=== PATIENT | female | born 1985 | race African-American/Black ===

== ENCOUNTER 2017-08-19 22:00 | Inpatient (IN) | payer OTHER ==
--- OUTSIDE RECORDS SUMMARY | 2017-08-19 22:03 | XMS | Clinical Summary ---
:1985 Author Organization [facility] Address [address] [place] [address] Phone Care Team Providers Name Role Phone Bran Mcginnis Primary Care Provider tel Allergies No Known Allergies Current Medications Prescription Sig. Disp. Refills Start Date End Date Status carvedilol (COREG) 25 Take 12.5 mg by mouth Active MG tablet 2 (two) times a day with meals. hydrALAZINE Take 100 mg by mouth Active (APRESOLINE) 100 MG 3 (three) times a tablet day. NIFEdipine CC (ADALAT Take 90 mg by mouth Active CC) 60 MG 24 hr tablet daily. lisinopril Take 20 mg by mouth 2 Active (PRINIVIL,ZESTRIL) 10 (two) times a day. mg tablet sevelamer (RENVELA) 800 Take 1,600 mg by Active mg tablet mouth 2 (two) times a day before meals. insulin GLARGINE Inject 12 Units under Active (LANTUS) 100 unit/mL the skin 2 (two) injection (vial) times a day. insulin lispro Inject under the skin Active (HumaLOG) 100 unit/mL 3 (three) times a day injection before meals. Per sliding scale. atropine 1 % ophthalmic Administer 1 drop to Active solution the right eye 2 (two) times a day. brimonidine-timolol Administer 1 drop to Active (COMBIGAN) 0.2-0.5 % both eyes every 12 ophthalmic solution (twelve) hours. prednisoLONE acetate Administer 1 drop to Active (PRED FORTE) 1 % the right eye 2 (two) ophthalmic suspension times a day. dorzolamide (TRUSOPT) 2 Administer 1 drop to Active % ophthalmic solution the right eye 2 (two) times a day. Active Problems Problem Noted Date ESRD (end stage renal disease) on dialysis 07/05/2017 Hypertension 07/05/2017 Overview: age 22 Type 1 diabetes mellitus 05/22/2017 Encounters Date Type Specialty Care Team Description 08/17/2017 Documentation Transplant SEBASTIAN Caba RN 08/14/2017 Hospital Encounter Procedural Omari Wills, Abnormal stress test Cardiology 08/14/2017 Procedure Pass Procedural Cardiology 08/14/2017 Surgery Procedural AttOmari wynn, Cv left heart cath w Cardiology MD lv gram cors [25054 (CPT)] 08/07/2017 Lab Lab Jesus Griffin MD End stage renal disease (Primary Dx);Preop examination 08/01/2017 Documentation Transplant Barb Hernandez LCSW 07/19/2017 Hospital Encounter Radiology Jovan Alarcon End stage renal MD Patel disease;Type 1 diabetes mellitus with complication 07/19/2017 Hospital Encounter Procedural Jovan Alarcon stage renal Cardiology MD Patel disease;Type 1 diabetes mellitus with complication 07/19/2017 Hospital Encounter Radiology Jovan Alarcon stage renal MD Patel disease;Type 1 diabetes mellitus with complication 07/19/2017 Hospital Encounter Transplant Jovan Alarcon End stage renal MD Patel disease;Type 1 diabetes mellitus with complication 07/19/2017 Telephone Transplant Krupa Farrar MA Appointment Inquiry 07/19/2017 Telephone Transplant Dustin, Speak to Charge RASHI Ying Nurse 07/06/2017 Documentation Transplant George, Consent Forms [place] (Scanned Consent For Kidney/Pancreas Transplant Evaluation, Pre Txp Education & LYNN forms in Media. 07-05-2017 ) 07/05/2017 Hospital Encounter Transplant Jovan Alarcon Type 1 steven Sweeney MD mellitus with chronic kidney disease on chronic dialysis (Primary Dx);Essential hypertension;ESRD (end stage renal disease) on dialysis 07/05/2017 Hospital Encounter Transplant Jovan Alarcon MD 07/05/2017 Hospital Encounter Transplant Jovan Alarcon MD Guerrero, Alex 07/05/2017 Hospital Encounter Transplant Jovan Alarcon MD 07/05/2017 Hospital Encounter Transplant Jovan Alarcon MD 07/05/2017 Hospital Encounter Transplant Jovan Alarcon 1 steven Sweeney MD mellitus with complication;End stage renal disease 07/05/2017 Orders Only Transplant Gertrudis End stage renal UVALDO Day disease (Primary Dx);Type 1 diabetes mellitus with complication 06/26/2017 Orders Only Transplant Gertrudis, End stage renal UVALDO Day disease (Primary Dx);Type 1 diabetes mellitus with complication 2017 Hospital Encounter Transplant Jovan Alarcon Canceled (Patient) MD Cale Sweeney Alex 2017 Hospital Encounter Transplant Jovan Alarcon Canceled (Patient) MD Patel 2017 Hospital Encounter Transplant Jovan Alarcon Canceled (Patient) MD Patel 2017 Hospital Encounter Transplant Jovan Alarcon Canceled (Patient) MD Patel 2017 Hospital Encounter Transplant Jovan Alarcon Canceled (Patient) MD Patel 06/13/2017 Telephone Transplant Dustin R/S Appt RASHI Ying 06/11/2017 Documentation Transplant CaleHuey TXP - [facility] COMM - RENAL/PANCREAS EVAL APPRVL 05/22/2017 Telephone Transplant Faith Desai Order Dilip Meredith MA 05/22/2017 Orders Only Transplant Gertrudis, End stage renal UVALDO Day disease (Primary Dx);Type 1 diabetes mellitus with complication 05/22/2017 Telephone Transplant Vandana Collazo MA Referral - Kidney/Pancreas Txp from Last 3 Months Family History Medical History Relation Name Comments Diabetes Maternal Grandfather Diabetes Maternal Grandmother Relation Name Status Comments Maternal Grandfather Maternal Grandmother Social History Tobacco Use Types Packs/Day Years Used Date Never Smoker Smokeless Tobacco: Never Used Alcohol Use Drinks/Week oz/Week Comments No Sex Assigned at Date Recorded Not on file Last Filed Vital Signs Vital Sign Reading Time Taken Blood Pressure 154/94 08/14/2017 11:30 PM CDT Pulse 73 08/14/2017 11:30 PM CDT Temperature 36.2 C (97.2 F) 08/14/2017 7:38 PM CDT Respiratory Rate 19 08/14/2017 11:30 PM CDT Oxygen Saturation 100% 08/14/2017 11:30 PM CDT Inhaled Oxygen Concentration - - Weight 61.2 kg (135 lb) 08/14/2017 3:29 PM CDT Height 162.6 cm (5' 4") 08/14/2017 3:29 PM CDT Body Mass Index 23.17 08/14/2017 3:29 PM CDT Plan of Treatment Health Maintenance Due Date Last Done Comments FOOT EXAM 1994 OPHTHALMOLOGY EXAM 1994 URINE MICROALBUMIN 1994 INFLUENZA VACCINE 05/22/2017 PAP SMEAR 07/19/2020 07/19/2017 Procedures Procedure Name Priority Date/Time Associated Comments Diagnosis CV LEFT HEART CATH Routine 08/14/2017 7:23 PM Abnormal stress Results for this LV GRAM WITH CORS CDT test procedure are in theresults section. from Last 3 Months Results Potassium level (08/14/2017 7:50 PM) Component Value Ref Range Potassium 5.2(H) 3.5 - 5.0 mEq/L Specimen Performing Laboratory Plasma specimen [facility] DEPARTMENT OF PATHOLOGY AND GENOMIC MEDICINE [address] [place] [phone] POC glucose (08/14/2017 7:49 PM)Only the most recent of2 resultswithin the time period is included. Component Value Ref Range POC glucose 154(H) 65 - 99 mg/dL Comment: Meter ID: [id number] Tool Design Drafter: Rikki Jenkins Specimen Performing Laboratory [facility] DEPARTMENT OF PATHOLOGY AND GENOMIC MEDICINE [address] [place] [phone] Cv wheelabrator operator procedure (08/14/2017 7:23 PM) Component Value Ref Range Cath EF Estimated 53 % Specimen Performing Laboratory [address] [address] Narrative Selective coronary arteriography left ventriculography via right groin without complications. Coronary arteries were normal. There is no gradient across the aortic valve and no mitral valve insufficiency. Left ventricular end-diastolic pressure was 14 mmHg. Partial thromboplastin time, activated (08/14/2017 4:30 PM)Only the most recent of2 resultswithin the time period is included. Component Value Ref Range PTT 32.2 23.0 - 36.0 sec Comment: PTT therapeutic range for unfractionated heparin is 61.0-112.0 seconds which corresponds to Anti-Xa 0.3-0.7 U/ml. Specimen Performing Laboratory Blood [facility] DEPARTMENT OF PATHOLOGY AND GENOMIC MEDICINE [address] [place] [phone] Prothrombin time with INR (08/14/2017 4:30 PM)Only the most recent of2 resultswithin the time period is included. Component Value Ref Range Prothrombin time 13.9 12.0 - 15.0 sec INR 1.1 Comment: The International Normalized Ratio (INR) is a therapeutic monitoring tool for patients who are stable on oral anticoagulant therapy. An INR of 2.0-3.0 is suggested for deep vein thrombosis/pulmonary embolism. Specimen Performing Laboratory Blood [facility] DEPARTMENT OF PATHOLOGY [facility] [address] [place] [id number] CBC with platelet and differential (08/14/2017 4:30 PM)Only the most recent of2 resultswithin the time period is included. Component Value Ref Range WBC 4.57 4.50 - 11.00 k/uL RBC 3.45(L) 4.20 - 5.50 m/uL HGB 11.2(L) 12.0 - 16.0 g/dL HCT 34.2(L) 37.0 - 47.0 % MCV 99.1 82.0 - 100.0 fL MCH 32.5 27.0 - 34.0 pg MCHC 32.7 31.0 - 37.0 g/dL RDW - SD 48.9 37.0 - 55.0 fL MPV 9.9 8.8 - 13.2 fL Platelet count 221 150 - 400 k/uL Nucleated RBC 0.00 /100 WBC Neutrophils 54.1 39.0 - 69.0 % Lymphocytes 30.6 25.0 - 45.0 % Monocytes 8.8 0.0 - 10.0 % Eosinophils 5.9(H) 0.0 - 5.0 % Basophils 0.4 0.0 - 1.0 % Immature granulocytes 0.2Comment:"Immature granulocytes" 0.0 - 1.0 % (promyelocytes, myelocytes, metamyelocytes) Specimen Performing Laboratory Blood [facility] DEPARTMENT OF PATHOLOGY AND [facility] [address] [place] [address] Estimated GFR (08/14/2017 3:19 PM)Only the most recent of3 resultswithin the time period is included. Component Value Ref Range GFR Non Af Amer 7(A) mL/min/1.73 m2 GFR Af Amer 8(A) mL/min/1.73 m2 Comment: Chronic kidney disease: <60 mL/min/1.73m2 Kidney failure: <15 mL/min/1.73m2 The estimated GFR is calculated from the IDMS-traceable Modification of Diet in Renal Disease Equation. The accuracy of the calculation is poor when the creatinine is normal. Calculated values >90 mL/min/1.73m2 are not reported. This equation has not been validated in children (<18 years), women, the elderly (>70 years), or ethnic groups other than Caucasians and Americans. Specimen Performing Laboratory Plasma specimen [facility] DEPARTMENT OF PATHOLOGY AND GENOMIC MEDICINE [address] [place] [phone] Basic metabolic panel (08/14/2017 3:19 PM) Component Value Ref Range Sodium 137 135 - 148 mEq/L Potassium 5.7(H) 3.5 - 5.0 mEq/L Chloride 91(L) 98 - 112 mEq/L CO2 26 24 - 31 mEq/L Anion gap 20(H) 7 - 15 mEq/L Comment: Starting from January , anion gap calculation no longer incorporates potassium. Please note the change. BUN 45(H) 6 - 20 mg/dL Creatinine 7.2(H) 0.5 - 0.9 mg/dL Glucose 328(H) 65 - 99 mg/dL Calcium 8.9 8.3 - 10.2 mg/dL Specimen Performing Laboratory Plasma specimen [facility] DEPARTMENT OF PATHOLOGY [facility] [address] [place] [address] Urinalysis, automated with microscopy (08/07/2017 4:42 PM) Component Value Ref Range Color, UA Straw Appearance, UA Clear Specific gravity, UA 1.009 1.001 - 1.035 pH, UA 9.0 5.0 - 8.5 Protein, UA 3+(A) Negative Glucose, UA 3+(A) Negative Ketones, UA Negative Negative Bilirubin, UA Negative Negative Blood, UA Negative Negative Nitrite, UA Negative Negative Urobilinogen, UA <2.0 <2.0 Leukocyte esterase, UA Negative Negative Epithelial cells, UA 4 /HPF WBC, UA 3 0 - 4 /HPF RBC, UA 1 0 - 2 /HPF Bacteria, UA Few None seen Hyaline casts, UA 1 /LPF Yeast, UA None seen Yeast with pseudohyphae, UA None seen Specimen Performing Laboratory Urine [facility] DEPARTMENT OF [facility]OLOGY [facility] [address] [place] [address] PV carotid duplex - Bilateral (07/19/2017 9:21 AM) Specimen Performing Laboratory [facility] [address] [place] [address] Narrative Vascular Ultrasound Laboratory Carotid Artery Duplex Report [address] [place] [address] [address] For quality systems engineer purposes, the categorization of the degree of the stenosis of this exam is based on criteria described in the IAC carotid stenosis grading white paper( www.intersocietal.org/Vascular) and Debra Caruso., Js Vargas., et al. Carotid artery stenosis: armas-scale and Doppler US diagnosis--Society of Radiologists in Ultrasound Consensus Conference. Radiology. 2003 Nov; 229(2):340-6. Pat.Name:JOSEPH CORDERO Pat.ID:[id number] .Date: 07/19/2017 Refer.MD:JOVAN ALARCON MD Exam Time: 8:58:00 AMStudy Type:Carotid DOBAge:1985,32Y Sex: FEMALE Sonogrphr: Rolo Callahan. Stat.:Outpatient TapeVol: [place], CPT - 4: 76672 Echo Event ID:[id number] Order ID:[id number] Reason for Study:Pre-operative cardiovascular exam for kidney pancreas transplant evaluation. History of ESRD status post AV fistula creation, hypertension and diabetes. Race:B SUMMARY: PHYSICAL ASSESSMENT BloodPulsesCarotid Pressure Carotid TemporalBruit Right 196/118 ++0 Left AV fistula ++0 CAROTID ARTERY SCAN RIGHT:There is smooth intimal lining in the common carotid ,bulb, internal and external carotid artery. Colorflow is normal. The mid to distal internal carotid artery is not visualized due to high carotid bifurcation. LEFT: There is smooth intimal lining in the common carotid ,bulb, internal and external carotid artery. Colorflow is normal. The distal internal carotid artery is tortuous. PRELIMINARY FINDINGS 1. Normal carotid duplex exam. 2. The right mid to distal internal carotid artery is not visualized due to high carotid bifurcation. 3. The left distal internal carotid artery is tortuous. PHYSICIAN INTERPRETATION 1.Bilateral carotid artery examination demonstrates no evidence of plaque or occlusive disease. Carotid Findings:RightLeft Verteb.Flw AntegradeAntegrade Subclavian TriphasicDisturbed MEASUREMENTS: DOPPLER Left CCA Dist CCA Dist PSV73.5 cm/sCCA Dist EDV18.1 cm/s Left CCA Mid CCA Mid PSV 92.7 cm/sCCA Mid EDV 20.4 cm/s Left CCA Prox CCA Prox PSV 129 cm/sCCA Prox EDV16.7 cm/s Left ICA Dist ICA Dist PSV 112 cm/Annie Dist EDV37.5 cm/s Left ICA Mid ICA Mid PSV 97.4 cm/Annie Mid EDV 43.2 cm/s Left ICA Prox ICA Prox PSV82.2 cm/Annie Prox EDV39.3 cm/s Left ECA Prox ECA Prox PSV59 cm/sECA Prox EDV9.52 cm/ s Left Vertebral Vertebral DAG070 cm/sVertebral EDV 28.5 cm/s Right CCA Dist CCA Dist PSV68.7 cm/sCCA Dist EDV15.2 cm/s Right CCA Mid CCA Mid PSV 83.8 cm/sCCA Mid EDV 15.8 cm/s Right CCA Prox CCA Prox PSV 100 cm/sCCA Prox EDV14.8 cm/s Right ECA Prox ECA Prox PSV54.6 cm/sECA Prox EDV10.3 cm/s Right ICA Prox ICA Prox PSV67.5 cm/Annie Prox EDV27.6 cm/s Right Vertebral Vertebral PSV 76.8 cm/sVertebral EDV 24 cm/s Right ICA/CCA Ratio ICA/CCA PSV0.805 Left ICA/CCA Ratio ICA/CCA PSV0.887 Signed 07/19/2017 01:24 PM Jacob Vazquez MD Procedure Note Interface, Radiology Results In - 07/19/2017 1:25 PM CDT Vascular Ultrasound Laboratory Carotid Artery Duplex Report [address] [place] [address] For quality systems engineer purposes, the categorization of the degree of thestenosis of this exam is based on criteria described in the IAC carotidstenosis grading white paper( www.intersocietal.org/Vascular) and Debra Caruso., Js Vargas., et al. Carotid artery stenosis: armas-scale and Doppler US diagnosis--Society ofRadiologists in Ultrasound Consensus Conference. Radiology. 2003 Aug;229(2):340-6. Pat.Name: JOSEPH CORDERO.ID: [id number] .Date: 07/19/2017 Refer.MD: JOVAN ALARCON MD Exam Time: 8:58:00 AM Study Type:Carotid Age: 7 1985,32Y Sex: FEMALE Sonogrphr: Mera Cantrell RVT Pat. Stat.:Outpatient Tape Vol: [place], CPT - 4: 05002 Echo Event ID:[id number] Order ID: [id number] Reason for Study:Pre-operative cardiovascular exam for kidney pancreas transplant evaluation. History of ESRD status post AV fistula creation, hypertension and diabetes. Race: B SUMMARY: PHYSICAL ASSESSMENT Blood Pulses Carotid Pressure Carotid Temporal Bruit Right 196/118 + + 0 Left AV fistula + + 0 CAROTID ARTERY SCAN RIGHT: There is smooth intimal lining in the common carotid ,bulb, internal and external carotid artery. Colorflow is normal. The mid to distal internal carotid artery is not visualized due to high carotid bifurcation. LEFT: There is smooth intimal lining in the common carotid ,bulb, internal and external carotid artery. Colorflow is normal. The distal internal carotid artery is tortuous. PRELIMINARY FINDINGS 1. Normal carotid duplex exam. 2. The right mid to distal internal carotid artery is not visualized due to high carotid bifurcation. 3. The left distal internal carotid artery is tortuous. PHYSICIAN INTERPRETATION 1. Bilateral carotid artery examination demonstrates no evidence of plaque or occlusive disease. Carotid Findings: Right Left Verteb.Flw Antegrade Antegrade Subclavian Triphasic Disturbed MEASUREMENTS: DOPPLER Left CCA Dist CCA Dist PSV 73.5 cm/s CCA Dist EDV 18.1 cm/s Left CCA Mid CCA Mid PSV 92.7 cm/s CCA Mid EDV 20.4 cm/s Left CCA Prox CCA Prox PSV 129 cm/s CCA Prox EDV 16.7 cm/s Left ICA Dist ICA Dist PSV 112 cm/s ICA Dist EDV 37.5 cm/s Left ICA Mid ICA Mid PSV 97.4 cm/s ICA Mid EDV 43.2 cm/s Left ICA Prox ICA Prox PSV 82.2 cm/s ICA Prox EDV 39.3 cm/s Left ECA Prox ECA Prox PSV 59 cm/s ECA Prox EDV 9.52 cm/s Left Vertebral Vertebral PSV 104 cm/s Vertebral EDV 28.5 cm/s Right CCA Dist CCA Dist PSV 68.7 cm/s CCA Dist EDV 15.2 cm/s Right CCA Mid CCA Mid PSV 83.8 cm/s CCA Mid EDV 15.8 cm/s Right CCA Prox CCA Prox PSV 100 cm/s CCA Prox EDV 14.8 cm/s Right ECA Prox ECA Prox PSV 54.6 cm/s ECA Prox EDV 10.3 cm/s Right ICA Prox ICA Prox PSV 67.5 cm/s ICA Prox EDV 27.6 cm/s Right Vertebral Vertebral PSV 76.8 cm/s Vertebral EDV 24 cm/s Right ICA/CCA Ratio ICA/CCA PSV 0.805 Left ICA/CCA Ratio ICA/CCA PSV 0.887 Signed 07/19/2017 01:24 PM Jacob Vazquez MD CTA Abdomen Pelvis W And Or Wo Contrast (07/19/2017 8:50 AM) Specimen Performing Laboratory [facility] [address] [place] [address] Narrative Examination:CT ANGIOGRAM ABDOMEN PELVIS W AND OR WO CONTRAST Clinical history:"N18.6 End stage renal disease, E10.8 Type 1 diabetes mellitus with unspecified complications, pre kidney pancreas transplantATTN to illiac vessels" Comparison:There are no prior studies for comparison. Technique:Multiple CT angiographic images of the abdomen and pelvis were obtained during intravenous administration of iodinated contrast.Multiple computerized, reformatted images and 3-D volume rendered images were obtained and archived. CT scans are performed using radiation dose reduction techniques.Technical factors are evaluated and adjusted to ensure appropriate moderation of exposure.Automated dose management technologyis applied to adjust radiation exposure while achieving a diagnostic quality image. IMPRESSION: Vasculature:The bilateral iliac arterial anatomy is unremarkable.Specifically, the bilateral common, external, and internal iliac arteries are relatively free of significant atherosclerosis and are widely patent.The right and left common iliac arteries measure 10 and 10 mm in luminal diameter, respectively.The right and left external iliac arteries, proximally, measuring 7 and 8 mm in luminal diameter, respectively.More distally, krys level just above the origin of the bilateral inferior epigastric arteries, the right and left external iliac arteries again measures 7 and 8 mm in luminal diameter, respectively.The abdominal aorta and its major branches are relatively free of significant atherosclerosis and are widely patent. There is no evidence of abdominal aortic aneurysm or dissection.The superior and inferior mesenteric arteries opacify unremarkably.Imaged portions of the bilateral femoral arteries are unremarkably patent. Abdomen:The timing of the intravenous contrast bolus limits visceral evaluation. There is no retroperitoneal or mesenteric lymphadenopathy. A small, fat-containing periumbilical hernia is noted. The liver, gallbladder, right adrenal gland, spleen, and pancreas are without evidence of focal anomalies.Both kidneys are mildly atrophic but without evidence of focal abnormalities.Borderline thickening of the left adrenal gland is noted. There are no apparent bowel masses or bowel dilatation. Pelvis: There are no apparent pelvic masses or pelvic lymphadenopathy.The uterus is mildly enlarged, the shape of which suggests leiomyomata for which clinical correlation is recommended.Thereis mild and uniform thickening of the urinary bladder wall. Other:Within the imaged portions of both lung bases, streaky atelectasis is noted without evidence of pulmonary nodules or discrete infiltrates.Within the imaged bones, there are no acute abnormalities identified. [facility]-[id number] Procedure Note Hm Interface, Radiology Results Incoming - 07/19/2017 9:52 AM CDT Examination: CT ANGIOGRAM ABDOMEN PELVIS W AND OR WO CONTRAST Clinical history: "N18.6 End stage renal disease, E10.8 Type 1 diabetesmellitus with unspecified complications, pre kidney pancreas transplantATTN to illiac vessels" Comparison: There are no prior studies for comparison. Technique: Multiple CT angiographic images of the abdomen and pelvis wereobtained during intravenous administration of iodinated contrast.Multiple computerized, reformatted images and 3-D volume rendered imageswere obtained and archived. CT scans are performed using radiation dose reduction techniques.Technical factors are evaluated and adjusted to ensure appropriatemoderation of exposure. Automated dose management technology is appliedto adjust radiation exposure while achieving a diagnostic quality image. IMPRESSION: Vasculature: The bilateral iliac arterial anatomy is unremarkable.Specifically , the bilateral common, external, and internal iliac arteriesare relatively free of significant atherosclerosis and are widely patent.The right and left common iliac arteries measure 10 and 10 mm in luminal diameter, respectively. Theright and left external iliac arteries, proximally, measuring 7 and 8 mmin luminal diameter, respectively. More distally, at a level just abovethe origin of the bilateral inferior epigastric arteries, the right and left external iliac arteries againmeasures 7 and 8 mm in luminal diameter, respectively. The abdominalaorta and its major branches are relatively free of significantatherosclerosis and are widely patent. There is no evidence of abdominal aortic aneurysm or dissection. The superior andinferior mesenteric arteries opacify unremarkably. Imaged portions of thebilateral femoral arteries are unremarkably patent. Abdomen: The timing of the intravenous contrast bolus limits visceralevaluation. There is no retroperitoneal or mesenteric lymphadenopathy. A small, fat-containing periumbilical hernia is noted. The liver, gallbladder, right adrenal gland, spleen, and pancreas arewithout evidence of focal anomalies. Both kidneys are mildly atrophic butwithout evidence of focal abnormalities. Borderline thickening of theleft adrenal gland is noted. There are no apparent bowel masses or bowel dilatation. Pelvis: There are no apparent pelvic masses or pelvic lymphadenopathy.The uterus is mildly enlarged, the shape of which suggests leiomyomata forwhich clinical correlation is recommended. There is mild and uniformthickening of the urinary bladder wall. Other: Within the imaged portions of both lung bases, streaky atelectasisis noted without evidence of pulmonary nodules or discrete infiltrates.Within the imaged bones, there are no acute abnormalities identified. [id number] XR Chest 2 Vw (07/19/2017 8:47 AM) Specimen Performing Laboratory [address] [address] Narrative EXAMINATION:XR CHEST 2 VW CLINICAL HISTORY:32 years Female N18.6 End stage renal disease, E10.8 Type 1 diabetes mellitus with unspecified complications, pre kidney transplant OPC COMPARISON:None IMPRESSION: 1.Heart size is mildly prominent. Central vasculature is normal. 2.The lungs are clear. 3.Osseous structures are intact. [id number] Procedure Note Interface, Radiology Results Incoming - 07/19/2017 8:53 AM CDT EXAMINATION: XR CHEST 2 VW CLINICAL HISTORY:32 years Female N18.6 End stage renal disease, E10.8Type 1 diabetes mellitus with unspecified complications, pre kidneytransplant OPC COMPARISON: None IMPRESSION: 1. Heart size is mildly prominent. Central vasculature is normal. 2. The lungs are clear. 3. Osseous structures are intact. [id number] Low resolution full typing by SSO (07/19/2017 7:15 AM) Component Value Ref Range Low resolution full typing by SSO See link below for PDF Lab Report Specimen Performing Laboratory [facility] DEPARTMENT OF PATHOLOGY AND GENOMIC MEDICINE [address] [place] [address] C1Q class 1& 2 antibody (07/19/2017 7:15 AM) Component Value Ref Range C1Q class 1 & 2 antibody See link below for PDF Lab Report Specimen Performing Laboratory [facility] DEPARTMENT OF PATHOLOGY AND GENOMIC MEDICINE [address] [place] [address] HSV 1& 2 glycoprotein G Ab, IgG (07/19/2017 7:15 AM) Component Value Ref Range HSV 1 glycoprotein G Ab, IgG NegativeComment:Negative: No IgG antibodies to Negative HSV1 detected. HSV 2 glycoprotein G Ab, IgG Positive(A) Negative Comment: Positive results may indicate current or past HSV infection. For acute illness, viral PCR and IgM testing are recommended. Individuals infected with HSV may not exhibit detectable antibodies in cases of early infection. Specimen Performing Laboratory Serum [facility] DEPARTMENT OF PATHOLOGY AND GENOMIC MEDICINE [address] [place] [address] Evans-Nieves virus antibody test (07/19/2017 7:15 AM) Component Value Ref Range EBV Ab to viral capsid Ag, IgG POSITIVE(A) Negative EBV Ab to viral capsid Ag, IgM POSITIVE(A) Negative EBV Ab to nuclear Ag, IgG POSITIVE(A) Negative EBV Ab to early (D) Ag, IgG Negative Negative Comment: Interpretive Information: Infection StatusVCA_IgG No Previous_ Acute + Recent + Past + Reactivation+ Infection StatusVCA_IgM No Previous_ Acute + Recent +/- Past - Reactivation+/- Infection Status EA No Previous_ Acute +/- Recent +/- Past - Reactivation+ Infection Status EBNA No Previous_ Acute - Recent +/- Past + Reactivation+ Specimen Performing Laboratory Serum [facility] DEPARTMENT OF PATHOLOGY AND GENOMIC MEDICINE [address] [place] [address] TB T-SPOT (07/19/2017 7:15 AM) Component Value Ref Range TB T-SPOT SEE NOTE Comment: T-SPOT TUBERCULOSIS Nil Control: 0 Panel A: 4 Panel B: 0 Positive Control: TMTC Result:NEGATIVE NOTE: TMTC INDICATES TOO MANY SPOTS TO COUNT SAT INDICATES THE WELL WAS SATURATED RESULTS INTERPRETATION: RESULTS ARE NEGATIVE WHEN (PANEL A-NIL) OR (PANEL B-NIL) <=4 SPOTS, INCLUDING VALUES LESS THAN ZERO. RESULTS ARE POSITIVE WHEN (PANEL A-NIL) OR (PANEL B-NIL) >=8 SPOTS RESULTS ARE BORDERELINE WHEN EITHER (PANEL A-NIL) OR (PANEL B-NIL)=5,6,0R 7. THE TEST IS INVALID WHEN EITHER OF THE FOLLOWING CONDITIONS IS MET: 1.) THE NIL CONTROL HAS >10 SPOTS 2.) THE MITOGEN (POSITIVE CONTROL) HAS <20 SPOTS AND BOTH (PANEL A-NIL) AND (PANEL B-NIL) <=4 SPOTS. M. TUBERCULOSIS INFECTION UNLIKELY, BUT CANNOT BE EXCLUDED ESPECIALLY WHEN: 1. ANY ILLNESS IS CONSISTENT WITH TB DISEASE. 2. LIKELIHOOD OF PROGRESSION TO DISEASE (e.g. DUE TO IMMUNOSUPPRESSION) IS INCREASED. LIMITATIONS: DIAGNOSING OR EXCLUDING TUBERCULOSIS DISEASE, AND ASSESSING THE PROBABILITY OF LTBI, REQUIRES A COMBINATION OF EPIDEMIOLOGICAL, HISTORICAL, MEDICAL, AND DIAGNOSTIC FINDINGS THAT SHOULD BE TAKEN INTO ACCOUNT WHEN INTERPRETING T-SPOT.TB REFER TO THE MOST RECENT CDC GUIDANCE (HTTP: //WWW.CDC.GOV/NCHSTP/TB) FOR DETAILED RECOMMENDATIONS ABOUT DIAGNOSING TB INFECTION (INCLUDING DISEASE) AND SELECTING PERSONS FOR TESTING. 1.) A FALSE NEGATIVE RESULT CAN BE CAUSED BY INCORRECT BLOOD SAMPLE COLLECTION OR IMPROPER HANDLING OF THE SPECIMEN, AFFECTING LYMPHOCYTE FUNCTION 2.) THE PERFORMANCE OF T-SPOT.TB HAS NOT BEEN ADEQUATELY EVALUATED WITH SPECIMENS FROM INDIVIDUALS YOUNGER THANAGE 17 YEARS, IN WOMEN, AND IN PATIENTS WITH HEMOPHILIA. 3-) A FALSE POSITIVE RESULT WAS OBTAINED FOR T-SPOT.TB WHEN TESTED IN SUBJECTS WITH M. XENOPI, M. KANSASII, AND M. GORDONAE.WHILE ESAT-6 AND CFP-10 ANTIGENS ARE ABSENT FROM BCG STRAINS OF M. BOVIS AND FROM MOST ENVIRONMENTAL MYCOBACTERIA, IT IS POSSIBLE THAT A POSITIVE T-SPOT.TB RESULT MAY BE DUE TO INFECTION WITH M. KANSASII, M. SZULGAI, M. GORDONAE, OR M. MARINUM. ALTERNATIVE TESTS WOULD BE REQUIRED IF THESE INFECTIONS ARE SUSPECTED. 4.) A NEGATIVE TEST RESULT DOES NOT EXCLUDE THE POSSIBILITY OF EXPOSURE TO, OR INFECTION WITH, M. TUBERCULOSIS. PATIENTS WITH RECENT EXPOSURE TO TB INFECTED INDIVIDUALS EXHIBITING A NEGATIVE T-SPOT.TB RESULT SHOULD BE CONSIDERED FOR RETESTING WITHIN 6 WEEKS OR IF OTHER RELEVANT CLINICAL SYMPTOMS INDICATE POSSIBLE INFECTION. 5.) A POSITIVE TEST RESULT DOES NOT RULE IN ACTIVE TB DISEASE; OTHER TESTS SHOULD BE PERFORMED TO CONFIRM THE DIAGNOSIS OF ACTIVE TB DISEASE SUCH SPUTUM SMEAR AND CULTURE, PCR AND CHEST RADIOGRAPHY. 6.) T-SPOT.TB TEST HAS NOT BEEN EVALUATED IN SUBJECTS WHO HAVE RECEIVED >1 MONTH OF ANTI-TB THERAPY. 7. ) REFRIGERATED AND FROZEN SAMPLES ARE NOT RECOMMENDED FOR USE WITH T=SPOT.TB TEST. Performed by: [facility] Molecular Tuberculosis Laboratory [facility] ([id number]) [place], [place] [address] Specimen Performing Laboratory Blood [facility] [address] [place] [address] Single antigen beads (07/19/2017 7:15 AM) Component Value Ref Range Single antigen beads See link below for PDF Lab Report Specimen Performing Laboratory [facility] DEPARTMENT OF PATHOLOGY AND GENOMIC MEDICINE [address] [place] [address] HSV type 1/2 combined Ab, IgM (07/19/2017 7:15 AM) Component Value Ref Range HSV 1/2 combined Ab, IgM 0.57 <=0.89 IV Comment: INTERPRETIVE INFORMATION: Herpes Simplex Virus Type 1 and/or 2 Antibodies, IgM by GURWINDER 0.89 IV or Less .......... Not Detected 0.90 - 1.09 IV ........... Indeterminate- Repeat testing in 10-14 days may be helpful. 1.10 IV or Greater ....... Detected-IgM antibody to HSV detected, which may indicate a current or recent infection. However, low levels of IgM antibodies may occasionally persist for more than 12 months post- infection. Performed by [facility], [address] [place] [address] www.[employer], Sukumar Henning MD - Lab. Director Specimen Performing Laboratory Serum [facility] [address] [place] [address] Homocystine, plasma (07/19/2017 7:15 AM) Component Value Ref Range Homocysteine 26.4(H) 0.0 - 15.0 umol/L Comment: The risk for coronary vascular disease increases progressively with homocysteine concentration.A 3.4 times greater risk is associated with a homocysteine concentration of greater than 15.8 umol/L as compared to a concentration below 14.1 umol/L. Specimen Performing Laboratory Plasma specimen [facility] DEPARTMENT OF PATHOLOGY AND GENOMIC MEDICINE [address] [place] [address] HLA autologous crossmatch, AHG (07/19/2017 7:15 AM) Component Value Ref Range HLA autologous crossmatch See link below for PDF Lab Report Specimen Performing Laboratory [facility] DEPARTMENT OF PATHOLOGY AND GENOMIC MEDICINE [address] [place] [address] Cytomegalovirus Ab, IgM (07/19/2017 7:15 AM) Component Value Ref Range Cytomegalovirus Ab, IgM NegativeComment:Negative: CMV IgM antibodies were Negative not detected. Specimen Performing Laboratory Serum [facility] DEPARTMENT OF PATHOLOGY AND GENOMIC MEDICINE [address] [place] [address] Prothrombin mutation, factor II, by PCR (07/19/2017 7:15 AM) Component Value Ref Range Prothrombin gene mutation Normal Normal Prothrombin gene mutation See link below for PDF Lab ReportComment: Specimen Performing Laboratory Blood [facility] DEPARTMENT OF PATHOLOGY AND GENOMIC MEDICINE [address] [place] [address] ABORh - transplant (07/19/2017 7:15 AM) Component Value Ref Range ABO grouping O Rh type POS Specimen Performing Laboratory Blood [facility] DEPARTMENT OF PATHOLOGY AND GENOMIC MEDICINE [address] [place], [place] [address] [address] Functional protein S (07/19/2017 7:15 AM) Component Value Ref Range Functional protein S 84 58 - 160 % Comment: Functional Protein S performed.If result is decreased Total and Free Protein S Antigen will be performed. Specimen Performing Laboratory Blood [facility] DEPARTMENT OF PATHOLOGY AND [address] [address] Functional protein C (07/19/2017 7:15 AM) Component Value Ref Range Functional protein C 106 70 - 165 % Specimen Performing Laboratory Blood [facility] DEPARTMENT OF PATHOLOGY AND [address] [address] Lupus anticoagulant panel (07/19/2017 7:15 AM) Component Value Ref Range Prothrombin time 12.7 12.0 - 15.0 sec INR 0.9 Comment: The International Normalized Ratio (INR) is a therapeutic monitoring tool for patients who are stable on oral anticoagulant therapy. An INR of 2.0-3.0 is suggested for deep vein thrombosis/pulmonary embolism. PTT 26.5 23.0 - 36.0 sec Comment: PTT therapeutic range for unfractionated heparin is 61.0-112.0 seconds which corresponds to Anti-Xa 0.3-0.7 U/ml. PTT lupus anticoagulant 27.5 27.0 - 38.0 sec Comment: Lupus anticoagulant (LA) panel consists of PT, PTT, PTT-LA, and DRVVT. If the PTT-LA is above the normal range, the hexagonal phospholipid will be performed. If the DRVVT is above the normal range, the DRVVC confirmatory test will be performed. A normal result for both the DRVVT and the PTT-LA means the patient is negative for lupus anticoagulant. The patient is considered positive for lupus anticoagulant if either the Ratio SCR/CONF or the hexagonal phospholipid is high (positive) on two occassions at least six weeks apart. Clinical confirmation is also required for diagnosis. DRVVT 34.9 29.0 - 46.0 sec Specimen Performing Laboratory Blood [facility] DEPARTMENT OF PATHOLOGY AND [address] [address] Cytomegalovirus Ab, IgG (07/19/2017 7:15 AM) Component Value Ref Range Cytomegalovirus Ab, IgG Positive(A) Negative Comment: Positive; IgG antibody to CMV detected which may indicate exposure to CMV infection. Specimen Performing Laboratory Serum [facility] DEPARTMENT OF PATHOLOGY AND [facility] MED[facility]INE [address] [place] [address] Cardiolipin antibodies (07/19/2017 7:15 AM) Component Value Ref Range Cardiolipin IgG 3 0 - 14 GPL Comment: Negative=<15 GPL Indeterminate=15-20 GPL Positive=>20 GPL Cardiolipin IgM 9 0 - 12 MPL Comment: Negative=<13 MPL Indeterminate=13-20 MPL Positive=>20 MPL Specimen Performing Laboratory Blood [facility] DEPARTMENT OF PATHOLOGY [address] [address] Factor V leiden by PCR (07/19/2017 7:15 AM) Component Value Ref Range Factor V Leiden Normal Factor V Leiden See link below for PDF Lab ReportComment: Specimen Performing Laboratory Blood [facility] OF PATHOLOGY [address] [address] Fibrinogen (07/19/2017 7:15 AM) Component Value Ref Range Fibrinogen 371 200 - 450 mg/dL Specimen Performing Laboratory Blood [facility] DEPARTMENT OF PATHOLOGY [address] [address] Antithrombin III level (07/19/2017 7:15 AM) Component Value Ref Range Antithrombin III 109 80 - 130 % Specimen Performing Laboratory Blood [facility] DEPARTMENT OF PATHOLOGY [address] [address] Triglycerides (07/19/2017 7:15 AM) Component Value Ref Range Triglycerides 104 <150 mg/dL Specimen Performing Laboratory Plasma specimen [facility] DEPARTMENT OF PATHOLOGY [address] [address] Phosphorus level (07/19/2017 7:15 AM) Component Value Ref Range Phosphorus 5.1(H) 2.4 - 4.5 mg/dL Specimen Performing Laboratory Plasma specimen [facility] DEPARTMENT OF PATHOLOGY AND [facility] [address] [place] [address] Parathyroid hormone (07/19/2017 7:15 AM) Component Value Ref Range PTH 521(H) 15 - 65 pg/mL Specimen Performing Laboratory Blood [facility] DEPARTMENT OF PATHOLOGY [facility] [address] [place] [address] LDH (07/19/2017 7:15 AM) Component Value Ref Range LDH 225 87 - 225 U/L Specimen Performing Laboratory Plasma specimen [facility] DEPARTMENT OF PATHOLOGY AND [facility] [address] [place] [address] Glucose level (07/19/2017 7:15 AM) Component Value Ref Range Glucose 105(H) 65 - 99 mg/dL Specimen Performing Laboratory Plasma specimen [facility] DEPARTMENT OF PATHOLOGY AND [facility] [address] [place] [address] Creatinine level (07/19/2017 7:15 AM) Component Value Ref Range Creatinine 5.9(H) 0.5 - 0.9 mg/dL Specimen Performing Laboratory Plasma specimen [facility] OF PATHOLOGY [address] [address] Cholesterol (07/19/2017 7:15 AM) Component Value Ref Range Cholesterol 201(H) <200 mg/dL Specimen Performing Laboratory Plasma specimen [facility] OF PATHOLOGY [address] [address] Amylase level (07/19/2017 7:15 AM) Component Value Ref Range Amylase 27 13 - 53 U/L Specimen Performing Laboratory Plasma specimen [facility] DEPARTMENT OF PATHOLOGY [address] [address] Syphilis treponemal IgG (07/05/2017 7:42 AM) Component Value Ref Range Syphilis treponemal IgG Non-reactiveComment:Non-reactive: No serological Non- reactive evidence of Syphilis infection Specimen Performing Laboratory Serum [facility] DEPARTMENT OF PATHOLOGY [address] [address] Nicotine and metabolites, serum (07/05/2017 7:42 AM) Component Value Ref Range Nicotine <2.0 0.0 - 2.0 ng/mL Cotinine <2.0 0.0 - 2.0 ng/mL 6-KS-sdnemouw <5.0 0.0 - 5.0 ng/mL Comment: This test was developed and its performance characteristics determined by the Department of Pathology and Genomic Medicine, [facility]. Serum nicotine and its metabolites cotinine and 3-YQ-tcbizwaf are tested by HPLC tandem mass spectrometry. It has not been cleared or approved by FDA. The laboratory is regulated under CLIA as qualified to perform high-complexity testing. This test is used for clinical purposes. It should not be regarded as investigational or for research. Specimen Performing Laboratory Blood [facility] OF PATHOLOGY AND [facility] [address] [place] [address] IA-2 antibody (07/05/2017 7:42 AM) Component Value Ref Range IA-2 antibody 1.1(H) 0.0 - 0.8 U/mL Comment: INTERPRETIVE INFORMATION: IA-2 Antibody A value greater than 0.8 Kronus Units/mL is considered positive for IA-2 Antibodies. Kronus Units are arbitrary. Kronus Units=U/mL Performed by [facility] [address] www.[employer], Sukumar Henning MD - Lab. Director Specimen Performing Laboratory Serum [address] [address] Hepatitis B surface Ab, quantitative (07/05/2017 7:42 AM) Component Value Ref Range Hepatitis B surface Ab 75.71 IU/L Comment: The anti-HBs is greater than or equal to 10 IU/L. This patient has either had an antibody response to HBV vaccination, received a transfusion, or has recovered from HBV infection. This patient should be considered immune to hepatitis B. An anti-HBs result greater than or equal to 10 IU/L implies immunity. For post-vaccination antibody testing guidelines for the general public refer to MMWR October 13, 2005/Vol. 54(No. 16);-23, and for healthcare workers refer to MMWR October 10, 2013/Vol. 62(No. 10);-19. Reference Interval: anti-HBs 9.99 IU/L or less ....... Negative 10.00 IU/L or greater .... Positive Results greater than 1,000.00 IU/L are reported as greater than 1,000.00 IU/L. This assay should not be used for blood donor screening, associated re-entry protocols, or for screening Human Cell, Tissues and Cellular and Tissue-Based Products (HCT/P). Performed by [facility] [address] www.[employer], Sukumar Henning MD - Lab. Director Specimen Performing Laboratory Serum [address] [address] Hepatitis C antibody (07/05/2017 7:42 AM) Component Value Ref Range Hepatitis C Ab Non-reactive Non-reactive Specimen Performing Laboratory Blood [facility] DEPARTMENT OF PATHOLOGY AND GENOMIC MEDICINE [address] [place] [address] Hepatitis A antibody total (07/05/2017 7:42 AM) Component Value Ref Range Hepatitis A total Ab Non-reactive Non-reactive Specimen Performing Laboratory Blood [facility] DEPARTMENT OF PATHOLOGY AND GENOMIC MEDICINE [address] [place] [address] Drug prater 9, ser/agnieszka, scrn w/rflx to conf (07/05/2017 7:42 AM) Component Value Ref Range Amphetamines, s/p, screen Negative Cutoff 30 ng/mL Methamphetamine, s/p, screen Negative Cutoff 30 ng/mL Barbiturates, s/p, screen Negative Cutoff 75 ng/mL Benzodiazepines, s/p, screen Negative Cutoff 75 ng/mL Cocaine, s/p, screen Negative Cutoff 30 ng/mL Methadone, s/p, screen Negative Cutoff 40 ng/mL Opiates, s/p, screen Negative Cutoff 30 ng/mL Oxycodone, s/p, screen Negative Cutoff 30 ng/mL Phencyclidine, s/p, screen Negative Cutoff 15 ng/mL Cannabinoids, s/p, screen Negative Cutoff 30 ng/mL Drug screen comments, serum See Note Comment: INTERPRETIVE INFORMATION: Drug Screen 9 Panel, Serum or Plasma - Immunoassay Screen with Reflex to Mass Spectrometry Confirmation/ Quantitation 1. Methodology: Qualitative Immunoassay Screen 2. Drugs/Drug classes reported as "Positive" are automatically reflexed to mass spectrometry confirmation/quantitation testing. An immunoassay unconfirmed positive screen result may be useful for medical purposes but does not meet forensic standards. 3. The absence of expected drug(s) and/or drug metabolite(s) may indicate non-compliance, inappropriate timing of specimen collection relative to drug administration, poor drug absorption, or limitations of testing. The concentration at which the screening test can detect a drug or metabolite varies within a drug class. Specimens for which drugs or drug classes are detected by the screen are automatically reflexed to a second, more specific technology (mass spectrometry). The concentration value must be greater than or equal to the cutoff to be reported as positive. Interpretive questions should be directed to the laboratory. 4. For medical purposes only; not valid for forensic use. Test developed and characteristics determined by [facility]. See Compliance Statement B: [employer] Performed by [facility], [address] [place] [address] www.[employer], Sukumar Henning MD - Lab. Director Specimen Performing Laboratory Serum [employer] [address] [address] Glutamic acid decarboxylase Ab (07/05/2017 7:42 AM) Component Value Ref Range Glutamic acid decarb Ab 9.8(H) 0.0 - 5.0 IU/mL Comment: INTERPRETIVE INFORMATION:Glutamic Acid Decarboxylase Antibody A value greater than 5.0 IU/mL is considered positive for Glutamic Acid Decarboxylase Antibody. Performed by [facility] [address] www.[employer], Sukumar Henning MD - Lab. Director Specimen Performing Laboratory Serum [facility] [address] [place] [address] Hepatitis B core antibody total (07/05/2017 7:42 AM) Component Value Ref Range Hepatitis B core total Ab Non-reactive Non-reactive Specimen Performing Laboratory Blood [facility] DEPARTMENT OF PATHOLOGY AND [address] [address] Zinc transporter 8 antibody (07/05/2017 7:42 AM) Component Value Ref Range Zinc transporter 8 antibody <10.0 0.0 - 15.0 U/mL Comment: INTERPRETIVE INFORMATION: Zinc Transporter 8 Antibody A value greater than 15.0 Kronus Units/mL is considered positive for ZnT8 antibody. Kronus Units are arbitrary. Kronus Units=U/mL Performed by [facility] [address] www.[employer], Sukumar Henning MD - Lab. Director Specimen Performing Laboratory Serum [facility] [address] [place] [address] ABO and Rh (07/05/2017 7:42 AM) Component Value Ref Range ABO grouping O Rh type POS Specimen Performing Laboratory Blood [facility] DEPARTMENT OF PATHOLOGY AND [address] [address] C-peptide (07/05/2017 7:42 AM) Component Value Ref Range C-peptide <0.1(L) 1.1 - 4.4 ng/mL Specimen Performing Laboratory Plasma specimen [facility] DEPARTMENT OF PATHOLOGY AND [address] [address] Islet cell Ab, IgG (07/05/2017 7:42 AM) Component Value Ref Range Islet cell Ab <1:4 <1:4 Comment: INTERPRETIVE INFORMATION: Islet Cell Ab, IgG Islet cell antibodies (ICAs) are associated with type 1 diabetes (TID), an autoimmune endocrine disorder. ICAs may be present years before the onset of clinical symptoms. To calculate Juvenile Diabetes Foundation (JDF) units: multiply the titer x 5 (1:88 x 5=40 JDF Units). Test developed and characteristics determined by [facility]. See Compliance Statement A: [employer] Performed by [facility], [address] [place] [address] www.[employer], Sukumar Henning MD - Lab. Director Specimen Performing Laboratory Serum [facility] [address] [place] [address] HIV 1, 2 antibody (07/05/2017 7:42 AM) Component Value Ref Range HIV 1, 2 antibody Non-reactive Non-reactive Comment: Starting from January 18 2016, 4th generation HIV screening and confirmation assays are in use at [facility], consistent with the CDC-recommended algorithm. The screening test detects antibodies to HIV-1, HIV-2 and the p24 antigen. Positive screening results will be automatically reflexed to a HIV-1/HIV-2 differentiation assay. Indeterminant HIV-1 results will be further automatically reflexed to a nucleic acid test for detection of acute infection. Western blot will no longer be performed as a confirmation test. For a quick reference guide on the testing algorithm, please refer to: http://stacks.cdc.gov/view/cdc/62032. Specimen Performing Laboratory Blood [facility] DEPARTMENT OF PATHOLOGY AND GENOMIC MEDICINE [address] [place] [address] Hepatitis B surface antigen (07/05/2017 7:42 AM) Component Value Ref Range Hepatitis B surface Ag Non-reactive Non-reactive Specimen Performing Laboratory Blood [facility] DEPARTMENT OF PATHOLOGY AND GENOMIC MEDICINE [address] [place] [address] Hemoglobin A1c (07/05/2017 7:42 AM) Component Value Ref Range Hemoglobin A1C 7.9(H) 4.0 - 5.6 % Comment: HbA1c cutoffs for diagnosing diabetes: 4.0% - 5.6%=normal 5.7% - 6.4%=increased risk for diabetes (prediabetes) >=6.5%=diabetes Goals for glycemic control (ADA 2016) < 7.0%Target for non adults with diabetes. More or less stringent targets may be appropriate for individual patients. <7.5% Target for Children and adolescents with type 1 diabetes. Specimen Performing Laboratory Blood [facility] DEPARTMENT OF PATHOLOGY AND GENOMIC MEDICINE [address] [place] [address] Comprehensive metabolic panel (07/05/2017 7:42 AM) Component Value Ref Range Sodium 139 135 - 148 mEq/L Potassium 4.5 3.5 - 5.0 mEq/L Chloride 94(L) 98 - 112 mEq/L CO2 29 24 - 31 mEq/L Anion gap 16(H) 7 - 15 mEq/L Comment: Starting from January , anion gap calculation no longer incorporates potassium. Please note the change. BUN 29(H) 6 - 20 mg/dL Creatinine 4.6(H) 0.5 - 0.9 mg/dL Glucose 89 65 - 99 mg/dL Calcium 9.6 8.3 - 10.2 mg/dL Protein 8.2 6.3 - 8.3 g/dL Comment: 4.6-7.0 g/dL 1 week 4.4-7.6 g/dL 7 months-1year5.1-7.3 g/dL 1-2 years5.6-7.5 g/dL >3 years6.0-8.0 g/dL 18-150 6.3-8.3 g/dL Albumin 3.7 3.5 - 5.0 g/dL A/G ratio 0.8 0.7 - 3.8 Alkaline phosphatase 98 35 - 104 U/L AST 20 10 - 35 U/L ALT 39 5 - 50 U/L Total bilirubin 0.3 0.0 - 1.2 mg/dL Specimen Performing Laboratory Plasma specimen [facility] DEPARTMENT OF PATHOLOGY AND GENOMIC MEDICINE [address] [place] [id number] from Last 3 Months Insurance Payer Benefit Plan / Group Subscriber ID Type Phone Address [employer] AETNA HMO POS TRANSPLANT [id number] Transplant A[employer] AETNA PPO OPEN CHOICE [id number] PPO [place] [employer] [place] [id number] O Home: [address] [phone] [place], [place] [phone] [facility] Self 1985 Home: [address] [phone] [place] [id number]
[2017-08-19] MEDS ORDERED: Ondansetron ODT 8 MG TAB ONE (22:41)
[2017-08-19] MEDS ORDERED: Metoclopramide HCl 10 MG/2 ML VIAL ONE (23:13)
[2017-08-20 00:02] LABS: #Lymphocytes 1.1 thou/uL (1.20-3.40); #Monocytes 0.1 thou/uL (0.11-0.59); #Neutrophils 7.3 thou/uL (1.40-6.50); %Basophils 0.2 % (0.0-1.0); %Eosinophils 0.4 % (0.0-10.0); %Lymphocytes 12.8 % (21.0-51.0); %Monocytes 1.3 % (0.0-10.0); Hematocrit 39.1 % (36.0-47.0); Mean Platelet Volume 7.8 fL (7.4-10.4); Red Blood Cell (RBC) Count 3.83 mill/uL (4.20-5.40); White Blood Cell (WBC) Count 8.6 thou/uL (4.8-10.8)
[2017-08-20 00:16] LABS: Lactic Acid - Sepsis 1.8 mmol/L (0.5-2.2)
[2017-08-20 00:26] LABS: ALT (SGPT) 10 U/L (8-55); AST (SGOT) 21 U/L (5-34); Alkaline Phosphatase 87 U/L (40-150); Anion Gap 35 mmol/L (10-20); BUN (Urea Nitrogen) 64 mg/dL (7.0-18.7); Bilirubin, Total 0.5 mg/dL (0.2-1.2); Calc. Creatinine Clearance 0 mL/min (70-130); Calcium 10.1 mg/dL (7.8-10.44); Carbon Dioxide 17 mmol/L (22-29); Chloride 90 mmol/L (98-107); Estimated GFR-MDRD 5; Globulin 4.8 g/dL (2.4-3.5); Lipase 21 U/L (8-78); Magnesium 3.3 mg/dL (1.6-2.6); Protein, Total 9.8 g/dL (6.0-8.3)
[2017-08-20] MEDS ORDERED: Ondansetron HCl/PF 4 MG/2 ML Vial ONE (01:16)
[2017-08-20] MEDS ORDERED: Loratadine 10 MG TAB PO PRN (01:19)
[2017-08-20] MEDS ORDERED: Nitroglycerin 0.4 MG TAB (25 Tab Bottle) SL PRN (01:19)
[2017-08-20] MEDS ORDERED: Dextrose 5 %-0.45 % NaCl 1,000 ML IV PRN (01:19)
[2017-08-20] MEDS ORDERED: HYDROcodone/Acetaminophen 5/325 mg Tablet PO PRN (01:19)
[2017-08-20] MEDS ORDERED: CCU Electrolyte Replacement 1 EACH IVPB ONE (01:19)
[2017-08-20] MEDS ORDERED: hydrALAZINE 20 MG/ML VIAL SLOW IVP PRN (01:19)
[2017-08-20] MEDS ORDERED: Benzonatate 100 MG CAP PO PRN (01:19)
[2017-08-20] MEDS ORDERED: traMADol HCl 50 MG TAB PO PRN (01:19)
[2017-08-20] MEDS ORDERED: Senokot 8.6 MG TAB PO PRN (01:19)
[2017-08-20] MEDS ORDERED: Acetaminophen 325 MG TAB PO PRN (01:19)
[2017-08-20] MEDS ORDERED: NS 0.9% w/ 20 MEQ KCL 1,000 ML IV PRN ×2 (01:19)
[2017-08-20] MEDS ORDERED: Bisacodyl 5 MG TAB PO PRN (01:19)
[2017-08-20] MEDS ORDERED: Diabetic Tussin 200 MG/10 ML UDCUP PO PRN (01:19)
[2017-08-20] MEDS ORDERED: Sodium Chloride 0.9% 1,000 ML IV PRN ×3 (01:19)
[2017-08-20] MEDS ORDERED: Insulin Regular 100 UNITS in Sodium Chloride 0.9% 100 ML IVPB SCH (01:30)
[2017-08-20] MEDS ORDERED: Potassium Chloride 40 MEQ in Premix Bag 1 BAG IVPB PRN (01:52)
[2017-08-20] MEDS ORDERED: Potassium Chloride 40 MEQ in Sodium Chloride 0.9% 250 ML 250 ML IVPB PRN (01:52)
[2017-08-20] MEDS ORDERED: Potassium Phosphate 15 MMOL in Sodium Chloride 0.9% 250 ML 250 ML IV PRN (01:52)
[2017-08-20] MEDS ORDERED: Potassium Phosphate 9 MMOL in Sodium Chloride 0.9% 100 ML IVPB PRN (01:52)
[2017-08-20] MEDS ORDERED: Magnesium 2 GM/NS 0.9% 100 ML 2 GM in Premix Bag 1 BAG IVPB PRN (01:52)
[2017-08-20] MEDS ORDERED: Potassium Phosphate 12 MMOL in Sodium Chloride 0.9% 250 ML 250 ML IV PRN (01:52)
[2017-08-20] MEDS ORDERED: Magnesium Oxide 400 MG TAB PO PRN ×2 (01:52)
[2017-08-20] MEDS ORDERED: Potassium Chloride 20 MEQ TAB PO PRN (01:52)
[2017-08-20] MEDS ORDERED: CCU ELECTROLYTE REPLACEMENT PROTOCOL FS PRN (01:52)
[2017-08-20 02:05] LABS: Anion Gap 32 mmol/L (10-20); BUN (Urea Nitrogen) 65 mg/dL (7.0-18.7); Calc. Creatinine Clearance 0 mL/min (70-130); Calcium 9.2 mg/dL (7.8-10.44); Carbon Dioxide 16 mmol/L (22-29); Chloride 93 mmol/L (98-107); Estimated GFR-MDRD 5; Magnesium 2.9 mg/dL (1.6-2.6)
[2017-08-20 02:06] LABS: Anion Gap 12 mmol/L (-14-95); T. Carbon Dioxide 19.1 mmol/L (1.0-85.0); pH (Venous) 7.417 (7.35-7.45); vO2 Saturation-calc 99.6 % (0.0-100.0)
[2017-08-20] MEDS ORDERED: Metoclopramide HCl 10 MG/2 ML VIAL IVP PRN (03:15)
[2017-08-20] MEDS ORDERED: Promethazine HCl 25 MG/ML VIAL IM/IV PRN (03:15)
[2017-08-20] MEDS ORDERED: Ondansetron HCl/PF 4 MG/2 ML Vial IVP PRN (03:16)
[2017-08-20] MEDS: Sodium Chloride 0.9% 1,000 ML IV PRN ×2 (03:52→05:59)
[2017-08-20] MEDS: cloNIDine 0.1 MG TAB PO PRN (04:08)
--- NOTE | 2017-08-20 04:16 | HP ---
PRIMARY CARE PHYSICIAN: Dr. Bran Batres at [facility]. CHIEF COMPLAINT: Persistent nausea for the last 2 days without vomiting and diarrhea. HISTORY OF PRESENT ILLNESS: Ms. Chavis is a 32-year-old female with history of diabetes, diabetic ga stroparesis as well as end-stage renal disease on hemodialysis who presented to the emergency room w ith above-mentioned complaint. History is mainly obtained by the patient herself and supplemented b y her mother present in the room. Electronic medical records have been reviewed. The patient was l ast admitted to our facility last month at which time she was treated for symptomatic anemia. Today, the patient returned to the emergency room complaining of persistent nausea of more than 24 h ours. She is having a hard time eating or drinking and continues to have severe dry heaves. She al so describes subjective fever and chills. She denies any abdominal pain, diarrhea or vomiting. She denies any hematochezia or melena. Denies any chest pain, shortness of breath. Upon presentation to the emergency room, her blood pressure was 161/88 with a pulse of 106, oxygen s aturation 91% on room air. Further evaluation showed elevated anion gap metabolic acidosis with a h igh beta hydroxybutyrate and a VBG showing pH of 7.4. Her findings were consistent with diabetic ke toacidosis and she is now being admitted to [facility] with DKA for further evaluation and treatment. She is currently hemodynamically stable. PAST MEDICAL HISTORY: 1. Diabetes mellitus type 2. 2. History of diabetic gastroparesis. 3. History of diabetic ketoacidosis. 4. Anemia of chronic kidney disease. 5. End-stage renal disease on hemodialysis Sunday, Sunday, Sunday. 6. Hypertension. 7. Glaucoma of the right eye. PAST SURGICAL HISTORY: AV fistula placement in the left upper extremity. SOCIAL HISTORY: She lives with family. No history of drug, tobacco or alcohol abuse. FAMILY HISTORY: Diabetes and hypertension. ALLERGIES: No known medication allergies. CURRENT HOME MEDICATIONS: As per the most recent discharge summary dated 07/01/2017 she was dischar ge on the following: Hydralazine 100 mg 3 times a day, Coreg 25 mg b.i.d., Levemir 10 units b.i.d. , lisinopril 20 mg b.i.d., nifedipine 60 mg daily, and Renvela 800 mg 3 times a day. These home med ications further need to be clarified. REVIEW OF SYSTEMS: The following complete review of systems was negative, unless otherwise mentioned in the HPI or below: Constitutional: Weight loss or gain, ability to conduct usual activities. Skin: Rash, itching. Eyes: Double vision, pain. ENT/Mouth: Nose bleeding, neck stiffness, pain, tenderness. Cardiovascular: Palpitations, dyspnea on exertion, orthopnea. Respiratory: Shortness of breath, wheezing, cough, hemoptysis, fever or night sweats. Gastrointestinal: Poor appetite, abdominal pain, heartburn, nausea, vomiting, constipation, or diarrhea. Genitourinary: Urgency, frequency, dysuria, nocturia. Musculoskeletal: Pain, swelling. Neurologic/Psychiatric: Anxiety, depression. Allergy/Immunologic: Skin rash, bleeding tendency. LABORATORY DATA: CBC: WBC 8.6, hemoglobin 13, platelet count of 267, 85% neutrophils. Serum chemi stries showed sodium 136, potassium 5.6, chloride 90, bicarbonate 17, anion gap 35, BUN 64, creatini ne 11.37, blood sugar of 369. Magnesium 3.3, phosphorus 7.7, lactic acid 1.8, calcium 10.1, lipase 21. Beta hydroxybutyrate 5.67. PHYSICAL EXAMINATION: VITAL SIGNS: Most recent vital signs include blood pressure 172/98, pulse of 109, respirations 24, temperature 98.7, saturating 97% on room air. GENERAL: She appears very uncomfortable sitting upright in bed and rocking back and forth with a ba rf bag and dry heaving. She is awake, alert, and oriented x3. HEENT: Mucous membranes moist and pink. No oropharyngeal exudate or erythema. Head is normocephal ic, atraumatic. Pupils are equal, reactive to light and accommodation. Extraocular movements intac t. NECK: Supple without any lymphadenopathy, JVD or bruit. CHEST: Clear to auscultation without any wheezing, rales or rhonchi. She is tachycardic with regul ar rhythm and no murmurs. ABDOMEN: Soft, nontender, nondistended. Positive bowel sounds. EXTREMITIES: Free of any cyanosis, clubbing, or edema. NEUROLOGIC: Nonfocal. SKIN: Free of any rashes or bruises, feels warm and dry to touch. PSYCHIATRIC: Flat affect. IMPRESSION AND PLAN: 1. Diabetic ketoacidosis. The patient will be admitted to [facility] on diabetic ketoacidosis protocol. We will check BMP q.4 hours. She will be on IV fluids as per the diabetic ketoacidosis protocol. Continue insulin drip and with q.1 hour check of blood sugar. Repeat beta hydroxybutyrate levels in a few hours. 2. Persistent nausea likely from diabetic gastroparesis. We will add p.r.n. Phenergan as standing as possible add p.r.n. Zofran along with IV Reglan as needed. 3. End-stage renal disease on hemodialysis. Her portable pinch riveter has been notified and she will contin ue to get maintenance dialysis while in the hospital. 4. Anemia of chronic kidney disease with recent heart transfusion last month. Her hemoglobin is ad equate at this time and will be monitored. 5. History of hypertension. She has currently uncontrolled hypertension because of her symptoms. We will restart her medications that she takes at home and monitor closely. 6. Diabetes mellitus type 2. She is on insulin drip for now. 7. Deep venous thrombosis and gastrointestinal prophylaxis. 8. Code status: Full code. DISPOSITION: The patient is currently being admitted to [facility] for DKA. Estimated length of stay at this time is at least 2-3 midnight. Further management will depend upon her clinical course.
[2017-08-20 06:01] LABS: Anion Gap 24 mmol/L (10-20); BUN (Urea Nitrogen) 65 mg/dL (7.0-18.7); Calc. Creatinine Clearance 8 mL/min (70-130); Calcium 8.6 mg/dL (7.8-10.44); Carbon Dioxide 20 mmol/L (22-29); Chloride 102 mmol/L (98-107); Estimated GFR-MDRD 5
[2017-08-20] MEDS: D5 1/2 NS w/20 mEq KCL 1,000 ML IV PRN ×2 (06:15→10:25)
[2017-08-20 07:49] VITALS: BMI 25.2
[2017-08-20] MEDS: Famotidine/PF 20 mg/2ml Vial SLOW IVP SCH (08:17)
[2017-08-20] MEDS ORDERED: FLU VACC QS2017-18 36 mo. & older 0.5 ML SYRINGE IM ONE (09:00)
[2017-08-20 11:08] LABS: Anion Gap 21 mmol/L (10-20); BUN (Urea Nitrogen) 68 mg/dL (7.0-18.7); Calc. Creatinine Clearance 7 mL/min (70-130); Calcium 8.4 mg/dL (7.8-10.44); Carbon Dioxide 21 mmol/L (22-29); Chloride 103 mmol/L (98-107); Estimated GFR-MDRD 5
[2017-08-20] MEDS: hydrALAZINE 25 MG TAB PO SCH ×2 (16:49→22:09)
[2017-08-20] MEDS: Sevelamer Carbonate 800 MG TAB PO SCH (16:49)
[2017-08-20 17:26] LABS: Anion Gap 15 mmol/L (10-20); BUN (Urea Nitrogen) 15 mg/dL (7.0-18.7); Calc. Creatinine Clearance 23 mL/min (70-130); Calcium 9.7 mg/dL (7.8-10.44); Carbon Dioxide 28 mmol/L (22-29); Chloride 98 mmol/L (98-107); Estimated GFR-MDRD 17
[2017-08-20] MEDS ORDERED: Non-Formulary Item 1 EACH (Ferrous Sulfate [Ferrous Sulfate] 325 MG) PO SCH (21:00)
[2017-08-20] MEDS ORDERED: Carvedilol 25 MG TAB PO SCH (21:00)
[2017-08-20] MEDS: Ferrous Sulfate 325 MG TAB PO SCH (22:10)
[2017-08-20] MEDS: Carvedilol 6.25 MG TAB PO SCH (22:14)
[2017-08-20] MEDS: Timolol 0.5% Ophth Soln 5 ml Bottle R EYE SCH (22:15)
[2017-08-20] MEDS: Brimonidine Tartrate 0.2% Ophth Soln 5 ml Bottle R EYE SCH (22:15)
[2017-08-20] MEDS: Atropine Sulfate 1% Ophth Soln 5 ml Bottle R EYE SCH (22:16)
[2017-08-20] MEDS: Dorzolamide HCl 2% Ophth Soln 10 ml Bottle R EYE SCH (22:16)
[2017-08-20] MEDS: Insulin Detemir 100 UNITS/ML 10 UNITS in Pre-Filled Syringe 1 EACH SC SCH (22:17)
--- NOTE | 2017-08-21 01:21 | CON ---
NEPHROLOGY CONSULTATION NOTE DATE OF CONSULTATION: 08/20/2017 CONSULTING PHYSICIAN: Dr. Garcia. REASON FOR CONSULTATION: End-stage renal disease evaluation. REASON FOR ADMISSION: Nausea and vomiting. HISTORY OF PRESENT ILLNESS: This is a 32-year-old female with history of type 2 diabetes, gastropar esis, DKA and end-stage renal disease who came to the hospital with the above complaints. Nephrolog y was consulted for maintenance hemodialysis. The patient gets dialysis on Sunday, Sunday and . No shortness of breath, no chest pain or palpitation. Mom was at the bedside. No fever or c hills reported. PAST MEDICAL HISTORY: Positive for type 2 diabetes, gastroparesis, chronic kidney disease, end-stag e renal disease, hypertension and glaucoma. PAST SURGICAL HISTORY: AV fistula placement. HOME MEDICATIONS: Hydralazine, Coreg, Levemir, lisinopril, nifedipine and Renvela. ALLERGIES: No known drug allergies. SOCIAL HISTORY: No smoking, alcohol or illicit drug abuse. FAMILY HISTORY: No history of any kidney disease, but positive for diabetes and hypertension. REVIEW OF SYSTEMS: The following complete review of systems was negative, unless otherwise mentione d in the HPI or below: Constitutional: Weight loss or gain, ability to conduct usual activities. Skin: Rash, itching. Eyes: Double vision, pain. ENT/Mouth: Nose bleeding, neck stiffness, pain, tenderness. Cardiovascular: Palpitations, dyspnea on exertion, orthopnea. Respiratory: Shortness of breath, wheezing, cough, hemoptysis, fever or night sweats. Gastrointestinal: Poor appetite, abdominal pain, heartburn, nausea, vomiting, constipation, or diar charla. Genitourinary: Urgency, frequency, dysuria, nocturia. Musculoskeletal: Pain, swelling. Neurologic/Psychiatric: Anxiety, depression. Allergy/Immunologic: Skin rash, bleeding tendency. PHYSICAL EXAMINATION: GENERAL: This is a well-built female in no apparent distress. VITAL SIGNS: Temperature 98.7, pulse 74, respirations 12, and blood pressure 140/90. HEENT: Atraumatic and normocephalic. Oral mucosa is moist. NECK: Supple. CARDIOVASCULAR SYSTEM: S1 and S2 heard. Rate and rhythm regular. RESPIRATORY: Clear. GASTROINTESTINAL: Abdomen is soft. MUSCULOSKELETAL: No tenderness noted. DERMATOLOGIC: No skin rash. NEUROLOGIC: Alert and awake. PSYCHIATRIC: Mood and affect normal. LABORATORY DATA: Potassium is 3.1, BUN is 15 and creatinine is 3.6. ASSESSMENT AND PLAN: 1. End-stage renal disease. We will plan for dialysis on Sunday, Sunday and Sunday. Dialysis n la[facility] notified; will have dialysis today. 2. Type 2 diabetes. 3. Hypertension, stable. 4. Edema. 5. Anemia. Hemoglobin is stable. 6. Acidosis. We will have dialysis. Plan is to have dialysis as tolerated. We will follow.
[2017-08-21 05:36] LABS: Anion Gap 15 mmol/L (10-20); BUN (Urea Nitrogen) 24 mg/dL (7.0-18.7); Calc. Creatinine Clearance 13 mL/min (70-130); Calcium 9.3 mg/dL (7.8-10.44); Carbon Dioxide 27 mmol/L (22-29); Chloride 99 mmol/L (98-107); Estimated GFR-MDRD 9
[2017-08-21] MEDS: Sevelamer Carbonate 800 MG TAB PO SCH ×3 (08:35→17:27)
[2017-08-21] MEDS: NIFEdipine XL 60 MG TAB PO SCH (08:35)
[2017-08-21] MEDS: Ferrous Sulfate 325 MG TAB PO SCH ×2 (08:36→23:43)
[2017-08-21] MEDS: hydrALAZINE 25 MG TAB PO SCH ×3 (08:36→23:43)
[2017-08-21] MEDS: Atropine Sulfate 1% Ophth Soln 5 ml Bottle R EYE SCH ×2 (08:37→21:45)
[2017-08-21] MEDS: Carvedilol 6.25 MG TAB PO SCH ×2 (08:37→23:42)
[2017-08-21] MEDS: Famotidine/PF 20 mg/2ml Vial SLOW IVP SCH (08:37)
[2017-08-21] MEDS: Timolol 0.5% Ophth Soln 5 ml Bottle R EYE SCH ×2 (08:38→23:44)
[2017-08-21] MEDS: Dorzolamide HCl 2% Ophth Soln 10 ml Bottle R EYE SCH ×2 (08:38→21:45)
[2017-08-21] MEDS: Brimonidine Tartrate 0.2% Ophth Soln 5 ml Bottle R EYE SCH ×2 (08:38→21:45)
[2017-08-21] MEDS: Insulin Detemir 100 UNITS/ML 10 UNITS in Pre-Filled Syringe 1 EACH SC SCH ×2 (08:39→23:43)
--- NOTE | 2017-08-21 09:22 | PRG ---
DATE OF SERVICE: 08/21/2017 SUBJECTIVE: Patient was seen and examined at bedside and overnight events noted. Patient denies an y shortness of breath or chest pain or palpitation. No history of nausea or vomiting or diarrhea or fever or chills or cramps. OBJECTIVE: GENERAL: This is a well-built female in no apparent distress. VITAL SIGNS: Temperature 97.6, pulse 82, respiratory rate 21, blood pressure 213/120. HEENT: Atraumatic, normocephalic. Oral mucosa is moist. NECK: Supple. CARDIOVASCULAR: S1 and S2 heard, rate and rhythm regular. RESPIRATORY: Clear to auscultation. GASTROINTESTINAL: Abdomen is soft. MUSCULOSKELETAL: No tenderness, no edema. DERMATOLOGIC: No skin rash. NEUROLOGIC: Alert and awake. PSYCHIATRIC: Mood and affect normal. LABORATORY DATA: Sodium is 137, potassium 4.1, BUN 24, creatinine 6.6. ASSESSMENT AND PLAN: 1. End-stage renal disease, continue on hemodialysis Sunday, Sunday, Sunday. 2. Type 2 diabetes with gastroparesis. 3. Hypertension. 4. Edema. 5. Anemia. 6. Acidosis. Continue home medications and titrate medication. We will have dialysis with ultrafi ltration as tolerated. We will follow.
[2017-08-21] MEDS: cloNIDine 0.1 MG TAB PO PRN (12:55)
--- NOTE | 2017-08-21 14:16 | PDOC.PN ---
- Subjective Encounter Start Date: 08/21/17 Encounter Start Time: 07:20 Pt seen for followup re; diabetes mellitus. Denies chest pain, shortness of breath, fevers or chills. Feels better. - Objective MAR Reviewed: Yes Vital Signs & Weight: Vital Signs (12 hours) Temp Pulse Resp BP BP BP Pulse Ox 08/21/17 12:57 97.9 F 91 20 97 08/21/17 12:55 91 211/135 H 08/21/17 12:48 97.9 F 91 18 211/135 H 97 08/21/17 11:14 98.5 F 85 12 190/119 H 99 08/21/17 08:38 82 08/21/17 08:37 213/134 H 08/21/17 08:36 82 08/21/17 08:35 82 08/21/17 08:00 97.6 F 82 14 100 08/21/17 07:08 97.6 F 82 14 163/105 H 100 08/21/17 03:17 97.8 F 78 14 126/83 94 L Weight Admit Weight 147 lb 14.4 oz Weight 145 lb 6.4 oz I&O: 08/20/17 08/21/17 08/22/17 06:59 06:59 06:59 Intake Total 3260 Output Total 4100 Balance -840 Result Diagrams: 08/22/17 08:46 08/22/17 08:46 Additional Labs: Accuchecks 08/21/17 08/21/17 08/21/17 10:53 06:53 05:54 POC Glucose 136 H 119 H 106 08/21/17 08/21/17 08/21/17 04:52 03:54 02:55 POC Glucose 127 H 129 H 152 H 08/21/17 08/21/17 08/20/17 01:53 00:49 23:52 POC Glucose 209 H 239 H 247 H 08/20/17 08/20/17 08/20/17 22:58 22:06 21:01 POC Glucose 242 H 191 H 169 H 08/20/17 08/20/17 08/20/17 20:01 19:05 18:03 POC Glucose 137 H 129 H 78 08/20/17 08/20/17 08/20/17 16:44 15:58 14:53 POC Glucose 81 75 92 EKG Reviewed by me: Yes (Tele: NSR) Phys Exam - Physical Examination Constitutional: NAD HEENT: moist MMs, sclera anicteric, oral pharynx no lesions right eye blindness Neck: no nodes, no JVD, supple, full ROM Respiratory: no wheezing, no rales, no rhonchi, clear to auscultation bilateral Cardiovascular: RRR, no rub Gastrointestinal: soft, non-tender, no distention, positive bowel sounds Musculoskeletal: no edema, pulses present Neurological: moves all 4 limbs Lymphatic: no nodes Psychiatric: normal affect, A&O x 3 Skin: no rash, normal turgor, cap refill <2 seconds Dx/Plan (1) DM type 1 (diabetes mellitus, type 1) Status: Chronic Comment: With Nephropathy (2) ESRD (end stage renal disease) on dialysis Code(s): N18.6 - END STAGE RENAL DISEASE; Z99.2 - DEPENDENCE ON RENAL DIALYSIS Status: Chronic Comment: HD per renal service, last HD scheduled for but missed (3) GERD (gastroesophageal reflux disease) Code(s): K21.9 - GASTRO-ESOPHAGEAL REFLUX DISEASE WITHOUT ESOPHAGITIS Status: Chronic (4) Hypertension Code(s): I10 - ESSENTIAL (PRIMARY) HYPERTENSION Status: Chronic Qualifiers: Hypertension type: essential hypertension Qualified Code(s): I10 - Essential (primary) hypertension (5) DKA (diabetic ketoacidosis) Code(s): E13.10 - OTH DIABETES MELLITUS WITH KETOACIDOSIS WITHOUT COMA Status : Resolved - Plan * . DKA resolved. Resume levemir. Start diabetic diet, contuinue accuchecks, insulin sliding scale. Monitor vital signs and titrate antihypertensives as needed. Transfer to medical floor. Review of Systems - Review of Systems Constitutional: negative: Fever, Chills, Sweats, Weakness, Malaise Respiratory: negative: Cough, Dry, Shortness of Breath, Hemoptysis, SOB with Excertion, Pleuritic Pain, Sputum, Wheezing Cardiovascular: negative: Chest Pain, Palpitations, Orthopnea, Paroxysmal Noc. Dyspnea, Edema, Light Headedness Gastrointestinal: negative: Nausea, Vomiting, Abdominal Pain, Diarrhea, Constipation, Melena, Hematochezia Genitourinary: negative: Dysuria, Frequency, Incontinence, Hematuria, Retention - Medications/Allergies Allergies/Adverse Reactions: Allergies Allergy/AdvReac Type Severity Reaction Status Date / Time No Known Allergies Allergy Verified 06/17/17 04:37 Medications: Current Medications Acetaminophen (Tylenol) 650 mg PO Q4H PRN PRN Reason: Headache/Fever or Mild Pain Hydrocodone Bitart/Acetaminophen ([place] 5/325) 1 tab PO Q4H PRN PRN Reason: Moderate Pain (4-6) Atropine Sulfate (Atropine 1% Ophth Soln) 1 drop R EYE BID [facility] Last Admin: 08/21/17 08:37 Dose: 1 drop Benzonatate (Tessalon) 100 mg PO Q4H PRN PRN Reason: Cough Bisacodyl (Dulcolax) 10 mg PO DAILYPRN PRN PRN Reason: Constipation Brimonidine Tartrate (Alphagan 0.2% Ophth Soln) 1 drop R EYE BID [facility] Last Admin: 08/21/17 08:38 Dose: 1 drop Carvedilol (Coreg) 12.5 mg PO BID [facility] Last Admin: 08/21/17 08:37 Dose: 12.5 mg Clonidine (Catapres) 0.1 mg PO Q4H PRN PRN Reason: Systolic BP > 160 Last Admin: 08/21/17 12:55 Dose: 0.1 mg Dorzolamide HCl (Trusopt 2% Ophth Soln) 1 drop R EYE BID [facility] Last Admin: 08/21/17 08:38 Dose: 1 drop Famotidine (Pepcid) 20 mg SLOW IVP DAILY [facility] Last Admin: 08/21/17 08:37 Dose: 20 mg Ferrous Sulfate (Feosol) 325 mg PO BID [facility] Last Admin: 08/21/17 08:36 Dose: 325 mg Guaifenesin (Robitussin Sf) 200 mg PO Q4H PRN PRN Reason: Cough Hydralazine HCl (Apresoline) 10 mg SLOW IVP Q4H PRN PRN Reason: Systolic BP > 170 Hydralazine HCl (Apresoline) 100 mg PO TID [facility] Last Admin: 08/21/17 12:55 Dose: 100 mg Insulin Human Regular 100 (units/ Sodium Chloride) 101 mls @ 6.06 mls/hr IVPB INF [facility] PRN Reason: 6 UNITS/HR Last Admin: 08/20/17 03:46 Dose: 101 mls Dextrose/Sodium Chloride (D5 1/2 Ns) 1,000 mls @ 250 mls/hr IV .Q4H PRN; Protocol PRN Reason: Step 4 of DKA Protocol Potassium Chloride/Dextrose/Sod Cl (D5 1/2 Ns W/20 Meq Kcl) 1,000 mls @ 250 mls /hr IV .Q4H PRN; Protocol PRN Reason: Step 4 of DKA Protocol Last Admin: 08/20/17 10:25 Dose: 1,000 mls Insulin Human Regular 100 (units/ Sodium Chloride) 101 mls @ 0 mls/hr IVPB INF IESHA; Titrate PRN Reason: Protocol Sodium Chloride (Normal Saline 0.9%) 1,000 mls @ 500 mls/hr IV .Q2H PRN; Protocol PRN Reason: Step 1 of DKA Protocol Last Admin: 08/20/17 05:59 Dose: 1,000 mls Sodium Chloride (Normal Saline 0.9%) 1,000 mls @ 1,000 mls/hr IV .Q1H PRN; Protocol PRN Reason: Step 1 of DKA Protocol Sodium Chloride (Normal Saline 0.9%) 1,000 mls @ 250 mls/hr IV .Q4H PRN; Protocol PRN Reason: SEE STEP 3 OF DKA PROTOCOL Sodium Chloride (Normal Saline 0.9%) 1,000 mls @ 500 mls/hr IV .Q2H PRN; Protocol PRN Reason: Step 2 of DKA Protocol Potassium Chloride/Sodium Chloride (Ns 0.9% W/ 20 Meq Kcl) 1,000 mls @ 500 mls/ hr IV .Q2H PRN; Protocol PRN Reason: Step 2 of DKA Protocol Potassium Chloride/Sodium Chloride (Ns 0.9% W/ 20 Meq Kcl) 1,000 mls @ 250 mls/ hr IV .Q4H PRN; Protocol PRN Reason: SEE STEP 3 OF DKA PROTOCOL Potassium Chloride 40 meq/ (Sodium Chloride) 270 mls @ 135 mls/hr IVPB ASDIR PRN PRN Reason: FOR SERUM K+ 2.5 - 3.5 Potassium Chloride 40 meq/ (Device) 100 mls @ 50 mls/hr IVPB ASDIR PRN PRN Reason: FOR SERUM K+ 2.5 - 3.5 Magnesium Sulfate 1 gm/ Sodium (Chloride) 102 mls @ 102 mls/hr IV PRN PRN PRN Reason: MAG LEVEL 1.4 - 2.0 Magnesium Sulfate 2 gm/ Device 100 mls @ 100 mls/hr IVPB ASDIR PRN PRN Reason: MAGNESIUM < 1.4 Potassium Phosphate 9 mmol/ (Sodium Chloride) 103 mls @ 25.75 mls/hr IVPB ASDIR PRN PRN Reason: Phosphate 1.0-1.8 Potassium Phosphate 12 mmol/ (Sodium Chloride) 254 mls @ 63.5 mls/hr IV ASDIR PRN PRN Reason: Serum phosphate 0.5-0.9 Potassium Phosphate 15 mmol/ (Sodium Chloride) 255 mls @ 63.75 mls/hr IV ASDIR PRN PRN Reason: Serum Phos < 0.5 Insulin Detemir 10 units/ (Miscellaneous Medication) 0.1 mls @ 0 mls/hr SC BID [facility] Last Admin: 08/21/17 08:39 Dose: 0.1 mls Loratadine (Claritin) 10 mg PO DAILYPRN PRN PRN Reason: Sinus Symptoms Magnesium Oxide (Magnesium Oxide) 400 mg PO BIDPRN PRN PRN Reason: FOR SERUM MAG 1.4 - 2.0 Magnesium Oxide (Magnesium Oxide) 800 mg PO PRN PRN PRN Reason: FOR SERUM MAG < 1.4 Metoclopramide HCl (Reglan) 10 mg IVP Q6H PRN PRN Reason: Nausea/Vomiting Miscellaneous Medication (Phos-Nak) 1 pkt PO TIDPRN PRN PRN Reason: FOR PHOS LEVEL 1.0 - 1.8 Miscellaneous Medication (Phos-Nak) 2 pkt PO TIDPRN PRN PRN Reason: FOR PHOS LEVEL 0.5 - 1.0 Nifedipine (Procardia Xl) 60 mg PO [facility] Last Admin: 08/21/17 08:35 Dose: 60 mg Nitroglycerin (Nitrostat) 0.4 mg SL Q5MIN PRN PRN Reason: Chest Pain Ccu Electrolyte (Replacement Protocol) 0 each FS PRN PRN PRN Reason: FOR ELECTROLYTE REPLACEMENT Ondansetron HCl (Zofran) 4 mg IVP Q4H PRN PRN Reason: Nausea/Vomiting Last Admin: 08/20/17 16:49 Dose: 4 mg Potassium Chloride (K-Dur) 40 meq PO ASDIR PRN PRN Reason: FOR SERUM K+ 2.5 - 3.5 Potassium Chloride (Klor-Con) 40 meq PER TUBE ASDIR PRN PRN Reason: FOR SERUM K+ 2.5-3.5 Promethazine HCl (Phenergan) 12.5 mg IM/IV Q6H PRN PRN Reason: Nausea/Vomiting Last Admin: 08/20/17 03:43 Dose: 12.5 mg Senna (Senokot) 2 tab PO HSPRN PRN PRN Reason: Constipation Sevelamer Carbonate (Renvela) 800 mg PO TID-WM [facility] Last Admin: 08/21/17 12:27 Dose: 800 mg Sodium Chloride (Flush - Normal Saline) 10 ml IVF Q12HR [facility] Last Admin: 08/21/17 08:43 Dose: 10 ml Sodium Chloride (Flush - Normal Saline) 10 ml IVF PRN PRN PRN Reason: Saline Flush Timolol Maleate (Timoptic 0.5% [facility]) 1 drop R EYE BID [facility] Last Admin: 08/21/17 08:38 Dose: 1 drop Tramadol HCl (Ultram) 50 mg PO Q4H PRN PRN Reason: Moderate Pain (4-6)
[2017-08-21] MEDS ORDERED: Insulin Regular 300 UNITS/3 ML VIAL ONE (17:15)
[2017-08-21 19:46] VITALS: TEMP 97.9
[2017-08-22 08:51] LABS: #Basophils 0.1 thou/uL (0.0-0.2); #Eosinphils 0.2 thou/uL (0.0-0.7); #Lymphocytes 1.4 thou/uL (1.20-3.40); #Monocytes 0.3 thou/uL (0.11-0.59); #Neutrophils 2.8 thou/uL (1.40-6.50); %Basophils 1.4 % (0.0-1.0); %Eosinophils 3.4 % (0.0-10.0); %Lymphocytes 30.3 % (21.0-51.0); %Monocytes 5.4 % (0.0-10.0); Mean Platelet Volume 6.7 fL (7.4-10.4); Red Blood Cell (RBC) Count 3.83 mill/uL (4.20-5.40); White Blood Cell (WBC) Count 4.6 thou/uL (4.8-10.8)
[2017-08-22 09:12] LABS: Anion Gap 13 mmol/L (10-20); BUN (Urea Nitrogen) 20 mg/dL (7.0-18.7); Calc. Creatinine Clearance 18 mL/min (70-130); Carbon Dioxide 30 mmol/L (22-29); Chloride 97 mmol/L (98-107); Estimated GFR-MDRD 13
--- NOTE | 2017-08-22 11:31 | DIS ---
DATE OF ADMISSION: 08/20/2017 DATE OF DISCHARGE: 08/22/2017 PRIMARY CARE PHYSICIAN: Dr. Bran Mcginnis. DISCHARGE DIAGNOSES. 1. Diabetic ketoacidosis. 2. End-stage renal disease on hemodialysis, received maintenance hemodialysis during this admission . 3. Nausea and vomiting, resolved. CONDITION OF PATIENT AT THE TIME OF DISCHARGE: Stable. I assess Ms. Chavis on the day of discharge. She denies any chest pain or shortness of breath. PHYSICAL EXAMINAITON: VITAL SIGNS: Stable. HEART: S1 and S2 are heard, regular. LUNGS: Clear to auscultation bilaterally. DISCHARGE CONDITION: Same as preadmission home medications as dictated on history and physical note from 08/20/2017. HOSPITAL COURSE: Ms. Chavis is a pleasant 32-year-old lady who was admitted to [facility] on 08/20/2017 for diabetic ketoacidosis in the context of nausea and vomiting. She was admitted to the [facility] [place]. She received intravenous fluids and insulin per DKA protocol. Her anion gap normalized, and a bicarbonate level normalized. She was transferred out of [facility] to medical floor o n 08/21/2017. She continued to improve and is being discharged home on 08/22/2017. She was seen by Nephrology Service. She received maintenance hemodialysis on 08/20/2017 and . On the day of discharge, she has a white count of 4600, hemoglobin 12.3, platelet count 193. Sodium 137, potassium 3.4, creatinine 4.68 and blood urea nitrogen 20. Many thanks for allowing me to participate in your patient's care. Please feel free to contact me w ith any questions or concerns. DISCHARGE DESTINATION: Home. TOTAL AMOUNT OF TIME SPENT COORDINATING THIS DISCHARGE: 33 minutes.
[2017-08-22 12:09] VITALS: BP 131/88
[2017-08-22] MEDS: Carvedilol 6.25 MG TAB PO SCH (12:36)
[2017-08-22] MEDS: hydrALAZINE 25 MG TAB PO SCH (12:37)
[2017-08-22] MEDS: Famotidine/PF 20 mg/2ml Vial SLOW IVP SCH (12:38)
[2017-08-22] MEDS: Brimonidine Tartrate 0.2% Ophth Soln 5 ml Bottle R EYE SCH (12:39)
[2017-08-22] MEDS: Timolol 0.5% Ophth Soln 5 ml Bottle R EYE SCH (12:39)
[2017-08-22] MEDS: Atropine Sulfate 1% Ophth Soln 5 ml Bottle R EYE SCH (12:40)
[2017-08-22] MEDS: Ferrous Sulfate 325 MG TAB PO SCH (12:40)
[2017-08-22] MEDS: Dorzolamide HCl 2% Ophth Soln 10 ml Bottle R EYE SCH (12:40)
[2017-08-22] MEDS: Sevelamer Carbonate 800 MG TAB PO SCH ×2 (12:41→12:53)
[2017-08-22] MEDS: NIFEdipine XL 60 MG TAB PO SCH (12:41)
[2017-08-22] MEDS: Insulin Detemir 100 UNITS/ML 10 UNITS in Pre-Filled Syringe 1 EACH SC SCH (12:50)
--- NOTE | 2017-08-22 16:18 | PRG ---
DATE OF SERVICE: 08/22/2017 NEPHROLOGY PROGRESS NOTE SUBJECTIVE: Patient was seen and examined at bedside and overnight events noted. Patient denies an y shortness of breath or chest pain or palpitation. No history of nausea or vomiting or diarrhea or fever or chills or cramps. OBJECTIVE: GENERAL: This is a well-built female in no apparent distress. VITAL SIGNS: Temperature 97.9, pulse 97, respiratory rate 18, blood pressure 131/88. HEENT: Atraumatic, normocephalic. Oral mucosa is moist. NECK: Supple. CARDIOVASCULAR: S1 and S2 heard, rate and rhythm regular. RESPIRATORY: Clear to auscultation. GASTROINTESTINAL: Abdomen is soft. MUSCULOSKELETAL: No tenderness, no edema. DERMATOLOGIC: No skin rash. NEUROLOGIC: Alert and awake and oriented X3. No focal neurologic deficits. Moving all the extremi ties. PSYCHIATRIC: Mood and affect normal. LABORATORY DATA: Potassium is 3.4, BUN is 20, creatinine is 4.2. ASSESSMENT AND PLAN: 1. End-stage renal disease. Continue on hemodialysis on Sunday, Sunday, and Sunday. 2. Diabetes mellitus. 3. Hypertension. 4. Edema. 5. Acidosis. Plan is to continue on dialysis as tolerated. The patient is tolerating well.
== END 2017-08-22 13:35 | disposition home or self-care (01) | DRG 637 ==
LOC: ERS 22:00 → IMCU/EMU 08-20 02:11 → T4-A 08-21 12:33
PROVIDERS: ADMIT Internal Medicine; ATTEND Internal Medicine
PROC: 5A1D70Z Performance of Urinary Filtration, Intermittent, Less than 6 Hours Per Day (ICD-10-PCS; principal; 2017-08-20)
DX: E11.10 Type 2 diabetes mellitus with ketoacidosis without coma (principal); N18.6 End stage renal disease; I12.0 Hypertensive chronic kidney disease with stage 5 chronic kidney disease or end stage renal disease; Z79.4 Long term (current) use of insulin; E11.22 Type 2 diabetes mellitus with diabetic chronic kidney disease; Z99.2 Dependence on renal dialysis; E11.43 Type 2 diabetes mellitus with diabetic autonomic (poly)neuropathy; K31.84 Gastroparesis; D63.1 Anemia in chronic kidney disease; H40.9 Unspecified glaucoma; K21.9 Gastro-esophageal reflux disease without esophagitis; E87.5 Hyperkalemia
CPT/HCPCS: 36415; 36416; 80048; 80053; 82010; 82330; 82803; 83605; 83690; 83735; 84100; 85014; 85025; 87340; 90935; 96361; 96365; 96367; 96375; A4216; G0257; J1815; J2405; J2765; J7050; S0028

== ENCOUNTER 2017-08-24 13:36 | Emergency (ER) | payer OTHER ==
[2017-08-24 16:07] LABS: Hematocrit 40.9 % (36.0-47.0); Mean Platelet Volume 7.5 fL (7.4-10.4); Red Blood Cell (RBC) Count 4.08 mill/uL (4.20-5.40); White Blood Cell (WBC) Count 4.9 thou/uL (4.8-10.8)
[2017-08-24 16:21] LABS: ALT (SGPT) Less than 7 U/L (8-55); AST (SGOT) 11 U/L (5-34); Alkaline Phosphatase 71 U/L (40-150); Anion Gap 19 mmol/L (10-20); BUN (Urea Nitrogen) 14 mg/dL (7.0-18.7); Bilirubin, Total 0.4 mg/dL (0.2-1.2); Calc. Creatinine Clearance 0 mL/min (70-130); Calcium 9.3 mg/dL (7.8-10.44); Carbon Dioxide 28 mmol/L (22-29); Chloride 94 mmol/L (98-107); Estimated GFR-MDRD 11; Globulin 4.1 g/dL (2.4-3.5); Protein, Total 8.5 g/dL (6.0-8.3)
[2017-08-24 16:23] LABS: Macrocytosis SLIGHT = 6-15 cells (100X) (0-5/hpf); Neutrophil 52 % (42-75); Reactive Lymphocytes 2 % (0-10)
[2017-08-24] MEDS ORDERED: Ondansetron ODT 4 MG TAB ONE (16:41)
[2017-08-24] MEDS ORDERED: Promethazine HCl 25 MG SUPP ONE (16:57)
== END 2017-08-24 17:35 | disposition home or self-care (01) ==
LOC: ERS 13:36
DX: R11.0 Nausea (principal); I11.0 Hypertensive heart disease with heart failure; N18.6 End stage renal disease; K21.9 Gastro-esophageal reflux disease without esophagitis; E11.43 Type 2 diabetes mellitus with diabetic autonomic (poly)neuropathy; K31.84 Gastroparesis
CPT/HCPCS: 36415; 36416; 80053; 85025; 99283; Q0162

== ENCOUNTER 2017-09-17 16:42 | Inpatient (IN) | payer OTHER ==
[2017-09-17 17:32] LABS: #Eosinphils 0.1 thou/uL (0.0-0.7); #Lymphocytes 0.8 thou/uL (1.20-3.40); #Monocytes 0.2 thou/uL (0.11-0.59); #Neutrophils 4.5 thou/uL (1.40-6.50); %Basophils 0.5 % (0.0-1.0); %Lymphocytes 13.8 % (21.0-51.0); %Monocytes 3.5 % (0.0-10.0); Hematocrit 31.8 % (36.0-47.0); Red Blood Cell (RBC) Count 3.14 mill/uL (4.20-5.40); White Blood Cell (WBC) Count 5.6 thou/uL (4.8-10.8)
[2017-09-17 17:45] LABS: ALT (SGPT) 37 U/L (8-55); AST (SGOT) 24 U/L (5-34); Alkaline Phosphatase 107 U/L (40-150); Anion Gap 20 mmol/L (10-20); BUN (Urea Nitrogen) 18 mg/dL (7.0-18.7); Bilirubin, Total 0.6 mg/dL (0.2-1.2); Calc. Creatinine Clearance 0 mL/min (70-130); Calcium 9.6 mg/dL (7.8-10.44); Carbon Dioxide 26 mmol/L (22-29); Chloride 97 mmol/L (98-107); Estimated GFR-MDRD 15; Globulin 4.1 g/dL (2.4-3.5); Protein, Total 8.7 g/dL (6.0-8.3)
[2017-09-17] MEDS ORDERED: Lisinopril 20 MG TAB PO SCH (18:00)
[2017-09-17] MEDS ORDERED: Acetaminophen 325 MG TAB ONE (18:00)
[2017-09-17] MEDS ORDERED: Carvedilol 6.25 MG TAB PO SCH (18:00)
[2017-09-17] MEDS ORDERED: hydrALAZINE 25 MG TAB PO SCH (18:00)
[2017-09-17 18:43] LABS: Lactic Acid - Sepsis 1.1 mmol/L (0.5-2.2)
--- NOTE | 2017-09-17 18:48 | RAD ---
CHEST 2 VIEWS: Date: 09/17/17 HISTORY: Sepsis. COMPARISON: Chest 1 view dated 08/27/17. FINDINGS: There is a faint right lower lobe air space opacity. No pneumothorax. IMPRESSION: Faint right lower lobe air space opacity concerning for infection. POS: [facility]
[2017-09-17] MEDS ORDERED: Piperacillin/Tazobactam 4.5 GM in Sodium Chloride 0.9% 100 ML IVPB SCH (20:00)
--- NOTE | 2017-09-17 20:54 | PDOC.EVN ---
Event Note - Event Note Event Note: [id number] h&p dictated 1. Pneumonia 2. HTN 3. ESRD 4. DM type 2 PLAN: SEE ORDERS
[2017-09-17] MEDS ORDERED: Vancomycin HCl 1 GM in Premix Bag 1 BAG IVPB SCH (21:00)
[2017-09-17] MEDS ORDERED: Acetaminophen 325 MG TAB PO PRN (21:20)
[2017-09-17] MEDS ORDERED: HumaLOG 300 UNITS/3 ML VIAL SC PRN ×2 (21:25)
[2017-09-17] MEDS ORDERED: Dextrose 50% Abboject 50 ML SYRINGE SLOW IVP PRN (21:25)
[2017-09-17] MEDS ORDERED: Dextrose 5% in Water 1,000 ML IV PRN (21:25)
[2017-09-17] MEDS: Piperacillin/Tazobactam 4.5 GM in Sodium Chloride 0.9% 100 ML IVPB SCH (22:05)
[2017-09-17] MEDS: Lorazepam 0.5 MG TAB PO PRN (22:46)
[2017-09-17 23:04] VITALS: BMI 23.1
[2017-09-18 05:38] LABS: #Eosinphils 0.1 thou/uL (0.0-0.7); #Lymphocytes 0.8 thou/uL (1.20-3.40); #Monocytes 0.4 thou/uL (0.11-0.59); #Neutrophils 2.5 thou/uL (1.40-6.50); %Basophils 0.7 % (0.0-1.0); %Lymphocytes 20.5 % (21.0-51.0); %Monocytes 10.4 % (0.0-10.0); Hematocrit 27.2 % (36.0-47.0); Mean Platelet Volume 6.9 fL (7.4-10.4); Red Blood Cell (RBC) Count 2.65 mill/uL (4.20-5.40); White Blood Cell (WBC) Count 3.8 thou/uL (4.8-10.8)
--- NOTE | 2017-09-18 05:49 | HP ---
DATE OF ADMISSION: 09/17/2017 CHIEF COMPLAINT: Cough, chest congestion. HISTORY OF PRESENT ILLNESS: The patient is 32 years old female with past medical history of end-stag e renal disease, hypertension, hyperlipidemia, glaucoma, came to the ER complaining of cough, cough w ith sputum production, sputum white in color, cough is present for the past few days. The patient wa s started having nausea, denies any chest tightness. Denies any chest pain. Complains of some dyspn ea with the cough, complaints of some chills. Denies any fever. The patient's mother is also have s imilar symptoms. The patient would go for dialysis today. Denies any dizziness, denies any lighthea dedness, denies diarrhea. PAST MEDICAL HISTORY: As per HPI. PAST SURGICAL HISTORY: AV fistula. SOCIAL HISTORY: Denies smoking, denies alcohol, and denies any drugs. FAMILY HISTORY: Denies any heart problems. MEDICATIONS: Reviewed. ALLERGIES: No known drug allergies. REVIEW OF SYSTEMS: Constitutional: Positive for fever. Positive for chills. Eyes: Positive for c hronic decreased vision of right eye. Neck: Denies any neck pain. Cardiovascular system: Denies a ny chest pain. Respiratory system: Positive for dyspnea, cough, and sputum production. Gastrointes tinal: Positive for nausea. Denies any vomiting. Genitourinary: Positive for hemodialysis. Integ umentary: Denies any rash. Cranial nerve system: Denies syncope, denies lightheadedness. All othe r review of systems are reviewed and are negative. PHYSICAL EXAMINATION: CONSTITUTIONAL/VITAL SIGNS: At the time of H and P performed, blood pressure is 174/98, pulse ox 94% , heart rate 103, respiratory rate 18. GENERAL: The patient appears comfortable. HEENT: Pupils equal, round, and reactive to light. Anterior nares patent. Nose normal. Ears marvin l. Teeth intact. Tongue is moist. NECK: Supple. No JVD. CARDIOVASCULAR SYSTEM: S1, S2 present. Regular rate and rhythm. No murmurs, no rubs, no gallops. RESPIRATORY SYSTEM: No wheezing, no rhonchi. Breath sounds bilaterally. GASTROINTESTINAL: Abdomen is soft, nontender, no guarding, no organomegaly, no masses felt. MUSCULOSKELETAL: No edema. INTEGUMENTARY: No rashes seen. PSYCHIATRIC: Mood is appropriate at this time. CRANIAL NERVE SYSTEM: Awake, follows commands. Speech clear. Right eye decreased vision. LABORATORY DATA: At the time of H and P performed, white count 5.6, hemoglobin 10, platelet count is 205. Renal panel, BMP showed sodium 113, potassium 4.2, chloride 97, CO2 is 26, BUN of 18, creatini ne of 4.23, mag 2.4, calcium 9.6, alkaline phosphatase 107, beta hydroxybutyrate 3.92. Chest x-ray, right lower lobe infiltrate seen. ASSESSMENT AND PLAN: The patient is 32 years old female. 1. Pneumonia. Plan to start patient on broad spectrum antibiotics. Plan to consult. Plan to monit or respiratory status closely. Plan to continue breathing treatments. 2. End-stage renal disease. Plan to consult Nephrology to evaluate the patient. Continue hemodialy sis per Nephrology. 3. History of hypertension. Monitor blood pressure. Continue home blood pressure medications. 4. History of diabetes type 2. Monitor blood sugars. We will do insulin sliding scale. 5. Cough and chest congestion. P.r.n. broncholytics. P.r.n. mucolytics. Case was discussed in detail with the patient and the patient's mother also. The patient is FULL COD E.
[2017-09-18 06:03] LABS: ALT (SGPT) 28 U/L (8-55); AST (SGOT) 20 U/L (5-34); Alkaline Phosphatase 73 U/L (40-150); Anion Gap 19 mmol/L (10-20); BUN (Urea Nitrogen) 24 mg/dL (7.0-18.7); Bilirubin, Total 0.5 mg/dL (0.2-1.2); Calc. Creatinine Clearance 13 mL/min (70-130); Calcium 8.5 mg/dL (7.8-10.44); Carbon Dioxide 25 mmol/L (22-29); Chloride 98 mmol/L (98-107); Estimated GFR-MDRD 10; Globulin 3.3 g/dL (2.4-3.5)
[2017-09-18] MEDS: hydrALAZINE 25 MG TAB PO SCH ×3 (08:43→20:21)
[2017-09-18] MEDS: Carvedilol 25 MG TAB PO SCH ×2 (08:44→20:22)
[2017-09-18] MEDS: Sevelamer Carbonate 800 MG TAB PO SCH ×3 (08:44→16:50)
[2017-09-18] MEDS: Folic Acid/Vit B Comp W-C PO SCH (08:44)
[2017-09-18] MEDS: Famotidine 20 MG TAB PO SCH (08:44)
[2017-09-18] MEDS: Heparin 5,000 UNITS/ML VIAL SC SCH ×2 (08:45→20:24)
[2017-09-18] MEDS ORDERED: Heparin 5,000 UNITS/ML VIAL SC SCH (09:00)
[2017-09-18] MEDS ORDERED: HOLD VANCOMYCIN FOR LEVEL >20 FS SCH (09:30)
[2017-09-18] MEDS ORDERED: Vancomycin HCl 1 GM in Premix Bag 1 BAG IVPB SCH (09:30)
[2017-09-18] MEDS ORDERED: Vancomycin HCl 750 MG in Sodium Chloride 0.9% 250 ML 250 ML IVPB SCH (09:30)
[2017-09-18] MEDS ORDERED: Vancomycin HCl 500 MG in Sodium Chloride 0.9% 100 ML IVPB SCH (09:30)
[2017-09-18] MEDS ORDERED: Vancomycin HCl 1.25 GM in Sodium Chloride 0.9% 250 ML 250 ML IVPB SCH (09:30)
[2017-09-18] MEDS: NIFEdipine XL 90 MG TAB PO SCH (10:15)
[2017-09-18] MEDS: Timolol 0.5% Ophth Soln 5 ml Bottle R EYE SCH ×2 (10:16→20:23)
[2017-09-18] MEDS: Dorzolamide HCl 2% Ophth Soln 10 ml Bottle R EYE SCH ×2 (10:16→20:24)
[2017-09-18] MEDS: Brimonidine Tartrate 0.2% Ophth Soln 5 ml Bottle R EYE SCH ×2 (10:16→20:24)
[2017-09-18] MEDS: Piperacillin/Tazobactam 4.5 GM in Sodium Chloride 0.9% 100 ML IVPB SCH ×3 (10:17→23:09)
[2017-09-18] MEDS: Atropine Sulfate 1% Ophth Soln 5 ml Bottle R EYE SCH ×2 (10:40→20:18)
--- NOTE | 2017-09-18 11:18 | PDOC.PN ---
- Subjective Encounter Start Date: 09/18/17 Encounter Start Time: 10:00 -: old records requested/rev pt has diffuse body pain, no fever, has runny nose and cough - Objective Resuscitation Status: Resuscitation Status FULL:Full Resuscitation MAR Reviewed: Yes Vital Signs & Weight: Vital Signs (12 hours) Temp Pulse Resp BP Pulse Ox 09/18/17 10:16 93 09/18/17 10:15 93 09/18/17 08:43 93 09/18/17 08:00 98.7 F 93 18 174/99 H 95 09/18/17 04:36 99.0 F 94 20 153/84 H 92 L 09/18/17 00:59 99.3 F 94 20 136/78 92 L Weight Weight 135 lb Result Diagrams: 09/18/17 04:40 09/18/17 04:40 Additional Labs: Accuchecks 09/18/17 09/17/17 04:39 23:47 POC Glucose 188 H 60 L Radiology Reviewed by me: Yes Phys Exam - Physical Examination Constitutional: NAD HEENT: PERRLA, moist MMs, sclera anicteric Neck: no JVD, supple Respiratory: no rales, wheezing present Cardiovascular: RRR, no significant murmur, no rub Gastrointestinal: soft, non-tender, no distention, positive bowel sounds Musculoskeletal: no edema, pulses present Neurological: non-focal, normal sensation Lymphatic: no nodes Psychiatric: normal affect, A&O x 3 Skin: no rash, normal turgor Dx/Plan (1) Community acquired bacterial pneumonia Code(s): J15.9 - UNSPECIFIED BACTERIAL PNEUMONIA Status: Acute (2) Diabetes mellitus, labile Code(s): E10.9 - TYPE 1 DIABETES MELLITUS WITHOUT COMPLICATIONS Status: Chronic (3) Diabetic nephropathy Status: Chronic (4) ESRD (end stage renal disease) on dialysis Code(s): N18.6 - END STAGE RENAL DISEASE; Z99.2 - DEPENDENCE ON RENAL DIALYSIS Status: Chronic Comment: HD per renal service, last HD scheduled for but missed (5) GERD (gastroesophageal reflux disease) Code(s): K21.9 - GASTRO-ESOPHAGEAL REFLUX DISEASE WITHOUT ESOPHAGITIS Status: Chronic (6) Gastroparesis due to DM Code(s): E11.43 - TYPE 2 DIABETES W DIABETIC AUTONOMIC (POLY)NEUROPATHY; K31.84 - GASTROPARESIS Status: Chronic Comment: (7) Glaucoma Code(s): H40.9 - UNSPECIFIED GLAUCOMA Status: Chronic (8) Hypertensive heart disease Code(s): I11.9 - HYPERTENSIVE HEART DISEASE WITHOUT HEART FAILURE Status: Chronic (9) Labile hypertension Code(s): I10 - ESSENTIAL (PRIMARY) HYPERTENSION Status: Chronic (10) Macrocytic anemia Code(s): D53.9 - NUTRITIONAL ANEMIA, UNSPECIFIED Status: Chronic (11) Noncompliance with medication regimen Code(s): Z91.14 - PATIENT'S OTHER NONCOMPLIANCE WITH MEDICATION REGIMEN Status : Chronic (12) Tricuspid regurgitation Code(s): I07.1 - RHEUMATIC TRICUSPID INSUFFICIENCY Status: Chronic - Plan cont current plan of care, plan discussed w/ family, continue antibiotics * continue selected home meds * medication reviewed as below * symptomatic treatment * pt has insulin pump * continue iv antibiotic as ordered * HD as per nephrology * influenza negative * follow culture. Review of Systems - Review of Systems Constitutional: Weakness. negative: Fever, Chills, Sweats, Malaise, Other ENT: Nose Discharge. negative: Ear Pain, Ear Discharge, Nose Pain, Nose Congestion, Mouth Pain, Mouth Swelling, Throat Pain, Throat Swelling, Other Respiratory: Cough Cardiovascular: negative: Chest Pain, Palpitations, Orthopnea, Paroxysmal Noc. Dyspnea, Edema, Light Headedness, Other Gastrointestinal: negative: Nausea, Vomiting, Abdominal Pain, Diarrhea, Constipation, Melena, Hematochezia, Other Genitourinary: negative: Dysuria, Frequency, Incontinence, Hematuria, Retention , Other Musculoskeletal: negative: Neck Pain, Shoulder Pain, Arm Pain, Back Pain, Hand Pain, Leg Pain, Foot Pain, Other - Medications/Allergies Allergies/Adverse Reactions: Allergies Allergy/AdvReac Type Severity Reaction Status Date / Time No Known Allergies Allergy Verified 09/17/17 21:23 Medications: Current Medications Acetaminophen (Tylenol) 650 mg PO Q4H PRN PRN Reason: Headache/Fever or Pain Hydrocodone Bitart/Acetaminophen ([place] 5/325) 1 tab PO Q4H PRN PRN Reason: Moderate Pain (4-6) Atropine Sulfate (Atropine 1% Ophth Soln) 1 drop R EYE BID [facility] Last Admin: 09/18/17 10:40 Dose: Not Given Brimonidine Tartrate (Alphagan 0.2% Ophth Soln) 1 drop R EYE BID [facility] Last Admin: 09/18/17 10:16 Dose: 1 drop Carvedilol (Coreg) 12.5 mg PO BID [facility] Last Admin: 09/18/17 08:44 Dose: 12.5 mg Dextrose/Water (Dextrose 50%) 25 gm SLOW IVP PRN PRN PRN Reason: Hypoglycemia Dorzolamide HCl (Trusopt 2% Ophth Soln) 1 drop R EYE BID [facility] Last Admin: 09/18/17 10:16 Dose: 1 drop Famotidine (Pepcid) 20 mg PO DAILY [facility] Last Admin: 09/18/17 08:44 Dose: 20 mg Glucagon (Glucagon) 1 mg IM PRN PRN PRN Reason: Hypoglycemia Heparin Sodium (Porcine) (Heparin) 5,000 units SC BID [facility] Last Admin: 09/18/17 08:45 Dose: Not Given Hydralazine HCl (Apresoline) 100 mg PO TID [facility] Last Admin: 09/18/17 08:43 Dose: 100 mg Dextrose/Water (D5w) 1,000 mls @ 0 mls/hr IV .Q0M PRN; As Directed PRN Reason: Hypoglycemia Levofloxacin 750 mg/ Device 150 mls @ 100 mls/hr IVPB Q48H [facility] Last Admin: 09/17/17 23:49 Dose: 150 mls Piperacillin Sod/Tazobactam (Sod 4.5 gm/ Sodium Chloride) 100 mls @ 200 mls/hr IVPB 1100,2300 [facility] Last Admin: 09/18/17 10:22 Dose: 100 mls Vancomycin HCl 1.25 gm/ Sodium (Chloride) 250 mls @ 166.667 mls/hr IVPB WILLCALL [facility] Vancomycin HCl 1 gm/ Device 200 mls @ 200 mls/hr IVPB WILLCALL [facility] Vancomycin HCl 750 mg/ Sodium (Chloride) 250 mls @ 250 mls/hr IVPB WILLCALL [facility] Vancomycin HCl 500 mg/ Sodium (Chloride) 100 mls @ 100 mls/hr IVPB WILLCALL [facility] Insulin Human Lispro (Humalog) 0 units SC .MODERATE SLIDING SC PRN PRN Reason: Moderate Correctional Scale Insulin Human Lispro (Humalog) 0 units SC .BEDTIME SLIDING SC PRN PRN Reason: Bedtime Correctional Scale Lorazepam (Ativan) 0.5 mg PO Q12H PRN PRN Reason: Anxiety Last Admin: 09/17/17 22:46 Dose: 0.5 mg Miscellaneous Medication (Pharmacy To Dose) 1 each IVPB ONE PRN PRN Reason: Pharmacy to dose Stop: 09/27/17 21:48 Nifedipine (Procardia Xl) 90 mg PO QAM [facility] Last Admin: 09/18/17 10:15 Dose: 90 mg Hold Vancomycin For (Level >20) 0 each FS .AT DIALYSIS [facility] Ondansetron HCl (Zofran) 4 mg IVP Q6H PRN PRN Reason: Nausea/Vomiting Sevelamer Carbonate (Renvela) 800 mg PO TID-WM [facility] Last Admin: 09/18/17 11:17 Dose: 800 mg Timolol Maleate (Timoptic 0.5% [facility]) 1 drop R EYE BID [facility] Last Admin: 09/18/17 10:16 Dose: 1 drop Vitamin B Complex/Vit C/Folic Acid (Nephro-Wilfredo Tablet) 1 tab PO DAILY [facility] Last Admin: 09/18/17 08:44 Dose: 1 tab
[2017-09-18] MEDS: HYDROcodone/Acetaminophen 5/325 mg Tablet PO PRN (16:53)
[2017-09-18] MEDS ORDERED: Benzonatate 100 MG CAP PO PRN (22:27)
[2017-09-19 04:31] LABS: #Eosinphils 0.2 thou/uL (0.0-0.7); #Lymphocytes 1.6 thou/uL (1.20-3.40); #Monocytes 0.4 thou/uL (0.11-0.59); #Neutrophils 1.2 thou/uL (1.40-6.50); %Basophils 1.1 % (0.0-1.0); %Eosinophils 6.1 % (0.0-10.0); %Lymphocytes 45.9 % (21.0-51.0); %Monocytes 11.3 % (0.0-10.0); Mean Platelet Volume 7.2 fL (7.4-10.4); Red Blood Cell (RBC) Count 2.67 mill/uL (4.20-5.40); White Blood Cell (WBC) Count 3.4 thou/uL (4.8-10.8)
[2017-09-19 04:48] LABS: Anion Gap 18 mmol/L (10-20); BUN (Urea Nitrogen) 39 mg/dL (7.0-18.7); BUN/Creatinine Ratio 4.68; Calc. Creatinine Clearance 9 mL/min (70-130); Calcium 8.5 mg/dL (7.8-10.44); Carbon Dioxide 26 mmol/L (22-29); Chloride 96 mmol/L (98-107); Estimated GFR-MDRD 7; Phosphorus 4.4 mg/dL (2.3-4.7)
--- NOTE | 2017-09-19 06:06 | CON ---
DATE OF CONSULTATION: 09/18/2017 CONSULTING PHYSICIAN: Dr. Phan REASON FOR CONSULTATION: End-stage renal disease evaluation and care. REASON FOR ADMISSION: Cough and nasal congestion. HISTORY OF PRESENT ILLNESS: A 32-year-old female with history of end-stage renal disease, hypertensi on, hyperlipidemia who came to the hospital with above complaints. Nephrology was consulted for main tenance hemodialysis. The patient gets dialysis on Sunday, Sunday, and Sunday. Last dialysis was on Sunday. She denies any shortness of breath. No fever or chills. No nausea or vomiting reported . PAST MEDICAL HISTORY: Positive for end-stage renal disease, hypertension, hyperlipidemia, glaucoma. PAST SURGICAL HISTORY: AV fistula placement. HOME MEDICATIONS: Include Combigan, Procardia, lisinopril, Coreg, hydralazine, Renvela. ALLERGIES: No known drug allergies. SOCIAL HISTORY: No smoking, alcohol or illicit drug abuse. FAMILY HISTORY: No history of any kidney disease. REVIEW OF SYSTEMS: The following complete review of systems was negative, unless otherwise mentioned in the HPI or below: CONSTITUTIONAL: Weight loss or gain, ability to conduct usual activities. SKIN: Rash, itching. EYES: Double vision, pain. ENT/MOUTH: Nose bleeding, neck stiffness, pain, tenderness. CARDIOVASCULAR: Palpitations, dyspnea on exertion, orthopnea. RESPIRATORY: Shortness of breath, wheezing, cough, hemoptysis, fever or night sweats. GASTROINTESTINAL: Poor appetite, abdominal pain, heartburn, nausea, vomiting, constipation, or diarr hea. GENITOURINARY: Urgency, frequency, dysuria, nocturia. MUSCULOSKELETAL: Pain, swelling. NEUROLOGIC/PSYCHIATRIC: Anxiety, depression. ALLERGY/IMMUNOLOGIC: Skin rash, bleeding tendency. PHYSICAL EXAMINATION: GENERAL: This is a well-built female in no apparent distress. VITAL SIGNS: Temperature 98.5, pulse 85, respiratory 16, blood pressure 120/73. LABORATORY DATA: Potassium is 4.6, BUN 24, creatinine is 5.9. ASSESSMENT AND PLAN: 1. End-stage renal disease on hemodialysis. We will continue on dialysis Sunday, Sunday, and Sun day. 2. Hypertension, stable. 3. Edema, controlled. 4. Anemia. We will continue Epogen with dialysis. Plan is to continue on dialysis as tolerated.
[2017-09-19 10:17] LABS: Vancomycin, Trough 14.4 ug/mL
--- NOTE | 2017-09-19 13:03 | PDOC.PN ---
- Subjective Encounter Start Date: 09/19/17 Encounter Start Time: 10:00 Subjective: is getting HD, no sob - Objective Resuscitation Status: Resuscitation Status FULL:Full Resuscitation MAR Reviewed: Yes Vital Signs & Weight: Vital Signs (12 hours) Temp Pulse Resp BP Pulse Ox 09/19/17 07:05 98.5 F 85 18 94 L 09/19/17 06:00 98.5 F 85 18 167/85 H 94 L Weight Weight 135 lb I&O: 09/18/17 09/19/17 09/20/17 06:59 06:59 06:59 Intake Total 1250 Output Total 0 Balance 1250 Result Diagrams: 09/19/17 03:20 09/19/17 03:20 Additional Labs: Accuchecks 09/19/17 09/18/17 09/18/17 06:11 19:34 16:49 POC Glucose 274 H 260 H 378 H Phys Exam - Physical Examination HEENT: PERRLA, moist MMs Neck: no JVD, supple Respiratory: no wheezing, no rales Cardiovascular: RRR, no significant murmur Gastrointestinal: soft, non-tender, positive bowel sounds Musculoskeletal: no edema, pulses present Neurological: non-focal, moves all 4 limbs Psychiatric: A&O x 3 Dx/Plan (1) Community acquired bacterial pneumonia Code(s): J15.9 - UNSPECIFIED BACTERIAL PNEUMONIA Status: Acute (2) Diabetes mellitus, labile Code(s): E10.9 - TYPE 1 DIABETES MELLITUS WITHOUT COMPLICATIONS Status: Chronic (3) ESRD (end stage renal disease) on dialysis Code(s): N18.6 - END STAGE RENAL DISEASE; Z99.2 - DEPENDENCE ON RENAL DIALYSIS Status: Chronic (4) GERD (gastroesophageal reflux disease) Code(s): K21.9 - GASTRO-ESOPHAGEAL REFLUX DISEASE WITHOUT ESOPHAGITIS Status: Chronic Qualifiers: Esophagitis presence: esophagitis presence not specified Qualified Code(s) : K21.9 - Gastro-esophageal reflux disease without esophagitis (5) Gastroparesis due to DM Code(s): E11.43 - TYPE 2 DIABETES W DIABETIC AUTONOMIC (POLY)NEUROPATHY; K31.84 - GASTROPARESIS Status: Chronic Comment: (6) Labile hypertension Code(s): I10 - ESSENTIAL (PRIMARY) HYPERTENSION Status: Chronic (7) Macrocytic anemia Code(s): D53.9 - NUTRITIONAL ANEMIA, UNSPECIFIED Status: Chronic (8) Noncompliance with medication regimen Code(s): Z91.14 - PATIENT'S OTHER NONCOMPLIANCE WITH MEDICATION REGIMEN Status : Chronic - Plan is on vanc with HD and levaquin -: dc zosyn, blood cs are -ve so far, no fever last 24hrs -: on coreg, procardia xl and hydralazine -: will add small dose of levemir with fingerstick going upto 200's -: mobilize as tolerated * . Review of Systems - Medications/Allergies Allergies/Adverse Reactions: Allergies Allergy/AdvReac Type Severity Reaction Status Date / Time No Known Allergies Allergy Verified 09/17/17 21:23 Medications: Current Medications Acetaminophen (Tylenol) 650 mg PO Q4H PRN PRN Reason: Headache/Fever or Pain Hydrocodone Bitart/Acetaminophen ([place] 5/325) 1 tab PO Q4H PRN PRN Reason: Moderate Pain (4-6) Last Admin: 09/18/17 16:53 Dose: 1 tab Atropine Sulfate (Atropine 1% Ophth Soln) 1 drop R EYE BID [facility] Last Admin: 09/18/17 20:18 Dose: Not Given Benzonatate (Tessalon) 100 mg PO Q8H PRN PRN Reason: Cough Last Admin: 09/18/17 23:09 Dose: 100 mg Brimonidine Tartrate (Alphagan 0.2% Ophth Soln) 1 drop R EYE BID [facility] Last Admin: 09/18/17 20:24 Dose: 1 drop Carvedilol (Coreg) 12.5 mg PO BID [facility] Last Admin: 09/18/17 20:22 Dose: 12.5 mg Dextrose/Water (Dextrose 50%) 25 gm SLOW IVP PRN PRN PRN Reason: Hypoglycemia Dorzolamide HCl (Trusopt 2% Ophth Soln) 1 drop R EYE BID [facility] Last Admin: 09/18/17 20:24 Dose: 1 drop Epoetin Jossue (Procrit) 10,000 units IVP MoWeFr [facility] Famotidine (Pepcid) 20 mg PO DAILY [facility] Last Admin: 09/18/17 08:44 Dose: 20 mg Glucagon (Glucagon) 1 mg IM PRN PRN PRN Reason: Hypoglycemia Heparin Sodium (Porcine) (Heparin) 5,000 units SC BID [facility] Last Admin: 09/18/17 20:24 Dose: Not Given Hydralazine HCl (Apresoline) 100 mg PO TID [facility] Last Admin: 09/18/17 20:21 Dose: 100 mg Dextrose/Water (D5w) 1,000 mls @ 0 mls/hr IV .Q0M PRN; As Directed PRN Reason: Hypoglycemia Levofloxacin 750 mg/ Device 150 mls @ 100 mls/hr IVPB Q48H [facility] Last Admin: 09/17/17 23:49 Dose: 150 mls Vancomycin HCl 1.25 gm/ Sodium (Chloride) 250 mls @ 166.667 mls/hr IVPB WILLCALL [facility] Vancomycin HCl 1 gm/ Device 200 mls @ 200 mls/hr IVPB WILLCALL [facility] Vancomycin HCl 750 mg/ Sodium (Chloride) 250 mls @ 250 mls/hr IVPB WILLCALL [facility] Vancomycin HCl 500 mg/ Sodium (Chloride) 100 mls @ 100 mls/hr IVPB WILLCALL [facility] Insulin Human Lispro (Humalog) 0 units SC .MODERATE SLIDING SC PRN PRN Reason: Moderate Correctional Scale Insulin Human Lispro (Humalog) 0 units SC .BEDTIME SLIDING SC PRN PRN Reason: Bedtime Correctional Scale Lorazepam (Ativan) 0.5 mg PO Q12H PRN PRN Reason: Anxiety Last Admin: 09/17/17 22:46 Dose: 0.5 mg Miscellaneous Medication (Pharmacy To Dose) 1 each IVPB ONE PRN PRN Reason: Pharmacy to dose Stop: 09/27/17 21:48 Nifedipine (Procardia Xl) 90 mg PO QAM [facility] Last Admin: 09/18/17 10:15 Dose: 90 mg Hold Vancomycin For (Level >20) 0 each FS .AT DIALYSIS [facility] Ondansetron HCl (Zofran) 4 mg IVP Q6H PRN PRN Reason: Nausea/Vomiting Sevelamer Carbonate (Renvela) 800 mg PO TID-[facility] Last Admin: 09/18/17 16:50 Dose: 800 mg Timolol Maleate (Timoptic 0.5% Oph Soln) 1 drop R EYE BID [facility] Last Admin: 09/18/17 20:23 Dose: 1 drop Vitamin B Complex/Vit C/Folic Acid (Nephro-Wilfredo Tablet) 1 tab PO DAILY [facility] Last Admin: 09/18/17 08:44 Dose: 1 tab
[2017-09-19] MEDS: Sevelamer Carbonate 800 MG TAB PO SCH ×2 (14:04→18:09)
[2017-09-19] MEDS: Heparin 5,000 UNITS/ML VIAL SC SCH ×2 (14:05→20:23)
[2017-09-19] MEDS: HYDROcodone/Acetaminophen 5/325 mg Tablet PO PRN ×2 (15:03→18:10)
[2017-09-19] MEDS: NIFEdipine XL 90 MG TAB PO SCH (15:04)
[2017-09-19] MEDS: hydrALAZINE 25 MG TAB PO SCH ×3 (15:04→20:23)
[2017-09-19] MEDS: Carvedilol 25 MG TAB PO SCH ×2 (15:04→20:23)
[2017-09-19] MEDS: Famotidine 20 MG TAB PO SCH (15:07)
[2017-09-19] MEDS: Brimonidine Tartrate 0.2% Ophth Soln 5 ml Bottle R EYE SCH ×2 (15:07→20:24)
[2017-09-19] MEDS: Dorzolamide HCl 2% Ophth Soln 10 ml Bottle R EYE SCH ×2 (15:07→20:24)
[2017-09-19] MEDS: Timolol 0.5% Ophth Soln 5 ml Bottle R EYE SCH ×2 (15:07→20:25)
[2017-09-19] MEDS: Folic Acid/Vit B Comp W-C PO SCH (15:07)
[2017-09-19] MEDS: Atropine Sulfate 1% Ophth Soln 5 ml Bottle R EYE SCH ×2 (15:07→20:26)
[2017-09-19] MEDS: Epoetin (NON-ESRD) 10,000 UNITS/ML VIAL IVP SCH (16:01)
[2017-09-19] MEDS: Guaifenesin DM 100-10/5 ML UDCUP PO PRN ×2 (18:08→23:54)
[2017-09-19] MEDS ORDERED: Vancomycin HCl 500 MG in Sodium Chloride 0.9% 100 ML IVPB SCH (20:00)
[2017-09-19] MEDS: Insulin Detemir 100 UNITS/ML 5 UNITS in Pre-Filled Syringe SC SCH (20:25)
--- NOTE | 2017-09-19 23:31 | PRG ---
DATE OF SERVICE: 09/19/2017 SUBJECTIVE: Patient was seen and examined at bedside and overnight events noted. Patient denies any shortness of breath or chest pain or palpitation. No history of nausea or vomiting or diarrhea or f ever or chills or cramps. OBJECTIVE: GENERAL: This is a well-built female in no apparent distress. VITAL SIGNS: Temperature 99.4, pulse 94, respiratory 18, blood pressure 146/92. HEENT: Atraumatic, normocephalic. Oral mucosa is moist. NECK: Supple. CARDIOVASCULAR: S1, S2 heard. Rate and rhythm regular. RESPIRATORY: Clear to auscultation. GASTROINTESTINAL: Abdomen is soft. MUSCULOSKELETAL: No tenderness. No edema. DERMATOLOGIC: No skin rash. NEUROLOGIC: Alert and awake and oriented x3. No focal neurologic deficits. Moving all the extremit ies. PSYCHIATRIC: Mood and affect normal. LABORATORY DATA: Potassium is 4.4, BUN is 39, creatinine is 8.3. ASSESSMENT AND PLAN: 1. End-stage renal disease. Continue on dialysis 2. Hypertension, stable. 3. Edema, controlled. 4. Anemia. Plan is to continue on dialysis Sunday, Sunday, and Sunday as tolerated. The patient was seen dur ing dialysis as tolerating well.
[2017-09-19] MEDS: Lorazepam 0.5 MG TAB PO PRN (23:54)
[2017-09-20] MEDS: Ondansetron HCl/PF 4 MG/2 ML Vial IVP PRN ×2 (02:17→07:26)
[2017-09-20] MEDS: Brimonidine Tartrate 0.2% Ophth Soln 5 ml Bottle R EYE SCH ×2 (07:29→20:27)
[2017-09-20] MEDS: Dorzolamide HCl 2% Ophth Soln 10 ml Bottle R EYE SCH ×2 (07:48→20:27)
[2017-09-20] MEDS: Heparin 5,000 UNITS/ML VIAL SC SCH ×2 (08:19→20:30)
[2017-09-20] MEDS: Timolol 0.5% Ophth Soln 5 ml Bottle R EYE SCH ×2 (08:21→20:26)
[2017-09-20] MEDS: Insulin Detemir 100 UNITS/ML 5 UNITS in Pre-Filled Syringe SC SCH ×2 (08:22→20:00)
[2017-09-20] MEDS ORDERED: Promethazine HCl 25 MG/ML VIAL SLOW IVP SCH (09:30)
[2017-09-20] MEDS: Sevelamer Carbonate 800 MG TAB PO SCH ×3 (09:42→16:35)
[2017-09-20] MEDS: Atropine Sulfate 1% Ophth Soln 5 ml Bottle R EYE SCH ×2 (09:43→20:24)
--- NOTE | 2017-09-20 09:46 | RAD ---
PORTABLE CHEST: HISTORY: Cough and shortness of breath. COMPARISON: 09/17/17. FINDINGS: Lungs appear clear. No evidence of infiltrate. Heart and mediastinum unremarkable. IMPRESSION: Unremarkable 1 view chest. POS: [facility]
[2017-09-20] MEDS: NIFEdipine XL 90 MG TAB PO SCH (11:00)
[2017-09-20] MEDS: Folic Acid/Vit B Comp W-C PO SCH (11:01)
[2017-09-20] MEDS: Famotidine 20 MG TAB PO SCH (11:01)
[2017-09-20] MEDS: hydrALAZINE 25 MG TAB PO SCH ×3 (11:01→20:31)
[2017-09-20] MEDS: Carvedilol 25 MG TAB PO SCH ×2 (11:02→20:29)
--- NOTE | 2017-09-20 13:16 | PDOC.PN ---
- Subjective Encounter Start Date: 09/20/17 Encounter Start Time: 09:30 Subjective: no new complaints -: has no cough or fever now - Objective Resuscitation Status: Resuscitation Status FULL:Full Resuscitation MAR Reviewed: Yes Vital Signs & Weight: Vital Signs (12 hours) Temp Pulse Resp BP BP Pulse Ox 09/20/17 11:01 90 145/94 H 09/20/17 11:00 90 145/94 H 09/20/17 08:21 100 157/103 H 09/20/17 08:00 98.6 F 100 16 09/20/17 07:29 98.6 F 100 18 157/103 H 98 09/20/17 01:20 95 Weight Weight 135 lb I&O: 09/19/17 09/20/17 09/21/17 06:59 06:59 06:59 Intake Total 1250 870 Output Total 0 Balance 1250 870 Result Diagrams: 09/19/17 03:20 09/19/17 03:20 Additional Labs: Accuchecks 09/20/17 09/20/17 09/19/17 11:19 04:12 19:23 POC Glucose 300 H 277 H 246 H 09/19/17 16:25 POC Glucose 262 H Phys Exam - Physical Examination HEENT: moist MMs right eye blindness Neck: no JVD, supple Respiratory: no wheezing, no rales Cardiovascular: RRR, no significant murmur Gastrointestinal: soft, non-tender, positive bowel sounds Musculoskeletal: no edema, pulses present Neurological: non-focal, moves all 4 limbs Psychiatric: A&O x 3 Dx/Plan (1) Diabetes mellitus, labile Code(s): E10.9 - TYPE 1 DIABETES MELLITUS WITHOUT COMPLICATIONS Status: Chronic (2) ESRD (end stage renal disease) on dialysis Code(s): N18.6 - END STAGE RENAL DISEASE; Z99.2 - DEPENDENCE ON RENAL DIALYSIS Status: Chronic (3) GERD (gastroesophageal reflux disease) Code(s): K21.9 - GASTRO-ESOPHAGEAL REFLUX DISEASE WITHOUT ESOPHAGITIS Status: Chronic Qualifiers: Esophagitis presence: esophagitis presence not specified Qualified Code(s) : K21.9 - Gastro-esophageal reflux disease without esophagitis (4) Gastroparesis due to DM Code(s): E11.43 - TYPE 2 DIABETES W DIABETIC AUTONOMIC (POLY)NEUROPATHY; K31.84 - GASTROPARESIS Status: Chronic Comment: (5) Labile hypertension Code(s): I10 - ESSENTIAL (PRIMARY) HYPERTENSION Status: Chronic (6) Macrocytic anemia Code(s): D53.9 - NUTRITIONAL ANEMIA, UNSPECIFIED Status: Chronic (7) Noncompliance with medication regimen Code(s): Z91.14 - PATIENT'S OTHER NONCOMPLIANCE WITH MEDICATION REGIMEN Status : Chronic - Plan repeat cxr done shows no evidence of pna -: dc antibiotics and observe for 24hrs -: will dc pt home in am if no fever/unstable -: blood cs show no growth -: likely was vol overloaded when she arrived with mild fever * . Review of Systems - Medications/Allergies Allergies/Adverse Reactions: Allergies Allergy/AdvReac Type Severity Reaction Status Date / Time No Known Allergies Allergy Verified 09/17/17 21:23 Medications: Current Medications Acetaminophen (Tylenol) 650 mg PO Q4H PRN PRN Reason: Headache/Fever or Pain Hydrocodone Bitart/Acetaminophen ([place] 5/325) 1 tab PO Q4H PRN PRN Reason: Moderate Pain (4-6) Last Admin: 09/19/17 18:10 Dose: 1 tab Atropine Sulfate (Atropine 1% Ophth Soln) 1 drop R EYE BID [facility] Last Admin: 09/20/17 09:43 Dose: Not Given Benzonatate (Tessalon) 100 mg PO Q8H PRN PRN Reason: Cough Last Admin: 09/18/17 23:09 Dose: 100 mg Brimonidine Tartrate (Alphagan 0.2% Ophth Soln) 1 drop R EYE BID [facility] Last Admin: 09/20/17 07:29 Dose: 1 drop Carvedilol (Coreg) 12.5 mg PO BID [facility] Last Admin: 09/20/17 11:02 Dose: 12.5 mg Dextrose/Water (Dextrose 50%) 25 gm SLOW IVP PRN PRN PRN Reason: Hypoglycemia Dorzolamide HCl (Trusopt 2% Ophth Soln) 1 drop R EYE BID [facility] Last Admin: 09/20/17 07:48 Dose: 1 drop Epoetin Jossue (Procrit) 10,000 units IVP MoWeFr [facility] Last Admin: 09/19/17 16:01 Dose: 10,000 units Famotidine (Pepcid) 20 mg PO DAILY [facility] Last Admin: 11/30/17 11:01 Dose: 20 mg Glucagon (Glucagon) 1 mg IM PRN PRN PRN Reason: Hypoglycemia Guaifenesin/Dextromethorphan (Robitussin Dm) 15 ml PO Q4H PRN PRN Reason: Cough Last Admin: 09/19/17 23:54 Dose: 15 ml Heparin Sodium (Porcine) (Heparin) 5,000 units SC BID [facility] Last Admin: 09/20/17 08:19 Dose: 5,000 units Hydralazine HCl (Apresoline) 100 mg PO TID [facility] Last Admin: 09/20/17 11:01 Dose: 100 mg Dextrose/Water (D5w) 1,000 mls @ 0 mls/hr IV .Q0M PRN; As Directed PRN Reason: Hypoglycemia Insulin Detemir 5 units/ (Miscellaneous Medication) 0.05 mls @ 0 mls/hr SC BID [facility] Last Admin: 09/20/17 08:22 Dose: Not Given Insulin Human Lispro (Humalog) 0 units SC .MODERATE SLIDING SC PRN PRN Reason: Moderate Correctional Scale Insulin Human Lispro (Humalog) 0 units SC .BEDTIME SLIDING SC PRN PRN Reason: Bedtime Correctional Scale Lorazepam (Ativan) 0.5 mg PO Q12H PRN PRN Reason: Anxiety Last Admin: 09/19/17 23:54 Dose: 0.5 mg Miscellaneous Medication (Pharmacy To Dose) 1 each IVPB ONE PRN PRN Reason: Pharmacy to dose Stop: 09/27/17 21:48 Nifedipine (Procardia Xl) 90 mg PO QAM [facility] Last Admin: 09/20/17 11:00 Dose: 90 mg Hold Vancomycin For (Level >20) 0 each FS .AT DIALYSIS [facility] Ondansetron HCl (Zofran) 4 mg IVP Q6H PRN PRN Reason: Nausea/Vomiting Last Admin: 09/20/17 07:26 Dose: 4 mg Sevelamer Carbonate (Renvela) 800 mg PO TID-[facility] Last Admin: 09/20/17 11:02 Dose: 800 mg Sodium Chloride (Flush - Normal Saline) 10 ml IVF Q12HR IESHA Sodium Chloride (Flush - Normal Saline) 10 ml IVF PRN PRN PRN Reason: Saline Flush Timolol Maleate (Timoptic 0.5% [facility]) 1 drop R EYE BID [facility] Last Admin: 09/20/17 08:21 Dose: 1 drop Vitamin B Complex/Vit C/Folic Acid (Nephro-Wilfredo Tablet) 1 tab PO DAILY [facility] Last Admin: 09/20/17 11:01 Dose: 1 tab
--- NOTE | 2017-09-20 21:22 | PRG ---
DATE OF SERVICE: 09/20/2017 SUBJECTIVE: The patient was seen and examined at the bedside and overnight events noted. The patie nt denies any shortness of breath or chest pain or palpitation. No history of nausea or vomiting or diarrhea or fever or chills or cramps. OBJECTIVE: GENERAL: This is a well-built female, in no apparent distress. VITAL SIGNS: Temperature 97, pulse 85, respiratory rate 16, blood pressure 95/62. HEENT: Atraumatic, normocephalic. Oral mucosa is moist. NECK: Supple. CARDIOVASCULAR: S1, S2 heard. Rate and rhythm regular. RESPIRATORY: Clear to auscultation. GASTROINTESTINAL: Abdomen is soft. MUSCULOSKELETAL: No tenderness, no edema. DERMATOLOGIC: No skin rash. NEUROLOGIC: Alert and awake and oriented x3. No focal neurologic deficits, moving all the extremiti es. PSYCHIATRIC: Mood and affect normal. LABORATORY DATA: No labs done today. ASSESSMENT AND PLAN: 1. End-stage renal disease. Continue on hemodialysis Sunday, Sunday, and Sunday. 2. Hypertension. 3. Edema. 4. Anemia. 5. We will continue dialysis Sunday, Sunday, and Sunday as tolerated.
[2017-09-21] MEDS: Atropine Sulfate 1% Ophth Soln 5 ml Bottle R EYE SCH (12:39)
[2017-09-21] MEDS: Sevelamer Carbonate 800 MG TAB PO SCH ×2 (12:39→12:41)
[2017-09-21] MEDS: Brimonidine Tartrate 0.2% Ophth Soln 5 ml Bottle R EYE SCH (12:40)
[2017-09-21] MEDS: Dorzolamide HCl 2% Ophth Soln 10 ml Bottle R EYE SCH (12:40)
[2017-09-21] MEDS: Epoetin (NON-ESRD) 10,000 UNITS/ML VIAL IVP SCH (12:40)
[2017-09-21] MEDS: Insulin Detemir 100 UNITS/ML 5 UNITS in Pre-Filled Syringe SC SCH (12:41)
[2017-09-21] MEDS: Heparin 5,000 UNITS/ML VIAL SC SCH (12:42)
[2017-09-21] MEDS: NIFEdipine XL 90 MG TAB PO SCH (12:42)
[2017-09-21] MEDS: Folic Acid/Vit B Comp W-C PO SCH (12:42)
[2017-09-21] MEDS: hydrALAZINE 25 MG TAB PO SCH (12:42)
[2017-09-21] MEDS: Carvedilol 25 MG TAB PO SCH (12:43)
[2017-09-21] MEDS: Famotidine 20 MG TAB PO SCH (12:43)
[2017-09-21 13:06] VITALS: BP 95/67; TEMP 97.9
[2017-09-21] MEDS: Timolol 0.5% Ophth Soln 5 ml Bottle R EYE SCH (13:56)
--- NOTE | 2017-09-21 15:18 | PDOC.PN ---
- Subjective Encounter Start Date: 09/21/17 Encounter Start Time: 07:50 Subjective: getting hemodialysis, no sob - Objective Resuscitation Status: Resuscitation Status FULL:Full Resuscitation MAR Reviewed: Yes Vital Signs & Weight: Vital Signs (12 hours) Temp Pulse Resp BP Pulse Ox 09/21/17 13:56 101 H 09/21/17 13:05 97.9 F 101 H 16 95/67 99 09/21/17 12:42 90 09/21/17 08:00 98.2 F 90 20 96 09/21/17 06:36 98.2 F 90 20 126/81 94 L Weight Weight 135 lb I&O: 09/20/17 09/21/17 09/22/17 06:59 06:59 06:59 Intake Total 870 360 Balance 870 360 Result Diagrams: 09/19/17 03:20 09/19/17 03:20 Additional Labs: Accuchecks 09/21/17 09/21/17 09/20/17 13:01 04:42 19:29 POC Glucose 230 H 296 H 279 H 09/20/17 16:32 POC Glucose 231 H Phys Exam - Physical Examination HEENT: moist MMs right eye blind Neck: no JVD, supple Respiratory: no wheezing, no rales Cardiovascular: RRR, no significant murmur Gastrointestinal: soft, non-tender, positive bowel sounds Musculoskeletal: no edema, pulses present Neurological: non-focal, moves all 4 limbs Psychiatric: A&O x 3 Dx/Plan (1) Diabetes mellitus, labile Code(s): E10.9 - TYPE 1 DIABETES MELLITUS WITHOUT COMPLICATIONS Status: Chronic (2) ESRD (end stage renal disease) on dialysis Code(s): N18.6 - END STAGE RENAL DISEASE; Z99.2 - DEPENDENCE ON RENAL DIALYSIS Status: Chronic (3) GERD (gastroesophageal reflux disease) Code(s): K21.9 - GASTRO-ESOPHAGEAL REFLUX DISEASE WITHOUT ESOPHAGITIS Status: Chronic Qualifiers: Esophagitis presence: esophagitis presence not specified Qualified Code(s) : K21.9 - Gastro-esophageal reflux disease without esophagitis (4) Gastroparesis due to DM Code(s): E11.43 - TYPE 2 DIABETES W DIABETIC AUTONOMIC (POLY)NEUROPATHY; K31.84 - GASTROPARESIS Status: Chronic Comment: (5) Labile hypertension Code(s): I10 - ESSENTIAL (PRIMARY) HYPERTENSION Status: Chronic (6) Macrocytic anemia Code(s): D53.9 - NUTRITIONAL ANEMIA, UNSPECIFIED Status: Chronic (7) Noncompliance with medication regimen Code(s): Z91.14 - PATIENT'S OTHER NONCOMPLIANCE WITH MEDICATION REGIMEN Status : Chronic - Plan hemostable -: cultures are -ve, cxr is clear, is off all antibiotics -: dc pt home * .
--- NOTE | 2017-09-21 22:15 | DIS ---
DATE OF ADMISSION: 09/17/2017 DATE OF DISCHARGE: 09/21/2017 DISCHARGE DISPOSITION: To home. PRIMARY DISCHARGE DIAGNOSES: Volume overload with noncompliance with hemodialysis, hypertension labi le, macrocytic anemia, gastroparesis due to diabetes mellitus, end-stage renal disease on hemodialysi s, diabetes mellitus being labile, gastroesophageal reflux disease. PROCEDURES DONE DURING HOSPITALIZATION: The patient has had a chest x-ray done on the day of admissi on, which showed a right lower lobe opacity concerning for infection. She has had a repeat chest x-r ay done on 09/20/2017, which was unremarkable. Blood cultures x2 no growth. Influenza A and B antig ens were negative. Discharge H&H 9 and 27, platelet count of 181. BUN and creatinine on 09/19/2017 was 39 and 8.3 with serum bicarbonate of 26. DISCHARGE MEDICATIONS: Coreg 12.5 mg p.o. twice daily, dorzolamide, Combigan, and atropine eyedrops as before, hydralazine 100 mg p.o. 3 times daily, Levemir 10 units subcutaneously at bedtime, lisinop ril 20 units subcu twice daily, Procardia-XL 90 mg p.o. daily, sevelamer 800 mg p.o. 3 times daily. ALLERGIES: No known drug allergies. INPATIENT CONSULTS: Dr. Arevalo for Nephrology. BRIEF COURSE DURING HOSPITALIZATION: Patient initially got admitted on the 09/17/2017 with complaint s of chest congestion and cough. Her initial x-ray was suspicious for possible right lung pneumonia. Patient was placed on broad spectrum antibiotics. Blood cultures x2 showed no growth. A repeat est x-ray done showed no acute cardiopulmonary abnormalities. Patient is known to be noncompliant wi medication and dialysis. She has had back to back dialysis done and her volume overload as [facility] ed. She has remained hemodynamically stable and will be shortly discharged home. Please see a face to face documentation on [facility] for the day of discharge.
--- NOTE | 2017-09-21 23:56 | PRG ---
DATE OF SERVICE: 09/21/2017 SUBJECTIVE: Patient was seen and examined at bedside and overnight events noted. Patient denies any shortness of breath or chest pain or palpitation. No history of nausea or vomiting or diarrhea or f ever or chills or cramps. OBJECTIVE: GENERAL: This is a thin built female in no apparent distress. VITAL SIGNS: Temperature 97.9, pulse 101, respiratory rate 16 and blood pressure 95/67. HEENT: Atraumatic and normocephalic. Oral mucosa is moist. NECK: Supple. CARDIOVASCULAR: S1 and S2 heard. Rate and rhythm regular. RESPIRATORY: Clear to auscultation. GASTROINTESTINAL: Abdomen is soft. MUSCULOSKELETAL: No tenderness. No edema. DERMATOLOGIC: No skin rash. NEUROLOGIC: Alert, awake and oriented x3. No focal neurologic deficits. Moving all the extremities . PSYCHIATRIC: Mood and affect normal LABORATORY DATA: Not done today. ASSESSMENT AND PLAN: 1. End-stage renal disease. Continue on hemodialysis Sunday, Sunday and Sunday. 2. Hypertension, stable. 3. Edema, controlled. 4. Anemia, continue . Plan is to continue on dialysis as tolerated. She is tolerating well.
== END 2017-09-21 14:48 | disposition home or self-care (01) | DRG 640 ==
LOC: ERS 16:42 → T4-B 19:21
PROVIDERS: ADMIT Internal Medicine; ATTEND Internal Medicine
PROC: 5A1D70Z Performance of Urinary Filtration, Intermittent, Less than 6 Hours Per Day (ICD-10-PCS; principal; 2017-09-19)
DX: E87.70 Fluid overload, unspecified (principal); N18.6 End stage renal disease; I12.0 Hypertensive chronic kidney disease with stage 5 chronic kidney disease or end stage renal disease; E10.21 Type 1 diabetes mellitus with diabetic nephropathy; I07.1 Rheumatic tricuspid insufficiency; E10.22 Type 1 diabetes mellitus with diabetic chronic kidney disease; Z99.2 Dependence on renal dialysis; E10.43 Type 1 diabetes mellitus with diabetic autonomic (poly)neuropathy; K31.84 Gastroparesis; Z79.4 Long term (current) use of insulin; D53.9 Nutritional anemia, unspecified; K21.9 Gastro-esophageal reflux disease without esophagitis; Z91.15 Patient's noncompliance with renal dialysis; Z91.14 Patient's other noncompliance with medication regimen; E78.5 Hyperlipidemia, unspecified; H40.9 Unspecified glaucoma; R50.9 Fever, unspecified; Z96.41 Presence of insulin pump (external) (internal)
CPT/HCPCS: 36415; 36416; 71010; 71020; 80053; 80069; 80202; 82010; 83605; 83735; 85025; 87040; 87340; 94640; 96365; J0885; J1644; J1815; J1956; J2405; J2543; J2550; J3370; J7050; J7620

== ENCOUNTER 2017-12-05 13:57 | Inpatient (IN) | payer BC, OTHER ==
[2017-12-05] MEDS ORDERED: Ondansetron HCl/PF 4 MG/2 ML Vial ONE ×2 (15:00→16:32)
[2017-12-05 15:09] LABS: #Basophils 0.1 thou/uL (0.0-0.2); #Lymphocytes 0.7 thou/uL (1.20-3.40); #Monocytes 0.1 thou/uL (0.11-0.59); #Neutrophils 7.7 thou/uL (1.40-6.50); %Basophils 1.1 % (0.0-1.0); %Eosinophils 0.1 % (0.0-10.0); %Lymphocytes 8.2 % (21.0-51.0); %Monocytes 0.9 % (0.0-10.0); %Neutrophils 89.8 % (42.0-75.0); Hemoglobin 14.4 g/dL (12.0-16.0); Mean Corpuscular HGB CONC 32.9 g/dL (32.0-36.0); Mean Corpuscular Hemoglobin 32.7 pg (27.0-31.0); Mean Corpuscular Volume 99.4 fl (81.0-99.0); Mean Platelet Volume 8.4 fL (7.4-10.4); Platelet Count 248 thou/uL (130-400); RBC Distribution Width 14.5 % (11.5-14.5); Red Blood Cell (RBC) Count 4.41 mill/uL (4.20-5.40); White Blood Cell (WBC) Count 8.5 thou/uL (4.8-10.8)
[2017-12-05 15:20] LABS: Base Excess-Venous -10.1 mmol/L (-30.0-30.0); CO2 Tension (PvCO2) 31.3 mmHg (41.0-51.0); Calcium, Ionized 0.81 mmol/L (1.12-1.32); Hemoglobin - Calc 18.2 g/dL (12.0-18.0); O2 Tension (PvO2) 43.9 mmHg (35.0-45.0); Potassium 6.5 mmol/L (3.4-4.7); pH (Venous) 7.289 (7.35-7.45); vO2 Saturation-calc 74.9 % (0.0-100.0)
[2017-12-05] MEDS ORDERED: Sodium Bicarbonate 2.5 MEQ/5 ML VIAL ONE (15:22)
[2017-12-05] MEDS ORDERED: Calcium Gluc 4.6 MEQ/10 ML (100 MG/ML) ONE (15:22)
[2017-12-05] MEDS ORDERED: Insulin Regular 300 UNITS/3 ML VIAL ONE (15:22)
[2017-12-05] MEDS ORDERED: Dextrose 50% Abboject 50 ML SYRINGE ONE (15:22)
[2017-12-05] MEDS ORDERED: Sodium Bicarb 50 MEQ/50 ML Abboject 8.4% SYRINGE ONE (15:25)
[2017-12-05] MEDS ORDERED: Insulin Regular 100 units/100 ml in NS IVPB SCH (16:00)
[2017-12-05 16:17] LABS: Albumin 4.2 g/dL (3.5-5.0)
[2017-12-05 16:18] LABS: Chloride 88 mmol/L (98-107); Magnesium 2.9 mg/dL (1.6-2.6); Potassium 5.7 mmol/L (3.5-5.1); Sodium 133 mmol/L (136-145)
[2017-12-05 16:20] LABS: Protein, Total 8.2 g/dL (6.0-8.3)
[2017-12-05 16:21] LABS: Anion Gap 40 mmol/L (10-20); Bilirubin, Total 0.3 mg/dL (0.2-1.2); Carbon Dioxide 11 mmol/L (22-29)
[2017-12-05 16:22] LABS: Alkaline Phosphatase 66 U/L (40-150)
[2017-12-05 16:23] LABS: Calc. Creatinine Clearance 0 mL/min (70-130); Estimated GFR-MDRD 4
[2017-12-05 16:24] LABS: BUN (Urea Nitrogen) 79 mg/dL (7.0-18.7)
[2017-12-05 16:25] LABS: ALT (SGPT) 14 U/L (8-55); AST (SGOT) 23 U/L (5-34)
[2017-12-05 16:26] LABS: Lipase 17 U/L (8-78)
[2017-12-05 16:35] LABS: Glucose 687 mg/dL (70-105); Phosphorus 10.6 mg/dL (2.3-4.7)
[2017-12-05] MEDS ORDERED: Labetalol HCl 100 MG/20 ML VIAL ONE (17:09)
--- NOTE | 2017-12-05 17:28 | HP ---
PRIMARY CARE PHYSICIAN: Dr. Bran Mcginnis. REASON FOR ADMISSION: Intractable nausea, vomiting, hypertensive urgency, hyperkalemia. HISTORY OF PRESENT ILLNESS: A 32-year-old -Filipino female, who has underlying history of mariluz betes type 2 and diabetic gastroparesis as well as end-stage renal disease on hemodialysis on Sunday, Sunday, and Sunday. The patient has periodic admissions for similar problems with nausea, vomiti ng, and diarrhea. Her last admission in our hospital was on 09/17/2017. The patient was doing very well up until Sunday when she started having nausea, vomiting, and diarrhea. She was taking Reglan a t home, so initially symptoms hooked on Sunday. She had several times of diarrhea, liquidy without a ny pus or blood and she had several times vomiting containing food particles and liquids without any blood. Sunday evening, she was feeling a little bit better and that is why she did not go to the [facility] room. She had dialysis done on Sunday. Sunday, again she was having intractable nausea and vomiting and she was not able to keep anything down, even she was not able to keep her medicine. Her blood pressure was going up, she was feeling headache, body ache, as well as she was also having mariluz rrhea. She was feeling more fatigued, tired, and that is why today she did not go for dialysis and s he decided to come to the emergency room for evaluation. She denies any unusual food ingestion. She denies any fever, chills, flu-like illness. She denies any abdominal pain. She denies any focal mo tor weakness. She denies any chest pain, palpitations, or shortness of breath. The patient denies any UTI symptoms. She does take her medications regularly, otherwise. REVIEW OF SYSTEMS: The following complete review of systems was negative, unless otherwise mentioned in the HPI or below: Constitutional: Weight loss or gain, ability to conduct usual activities. Skin: Rash, itching. Eyes: Double vision, pain. ENT/Mouth: Nose bleeding, neck stiffness, pain, tenderness. Cardiovascular: Palpitations, dyspnea on exertion, orthopnea. Respiratory: Shortness of breath, whee zing, cough, hemoptysis, fever or night sweats. Gastrointestinal: Poor appetite, abdominal pain, hea rtburn, nausea, vomiting, constipation, or diarrhea. Genitourinary: Urgency, frequency, dysuria, noc turia. Musculoskeletal: Pain, swelling. Neurologic/Psychiatric: Anxiety, depression. Allergy/Immun ologic: Skin rash, bleeding tendency. Please see my HPI for pertinent positives and negatives. All other review of systems reviewed and ne gative except as mentioned in the HPI. ALLERGIES: No known drug allergy. CURRENT HOME MEDICATIONS: Renvela 800 mg p.o. t.i.d., Procardia XL 90 mg p.o. daily, lisinopril 20 m g p.o. b.i.d., hydralazine 100 mg p.o. t.i.d., Levemir 10 units subcu at bedtime, Coreg 12.5 mg p.o. twice daily, dorzolamide ophthalmic drops right eye b.i.d., Combigan ophthalmic drops right eye b.i.d ., and atropine ophthalmic drops right eye b.i.d. PAST MEDICAL HISTORY: End-stage renal disease, on hemodialysis Sunday; Sunday; Sunday, hypertensi on, anemia of renal disease, diabetes type 1 on insulin, gastroesophageal reflux disease, diabetic ga stroparesis, glaucoma in the right eye, multiple admissions in the past for diabetic ketoacidosis and flare up of diabetes, gastroparesis, secondary hyperparathyroidism of renal origin. PAST SURGICAL HISTORY: AV fistula placement in left upper extremity and right eye surgery. PAST PSYCHIATRIC HISTORY: Reviewed and negative. SOCIAL HISTORY: Patient lives with her mother. No history of tobacco, alcohol, or illicit drug abus e. FAMILY HISTORY: Diabetes, hypertension runs among several family members. EMERGENCY ROOM COURSE: In the emergency room, the patient is given sodium bicarbonate, calcium gluco vini, IV fluid, Zofran, Humulin R 10 unit, and Dextrose 50%. PHYSICAL EXAMINATION: VITAL SIGNS: Currently, blood pressure 194/118, pulse 121, respiratory rate 20, temperature 98.1, sa turation 100% on room air, and weight 65.7 kilograms. GENERAL: Patient is currently uncomfortable from nausea. HEAD: Normocephalic, atraumatic. EYES: Pupils round, reactive to light. Extraocular muscle intact. ENT: Oropharynx within normal limits. Moist mucous membranes. No oral lesions. No pharyngeal eryt jennifer, no exudate. NECK: Supple, no JVD, no thyromegaly, no carotid bruits. LUNGS: Clear to auscultation without any rhonchi or rales. CARDIAC: S1 and S2 regular, tachycardia, no murmur, no gallop, no rub. ABDOMEN: Soft, bowel sounds present. No peritoneal sign, no Yarbrough sign, no suprapubic tenderness. No distention. Bowel sounds present. BACK: Unremarkable, no CVA tenderness. EXTREMITIES: Upper extremity passive movement of all joints are normal. Lower extremities: No benji a. Good peripheral pulsation. SKIN: No skin rash. HEMATOLOGICAL: No lymphadenopathy. PSYCHIATRIC: Normal affect. SIGNIFICANT LABORATORY DATA: EKG showing sinus tachycardia, peak T-wave. CBC: WBC 8.5, hemoglobin 14.4, platelet 248. ABG: pH 7.28, bicarbonate 15.0, CO2 of 31.3, CO2 of 43.9, bicarbonate 15.0. VB G: Venous potassium 6.5, sodium 128, chloride 93, serum ketones 6.90. ASSESSMENT AND PLAN: 1. Intractable nausea and vomiting, likely due to diabetic gastroparesis. The patient will be given Reglan 5 mg IV q.6 hourly scheduled today. Protonix 40 mg IV daily and symptomatic treatment for Zo mele 4 mg IV q.6 hourly p.r.n. 2. Diarrhea. We will rule out infectious etiology, and the patient gives a stool sample, then will rule out infection with C. diff and ova, parasite, Campylobacter antigen. 3. Dehydration. Patient will be given gentle IV fluid. 4. Hyperkalemia due to decreased renal excretion. Patient does have underlying acidosis and that co ntributes to her hyperkalemia. Dr. Puentes will be consulted, so the patient is due for hemodialysis to day, so this patient can get dialysis today and repeat labs tomorrow. 5. End-stage renal disease on hemodialysis. Patient was due for dialysis today and that is why we w ill consult Nephrology for maintenance hemodialysis. 6. Secondary hyperparathyroidism of renal origin. We will continue Renvela 800 mg p.o. t.i.d. 7. Glaucoma, right eye. We will continue atropine sulfate, Combigan, and dorzolamide ophthalmic luis a ps as per home dosage in the right eye. 8. Hypertension. The patient is not able to keep anything down and that is why we tried to use pare nteral blood pressure medication including labetalol and hydralazine. If patient is able to take med ication and we will resume Procardia XL and hydralazine. We will try to discontinue lisinopril becau se of hyperkalemia. We will also continue Coreg 12.5 mg p.o. twice daily. 9. Deep venous thrombosis prophylaxis, heparin 5000 units subcu twice daily. 10. Gastrointestinal prophylaxis, Protonix 40 mg IV daily. 11. Code status: The patient is FULL CODE. Patient's mother is surrogate decision maker. Disposit ion plan based on clinical course. We are expecting patient's stay in hospital more than 2 midnights . Plan of care discussed with the patient and family member at bedside in the emergency room.
[2017-12-05] MEDS ORDERED: Ondansetron HCl/PF 4 MG/2 ML Vial IVP PRN (18:46)
[2017-12-05] MEDS ORDERED: Ondansetron ODT 4 MG TAB SL PRN ×2 (18:46→18:50)
[2017-12-05] MEDS ORDERED: Labetalol HCl 100 MG/20 ML VIAL SLOW IVP PRN (18:50)
[2017-12-05] MEDS ORDERED: Eucerin (Mineral Oil/Petrolatum,White) 30 gm Jar TOP PRN (18:50)
[2017-12-05] MEDS ORDERED: Artificial Tears 18 DROP/0.9 ML EA EYE PRN (18:50)
[2017-12-05] MEDS ORDERED: Dextrose 5 %-0.45 % NaCl 1,000 ML IV SCH (18:50)
[2017-12-05] MEDS ORDERED: Diabetic Tussin 200 MG/10 ML UDCUP PO PRN (18:50)
[2017-12-05] MEDS ORDERED: Mag-Al 1200 mg/1200 mg/30 ML UDCUP PO PRN (18:50)
[2017-12-05] MEDS ORDERED: Sodium Chloride 0.65% Nasal 44 ML BOT EA NARE PRN (18:50)
[2017-12-05] MEDS ORDERED: Chloraseptic Spray 180 ml Bottle PO PRN (18:50)
[2017-12-05] MEDS ORDERED: Acetaminophen 325 MG TAB PO PRN (18:50)
[2017-12-05] MEDS ORDERED: Loperamide HCl 2 MG CAP PO PRN (18:50)
[2017-12-05] MEDS ORDERED: Metoclopramide HCl 10 MG/2 ML VIAL IVP SCH (19:00)
[2017-12-05 19:15] LABS: HBSAg Index 0.15 S/CO (0-0.99); Hep B Surf Ag Non-Reactive S/CO (NonReactive)
[2017-12-05] MEDS: Ondansetron HCl/PF 4 MG/2 ML Vial IVP PRN (20:02)
[2017-12-05] MEDS: Heparin 5,000 UNITS/ML VIAL SC SCH (20:02)
--- NOTE | 2017-12-05 21:34 | CON ---
DATE OF CONSULTATION: 12/05/2017 REASON FOR CONSULTATION: Hyperkalemia. HISTORY OF PRESENT ILLNESS: A 32-year-old female presented with a history of 2-3 days of nausea and vomiting after dialysis. Her potassium was noted to be 6. The patient has also had diarrhea. The p atient has severe diabetic gastroparesis and very poorly controlled diabetes mellitus. The patient d enies any nausea, vomiting, or chest pain. PAST MEDICAL HISTORY: Significant for hypertension, anemia, diabetes mellitus, diabetic gastroparesi s, glaucoma of the right eye, diabetic ketoacidosis, hyperparathyroidism, history of AV fistula, hist ory of tunneled dialysis catheter, right eye surgery. SOCIAL ECONOMIC HISTORY: No alcohol or drug use. FAMILY HISTORY: Negative for ESRD. REVIEW OF SYSTEMS: A 15-point review of systems was performed and negative except positives as noted above. General: Weakness. Head: Headache. Neck: No swelling or lumps. Nose: No epistaxis or discharge. Eyes: No diplopia or pain. Respiratory: Dyspnea. Cardiovascular: Chest pain. Gastro intestinal: Nausea. /PRIVATE EYE: Hematuria. Musculoskeletal: No joint pain. Neuropsychiatic Systems: No suicidal ideation. No ideation. Skin: Denies any rash or ulcer. Constitutional: No fever or chills. PHYSICAL EXAMINATION: GENERAL: Patient is awake, alert. VITAL SIGNS: Afebrile, pulse 120, breathing at 16, blood pressure 170/100. GENERAL APPEARANCE AND MENTAL STATUS: Fair. HEAD/NECK: Normocephalic. Atraumatic. EYES: EOMI. No deformity. EARS: Clear. No ulcers. NOSE: Intact. No lesions. MOUTH: Clear. No discharge. THROAT: Clear. No exudate. LUNGS: Clear. No crackles. CARDIAC: S1, S2. No rub. ABDOMEN: Benign. BS+. GENITALIA/RECTUM: Taylor absent. BACK/EXTREMITIES: Edema 0+, Ulcer. NEUROLOGICAL: Alert and motor intact. SKIN: Rash. Bruise. LYMPHATICS: Edema. Ulcer. LABORATORY DATA: Potassium 5.7, bicarbonate 15. ASSESSMENT AND RECOMMENDATIONS: 1. Stage 6, chronic kidney disease. Plan urgent dialysis. 2. Hyperkalemia, plan dialysis. 3. Metabolic acidosis, multifactorial. We will plan dialysis. 4. Hypertension. Patient will be kept euvolemic.
[2017-12-05] MEDS ORDERED: Promethazine HCl 25 MG/ML VIAL SLOW IVP SCH (22:30)
[2017-12-06 00:17] VITALS: BMI 22.5
[2017-12-06 00:29] LABS: Anion Gap 18 mmol/L (10-20); BUN (Urea Nitrogen) 15 mg/dL (7.0-18.7); Calc. Creatinine Clearance 23 mL/min (70-130); Carbon Dioxide 31 mmol/L (22-29); Chloride 94 mmol/L (98-107); Estimated GFR-MDRD 19; Glucose 131 mg/dL (70-105); Potassium 3.1 mmol/L (3.5-5.1); Sodium 140 mmol/L (136-145)
[2017-12-06] MEDS: Metoclopramide HCl 10 MG/2 ML VIAL IVP SCH ×5 (01:00→23:44)
[2017-12-06] MEDS: Zolpidem Tartrate 5 MG TAB PO PRN ×2 (01:00→20:38)
[2017-12-06] MEDS: Ondansetron HCl/PF 4 MG/2 ML Vial IVP PRN ×2 (05:54→11:53)
[2017-12-06 06:08] LABS: ALT (SGPT) 11 U/L (8-55); AST (SGOT) 12 U/L (5-34); Albumin 3.9 g/dL (3.5-5.0); Alkaline Phosphatase 55 U/L (40-150); Anion Gap 16 mmol/L (10-20); BUN (Urea Nitrogen) 24 mg/dL (7.0-18.7); Bilirubin, Total 0.5 mg/dL (0.2-1.2); Calc. Creatinine Clearance 14 mL/min (70-130); Calcium 9.2 mg/dL (7.8-10.44); Carbon Dioxide 31 mmol/L (22-29); Chloride 96 mmol/L (98-107); Estimated GFR-MDRD 11; Globulin 3.1 g/dL (2.4-3.5); Glucose 152 mg/dL (70-105); Potassium 3.4 mmol/L (3.5-5.1); Sodium 140 mmol/L (136-145)
[2017-12-06 06:14] LABS: #Basophils 0.1 thou/uL (0.0-0.2); #Lymphocytes 2.8 thou/uL (1.20-3.40); #Monocytes 0.8 thou/uL (0.11-0.59); #Neutrophils 8.7 thou/uL (1.40-6.50); %Basophils 0.5 % (0.0-1.0); %Eosinophils 0.2 % (0.0-10.0); %Lymphocytes 22.6 % (21.0-51.0); %Monocytes 6.8 % (0.0-10.0); %Neutrophils 69.9 % (42.0-75.0); Hemoglobin 11.3 g/dL (12.0-16.0); Mean Corpuscular HGB CONC 33.2 g/dL (32.0-36.0); Mean Corpuscular Hemoglobin 32.6 pg (27.0-31.0); Mean Platelet Volume 7.7 fL (7.4-10.4); Platelet Count 207 thou/uL (130-400); RBC Distribution Width 14.7 % (11.5-14.5); Red Blood Cell (RBC) Count 3.46 mill/uL (4.20-5.40); White Blood Cell (WBC) Count 12.4 thou/uL (4.8-10.8)
[2017-12-06] MEDS: Pantoprazole 40 MG VIAL IVP SCH (08:17)
[2017-12-06] MEDS: Heparin 5,000 UNITS/ML VIAL SC SCH ×3 (08:17→20:41)
--- NOTE | 2017-12-06 10:53 | PDOC.PN ---
- Subjective Encounter Start Date: 12/06/17 Encounter Start Time: 09:30 -: old records requested/rev Patient seen and examined. No new complaints. No overnight events had dialysis last night, mild nausea and no vomiting - Objective Resuscitation Status: Resuscitation Status FULL:Full Resuscitation MAR Reviewed: Yes Vital Signs & Weight: Vital Signs (12 hours) Temp Pulse Resp BP Pulse Ox 12/06/17 08:00 98.0 F 97 20 149/89 H 96 12/06/17 04:00 98.9 F 104 H 18 94/57 L 98 12/05/17 23:45 99.6 F 108 H 18 111/57 L 99 Weight Weight 134 lb 1 oz I&O: 12/05/17 12/06/17 12/07/17 06:59 06:59 06:59 Intake Total 760 Balance 760 Result Diagrams: 12/06/17 04:46 12/06/17 04:46 Additional Labs: Accuchecks 12/06/17 12/06/17 12/06/17 09:32 08:15 07:16 POC Glucose 125 H 62 L 72 12/06/17 12/06/17 12/06/17 05:51 04:37 03:10 POC Glucose 105 148 H 213 H 12/06/17 12/06/17 12/05/17 02:04 00:59 23:57 POC Glucose 246 H 245 H 161 H 12/05/17 12/05/17 12/05/17 22:39 21:34 21:04 POC Glucose 100 100 110 12/05/17 12/05/17 12/05/17 20:02 18:53 18:24 POC Glucose 186 H 378 H 391 H 12/05/17 16:34 POC Glucose Greater than 550 H* EKG Reviewed by me: Yes (NSR) Phys Exam - Physical Examination Constitutional: NAD HEENT: PERRLA, moist MMs, sclera anicteric Neck: no JVD, supple Respiratory: no wheezing, no rales, no rhonchi Cardiovascular: RRR, no significant murmur, no rub Gastrointestinal: soft, non-tender, no distention, positive bowel sounds Musculoskeletal: no edema, pulses present Neurological: non-focal, normal sensation Psychiatric: normal affect, A&O x 3 Skin: no rash, normal turgor Dx/Plan (1) Hyperkalemia Code(s): E87.5 - HYPERKALEMIA Status: Resolved (2) Nausea & vomiting Code(s): R11.2 - NAUSEA WITH VOMITING, UNSPECIFIED Status: Acute (3) Acute diarrhea Code(s): R19.7 - DIARRHEA, UNSPECIFIED Status: Resolved (4) ESRD (end stage renal disease) on dialysis Code(s): N18.6 - END STAGE RENAL DISEASE; Z99.2 - DEPENDENCE ON RENAL DIALYSIS Status: Chronic (5) GERD (gastroesophageal reflux disease) Code(s): K21.9 - GASTRO-ESOPHAGEAL REFLUX DISEASE WITHOUT ESOPHAGITIS Status: Chronic Qualifiers: Esophagitis presence: esophagitis presence not specified Qualified Code(s) : K21.9 - Gastro-esophageal reflux disease without esophagitis (6) Gastroparesis due to DM Code(s): E11.43 - TYPE 2 DIABETES W DIABETIC AUTONOMIC (POLY)NEUROPATHY; K31.84 - GASTROPARESIS Status: Chronic Comment: (7) Glaucoma Code(s): H40.9 - UNSPECIFIED GLAUCOMA Status: Chronic (8) Labile hypertension Code(s): I10 - ESSENTIAL (PRIMARY) HYPERTENSION Status: Chronic (9) Macrocytic anemia Code(s): D53.9 - NUTRITIONAL ANEMIA, UNSPECIFIED Status: Chronic (10) Noncompliance with medication regimen Code(s): Z91.14 - PATIENT'S OTHER NONCOMPLIANCE WITH MEDICATION REGIMEN Status : Chronic (11) Tricuspid regurgitation Code(s): I07.1 - RHEUMATIC TRICUSPID INSUFFICIENCY Status: Chronic - Plan cont current plan of care, plan discussed w/ family * once she tolerates her oral intake, then will continue her insulin pump and DC insulin drip * at that time will DC IVF and transfer to medical floor * medication reviewed as below * symptomatic treatment * updated plan to family. Review of Systems - Review of Systems Constitutional: negative: fever, chills, sweats, weakness, malaise, other Eyes: negative: Pain, Vision Change, Conjunctivae Inflammation, Eyelid Inflammation, Redness, Other ENT: negative: Ear Pain, Ear Discharge, Nose Pain, Nose Discharge, Nose Congestion, Mouth Pain, Mouth Swelling, Throat Pain, Throat Swelling, Other Respiratory: negative: Cough, Dry, Shortness of Breath, Hemoptysis, SOB with Excertion, Pleuritic Pain, Sputum, Wheezing Cardiovascular: negative: chest pain, palpitations, orthopnea, paroxysmal nocturnal dyspnea, edema, light headedness, other Gastrointestinal: Nausea. negative: Vomiting, Abdominal Pain, Diarrhea, Constipation, Melena, Hematochezia, Other Genitourinary: negative: Dysuria, Frequency, Incontinence, Hematuria, Retention , Other Musculoskeletal: negative: Neck Pain, Shoulder Pain, Arm Pain, Back Pain, Hand Pain, Leg Pain, Foot Pain, Other Skin: negative: Rash, Lesions, Walker, Bruising, Other - Medications/Allergies Allergies/Adverse Reactions: Allergies Allergy/AdvReac Type Severity Reaction Status Date / Time No Known Allergies Allergy Verified 12/05/17 21:40 Medications: Current Medications Acetaminophen (Tylenol) 650 mg PO Q4H PRN PRN Reason: Headache/Fever or Pain Al Hydroxide/Mg Hydroxide (Maalox) 30 ml PO Q6H PRN PRN Reason: Heartburn or Indigestion Artificial Tears (Tears Naturale) 0 drop EA EYE PRN PRN PRN Reason: Dry Eyes Guaifenesin (Robitussin Sf) 200 mg PO Q4H PRN PRN Reason: Cough Heparin Sodium (Porcine) (Heparin) 5,000 units SC BID [facility] Last Admin: 12/06/17 08:20 Dose: Not Given Hydralazine HCl (Apresoline) 10 mg SLOW IVP Q2H PRN PRN Reason: SBP GREATER THAN 160 Dextrose/Sodium Chloride (D5 1/2 Ns) 1,000 mls @ 50 mls/hr IV .Q20H [facility] Last Admin: 12/06/17 01:00 Dose: 1,000 mls Insulin Human Regular 100 (units/ Sodium Chloride) 101 mls @ 0 mls/hr IVPB INF IES[facility]; Titrate PRN Reason: Protocol Labetalol HCl (Normodyne) 20 mg SLOW IVP Q2H PRN PRN Reason: SBP GREATER THAN 160 Loperamide HCl (Imodium) 2 mg PO PRN PRN PRN Reason: Diarrhea/Loose Stools Metoclopramide HCl (Reglan) 5 mg IVP Q6HR [facility] Last Admin: 12/06/17 05:54 Dose: 5 mg Mineral Oil/White Petrolatum (Eucerin Cream) 0 gm TOP BIDPRN PRN PRN Reason: Dry Skin Ondansetron HCl (Zofran Odt) 4 mg SL Q6H PRN PRN Reason: Nausea/Vomiting Ondansetron HCl (Zofran) 4 mg IVP Q6H PRN PRN Reason: Nausea/Vomiting Last Admin: 12/06/17 05:54 Dose: 4 mg Pantoprazole Sodium (Protonix) 40 mg IVP DAILY [facility] Last Admin: 12/06/17 08:17 Dose: 40 mg Phenol (Chloraseptic [place] 180 Ml Bot) 0 ml PO PRN PRN PRN Reason: Sore Throat Sodium Chloride ([place] Nasal [place] 0.65%) 0 ml EA NARE QIDPRN PRN PRN Reason: Nasal Congestion Zolpidem Tartrate (Ambien) 5 mg PO HSPRN PRN PRN Reason: Insomnia Last Admin: 12/06/17 01:00 Dose: 5 mg
--- NOTE | 2017-12-06 14:56 | CON ---
DATE OF CONSULTATION: 12/06/2017 HISTORY OF PRESENT ILLNESS: A 32-year-old -[place] female who has been several times in the hospital, she now presents with persistent nausea and vomiting. She has gastroparesis from longstand ing diabetes and renal failure. She underwent emergency dialysis. This morning, she is still nauseated. Denies any cough, chest pain, shortness of breath, fever, chil ls, sweats, hemoptysis. PAST MEDICAL HISTORY: Well outlined includes renal failure on dialysis, hypertension, diabetes, ramses roparesis, reflux. PAST SURGICAL HISTORY: Access, left eye surgery. SOCIAL HISTORY: No alcohol. FAMILY HISTORY: Unremarkable, no tobacco abuse. MEDICATIONS: List of medicines from home, hydralazine 10 three times a day, nifedipine XL 90, lisino pril 20, insulin, Coreg 12.5, atropine eyedrops. REVIEW OF SYSTEMS: Ten point negative. PHYSICAL EXAMINATION: GENERAL: Awake, alert, responsive. Denies any pain, difficulty breathing. VITAL SIGNS: Sats on room air 98, pulse 104, temperature 98.9, blood pressure 94/57. CHEST: Decreased breath sounds, no wheezing. CARDIAC: Normal S1, S2. No gallops. ABDOMEN: Soft. LABORATORY DATA: White count 12,000, H&H is 11 and 33, platelet count is 207. Creatinine is 5, BUN 24, glucose 152. IMPRESSION: 1. Persistent nausea and vomiting secondary to gastroparesis. 2. Chronic renal failure. PLAN: Once she is able to swallow, she will be transferred out of the MICU, we will follow while she is in the MICU. Continue Reglan, supportive care. This is a consultation note of 70 minutes in which 50 minutes was directly spent with the patient's c are at the bedside.
--- NOTE | 2017-12-06 17:32 | PRG ---
DATE OF SERVICE: 12/06/2017 SUBJECTIVE: This is a 32-year-old female being seen for end-stage renal disease. The patient denies any nausea, vomiting or chest pain. OBJECTIVE: GENERAL: The patient is awake and alert. VITAL SIGNS: Afebrile, pulse 97, breathing at 16 and blood pressure 159/89. HEAD/NECK: Normocephalic. Atraumatic. EYES: EOMI. No deformity. EARS: Clear. No ulcers. NOSE: Intact. No lesions. MOUTH: Clear. No discharge. THROAT: Clear. No exudate. LUNGS: Clear. No crackles. CARDIAC: S1, S2. No rub. ABDOMEN: Benign. BS+. GENITALIA/RECTUM: Taylor absent. BACK/EXTREMITIES: Edema 0+. Ulcer-. NEUROLOGICAL: Alert and motor intact. SKIN: Rash-. Bruise-. LYMPHATICS: Edema-. Ulcer-. LABORATORY DATA: Showed a hemoglobin of 11.3. Potassium was 3.4. ASSESSMENT AND PLAN: 1. Stage 6 chronic kidney disease, stable. 2. Hypertension, stable. 3. Anemia, stable. 4. Medications based on glomerular filtration rate are appropriate.
[2017-12-07] MEDS: Metoclopramide HCl 10 MG/2 ML VIAL IVP SCH ×3 (06:19→18:05)
--- NOTE | 2017-12-07 09:52 | PRG ---
DATE OF SERVICE: 12/07/2017 SUBJECTIVE: This is a 32-year-old female being seen for end-stage renal disease. The patient denies any nausea, vomiting or chest pain. PHYSICAL EXAMINATION: GENERAL: Patient is awake, alert. VITAL SIGNS: Afebrile, pulse 97, breathing 16, blood pressure 133/85. OBJECTIVE: See above. Awake, alert, in no acute distress. GENERAL APPEARANCE AND MENTAL STATUS: Fair. HEAD/NECK: Normocephalic. Atraumatic. EYES: EOMI. No deformity. EARS: Clear. No ulcers. NOSE: Intact. No lesions. MOUTH: Clear. No discharge. THROAT: Clear. No exudate. LUNGS: Clear. No crackles. CARDIAC: S1, S2. No rub. ABDOMEN: Benign. BS+. GENITALIA/RECTUM: Taylor absent. BACK/EXTREMITIES: Edema 0+ Ulcer- NEUROLOGICAL: Alert and motor intact. SKIN: Rash- Bruise- LYMPHATICS: Edema- Ulcer- LABORATORY: Hemoglobin 11.3. ASSESSMENT AND RECOMMENDATIONS: 1. Stage 6 chronic kidney disease, continue hemodialysis. 2. Hypertension, stable. 3. Anemia, stable. 4. Medications based on glomerular filtration rate are appropriate.
[2017-12-07 10:13] LABS: #Basophils 0.1 thou/uL (0.0-0.2); #Eosinphils 0.1 thou/uL (0.0-0.7); #Lymphocytes 1.8 thou/uL (1.20-3.40); #Monocytes 0.4 thou/uL (0.11-0.59); #Neutrophils 3.8 thou/uL (1.40-6.50); %Basophils 0.8 % (0.0-1.0); %Eosinophils 2.2 % (0.0-10.0); %Lymphocytes 29.3 % (21.0-51.0); %Monocytes 6.6 % (0.0-10.0); %Neutrophils 61.1 % (42.0-75.0); Hemoglobin 10.9 g/dL (12.0-16.0); Mean Corpuscular HGB CONC 33.7 g/dL (32.0-36.0); Mean Corpuscular Hemoglobin 33.4 pg (27.0-31.0); Mean Corpuscular Volume 99.1 fl (81.0-99.0); Mean Platelet Volume 7.6 fL (7.4-10.4); Platelet Count 193 thou/uL (130-400); RBC Distribution Width 14.7 % (11.5-14.5); Red Blood Cell (RBC) Count 3.26 mill/uL (4.20-5.40); White Blood Cell (WBC) Count 6.1 thou/uL (4.8-10.8)
--- NOTE | 2017-12-07 10:17 | PDOC.PN ---
- Subjective Encounter Start Date: 12/07/17 Encounter Start Time: 09:10 Patient seen and examined. No new complaints. No overnight events - Objective Resuscitation Status: Resuscitation Status FULL:Full Resuscitation MAR Reviewed: Yes Vital Signs & Weight: Vital Signs (12 hours) Temp Pulse Resp BP Pulse Ox 12/07/17 08:00 98.6 F 96 19 100 12/07/17 07:25 98.6 F 96 19 160/92 H 97 12/07/17 05:34 98 12/07/17 04:00 99.0 F 18 133/85 97 12/06/17 23:41 98.8 F 110 H 18 119/77 100 Weight Weight 136 lb 6 oz I&O: 12/06/17 12/07/17 12/08/17 06:59 06:59 06:59 Intake Total 760 1640 Output Total 0 Balance 760 1640 Result Diagrams: 12/07/17 09:25 12/06/17 04:46 Additional Labs: Accuchecks 12/07/17 12/06/17 12/06/17 05:45 23:40 20:19 POC Glucose 180 H 337 H 355 H 12/06/17 12/06/17 12/06/17 18:00 16:22 14:18 POC Glucose 247 H 303 H 286 H 12/06/17 12/06/17 12/06/17 12:56 11:48 10:34 POC Glucose 301 H 188 H 156 H EKG Reviewed by me: Yes Phys Exam - Physical Examination Constitutional: NAD HEENT: PERRLA, moist MMs, sclera anicteric Neck: no JVD, supple Respiratory: no wheezing, no rales, no rhonchi Cardiovascular: RRR, no significant murmur, no rub Gastrointestinal: soft, non-tender, no distention, positive bowel sounds Musculoskeletal: no edema, pulses present Neurological: non-focal, normal sensation Psychiatric: normal affect, A&O x 3 Skin: no rash, normal turgor Dx/Plan (1) Hyperkalemia Code(s): E87.5 - HYPERKALEMIA Status: Resolved (2) Nausea & vomiting Code(s): R11.2 - NAUSEA WITH VOMITING, UNSPECIFIED Status: Acute (3) Acute diarrhea Code(s): R19.7 - DIARRHEA, UNSPECIFIED Status: Resolved (4) ESRD (end stage renal disease) on dialysis Code(s): N18.6 - END STAGE RENAL DISEASE; Z99.2 - DEPENDENCE ON RENAL DIALYSIS Status: Chronic (5) GERD (gastroesophageal reflux disease) Code(s): K21.9 - GASTRO-ESOPHAGEAL REFLUX DISEASE WITHOUT ESOPHAGITIS Status: Chronic Qualifiers: Esophagitis presence: esophagitis presence not specified Qualified Code(s) : K21.9 - Gastro-esophageal reflux disease without esophagitis (6) Gastroparesis due to DM Code(s): E11.43 - TYPE 2 DIABETES W DIABETIC AUTONOMIC (POLY)NEUROPATHY; K31.84 - GASTROPARESIS Status: Chronic Comment: (7) Glaucoma Code(s): H40.9 - UNSPECIFIED GLAUCOMA Status: Chronic (8) Labile hypertension Code(s): I10 - ESSENTIAL (PRIMARY) HYPERTENSION Status: Chronic (9) Macrocytic anemia Code(s): D53.9 - NUTRITIONAL ANEMIA, UNSPECIFIED Status: Chronic (10) Noncompliance with medication regimen Code(s): Z91.14 - PATIENT'S OTHER NONCOMPLIANCE WITH MEDICATION REGIMEN Status : Chronic (11) Tricuspid regurgitation Code(s): I07.1 - RHEUMATIC TRICUSPID INSUFFICIENCY Status: Chronic - Plan cont current plan of care * medication reviewed as below * symptomatic treatment * transfer to medical floor * control diabetes today * expecting discharge tomorrow. Review of Systems - Review of Systems Constitutional: negative: fever, chills, sweats, weakness, malaise, other ENT: negative: Ear Pain, Ear Discharge, Nose Pain, Nose Discharge, Nose Congestion, Mouth Pain, Mouth Swelling, Throat Pain, Throat Swelling, Other Respiratory: negative: Cough, Dry, Shortness of Breath, Hemoptysis, SOB with Excertion, Pleuritic Pain, Sputum, Wheezing Cardiovascular: negative: chest pain, palpitations, orthopnea, paroxysmal nocturnal dyspnea, edema, light headedness, other Gastrointestinal: negative: Nausea, Vomiting, Abdominal Pain, Diarrhea, Constipation, Melena, Hematochezia, Other Genitourinary: negative: Dysuria, Frequency, Incontinence, Hematuria, Retention , Other Musculoskeletal: negative: Neck Pain, Shoulder Pain, Arm Pain, Back Pain, Hand Pain, Leg Pain, Foot Pain, Other Skin: negative: Rash, Lesions, Walker, Bruising, Other - Medications/Allergies Allergies/Adverse Reactions: Allergies Allergy/AdvReac Type Severity Reaction Status Date / Time No Known Allergies Allergy Verified 12/05/17 21:40 Medications: Current Medications Acetaminophen (Tylenol) 650 mg PO Q4H PRN PRN Reason: Headache/Fever or Pain Al Hydroxide/Mg Hydroxide (Maalox) 30 ml PO Q6H PRN PRN Reason: Heartburn or Indigestion Artificial Tears (Tears Naturale) 0 drop EA EYE PRN PRN PRN Reason: Dry Eyes Guaifenesin (Robitussin Sf) 200 mg PO Q4H PRN PRN Reason: Cough Heparin Sodium (Porcine) (Heparin) 5,000 units SC BID [facility] Last Admin: 12/06/17 20:41 Dose: Not Given Hydralazine HCl (Apresoline) 10 mg SLOW IVP Q2H PRN PRN Reason: SBP GREATER THAN 160 Labetalol HCl (Normodyne) 20 mg SLOW IVP Q2H PRN PRN Reason: SBP GREATER THAN 160 Loperamide HCl (Imodium) 2 mg PO PRN PRN PRN Reason: Diarrhea/Loose Stools Metoclopramide HCl (Reglan) 5 mg IVP Q6HR [facility] Last Admin: 12/07/17 06:19 Dose: Not Given Mineral Oil/White Petrolatum (Eucerin Cream) 0 gm TOP BIDPRN PRN PRN Reason: Dry Skin Ondansetron HCl (Zofran Odt) 4 mg SL Q6H PRN PRN Reason: Nausea/Vomiting Ondansetron HCl (Zofran) 4 mg IVP Q6H PRN PRN Reason: Nausea/Vomiting Last Admin: 12/06/17 11:53 Dose: 4 mg Pantoprazole Sodium (Protonix) 40 mg IVP DAILY [facility] Last Admin: 12/06/17 08:17 Dose: 40 mg Phenol (Chloraseptic [place] 180 Ml Bot) 0 ml PO PRN PRN PRN Reason: Sore Throat Sodium Chloride ([place] Nasal [place] 0.65%) 0 ml EA NARE QIDPRN PRN PRN Reason: Nasal Congestion Zolpidem Tartrate (Ambien) 5 mg PO HSPRN PRN PRN Reason: Insomnia Last Admin: 12/06/17 20:38 Dose: 5 mg
[2017-12-07 10:44] LABS: Albumin 3.9 g/dL (3.5-5.0); Anion Gap 16 mmol/L (10-20); BUN (Urea Nitrogen) 17 mg/dL (7.0-18.7); BUN/Creatinine Ratio 3.98; Calc. Creatinine Clearance 18 mL/min (70-130); Calcium 8.8 mg/dL (7.8-10.44); Carbon Dioxide 28 mmol/L (22-29); Chloride 96 mmol/L (98-107); Estimated GFR-MDRD 14; Glucose 192 mg/dL (70-105); Phosphorus 2.9 mg/dL (2.3-4.7); Potassium 3.4 mmol/L (3.5-5.1); Sodium 137 mmol/L (136-145)
[2017-12-07] MEDS: Heparin 5,000 UNITS/ML VIAL SC SCH ×2 (13:03→20:58)
[2017-12-07] MEDS: hydrALAZINE 20 MG/ML VIAL SLOW IVP PRN (13:07)
[2017-12-07] MEDS: Pantoprazole 40 MG VIAL IVP SCH (13:07)
--- NOTE | 2017-12-07 20:49 | PRG ---
DATE OF SERVICE: 12/07/2017 SERVICE: Pulmonary Medicine. INTERVAL HISTORY: The patient is doing fine from a cardiovascular and respiratory standpoint. She d enies any shortness of breath. She is on room air. She was moved out of the [facility] today and has no r espiratory issues. Her nausea and vomiting has resolved. Otherwise, there has been no interval doyle ge to her condition. PHYSICAL EXAMINATION: VITAL SIGNS: Afebrile, pulse 96, blood pressure 160/92, respirations 16, saturation 98% on room air. GENERAL: Patient is awake, alert, in no apparent distress. LUNGS: Decent air entry. No prolonged expiratory phase, wheezing, rhonchi or crackles. HEART: Normal rate, regular. ABDOMEN: Soft, nontender, nondistended. Bowel sounds are positive. MUSCULOSKELETAL: No cyanosis or clubbing. No pitting in the bilateral lower extremities. NEUROLOGIC: Grossly nonfocal. LABORATORY DATA: WBC 6.1, hemoglobin 10.9, platelets 193,000. Creatinine 4.27. Basic metabolic pro file is essentially otherwise unremarkable. ASSESSMENT: 1. Gastroparesis with nausea and vomiting. 2. Diabetes mellitus. 3. Starvation ketosis. 4. End-stage renal disease. PLAN: The patient is currently stable from a respiratory perspective and has no further requirement for Pulmonary or Critical Care opinion. As such, I will sign off. Please call with additional quest ions or concerns moving forward.
[2017-12-07] MEDS: Zolpidem Tartrate 5 MG TAB PO PRN (21:31)
[2017-12-07] MEDS: Ondansetron HCl/PF 4 MG/2 ML Vial IVP PRN (21:31)
[2017-12-08] MEDS: Metoclopramide HCl 10 MG/2 ML VIAL IVP SCH ×4 (01:34→17:45)
[2017-12-08] MEDS ORDERED: Dextrose 5% in Water 1,000 ML IV PRN (07:40)
[2017-12-08] MEDS ORDERED: Dextrose 50% Abboject 50 ML SYRINGE SLOW IVP PRN (07:40)
[2017-12-08] MEDS: Timolol 0.5% Ophth Soln 5 ml Bottle R EYE SCH ×2 (09:30→20:01)
[2017-12-08] MEDS: Heparin 5,000 UNITS/ML VIAL SC SCH ×2 (09:30→20:02)
[2017-12-08] MEDS: Dorzolamide HCl 2% Ophth Soln 10 ml Bottle R EYE SCH ×2 (09:30→20:02)
[2017-12-08] MEDS: Atropine Sulfate 1% Ophth Soln 5 ml Bottle R EYE SCH ×2 (09:30→20:02)
[2017-12-08] MEDS: Brimonidine Tartrate 0.2% Ophth Soln 5 ml Bottle R EYE SCH ×2 (09:30→20:02)
[2017-12-08] MEDS: Pantoprazole 40 MG VIAL IVP SCH (09:30)
[2017-12-08] MEDS: Carvedilol 6.25 MG TAB PO SCH ×2 (10:00→20:00)
--- NOTE | 2017-12-08 10:14 | PDOC.PN ---
- Subjective Encounter Start Date: 12/08/17 Encounter Start Time: 07:50 Patient seen and examined. No new complaints. No overnight events today her blood sugar high, she is not able manage her blood sugar via insulin pump she has nausea today BP is high - Objective Resuscitation Status: Resuscitation Status FULL:Full Resuscitation MAR Reviewed: Yes Vital Signs & Weight: Vital Signs (12 hours) Temp Pulse Resp BP Pulse Ox 12/08/17 08:00 98.4 F 108 H 16 165/104 H 98 Weight Weight 136 lb 6 oz I&O: 12/07/17 12/08/17 12/09/17 06:59 06:59 06:59 Intake Total 1640 600 Output Total 0 Balance 1640 600 Result Diagrams: 12/07/17 09:25 12/07/17 09:25 Additional Labs: Accuchecks 12/07/17 21:32 POC Glucose 453 H Phys Exam - Physical Examination Constitutional: NAD HEENT: PERRLA, moist MMs, sclera anicteric Neck: no JVD, supple Respiratory: no wheezing, no rales, no rhonchi Cardiovascular: RRR, no significant murmur, no rub Gastrointestinal: soft, non-tender, no distention, positive bowel sounds Musculoskeletal: no edema, pulses present Neurological: non-focal, normal sensation Psychiatric: normal affect, A&O x 3 Skin: no rash, normal turgor Dx/Plan (1) Nausea & vomiting Code(s): R11.2 - NAUSEA WITH VOMITING, UNSPECIFIED Status: Acute Comment: due to 2 (2) Gastroparesis due to DM Code(s): E11.43 - TYPE 2 DIABETES W DIABETIC AUTONOMIC (POLY)NEUROPATHY; K31.84 - GASTROPARESIS Status: Chronic Comment: (3) Hyperkalemia Code(s): E87.5 - HYPERKALEMIA Status: Resolved (4) Acute diarrhea Code(s): R19.7 - DIARRHEA, UNSPECIFIED Status: Resolved (5) ESRD (end stage renal disease) on dialysis Code(s): N18.6 - END STAGE RENAL DISEASE; Z99.2 - DEPENDENCE ON RENAL DIALYSIS Status: Chronic (6) GERD (gastroesophageal reflux disease) Code(s): K21.9 - GASTRO-ESOPHAGEAL REFLUX DISEASE WITHOUT ESOPHAGITIS Status: Chronic Qualifiers: Esophagitis presence: esophagitis presence not specified Qualified Code(s) : K21.9 - Gastro-esophageal reflux disease without esophagitis (7) Glaucoma Code(s): H40.9 - UNSPECIFIED GLAUCOMA Status: Chronic (8) Labile hypertension Code(s): I10 - ESSENTIAL (PRIMARY) HYPERTENSION Status: Chronic (9) Macrocytic anemia Code(s): D53.9 - NUTRITIONAL ANEMIA, UNSPECIFIED Status: Chronic (10) Noncompliance with medication regimen Code(s): Z91.14 - PATIENT'S OTHER NONCOMPLIANCE WITH MEDICATION REGIMEN Status : Chronic (11) Tricuspid regurgitation Code(s): I07.1 - RHEUMATIC TRICUSPID INSUFFICIENCY Status: Chronic - Plan cont current plan of care * still pt is not tolerating diet and has nausea and vomiting, will need to continue symptomatic treatment * will start doing aggressive scale insulin to control blood sugar * will start with coreg and then will add BP meds as needed * medication reviewed as below * symptomatic treatment. Review of Systems - Review of Systems Constitutional: negative: fever, chills, sweats, weakness, malaise, other Eyes: negative: Pain, Vision Change, Conjunctivae Inflammation, Eyelid Inflammation, Redness, Other ENT: negative: Ear Pain, Ear Discharge, Nose Pain, Nose Discharge, Nose Congestion, Mouth Pain, Mouth Swelling, Throat Pain, Throat Swelling, Other Respiratory: negative: Cough, Dry, Shortness of Breath, Hemoptysis, SOB with Excertion, Pleuritic Pain, Sputum, Wheezing Cardiovascular: negative: chest pain, palpitations, orthopnea, paroxysmal nocturnal dyspnea, edema, light headedness, other Gastrointestinal: Nausea. negative: Vomiting, Abdominal Pain, Diarrhea, Constipation, Melena, Hematochezia, Other Genitourinary: negative: Dysuria, Frequency, Incontinence, Hematuria, Retention , Other Musculoskeletal: negative: Neck Pain, Shoulder Pain, Arm Pain, Back Pain, Hand Pain, Leg Pain, Foot Pain, Other Skin: negative: Rash, Lesions, Walker, Bruising, Other - Medications/Allergies Allergies/Adverse Reactions: Allergies Allergy/AdvReac Type Severity Reaction Status Date / Time No Known Allergies Allergy Verified 12/05/17 21:40 Medications: Current Medications Acetaminophen (Tylenol) 650 mg PO Q4H PRN PRN Reason: Headache/Fever or Pain Al Hydroxide/Mg Hydroxide (Maalox) 30 ml PO Q6H PRN PRN Reason: Heartburn or Indigestion Artificial Tears (Tears Naturale) 0 drop EA EYE PRN PRN PRN Reason: Dry Eyes Atropine Sulfate (Atropine 1% Ophth Soln) 1 drop R EYE BID [facility] Brimonidine Tartrate ([place]phagan 0.2% Ophth Soln) 1 drop R EYE BID [facility] Carvedilol (Coreg) 12.5 mg PO BID [facility] Dextrose/Water (Dextrose 50%) 25 gm SLOW IVP PRN PRN PRN Reason: Hypoglycemia Dorzolamide HCl (Trusopt 2% Ophth Soln) 1 drop R EYE BID [facility] Glucagon (Glucagon) 1 mg IM PRN PRN PRN Reason: Hypoglycemia Guaifenesin (Robitussin Sf) 200 mg PO Q4H PRN PRN Reason: Cough Heparin Sodium (Porcine) (Heparin) 5,000 units SC BID [facility] Last Admin: 12/07/17 20:58 Dose: Not Given Hydralazine HCl (Apresoline) 10 mg SLOW IVP Q2H PRN PRN Reason: SBP GREATER THAN 160 Last Admin: 12/07/17 13:07 Dose: 10 mg Dextrose/Water (D5w) 1,000 mls @ 0 mls/hr IV .Q0M PRN; As Directed PRN Reason: Hypoglycemia Insulin Human Lispro (Humalog) 0 units SC .AGGRESSIVE SLIDING PRN PRN Reason: Aggressive Correctional Scale Insulin Human Lispro (Humalog) 0 units SC .BEDTIME SLIDING SC PRN PRN Reason: Bedtime Correctional Scale Labetalol HCl (Normodyne) 20 mg SLOW IVP Q2H PRN PRN Reason: SBP GREATER THAN 160 Loperamide HCl (Imodium) 2 mg PO PRN PRN PRN Reason: Diarrhea/Loose Stools Metoclopramide HCl (Reglan) 5 mg IVP Q6HR [facility] Last Admin: 12/08/17 05:38 Dose: Not Given Mineral Oil/White Petrolatum (Eucerin Cream) 0 gm TOP BIDPRN PRN PRN Reason: Dry Skin Ondansetron HCl (Zofran Odt) 4 mg SL Q6H PRN PRN Reason: Nausea/Vomiting Ondansetron HCl (Zofran) 4 mg IVP Q6H PRN PRN Reason: Nausea/Vomiting Last Admin: 12/07/17 21:31 Dose: 4 mg Pantoprazole Sodium (Protonix) 40 mg IVP DAILY [facility] Last Admin: 12/07/17 13:07 Dose: 40 mg Phenol (Chloraseptic [place] 180 Ml Bot) 0 ml PO PRN PRN PRN Reason: Sore Throat Sevelamer Carbonate (Renvela) 800 mg PO TID-WM [facility] Sodium Chloride ([place] Nasal [place] 0.65%) 0 ml EA NARE QIDPRN PRN PRN Reason: Nasal Congestion Timolol Maleate (Timoptic 0.5% [facility]) 1 drop R EYE BID [facility] Zolpidem Tartrate (Ambien) 5 mg PO HSPRN PRN PRN Reason: Insomnia Last Admin: 12/07/17 21:31 Dose: 5 mg
[2017-12-08] MEDS: Ondansetron HCl/PF 4 MG/2 ML Vial IVP PRN ×2 (11:01→15:45)
[2017-12-08] MEDS: hydrALAZINE 20 MG/ML VIAL SLOW IVP PRN (11:04)
[2017-12-08] MEDS: Sevelamer Carbonate 800 MG TAB PO SCH ×3 (11:09→17:45)
--- NOTE | 2017-12-08 12:11 | PRG ---
DATE OF SERVICE: 12/08/2017 SUBJECTIVE: A 32-year-old female being seen for end-stage renal disease. The patient denies any sandip sea, vomiting or chest pain. PHYSICAL EXAMINATION: GENERAL: Patient is awake, alert. VITAL SIGNS: Afebrile, pulse 108, breathing at 16, blood pressure 152/103. HEAD/NECK: Normocephalic. Atraumatic. EYES: EOMI. No deformity. EARS: Clear. No ulcers. NOSE: Intact. No lesions. MOUTH: Clear. No discharge. THROAT: Clear. No exudate. LUNGS: Clear. No crackles. CARDIAC: S1, S2. No rub. ABDOMEN: Benign. BS+. GENITALIA/RECTUM: Taylor absent. BACK/EXTREMITIES: Edema 0+ Ulcer- NEUROLOGICAL: Alert and motor intact. SKIN: Rash- Bruise- LYMPHATICS: Edema- Ulcer- LABORATORY DATA: Show hemoglobin 10.9. ASSESSMENT AND RECOMMENDATIONS: 1. Stage 6 chronic kidney disease, continue hemodialysis. 2. Hypertension, stable, not taking medicines. 3. Anemia, stable. 4. Medications based on glomerular filtration rate are appropriate. We will plan dialysis Sunday.
[2017-12-08] MEDS: Morphine 5 MG/ML SYRINGE SLOW IVP PRN ×2 (12:25→15:45)
[2017-12-08] MEDS ORDERED: HumaLOG 300 UNITS/3 ML VIAL SC SCH (12:30)
[2017-12-08] MEDS: HumaLOG 300 UNITS/3 ML VIAL SC PRN ×2 (17:24→21:19)
[2017-12-08] MEDS: Promethazine HCl 25 MG/ML VIAL IM/IV PRN (21:15)
[2017-12-09] MEDS: Metoclopramide HCl 10 MG/2 ML VIAL IVP SCH ×5 (00:45→23:43)
[2017-12-09] MEDS: Morphine 5 MG/ML SYRINGE SLOW IVP PRN (01:11)
[2017-12-09] MEDS: Ondansetron HCl/PF 4 MG/2 ML Vial IVP PRN ×3 (01:11→20:16)
[2017-12-09] MEDS: HumaLOG 300 UNITS/3 ML VIAL SC PRN ×4 (05:59→20:17)
[2017-12-09] MEDS: Pantoprazole 40 MG VIAL IVP SCH (08:27)
[2017-12-09] MEDS: Dorzolamide HCl 2% Ophth Soln 10 ml Bottle R EYE SCH ×2 (08:41→20:22)
[2017-12-09] MEDS: Brimonidine Tartrate 0.2% Ophth Soln 5 ml Bottle R EYE SCH ×2 (08:41→20:23)
[2017-12-09] MEDS: Atropine Sulfate 1% Ophth Soln 5 ml Bottle R EYE SCH ×2 (08:41→20:23)
[2017-12-09] MEDS: Heparin 5,000 UNITS/ML VIAL SC SCH ×2 (08:41→20:22)
[2017-12-09] MEDS: Sevelamer Carbonate 800 MG TAB PO SCH ×3 (08:41→19:48)
[2017-12-09] MEDS: Timolol 0.5% Ophth Soln 5 ml Bottle R EYE SCH ×2 (08:41→20:22)
[2017-12-09] MEDS: Dextrose 5 %-0.45 % NaCl 1,000 ML IV SCH (08:59)
--- NOTE | 2017-12-09 09:45 | PDOC.PN ---
- Subjective Encounter Start Date: 12/09/17 Encounter Start Time: 08:40 she still has nausea, does not feel good enough to go home, not eating much, no abdominal pain - Objective Resuscitation Status: Resuscitation Status FULL:Full Resuscitation MAR Reviewed: Yes Vital Signs & Weight: Vital Signs (12 hours) Temp Pulse Resp BP Pulse Ox 12/09/17 07:55 98.7 F 106 H 16 109/70 95 12/09/17 04:00 98.1 F 92 16 137/81 99 12/09/17 00:00 98.2 F 97 16 141/87 H 98 Weight Weight 136 lb 6 oz I&O: 12/08/17 12/09/17 12/10/17 06:59 06:59 06:59 Intake Total 600 250 Balance 600 250 Result Diagrams: 12/07/17 09:25 12/07/17 09:25 Additional Labs: Accuchecks 12/09/17 12/09/17 12/09/17 08:39 04:56 00:50 POC Glucose 215 H 247 H 109 12/08/17 12/08/17 12/08/17 20:03 16:46 14:22 POC Glucose 239 H 327 H 510 H 12/08/17 11:40 POC Glucose Greater than 550 H* Phys Exam - Physical Examination Constitutional: NAD HEENT: moist MMs, sclera anicteric Neck: no JVD, supple Respiratory: no wheezing, no rales, no rhonchi Cardiovascular: RRR, no significant murmur, no rub Gastrointestinal: soft, non-tender, no distention, positive bowel sounds Musculoskeletal: no edema, pulses present Neurological: non-focal, normal sensation, moves all 4 limbs Psychiatric: normal affect, A&O x 3 Skin: no rash, normal turgor Dx/Plan (1) Nausea & vomiting Code(s): R11.2 - NAUSEA WITH VOMITING, UNSPECIFIED Status: Acute Comment: due to 2 (2) Gastroparesis due to DM Code(s): E11.43 - TYPE 2 DIABETES W DIABETIC AUTONOMIC (POLY)NEUROPATHY; K31.84 - GASTROPARESIS Status: Chronic Comment: (3) Hyperkalemia Code(s): E87.5 - HYPERKALEMIA Status: Resolved (4) Acute diarrhea Code(s): R19.7 - DIARRHEA, UNSPECIFIED Status: Resolved (5) ESRD (end stage renal disease) on dialysis Code(s): N18.6 - END STAGE RENAL DISEASE; Z99.2 - DEPENDENCE ON RENAL DIALYSIS Status: Chronic (6) GERD (gastroesophageal reflux disease) Code(s): K21.9 - GASTRO-ESOPHAGEAL REFLUX DISEASE WITHOUT ESOPHAGITIS Status: Chronic Qualifiers: Esophagitis presence: esophagitis presence not specified Qualified Code(s) : K21.9 - Gastro-esophageal reflux disease without esophagitis (7) Glaucoma Code(s): H40.9 - UNSPECIFIED GLAUCOMA Status: Chronic Qualifiers: Laterality: right (8) Labile hypertension Code(s): I10 - ESSENTIAL (PRIMARY) HYPERTENSION Status: Chronic (9) Macrocytic anemia Code(s): D53.9 - NUTRITIONAL ANEMIA, UNSPECIFIED Status: Chronic (10) Noncompliance with medication regimen Code(s): Z91.14 - PATIENT'S OTHER NONCOMPLIANCE WITH MEDICATION REGIMEN Status : Chronic (11) Tricuspid regurgitation Code(s): I07.1 - RHEUMATIC TRICUSPID INSUFFICIENCY Status: Chronic - Plan cont current plan of care * as she is not eating well, will start gentle IVF with dex 1/2 NS at 50 ml per hour * continue accucheck q 4 hourly and give SSI * medication reviewed as below * symptomatic treatment * not ready for discharge yet. Review of Systems - Review of Systems ENT: negative: Ear Pain, Ear Discharge, Nose Pain, Nose Discharge, Nose Congestion, Mouth Pain, Mouth Swelling, Throat Pain, Throat Swelling, Other Respiratory: negative: Cough, Dry, Shortness of Breath, Hemoptysis, SOB with Excertion, Pleuritic Pain, Sputum, Wheezing Cardiovascular: negative: chest pain, palpitations, orthopnea, paroxysmal nocturnal dyspnea, edema, light headedness, other Gastrointestinal: Nausea. negative: Vomiting, Abdominal Pain, Diarrhea, Constipation, Melena, Hematochezia, Other Genitourinary: negative: Dysuria, Frequency, Incontinence, Hematuria, Retention , Other Musculoskeletal: negative: Neck Pain, Shoulder Pain, Arm Pain, Back Pain, Hand Pain, Leg Pain, Foot Pain, Other Skin: negative: Rash, Lesions, Walker, Bruising, Other - Medications/Allergies Allergies/Adverse Reactions: Allergies Allergy/AdvReac Type Severity Reaction Status Date / Time No Known Allergies Allergy Verified 12/05/17 21:40 Medications: Current Medications Acetaminophen (Tylenol) 650 mg PO Q4H PRN PRN Reason: Headache/Fever or Pain Al Hydroxide/Mg Hydroxide (Maalox) 30 ml PO Q6H PRN PRN Reason: Heartburn or Indigestion Last Admin: 12/08/17 19:49 Dose: 30 ml Artificial Tears (Tears Naturale) 0 drop EA EYE PRN PRN PRN Reason: Dry Eyes Atropine Sulfate (Atropine 1% Ophth Soln) 1 drop R EYE BID [facility] Last Admin: 12/09/17 08:41 Dose: Not Given Brimonidine Tartrate (Alphagan 0.2% Ophth Soln) 1 drop R EYE BID [facility] Last Admin: 12/09/17 08:41 Dose: Not Given Carvedilol (Coreg) 12.5 mg PO BID [facility] Last Admin: 12/08/17 20:00 Dose: 12.5 mg Dextrose/Water (Dextrose 50%) 25 gm SLOW IVP PRN PRN PRN Reason: Hypoglycemia Dorzolamide HCl (Trusopt 2% Ophth Soln) 1 drop R EYE BID [facility] Last Admin: 12/09/17 08:41 Dose: Not Given Glucagon (Glucagon) 1 mg IM PRN PRN PRN Reason: Hypoglycemia Guaifenesin (Robitussin Sf) 200 mg PO Q4H PRN PRN Reason: Cough Heparin Sodium (Porcine) (Heparin) 5,000 units SC BID [facility] Last Admin: 12/09/17 08:41 Dose: Not Given Hydralazine HCl (Apresoline) 10 mg SLOW IVP Q2H PRN PRN Reason: SBP GREATER THAN 160 Last Admin: 12/08/17 11:04 Dose: 10 mg Dextrose/Water (D5w) 1,000 mls @ 0 mls/hr IV .Q0M PRN; As Directed PRN Reason: Hypoglycemia Dextrose/Sodium Chloride (D5 1/2 Ns) 1,000 mls @ 50 mls/hr IV .Q20H [facility] Last Admin: 12/09/17 08:59 Dose: 1,000 mls Insulin Human Lispro (Humalog) 0 units SC .AGGRESSIVE SLIDING PRN PRN Reason: Aggressive Correctional Scale Last Admin: 12/09/17 08:38 Dose: 6 unit Insulin Human Lispro (Humalog) 0 units SC .BEDTIME SLIDING SC PRN PRN Reason: Bedtime Correctional Scale Last Admin: 12/08/17 21:19 Dose: 2 unit Labetalol HCl (Normodyne) 20 mg SLOW IVP Q2H PRN PRN Reason: SBP GREATER THAN 160 Loperamide HCl (Imodium) 2 mg PO PRN PRN PRN Reason: Diarrhea/Loose Stools Metoclopramide HCl (Reglan) 5 mg IVP Q6HR [facility] Last Admin: 12/09/17 07:25 Dose: Not Given Mineral Oil/White Petrolatum (Eucerin Cream) 0 gm TOP BIDPRN PRN PRN Reason: Dry Skin Morphine Sulfate (Morphine) 2 mg SLOW IVP Q4H PRN PRN Reason: Pain Last Admin: 12/09/17 01:11 Dose: 2 mg Ondansetron HCl (Zofran Odt) 4 mg SL Q6H PRN PRN Reason: Nausea/Vomiting Last Admin: 12/09/17 08:31 Dose: 4 mg Ondansetron HCl (Zofran) 4 mg IVP Q6H PRN PRN Reason: Nausea/Vomiting Last Admin: 12/09/17 01:11 Dose: 4 mg Pantoprazole Sodium (Protonix) 40 mg IVP DAILY [facility] Last Admin: 12/09/17 08:27 Dose: 40 mg Phenol (Chloraseptic [place] 180 Ml Bot) 0 ml PO PRN PRN PRN Reason: Sore Throat Promethazine HCl (Phenergan) 25 mg IM/IV Q6H PRN PRN Reason: Nausea/Vomiting Last Admin: 12/08/17 21:15 Dose: 25 mg Sevelamer Carbonate (Renvela) 800 mg PO TID-[facility] Last Admin: 12/09/17 08:41 Dose: Not Given Sodium Chloride ([place] Nasal [place] 0.65%) 0 ml EA NARE QIDPRN PRN PRN Reason: Nasal Congestion Timolol Maleate (Timoptic 0.5% Ophth Soln) 1 drop R EYE BID [facility] Last Admin: 12/09/17 08:41 Dose: Not Given Zolpidem Tartrate (Ambien) 5 mg PO HSPRN PRN PRN Reason: Insomnia Last Admin: 12/07/17 21:31 Dose: 5 mg
[2017-12-09] MEDS: Carvedilol 6.25 MG TAB PO SCH ×2 (12:59→20:13)
[2017-12-09] MEDS: Promethazine HCl 25 MG/ML VIAL IM/IV PRN (13:07)
--- NOTE | 2017-12-09 15:02 | PRG ---
DATE OF SERVICE: 12/06/2017 SUBJECTIVE: A 32-year-old female being seen for end-stage renal disease. The patient denies any chest pain or dyspnea. OBJECTIVE: GENERAL: The patient is resting. VITAL SIGNS: Afebrile, pulse 92, breathing at 16, blood pressure 137/81. GENERAL APPEARANCE AND MENTAL STATUS: Fair. HEAD/NECK: Normocephalic. Atraumatic. EYES: EOMI. No deformity. EARS: Clear. No ulcers. NOSE: Intact. No lesions. MOUTH: Clear. No discharge. THROAT: Clear. No exudate. LUNGS: Clear. No crackles. CARDIAC: S1, S2. No rub. ABDOMEN: Benign. BS+. GENITALIA/RECTUM: Taylor absent. BACK/EXTREMITIES: Edema 0+ Ulcer- NEUROLOGICAL: Alert and motor intact. SKIN: Rash- Bruise- LYMPHATICS: Edema- Ulcer- LABORATORY: show hemoglobin 10.7. ASSESSMENT AND RECOMMENDATIONS: 1. Stage 6 chronic kidney disease, on hemodialysis Sunday, Sunday, Sunday 2. Hypertension, stable. 3. Anemia, stable. 4. Medications based on GFR are appropriate. MTDD
[2017-12-10] MEDS: Morphine 5 MG/ML SYRINGE SLOW IVP PRN ×2 (00:36→16:42)
[2017-12-10] MEDS: HumaLOG 300 UNITS/3 ML VIAL SC PRN ×3 (00:39→16:49)
[2017-12-10] MEDS: Dextrose 5 %-0.45 % NaCl 1,000 ML IV SCH (04:40)
[2017-12-10] MEDS: Metoclopramide HCl 10 MG/2 ML VIAL IVP SCH ×2 (05:48→12:40)
[2017-12-10] MEDS ORDERED: Fleet Enema 133 ML BOT PR PRN (06:44)
[2017-12-10] MEDS ORDERED: Polyethylene Glycol 3350 17 GM Packet PO SCH (09:00)
[2017-12-10] MEDS: Ondansetron HCl/PF 4 MG/2 ML Vial IVP PRN ×2 (09:11→14:57)
--- NOTE | 2017-12-10 10:45 | PDOC.PN ---
- Subjective Encounter Start Date: 12/10/17 Encounter Start Time: 08:20 -: old records requested/rev Patient seen and examined. No new complaints. No overnight events - Objective Resuscitation Status: Resuscitation Status FULL:Full Resuscitation MAR Reviewed: Yes Vital Signs & Weight: Vital Signs (12 hours) Temp Pulse Resp BP Pulse Ox 12/10/17 08:00 98.4 F 97 16 126/74 96 12/10/17 03:39 97.4 F L 88 20 132/80 98 Weight Weight 136 lb 6 oz I&O: 12/09/17 12/10/17 12/11/17 06:59 06:59 06:59 Intake Total 250 1060 Balance 250 1060 Result Diagrams: 12/07/17 09:25 12/07/17 09:25 Additional Labs: Accuchecks 12/10/17 12/10/17 12/09/17 05:04 00:29 19:42 POC Glucose 266 H 305 H 361 H 12/09/17 12/09/17 16:18 12:11 POC Glucose 190 H 204 H Phys Exam - Physical Examination Constitutional: NAD HEENT: PERRLA, moist MMs, sclera anicteric Neck: no JVD, supple Respiratory: no wheezing, no rales, no rhonchi Cardiovascular: RRR, no significant murmur, no rub Gastrointestinal: soft, non-tender, no distention, positive bowel sounds Musculoskeletal: no edema, pulses present Neurological: non-focal, normal sensation Lymphatic: no nodes Psychiatric: normal affect, A&O x 3 Skin: no rash, normal turgor Dx/Plan (1) Nausea & vomiting Code(s): R11.2 - NAUSEA WITH VOMITING, UNSPECIFIED Status: Acute Comment: due to 2 (2) Gastroparesis due to DM Code(s): E11.43 - TYPE 2 DIABETES W DIABETIC AUTONOMIC (POLY)NEUROPATHY; K31.84 - GASTROPARESIS Status: Chronic Comment: (3) Hyperkalemia Code(s): E87.5 - HYPERKALEMIA Status: Resolved (4) Acute diarrhea Code(s): R19.7 - DIARRHEA, UNSPECIFIED Status: Resolved (5) ESRD (end stage renal disease) on dialysis Code(s): N18.6 - END STAGE RENAL DISEASE; Z99.2 - DEPENDENCE ON RENAL DIALYSIS Status: Chronic (6) GERD (gastroesophageal reflux disease) Code(s): K21.9 - GASTRO-ESOPHAGEAL REFLUX DISEASE WITHOUT ESOPHAGITIS Status: Chronic Qualifiers: Esophagitis presence: esophagitis presence not specified Qualified Code(s) : K21.9 - Gastro-esophageal reflux disease without esophagitis (7) Glaucoma Code(s): H40.9 - UNSPECIFIED GLAUCOMA Status: Chronic Qualifiers: Laterality: right (8) Labile hypertension Code(s): I10 - ESSENTIAL (PRIMARY) HYPERTENSION Status: Chronic (9) Macrocytic anemia Code(s): D53.9 - NUTRITIONAL ANEMIA, UNSPECIFIED Status: Chronic (10) Noncompliance with medication regimen Code(s): Z91.14 - PATIENT'S OTHER NONCOMPLIANCE WITH MEDICATION REGIMEN Status : Chronic (11) Tricuspid regurgitation Code(s): I07.1 - RHEUMATIC TRICUSPID INSUFFICIENCY Status: Chronic - Plan cont current plan of care, plan discussed w/ family * today plan for HD * medication reviewed as below * symptomatic treatment * if continue to tolerate diet, will consider discharge. Review of Systems - Review of Systems ENT: negative: Ear Pain, Ear Discharge, Nose Pain, Nose Discharge, Nose Congestion, Mouth Pain, Mouth Swelling, Throat Pain, Throat Swelling, Other Respiratory: negative: Cough, Dry, Shortness of Breath, Hemoptysis, SOB with Excertion, Pleuritic Pain, Sputum, Wheezing Cardiovascular: negative: chest pain, palpitations, orthopnea, paroxysmal nocturnal dyspnea, edema, light headedness, other Gastrointestinal: negative: Nausea, Vomiting, Abdominal Pain, Diarrhea, Constipation, Melena, Hematochezia, Other Genitourinary: negative: Dysuria, Frequency, Incontinence, Hematuria, Retention , Other Musculoskeletal: negative: Neck Pain, Shoulder Pain, Arm Pain, Back Pain, Hand Pain, Leg Pain, Foot Pain, Other - Medications/Allergies Allergies/Adverse Reactions: Allergies Allergy/AdvReac Type Severity Reaction Status Date / Time No Known Allergies Allergy Verified 12/05/17 21:40 Medications: Current Medications Acetaminophen (Tylenol) 650 mg PO Q4H PRN PRN Reason: Headache/Fever or Pain Al Hydroxide/Mg Hydroxide (Maalox) 30 ml PO Q6H PRN PRN Reason: Heartburn or Indigestion Last Admin: 12/08/17 19:49 Dose: 30 ml Artificial Tears (Tears Naturale) 0 drop EA EYE PRN PRN PRN Reason: Dry Eyes Atropine Sulfate (Atropine 1% Ophth Soln) 1 drop R EYE BID [facility] Last Admin: 12/09/17 20:23 Dose: Not Given Brimonidine Tartrate (Alphagan 0.2% Ophth Soln) 1 drop R EYE BID [facility] Last Admin: 12/09/17 20:23 Dose: Not Given Carvedilol (Coreg) 12.5 mg PO BID [facility] Last Admin: 12/09/17 20:13 Dose: 12.5 mg Dextrose/Water (Dextrose 50%) 25 gm SLOW IVP PRN PRN PRN Reason: Hypoglycemia Dorzolamide HCl (Trusopt 2% Ophth Soln) 1 drop R EYE BID [facility] Last Admin: 12/09/17 20:22 Dose: Not Given Glucagon (Glucagon) 1 mg IM PRN PRN PRN Reason: Hypoglycemia Guaifenesin (Robitussin Sf) 200 mg PO Q4H PRN PRN Reason: Cough Heparin Sodium (Porcine) (Heparin) 5,000 units SC BID [facility] Last Admin: 12/09/17 20:22 Dose: Not Given Hydralazine HCl (Apresoline) 10 mg SLOW IVP Q2H PRN PRN Reason: SBP GREATER THAN 160 Last Admin: 12/08/17 11:04 Dose: 10 mg Dextrose/Water (D5w) 1,000 mls @ 0 mls/hr IV .Q0M PRN; As Directed PRN Reason: Hypoglycemia Dextrose/Sodium Chloride (D5 1/2 Ns) 1,000 mls @ 50 mls/hr IV .Q20H [facility] Last Admin: 12/10/17 04:40 Dose: Not Given Insulin Human Lispro (Humalog) 0 units SC .AGGRESSIVE SLIDING PRN PRN Reason: Aggressive Correctional Scale Last Admin: 12/10/17 06:19 Dose: 9 unit Insulin Human Lispro (Humalog) 0 units SC .BEDTIME SLIDING SC PRN PRN Reason: Bedtime Correctional Scale Last Admin: 12/10/17 00:39 Dose: 4 unit Labetalol HCl (Normodyne) 20 mg SLOW IVP Q2H PRN PRN Reason: SBP GREATER THAN 160 Loperamide HCl (Imodium) 2 mg PO PRN PRN PRN Reason: Diarrhea/Loose Stools Metoclopramide HCl (Reglan) 5 mg IVP Q6HR [facility] Last Admin: 12/10/17 05:48 Dose: Not Given Mineral Oil/White Petrolatum (Eucerin Cream) 0 gm TOP BIDPRN PRN PRN Reason: Dry Skin Morphine Sulfate (Morphine) 2 mg SLOW IVP Q4H PRN PRN Reason: Pain Last Admin: 12/10/17 00:36 Dose: 2 mg Ondansetron HCl (Zofran Odt) 4 mg SL Q6H PRN PRN Reason: Nausea/Vomiting Ondansetron HCl (Zofran) 4 mg IVP Q6H PRN PRN Reason: Nausea/Vomiting Last Admin: 12/10/17 09:11 Dose: 4 mg Pantoprazole Sodium (Protonix) 40 mg IVP DAILY [facility] Last Admin: 12/09/17 08:27 Dose: 40 mg Phenol (Chloraseptic [place] 180 Ml Bot) 0 ml PO PRN PRN PRN Reason: Sore Throat Polyethylene Glycol (Miralax) 17 gm PO DAILY [facility] Promethazine HCl (Phenergan) 25 mg IM/IV Q6H PRN PRN Reason: Nausea/Vomiting Last Admin: 12/09/17 13:07 Dose: 25 mg Sevelamer Carbonate (Renvela) 800 mg PO TID-[facility] Last Admin: 12/09/17 19:48 Dose: Not Given Sodium Biphosphate/Sodium Phosphate (Fleet Enema) 133 ml RI ONE PRN PRN Reason: Constipation Stop: 12/10/17 23:59 Sodium Chloride ([place] Nasal [place] 0.65%) 0 ml EA NARE QIDPRN PRN PRN Reason: Nasal Congestion Timolol Maleate (Timoptic 0.5% Oph Soln) 1 drop R EYE BID [facility] Last Admin: 12/09/17 20:22 Dose: Not Given Zolpidem Tartrate (Ambien) 5 mg PO HSPRN PRN PRN Reason: Insomnia Last Admin: 12/07/17 21:31 Dose: 5 mg
--- NOTE | 2017-12-10 11:21 | DIS ---
DATE OF ADMISSION: 12/05/2017 DATE OF DISCHARGE: 12/10/2017 PRIMARY CARE PHYSICIAN: Bran Mcginnis M.D. DISCHARGE DISPOSITION: Home. PRIMARY DISCHARGE DIAGNOSES: Intractable nausea and vomiting due to diabetes, gastroparesis improved , acute diarrhea resolved, hyperkalemia corrected. SECONDARY DISCHARGE DIAGNOSES: Tricuspid regurgitation, noncompliance with medication regimen, macro cytic anemia, labile hypertension, hypertensive heart disease, glaucoma, gastroesophageal reflux dise ase, gastroparesis due to diabetes, end stage renal disease on hemodialysis, diabetic nephropathy, la bile diabetes. PRIMARY PROCEDURE/OPERATION: Maintenance hemodialysis. RADIOLOGICAL INVESTIGATION: None. SIGNIFICANT LABORATORY DATA: WBC 6.1, hemoglobin 10.9, platelets 193. Sodium 137, potassium 3.4, BU N 17, creatinine 4.27, phosphorus 2.9, albumin 3.9, ketones 1.50. Hepatitis B surface antigen negati ve. DISCHARGE MEDICATIONS: Atropine 1 drop right eye b.i.d., Combigan one drop right eye b.i.d., Coreg 1 2.5 mg p.o. b.i.d., dorzolamide 1 drop right eye b.i.d., hydralazine 100 mg p.o. t.i.d., Levemir 10 u nits subcu at bedtime, lisinopril 20 mg p.o. b.i.d., Procardia-XL 90 mg p.o. daily, and Renvela 800 m g p.o. t.i.d. CONTRAINDICATIONS: None. CODE STATUS: FULL CODE. INPATIENT CONSULTANTS: Dr. Puentes was following for maintenance hemodialysis. Dr[facility] Mariscal [facility] because [facility] in [facility]. TEST RESULTS PENDING ON DISCHARGE: None. ALLERGIES: No known drug allergy. DISCHARGE PLAN: Post hospital, patient is discharged back to home with follow up with primary care tim gann and she will resume her maintenance hemodialysis. HOSPITAL COURSE: A 32-year-old -[place] female who has multiple medical problems and she is noncompliant with her medication. When she came to hospital, she was having intractable nausea and v omiting and she has underlying diagnosis of diabetes, gastroparesis and that is why we admitted for h ydration, she was having ketosis. She also had high blood sugar and dehydrated. She was admitted in IMCU and that is why waste removalist saw this patient. We treated her symptomatically with nausea and vomiting medication. We also gave her some dextrose and more insulin drip initially and we controll ed her starvation ketosis. The patient was transferred to medical floor. She was getting her maintenance hemodialysis. Now, tray harrell has significant improvement. She is able to tolerate p.o. well. She does not have any nausea, vomiting. She does not have any diarrhea anymore. Her hyperkalemia resolved. The patient is advis ed to continue her blood pressure medication as instructed and diabetes medication as instructed. The patient has insulin pump and patient education given about to control. Blood sugar is reasonably well controlled. Overall, this patient is medically stable for discharge today. Plan of care discussed with the jordi marquez's family member and they also agreed to go home today. The patient is seen and examined at bedside today. Please see my progress note from today for furthe r details.
[2017-12-10] MEDS: Carvedilol 6.25 MG TAB PO SCH (11:27)
[2017-12-10] MEDS: Dorzolamide HCl 2% Ophth Soln 10 ml Bottle R EYE SCH (11:27)
[2017-12-10] MEDS: Atropine Sulfate 1% Ophth Soln 5 ml Bottle R EYE SCH (11:27)
[2017-12-10] MEDS: Sevelamer Carbonate 800 MG TAB PO SCH ×2 (11:27→12:40)
[2017-12-10] MEDS: Heparin 5,000 UNITS/ML VIAL SC SCH (11:27)
[2017-12-10] MEDS: Pantoprazole 40 MG VIAL IVP SCH (11:27)
[2017-12-10] MEDS: Brimonidine Tartrate 0.2% Ophth Soln 5 ml Bottle R EYE SCH (11:27)
[2017-12-10] MEDS: Timolol 0.5% Ophth Soln 5 ml Bottle R EYE SCH (11:28)
[2017-12-10 16:48] VITALS: BP 140/94; TEMP 98.3
--- NOTE | 2017-12-10 17:20 | PRG ---
DATE OF SERVICE: 12/10/2017 SUBJECTIVE: Patient was seen and examined at bedside and overnight events noted. Patient denies any shortness of breath or chest pain or palpitation. No history of nausea or vomiting or diarrhea or f ever or chills or cramps. OBJECTIVE: GENERAL: This is a well-built female in no apparent distress. VITAL SIGNS: Temperature 98.3, pulse 90, respiratory rate 18, blood pressure 140/94. HEENT: Atraumatic, normocephalic. Oral mucosa is moist. NECK: Supple. CARDIOVASCULAR: S1, S2 heard. Rate and rhythm regular. RESPIRATORY: Clear to auscultation. GASTROINTESTINAL: Abdomen is soft. MUSCULOSKELETAL: No tenderness. No edema. DERMATOLOGIC: No skin rash. NEUROLOGIC: Alert and awake and oriented x3. No focal neurologic deficits. Moving all the extremiti es. PSYCHIATRIC: Mood and affect normal. LABORATORY DATA: Not done today. ASSESSMENT AND PLAN: 1. End-stage renal disease, continue on hemodialysis Sunday, Sunday, and Sunday. 2. Hypertension. 3. Anemia. 4. Plan is to continue on dialysis as tolerated.
--- NOTE | 2017-12-29 19:55 | EKG ---
Test Reason : Blood Pressure : / mmHG Vent. Rate : 116 BPM Atrial Rate : 116 BPM P-R Int : 150 ms QRS Dur : 082 ms QT Int : 336 ms P-R-T Axes : 066 028 040 degrees QTc Int : 467 ms Sinus tachycardia Cannot rule out Anterior infarct , age undetermined Abnormal ECG Confirmed by JEAN-CLAUDE ROMERO ([id number]), publications editor GREY VALENTINO ([id number]) on 12/29/2017 7:54:47 PM Referred By: Confirmed By:JEAN-CLAUDE ROMERO
== END 2017-12-10 17:00 | disposition home or self-care (01) | DRG 73 ==
LOC: ERS 13:57 → IMCU/EMU 16:00 → T4-B 12-07 12:51
PROVIDERS: ADMIT Internal Medicine; ATTEND Internal Medicine
PROC: 5A1D70Z Performance of Urinary Filtration, Intermittent, Less than 6 Hours Per Day (ICD-10-PCS; principal; 2017-12-05)
DX: E11.43 Type 2 diabetes mellitus with diabetic autonomic (poly)neuropathy (principal); N18.6 End stage renal disease; E11.21 Type 2 diabetes mellitus with diabetic nephropathy; I13.11 Hypertensive heart and chronic kidney disease without heart failure, with stage 5 chronic kidney disease, or end stage renal disease; E87.5 Hyperkalemia; I07.1 Rheumatic tricuspid insufficiency; E11.10 Type 2 diabetes mellitus with ketoacidosis without coma; N25.81 Secondary hyperparathyroidism of renal origin; K31.84 Gastroparesis; Z99.2 Dependence on renal dialysis; E11.22 Type 2 diabetes mellitus with diabetic chronic kidney disease; Z96.41 Presence of insulin pump (external) (internal); R19.7 Diarrhea, unspecified; Z91.14 Patient's other noncompliance with medication regimen; D53.9 Nutritional anemia, unspecified; H40.9 Unspecified glaucoma; K21.9 Gastro-esophageal reflux disease without esophagitis; E86.0 Dehydration; I16.0 Hypertensive urgency; D63.1 Anemia in chronic kidney disease
CPT/HCPCS: 36415; 36416; 80053; 80069; 82010; 82330; 82803; 82947; 83690; 83735; 84100; 85025; 87340; 90935; 93005; 96361; 96365; 96366; 96368; 96375; 96376; J2270; C9113; G0257; J0360; J1644; J1815; J2405; J2550; J2765; J7042; J7050

== ENCOUNTER 2017-12-31 18:36 | Emergency (ER) | payer BC, OTHER ==
[2017-12-31] MEDS ORDERED: Acetaminophen 500 MG TAB ONE (19:47)
[2017-12-31] MEDS ORDERED: diphenhydrAMINE 50 MG/ML VIAL ONE (19:47)
== END 2017-12-31 20:28 | disposition home or self-care (01) ==
LOC: ERS 18:36
DX: B09 Unspecified viral infection characterized by skin and mucous membrane lesions (principal); B34.9 Viral infection, unspecified; I10 Essential (primary) hypertension; D64.9 Anemia, unspecified; E10.9 Type 1 diabetes mellitus without complications; K21.9 Gastro-esophageal reflux disease without esophagitis; E10.43 Type 1 diabetes mellitus with diabetic autonomic (poly)neuropathy; K31.84 Gastroparesis; Z79.899 Other long term (current) drug therapy; Z79.891 Long term (current) use of opiate analgesic
CPT/HCPCS: 96372; J1200

== ENCOUNTER 2018-02-15 10:53 | Emergency (ER) | payer BC, OTHER ==
[2018-02-15] MEDS ORDERED: Nitroglycerin 2% Ointment 1 INCH/1 GM Packet ONE (11:44)
--- NOTE | 2018-02-15 11:57 | RAD ---
RADIOGRAPH CHEST 1 VIEW: HISTORY: 32-year-old female with chest pain. FINDINGS: There is no air space density, pulmonary edema, or pneumothorax. The lateral costophrenic angles are sharp. IMPRESSION: No acute pulmonary findings. gita [] POS: PAUL
[2018-02-15] MEDS ORDERED: Promethazine HCl 25 MG/ML VIAL ONE (12:03)
[2018-02-15 12:21] LABS: #Lymphocytes 1.2 thou/uL (1.20-3.40); #Monocytes 0.5 thou/uL (0.11-0.59); #Neutrophils 9.1 thou/uL (1.40-6.50); %Basophils 0.4 % (0.0-1.0); %Eosinophils 0.4 % (0.0-10.0); %Lymphocytes 11.4 % (21.0-51.0); %Monocytes 4.2 % (0.0-10.0); %Neutrophils 83.7 % (42.0-75.0); Hemoglobin 12.5 g/dL (12.0-16.0); Mean Corpuscular Hemoglobin 32.8 pg (27.0-31.0); Mean Platelet Volume 7.5 fL (7.4-10.4); Platelet Count 339 thou/uL (130-400); RBC Distribution Width 14.5 % (11.5-14.5); Red Blood Cell (RBC) Count 3.82 mill/uL (4.20-5.40); White Blood Cell (WBC) Count 10.9 thou/uL (4.8-10.8)
[2018-02-15 12:30] LABS: BHCG - Serum Negative (NEGATIVE); Pregs Control Background? CLEAR/WHITE (CLR/WHITE); Pregs Control Bar Appear? YES (CONTROL BAR)
[2018-02-15 12:43] LABS: ALT (SGPT) 9 U/L (8-55); AST (SGOT) 10 U/L (5-34); Albumin 4.5 g/dL (3.5-5.0); Alkaline Phosphatase 71 U/L (40-150); Anion Gap 32 mmol/L (10-20); BUN (Urea Nitrogen) 65 mg/dL (7.0-18.7); Bilirubin, Total 0.4 mg/dL (0.2-1.2); CK (CPK) 70 U/L (29-168); Calc. Creatinine Clearance 0 mL/min (70-130); Calcium 9.9 mg/dL (7.8-10.44); Carbon Dioxide 17 mmol/L (22-29); Chloride 88 mmol/L (98-107); Estimated GFR-MDRD 4; Glucose 399 mg/dL (70-105); Lipase 19 U/L (8-78); Magnesium 2.7 mg/dL (1.6-2.6); Potassium 4.6 mmol/L (3.5-5.1); Protein, Total 8.5 g/dL (6.0-8.3); Sodium 132 mmol/L (136-145)
[2018-02-15 12:45] LABS: CKMB 2.3 ng/mL (0-6.6); Troponin I 0.064 ng/mL (< 0.028)
[2018-02-15 12:46] LABS: Phosphorus 9.9 mg/dL (2.3-4.7)
[2018-02-15 13:28] LABS: Base Excess-Venous -2.6 mmol/L (0 (+/- 2.5)); Bicarbonate (HCO3v) 21.1 mmol/L (1.0-85.0); CO2 Tension (PvCO2) 32.5 mmHg (41.0-51.0); Calcium, Ionized 0.93 mmol/L (1.12-1.32); Hemoglobin - Calc 12.8 g/dL (12.0-18.0); O2 Tension (PvO2) 78.4 mmHg (35.0-45.0); Potassium 4.2 mmol/L (3.4-4.7); T. Carbon Dioxide 22.1 mmol/L (1.0-85.0); pH (Venous) 7.421 (7.35-7.45); vO2 Saturation-calc 95.9 % (94-98)
[2018-02-15] MEDS ORDERED: Metoclopramide HCl 10 MG TAB ONE (14:01)
[2018-02-15] MEDS ORDERED: Acetaminophen 500 MG TAB ONE (16:55)
== END 2018-02-15 21:55 | disposition home or self-care (01) ==
LOC: ERS 10:53
DX: E10.43 Type 1 diabetes mellitus with diabetic autonomic (poly)neuropathy (principal); K31.84 Gastroparesis; I12.0 Hypertensive chronic kidney disease with stage 5 chronic kidney disease or end stage renal disease; E10.22 Type 1 diabetes mellitus with diabetic chronic kidney disease; N18.6 End stage renal disease; K21.9 Gastro-esophageal reflux disease without esophagitis; Z99.2 Dependence on renal dialysis; Z79.52 Long term (current) use of systemic steroids; Z79.899 Other long term (current) drug therapy
CPT/HCPCS: 71045; 80053; 82010; 82330; 82553; 82803; 83690; 83735; 84100; 84484; 84703; 85025; 93005; 96361; 96365; J2550

== ENCOUNTER 2018-03-23 06:38 | Inpatient (IN) | payer BC, OTHER ==
[2018-03-23] MEDS ORDERED: Ondansetron ODT 8 MG TAB ONE (07:03)
[2018-03-23 07:17] LABS: #Lymphocytes 0.8 thou/uL (1.20-3.40); #Monocytes 0.3 thou/uL (0.11-0.59); #Neutrophils 14.4 thou/uL (1.40-6.50); %Basophils 0.1 % (0.0-1.0); %Lymphocytes 5.1 % (21.0-51.0); %Monocytes 1.9 % (0.0-10.0); %Neutrophils 92.9 % (42.0-75.0); Hemoglobin 14.1 g/dL (12.0-16.0); Mean Corpuscular HGB CONC 33.1 g/dL (32.0-36.0); Mean Corpuscular Hemoglobin 34.2 pg (27.0-31.0); Mean Platelet Volume 7.6 fL (7.4-10.4); Platelet Count 301 thou/uL (130-400); Red Blood Cell (RBC) Count 4.13 mill/uL (4.20-5.40); White Blood Cell (WBC) Count 15.5 thou/uL (4.8-10.8)
[2018-03-23 07:20] LABS: BHCG - Serum Negative (NEGATIVE); Pregs Control Background? CLEAR/WHITE (CLR/WHITE); Pregs Control Bar Appear? YES (CONTROL BAR)
[2018-03-23 07:28] LABS: ALT (SGPT) 10 U/L (8-55); AST (SGOT) 18 U/L (5-34); Alkaline Phosphatase 69 U/L (40-150); Anion Gap 36 mmol/L (10-20); BUN (Urea Nitrogen) 31 mg/dL (7.0-18.7); Bilirubin, Total 0.4 mg/dL (0.2-1.2); Calc. Creatinine Clearance 0 mL/min (70-130); Calcium 10.5 mg/dL (7.8-10.44); Carbon Dioxide 18 mmol/L (22-29); Chloride 86 mmol/L (98-107); Estimated GFR-MDRD 8; Globulin 4.4 g/dL (2.4-3.5); Potassium 4.6 mmol/L (3.5-5.1); Protein, Total 9.4 g/dL (6.0-8.3); Sodium 135 mmol/L (136-145)
[2018-03-23 07:30] LABS: Glucose 572 mg/dL (70-105)
[2018-03-23 07:31] LABS: CKMB 2.1 ng/mL (0-6.6); Troponin I 0.015 ng/mL (< 0.028)
[2018-03-23] MEDS ORDERED: hydrALAZINE 20 MG/ML VIAL ONE (07:43)
--- NOTE | 2018-03-23 07:50 | RAD ---
UPRIGHT PORTABLE CHEST 1 VIEW: Date: 03/23/18 HISTORY: 32-year-old male with history of nausea and vomiting. COMPARISON: 02/15/18. FINDINGS: Heart size is normal. The lungs are clear. No pneumonia, edema, or pleural effusion. IMPRESSION: No acute intrathoracic disease. Stable from prior study. POS: PAUL
[2018-03-23] MEDS ORDERED: Lidocaine Viscous Sol 2% 15 ml UD Cup ONE (08:12)
[2018-03-23] MEDS ORDERED: Mag-Al 1200 mg/1200 mg/30 ML UDCUP ONE (08:12)
[2018-03-23 08:16] LABS: CO2 Tension 29.6 mmHg (35.0-45.0); pH, Arterial 7.37 (7.35-7.45)
[2018-03-23] MEDS ORDERED: Pantoprazole 40 MG VIAL ONE (08:16)
[2018-03-23 08:17] LABS: Actual Bicarbonate (HCO3a) 16.6 mEq/L (22-26); Base Excess (BEa) -7.3 mEq/L (0 (+/-) 2.5); Calcium, Ionized 1.1 mmol/L (1.12-1.30); Hematocrit-ABG 48.9 % (36.0-47.0); Hemoglobin (Hb) 13.7 g/dL (12.0-16.0)
[2018-03-23 08:18] LABS: Analyzer IN Cardio ER
[2018-03-23 10:54] VITALS: BMI 24.5
[2018-03-23 10:59] LABS: Lactic Acid 3.1 mmol/L (0.5-2.2)
[2018-03-23] MEDS ORDERED: Ondansetron ODT 4 MG TAB SL PRN (11:21)
[2018-03-23] MEDS ORDERED: Ondansetron HCl/PF 4 MG/2 ML Vial IVP PRN (11:21)
[2018-03-23] MEDS ORDERED: Acetaminophen 325 MG TAB PO PRN (11:21)
[2018-03-23] MEDS ORDERED: Sodium Chloride 0.9% 1,000 ML IV SCH (11:21)
[2018-03-23] MEDS ORDERED: Dextrose 5 %-0.45 % NaCl 1,000 ML IV PRN (11:28)
[2018-03-23] MEDS ORDERED: Dextrose 5% in Water 1,000 ML IV PRN (11:28)
[2018-03-23] MEDS ORDERED: D5 1/2 NS w/20 mEq KCL 1,000 ML IV PRN (11:28)
[2018-03-23] MEDS ORDERED: Dextrose 50% Abboject 50 ML SYRINGE SLOW IVP PRN (11:28)
[2018-03-23] MEDS ORDERED: Mag-Al Plus 1200 MG/1200 MG/120 MG/30 ML UDCUP PO PRN (11:28)
[2018-03-23] MEDS ORDERED: CCU Electrolyte Replacement 1 EACH IVPB ONE (11:28)
[2018-03-23] MEDS ORDERED: Sodium Chloride 0.9% 1,000 ML IV PRN ×4 (11:28)
[2018-03-23] MEDS ORDERED: Insulin Glargine 24 UNITS in Pre-Filled Syringe 1 EACH SC SCH (11:28)
[2018-03-23] MEDS ORDERED: NS 0.9% w/ 20 MEQ KCL 1,000 ML IV PRN ×2 (11:28)
[2018-03-23] MEDS ORDERED: HumaLOG 300 UNITS/3 ML VIAL SC PRN ×2 (11:28)
[2018-03-23] MEDS ORDERED: HYDROcodone/Acetaminophen 5/325 mg Tablet PO PRN (11:28)
[2018-03-23] MEDS ORDERED: HumaLOG 300 UNITS/3 ML VIAL SC SCH (11:30)
[2018-03-23] MEDS ORDERED: CCU ELECTROLYTE REPLACEMENT PROTOCOL FS PRN (11:43)
[2018-03-23] MEDS ORDERED: Magnesium Oxide 400 MG TAB PO PRN ×2 (11:43)
[2018-03-23] MEDS ORDERED: Potassium Phosphate 9 MMOL in Sodium Chloride 0.9% 100 ML IVPB PRN (11:43)
[2018-03-23] MEDS ORDERED: Potassium Phosphate 15 MMOL in Sodium Chloride 0.9% 250 ML 250 ML IV PRN (11:43)
[2018-03-23] MEDS ORDERED: Potassium Chloride 40 MEQ in Sodium Chloride 0.9% 250 ML 250 ML IVPB PRN (11:43)
[2018-03-23] MEDS ORDERED: Potassium Phosphate 12 MMOL in Sodium Chloride 0.9% 250 ML 250 ML IV PRN (11:43)
[2018-03-23] MEDS ORDERED: Potassium Chloride 40 MEQ in Premix Bag 1 BAG IVPB PRN (11:43)
[2018-03-23] MEDS ORDERED: Potassium Chloride 20 MEQ TAB PO PRN (11:43)
[2018-03-23] MEDS ORDERED: Magnesium 2 GM/NS 0.9% 100 ML 2 GM in Premix Bag 1 BAG IVPB PRN (11:43)
[2018-03-23 11:49] LABS: Anion Gap 32 mmol/L (10-20); BUN (Urea Nitrogen) 35 mg/dL (7.0-18.7); Calc. Creatinine Clearance 11 mL/min (70-130); Calcium 9.8 mg/dL (7.8-10.44); Carbon Dioxide 18 mmol/L (22-29); Chloride 91 mmol/L (98-107); Estimated GFR-MDRD 7; Glucose 373 mg/dL (70-105); Magnesium 2.8 mg/dL (1.6-2.6); Phosphorus 7.8 mg/dL (2.3-4.7); Potassium 4.3 mmol/L (3.5-5.1); Sodium 137 mmol/L (136-145)
[2018-03-23] MEDS: HumaLOG 300 UNITS/3 ML VIAL SC SCH ×2 (11:59→17:02)
[2018-03-23] MEDS: Metoclopramide HCl 10 MG TAB PO SCH ×3 (12:30→20:13)
[2018-03-23] MEDS: Sevelamer Carbonate 800 MG TAB PO SCH ×2 (12:30→16:50)
[2018-03-23] MEDS: Metoclopramide HCl 10 MG/2 ML VIAL IVP SCH ×3 (12:35→23:50)
[2018-03-23] MEDS: Promethazine HCl 25 MG/ML VIAL IM/IV PRN ×2 (12:36→20:10)
[2018-03-23] MEDS: Morphine 4 MG/ML VIAL SLOW IVP PRN ×2 (13:29→17:31)
[2018-03-23] MEDS: hydrALAZINE 25 MG TAB PO SCH ×2 (15:43→21:34)
[2018-03-23 16:06] LABS: Anion Gap 30 mmol/L (10-20); BUN (Urea Nitrogen) 40 mg/dL (7.0-18.7); Calc. Creatinine Clearance 11 mL/min (70-130); Calcium 9.3 mg/dL (7.8-10.44); Carbon Dioxide 15 mmol/L (22-29); Chloride 92 mmol/L (98-107); Estimated GFR-MDRD 7; Glucose 477 mg/dL (70-105); Magnesium 2.8 mg/dL (1.6-2.6); Phosphorus 7.5 mg/dL (2.3-4.7); Potassium 4.8 mmol/L (3.5-5.1); Sodium 132 mmol/L (136-145)
[2018-03-23 19:55] LABS: Anion Gap 24 mmol/L (10-20); BUN (Urea Nitrogen) 41 mg/dL (7.0-18.7); Calc. Creatinine Clearance 10 mL/min (70-130); Calcium 9.8 mg/dL (7.8-10.44); Carbon Dioxide 21 mmol/L (22-29); Chloride 96 mmol/L (98-107); Estimated GFR-MDRD 6; Glucose 205 mg/dL (70-105); Magnesium 2.9 mg/dL (1.6-2.6); Phosphorus 5.7 mg/dL (2.3-4.7); Potassium 4.2 mmol/L (3.5-5.1); Sodium 137 mmol/L (136-145)
[2018-03-23] MEDS: Carvedilol 25 MG TAB PO SCH (21:34)
[2018-03-23] MEDS: Lisinopril 5 MG TAB PO SCH (21:34)
[2018-03-23 23:21] LABS: Anion Gap 23 mmol/L (10-20); BUN (Urea Nitrogen) 42 mg/dL (7.0-18.7); Calc. Creatinine Clearance 9 mL/min (70-130); Calcium 9.9 mg/dL (7.8-10.44); Carbon Dioxide 24 mmol/L (22-29); Chloride 97 mmol/L (98-107); Estimated GFR-MDRD 6; Glucose 80 mg/dL (70-105); Magnesium 2.9 mg/dL (1.6-2.6); Phosphorus 6.2 mg/dL (2.3-4.7); Potassium 3.9 mmol/L (3.5-5.1); Sodium 140 mmol/L (136-145)
[2018-03-24] MEDS: Promethazine HCl 25 MG/ML VIAL IM/IV PRN (02:50)
[2018-03-24] MEDS: Metoclopramide HCl 10 MG/2 ML VIAL IVP SCH ×5 (05:42→20:30)
[2018-03-24] MEDS: Morphine 4 MG/ML VIAL SLOW IVP PRN ×2 (06:24→16:27)
[2018-03-24] MEDS: Insulin Glargine 24 UNITS in Pre-Filled Syringe 1 EACH SC SCH (08:16)
[2018-03-24] MEDS: Metoclopramide HCl 10 MG TAB PO SCH ×5 (08:16→21:20)
[2018-03-24] MEDS: HumaLOG 300 UNITS/3 ML VIAL SC SCH ×3 (08:17→16:26)
[2018-03-24] MEDS: Sevelamer Carbonate 800 MG TAB PO SCH ×3 (08:17→16:27)
[2018-03-24] MEDS: Lisinopril 5 MG TAB PO SCH ×3 (08:18→21:20)
[2018-03-24] MEDS: hydrALAZINE 25 MG TAB PO SCH ×3 (08:19→21:19)
[2018-03-24] MEDS: Carvedilol 25 MG TAB PO SCH ×2 (08:19→21:19)
[2018-03-24] MEDS: NIFEdipine XL 90 MG TAB PO SCH (08:20)
[2018-03-24 10:39] LABS: Anion Gap 21 mmol/L (10-20); BUN (Urea Nitrogen) 45 mg/dL (7.0-18.7); Calc. Creatinine Clearance 8 mL/min (70-130); Carbon Dioxide 24 mmol/L (22-29); Chloride 98 mmol/L (98-107); Estimated GFR-MDRD 6; Glucose 107 mg/dL (70-105); Magnesium 2.9 mg/dL (1.6-2.6); Potassium 3.7 mmol/L (3.5-5.1); Sodium 139 mmol/L (136-145)
[2018-03-24 11:09] LABS: Band 3 % (5-11); Eosinophils 1 % (0-10); Hemoglobin 12.6 g/dL (12.0-16.0); Lymphocytes 16 % (21-51); MDiff Complete? YES; Macrocytosis SLIGHT = 6-15 cells (100X) (0-5/hpf); Mean Corpuscular Hemoglobin 33.7 pg (27.0-31.0); Mean Platelet Volume 7.1 fL (7.4-10.4); Monocytes 6 % (0-10); Neutrophil 74 % (42-75); PLT Morphology Comment Appears Adequate; Platelet Count 293 thou/uL (130-400); Polychromasia SLIGHT = 2-3 cells (100X) (0-2/hpf); RBC Distribution Width 13.5 % (11.5-14.5); Red Blood Cell (RBC) Count 3.74 mill/uL (4.20-5.40); White Blood Cell (WBC) Count 13.5 thou/uL (4.8-10.8)
[2018-03-24] MEDS ORDERED: Sodium Chloride 0.9% 500 ML IVPB SCH (14:30)
[2018-03-25 05:53] LABS: #Basophils 0.1 thou/uL (0.0-0.2); #Eosinphils 0.1 thou/uL (0.0-0.7); #Monocytes 0.5 thou/uL (0.11-0.59); #Neutrophils 5.3 thou/uL (1.40-6.50); %Basophils 0.9 % (0.0-1.0); %Eosinophils 1.3 % (0.0-10.0); %Lymphocytes 25.1 % (21.0-51.0); %Monocytes 5.8 % (0.0-10.0); %Neutrophils 66.9 % (42.0-75.0); Hemoglobin 12.8 g/dL (12.0-16.0); Mean Corpuscular HGB CONC 32.2 g/dL (32.0-36.0); Mean Corpuscular Hemoglobin 33.9 pg (27.0-31.0); Mean Platelet Volume 7.7 fL (7.4-10.4); Platelet Count 295 thou/uL (130-400); RBC Distribution Width 13.7 % (11.5-14.5); Red Blood Cell (RBC) Count 3.77 mill/uL (4.20-5.40); White Blood Cell (WBC) Count 7.9 thou/uL (4.8-10.8)
[2018-03-25 06:06] LABS: Anion Gap 20 mmol/L (10-20); BUN (Urea Nitrogen) 51 mg/dL (7.0-18.7); Calc. Creatinine Clearance 7 mL/min (70-130); Calcium 9.8 mg/dL (7.8-10.44); Carbon Dioxide 21 mmol/L (22-29); Chloride 96 mmol/L (98-107); Estimated GFR-MDRD 5; Glucose 198 mg/dL (70-105); Magnesium 2.9 mg/dL (1.6-2.6); Potassium 4.2 mmol/L (3.5-5.1); Sodium 133 mmol/L (136-145)
[2018-03-25] MEDS: Metoclopramide HCl 10 MG/2 ML VIAL IVP SCH ×2 (06:41→11:21)
[2018-03-25] MEDS: Sevelamer Carbonate 800 MG TAB PO SCH ×2 (08:26→11:24)
[2018-03-25] MEDS: Metoclopramide HCl 10 MG TAB PO SCH ×2 (08:26→11:21)
[2018-03-25] MEDS: Carvedilol 25 MG TAB PO SCH (08:26)
[2018-03-25] MEDS: Insulin Glargine 24 UNITS in Pre-Filled Syringe 1 EACH SC SCH (08:26)
[2018-03-25] MEDS: NIFEdipine XL 90 MG TAB PO SCH (08:26)
[2018-03-25] MEDS: HumaLOG 300 UNITS/3 ML VIAL SC SCH ×2 (08:26→11:21)
[2018-03-25] MEDS: hydrALAZINE 25 MG TAB PO SCH ×2 (08:44→14:42)
[2018-03-25] MEDS: Lisinopril 5 MG TAB PO SCH (08:44)
[2018-03-25] MEDS ORDERED: Artificial Tears 18 DROP/0.9 ML EA EYE PRN (08:57)
--- NOTE | 2018-03-25 10:53 | CON ---
DATE OF CONSULTATION: 03/25/2018 REASON FOR CONSULTATION: Stage 6 chronic kidney disease, on maintenance hemodialysis. HISTORY OF PRESENT ILLNESS: This is a very pleasant 32-year-old female who presented to the hospital early this morning for nausea, vomiting and diarrhea. The patient dialyzes Sunday, Sunday, and . The patient denies headache, numbness, tingling or weakness. Denies any chest pain or dyspne a. PAST MEDICAL HISTORY: Diabetes mellitus, hypertension, anemia, GERD, diabetic retinopathy, AV fistul a, tunneled dialysis catheter. SOCIAL HISTORY: No alcohol or drug use. FAMILY HISTORY: Negative for ESRD. ALLERGIES: Reviewed. REVIEW OF SYSTEMS: Fifteen point review of systems was performed and negative except positives noted above. GENERAL: Weakness- HEAD: Headache- NECK: No swelling or lumps. NOSE: No epistaxis or discharge. EYES: No diplopia or pain. RESPIRATORY: Dyspnea- CARDIOVASCULAR: Chest pain- GASTROINTESTINAL: Nausea- /CURRICULUM COORDINATOR: Hematuria- MUSCULOSKELETAL: No joint pain. NEUROPSYCHIATIC SYSTEMS: No suicidal ideation. No ideation. SKIN: Denies any rash or ulcer. CONSTITUTIONAL: No fever or chills. PHYSICAL EXAMINATION: GENERAL: The patient is awake, alert. VITAL SIGNS: Afebrile, pulse 89, breathing 16, blood pressure 138/84. OBJECTIVE: See above. Awake, alert, in no acute distress. GENERAL APPEARANCE AND MENTAL STATUS: Fair. HEAD/NECK: Normocephalic. Atraumatic. EYES: EOMI. No deformity. EARS: Clear. No ulcers. NOSE: Intact. No lesions. MOUTH: Clear. No discharge. THROAT: Clear. No exudate. LUNGS: Clear. No crackles. CARDIAC: S1, S2. No rub. ABDOMEN: Benign. BS+. GENITALIA/RECTUM: Taylor absent. BACK/EXTREMITIES: Edema 0+ Ulcer- NEUROLOGICAL: Alert and motor intact. SKIN: Rash- Bruise- LYMPHATICS: Edema- Ulcer- LABORATORY: Hemoglobin 12.8, potassium 4.2. ASSESSMENT AND RECOMMENDATIONS: 1. Stage 6 chronic kidney disease. We will plan dialysis today. 2. Hypertension, stable. 3. Anemia, stable. 4. Medication based on GFR are appropriate. 5. Nausea and vomiting due to diabetic gastroparesis. Further evaluation by primary team.
[2018-03-25 15:17] VITALS: BP 114/82; TEMP 98
--- NOTE | 2018-03-25 15:33 | DIS ---
DATE OF ADMISSION: 03/23/2018 DATE OF DISCHARGE: 03/25/2018 PRIMARY CARE PHYSICIAN: Latesha Gonzalez M.D. PRIMARY ASSOCIATE PROFESSOR OF COMMUNICATION: Dr. Aragon. DISCHARGE DIAGNOSES: 1. Diabetic ketoacidosis. 2. Diabetes mellitus, type 1. 3. Diabetic gastropathy. 4. Intractable nausea and vomiting. Overnight 03/23-03/24, abdominal pain was better. Nausea was better, but not completely gone. She w as continued on low dose IV fluids, she was continued on sliding scale insulin plus her Lantus. Gap was improved and almost closed. Sugars were down to the 300s. By 03/25, sugars were normal, she was undergoing hemodialysis with good blood pressures. Her anion g ap was closed and electrolytes were fairly normal for end-stage renal disease. She is, otherwise, st able for discharge with outpatient followup. Of note, she stated that she was not on her insulin pump, as she had been out of supplies, but now mcintyre s this at home. PHYSICAL EXAMINATION: The patient was seen and examined on the day of discharge. Discharge plan and disposition were discussed with the patient [id number] at the bedside. DISCHARGE MEDICATIONS: 1. Coreg 12.5 mg p.o. b.i.d. 2. Hydralazine 100 mg p.o. t.i.d. 3. Lisinopril 20 mg p.o. b.i.d. 4. Nifedipine 90 mg p.o. q.a.m. 5. Renvela 800 mg p.o. t.i.d. with meals. 6. Atropine sulfate. 7. Dorzolamide and brimonidine drops she was taking prior to admit. 8. Insulin pump per prior dosing. DISCHARGE CONDITION: Stable. DISPOSITION: Being discharged home via private vehicle. FOLLOWUP APPOINTMENTS: 1. Primary care physician within a week. 2. Dr. Puentes as scheduled. DISCHARGE ACTIVITY: As tolerated. DISCHARGE DIET: Heart healthy, diabetic, renal diet recommended.
--- NOTE | 2018-03-26 07:02 | PDOC.PN ---
- Subjective Encounter Start Date: 03/24/18 Encounter Start Time: 08:30 PT feeling a little better, akash clears. No F/C, no D/C, no GI bleeding, no acute events Pt is having some nausea, but controlled with reglan and zofran. sugars improving All systems reviewed and neg x as above - Objective MAR Reviewed: Yes Vital Signs & Weight: Weight Weight 144 lb I&O: 03/25/18 03/26/18 03/27/18 06:59 06:59 06:59 Intake Total 400 Balance 400 Result Diagrams: 03/25/18 05:02 03/25/18 05:02 Additional Labs: Accuchecks 03/25/18 03/25/18 03/25/18 15:42 15:00 14:50 POC Glucose 177 H 83 57 L* 03/25/18 03/25/18 03/25/18 14:39 08:18 04:49 POC Glucose 45 L* 175 H 178 H Radiology Reviewed by me: Yes EKG Reviewed by me: Yes Phys Exam - Physical Examination Constitutional: NAD HEENT: moist MMs, sclera anicteric, oral pharynx no lesions right eye enucleated, Neck: no nodes, no JVD, supple, full ROM Respiratory: no wheezing, no rales, no rhonchi, clear to auscultation bilateral Cardiovascular: RRR, no significant murmur, no rub Gastrointestinal: soft, no distention, positive bowel sounds diffusely tende to abd wall Musculoskeletal: no edema, pulses present Neurological: non-focal, normal sensation, moves all 4 limbs Lymphatic: no nodes Psychiatric: normal affect, A&O x 3 Skin: no rash, normal turgor, cap refill <2 seconds Dx/Plan - Plan cont current plan of care, plan discussed w/ family, out of bed/ambulate * . continue to advance diet as tolerated, correct lytes as needed, CCM with basal bolus Rx. pt on insulin pump at home but had been off due to lack of supplies, but has them now
--- NOTE | 2018-03-26 07:41 | HP ---
DATE OF ADMISSION: 03/23/2018 TIME OF SERVICE: 0900 CHIEF COMPLAINT: Nausea and vomiting. HISTORY OF PRESENT ILLNESS: Ms. Chavis is a 32-year-old female with history of diabetes mellitus type 1, end-stage renal disease, recurrent admissions for DKA and medical nonadherence, diabetic peripher al neuropathy and gastroparesis, essential hypertension and reflux disease. The patient normally uses an insulin pump, however, ran out of supplies and converted over to Lantus alone. She was not using any short-acting insulin. She developed nausea and vomiting about 2 days p rior to admission and was scheduled to go to hemodialysis on 03/25/2018. Her last dialysis was 03/22 which was a full course. Management in the emergency department showed her to have an elevated blood sugar, her beta hydroxybu tyrate was 7.43, her pH was normal, her pCO2 was down to 29 and her bicarbonate was 18. Anion gap wa s elevated at 23. She was given some insulin and a 500 mL bolus and we were called for admission. HOSPITAL COURSE: The patient was seen and examined by me on arrival to the Intermediate Care Unit. Her sugars are already starting to come down and the patient was feeling better. She was not initiat ed on insulin drip for that reason nor was she initiated on the normal diabetic ketoacidosis protocol due to renal disease and inability to tolerate large volumes of fluid. She continued to normal sali ne 50 mL per hour, she was started on Lantus at 24 units q.24 hours for a low basal rate, 10 units a. c., and a sliding scale. Sugars rapidly became under control in the 150s to 160s. No other current complaints. She is having excruciating pain and is asking for pain medicine for her abdomen and something for nausea. PAST MEDICAL HISTORY: 1. Diabetic gastroparesis. 2. End-stage renal disease with Sunday, Sunday, Sunday hemodialysis with Dr. Puentes. 3. Hypertension. 4. Diabetes mellitus type 1, insulin-dependent. 5. Gastroesophageal reflux disease. 6. Diabetic peripheral neuropathy. 7. Medical nonadherence. PAST SURGICAL HISTORY: 1. Left eye enucleation. 2. Left upper extremity fistula creation. HOME MEDICATIONS: 1. Atropine drops 10% 1 drop right eye daily. 2. Brimonidine/timolol 1 drop to the right eye b.i.d. 3. Coreg 12.5 mg p.o. b.i.d. 4. Dorzolamide drop to the right eye as needed. 5. Hydralazine 100 mg p.o. b.i.d. 6. Insulin pump. She does not know her program. 7. Lisinopril 20 mg p.o. b.i.d. 8. Nifedipine 60 mg daily. 9. Renvela 800 mg p.o. t.i.d. a.c. 10. Reglan 10 mg p.o. q.6h. p.r.n. ALLERGIES: NKDA. FAMILY HISTORY: Negative for bleeding disorder, no immune dysfunction. SOCIAL HISTORY: Negative for habits x3. REVIEW OF SYSTEMS: All systems reviewed and negative except as per HPI. PHYSICAL EXAMINATION: VITAL SIGNS: Temperature 98.2, pulse 124, blood pressure 217/133, respiratory rate 18, satting 100% on room air. GENERAL: She is awake. She is alert. She is oriented x3. She is an acutely ill-appearing female. She is bent over and complaining of abdominal pain. HEENT: She is normocephalic, atraumatic. Her right eye pupil is round and reactive to light, her l eft eye is enucleated. Mucous membranes are moist. She had no visible lesions, no thrush. NECK: Supple. There is no lymphadenopathy, JVD, or thyromegaly. She had normal carotid upstroke. No bruit. LUNGS: Clear. She has no wheeze, no rales or rhonchi, no crackles. She has good air movement. Sym metrical chest excursion. No prolonged expiratory phase. CARDIOVASCULAR: She is tachycardic, regular. Normal S1, S2. I do not appreciate murmurs. ABDOMEN: Soft, nontender, nondistended. She has hypoactive bowel sounds in all 4 quadrants. EXTREMITIES: No cyanosis or clubbing. Trace pedal edema. She had 2+ dorsalis pedis, posterior tibi al pulses. SKIN: Warm, moist and well perfused. She has no rash or lesions. Insulin pump is on her. MUSCULOSKELETAL: Normal to inspection. Large joints appear to be normal. There is no inflammation. No palpable effusions. NEUROLOGIC: Cranial nerves II-XII are grossly intact without any focal neurologic deficits. LABORATORY DATA: Sodium 138, potassium 4.6, chloride 86, bicarbonate 18, BUN 31, creatinine 6.98, gl ucose of 572, and calcium 6.5. Liver function within normal limits. CBC showed a white count of 15 .5 with a granulocytosis, but no bands, hemoglobin 14.1, hematocrit 42.7, platelet count is 300,000. CK-MB was normal 2.1. Troponin I was undetectable less than 0.015. Beta hydroxybutyrate was elevate d 7.43. Lactic acid 3.1 and ABG showed a pH of 7.37, pCO2 of 29, pO2 104 and 98%. Chest x-ray showed no acute cardiopulmonary disease. ASSESSMENT AND PLAN: 1. Diabetic ketoacidosis. The patient will be admitted to the ICU on modified DKA protocol due to h er end-stage renal disease. We will use Lantus as a basal rate, and put her on insulin a.c. when she is eating. I will continue her normal saline at 50 mL per hour. We will hold off on replacing elec trolytes as she has renal disease. We will watch her through the weekend. 2. Diabetes mellitus type 1, insulin-dependent: Insulin pump, unknown program. 3. End-stage renal disease on Sunday, Sunday, Sunday hemodialysis, I will contact Dr. Puentes. She is to have on Sunday. 4. Hypertension, essential. Resume home medications, p.r.n. hydralazine. 5. Gastroesophageal reflux disease, on Protonix. We will continue Protonix b.i.d. for now.
== END 2018-03-25 16:02 | disposition home or self-care (01) | DRG 637 ==
LOC: ERS 06:38 → IMCU/EMU 10:46
PROVIDERS: ADMIT Internal Medicine Infectious Disease; ATTEND Internal Medicine Infectious Disease
PROC: 5A1D70Z Performance of Urinary Filtration, Intermittent, Less than 6 Hours Per Day (ICD-10-PCS; principal; 2018-03-25)
DX: E10.10 Type 1 diabetes mellitus with ketoacidosis without coma (principal); N18.6 End stage renal disease; I12.0 Hypertensive chronic kidney disease with stage 5 chronic kidney disease or end stage renal disease; Z79.4 Long term (current) use of insulin; E10.43 Type 1 diabetes mellitus with diabetic autonomic (poly)neuropathy; K31.84 Gastroparesis; Z96.41 Presence of insulin pump (external) (internal); T38.3X6A Underdosing of insulin and oral hypoglycemic [antidiabetic] drugs, initial encounter; E10.42 Type 1 diabetes mellitus with diabetic polyneuropathy; E10.22 Type 1 diabetes mellitus with diabetic chronic kidney disease; Z99.2 Dependence on renal dialysis; K21.9 Gastro-esophageal reflux disease without esophagitis
CPT/HCPCS: 36415; 36416; 71045; 80048; 80053; 82010; 82553; 82805; 83605; 83735; 84100; 84484; 84703; 85025; 87040; 93005; C9113; J0360; J1815; J2765; J7050

== ENCOUNTER 2018-03-27 11:05 | Inpatient (IN) | payer OTHER ==
[2018-03-27] MEDS ORDERED: Ondansetron ODT 8 MG TAB ONE (11:48)
[2018-03-27] MEDS ORDERED: Lidocaine Viscous Sol 2% 15 ml UD Cup ONE (11:49)
[2018-03-27] MEDS ORDERED: Mag-Al 1200 mg/1200 mg/30 ML UDCUP ONE (11:49)
[2018-03-27 12:38] LABS: CKMB 1.6 ng/mL (0-6.6); Troponin I 0.013 ng/mL (< 0.028)
[2018-03-27 12:42] LABS: Mean Corpuscular Hemoglobin 33.2 pg (27.0-31.0); Mean Platelet Volume 7.2 fL (7.4-10.4); Platelet Count 275 thou/uL (130-400); RBC Distribution Width 13.6 % (11.5-14.5); Red Blood Cell (RBC) Count 4.52 mill/uL (4.20-5.40); White Blood Cell (WBC) Count 7.3 thou/uL (4.8-10.8)
[2018-03-27 12:44] LABS: Base Excess-Venous -1.9 mmol/L (0 (+/- 2.5)); Bicarbonate (HCO3v) 21.4 mmol/L (1.0-85.0); CO2 Tension (PvCO2) 32.2 mmHg (41.0-51.0); Calcium, Ionized 0.89 mmol/L (1.12-1.32); Hemoglobin - Calc 16.5 g/dL (12.0-18.0); Potassium 4.5 mmol/L (3.4-4.7); T. Carbon Dioxide 22.4 mmol/L (1.0-85.0); pH (Venous) 7.431 (7.35-7.45); vO2 Saturation-calc 97.8 % (94-98)
[2018-03-27 12:48] LABS: ALT (SGPT) 8 U/L (8-55); AST (SGOT) 10 U/L (5-34); Albumin 4.8 g/dL (3.5-5.0); Alkaline Phosphatase 74 U/L (40-150); Anion Gap 28 mmol/L (10-20); BUN (Urea Nitrogen) 62 mg/dL (7.0-18.7); Bilirubin, Total 0.5 mg/dL (0.2-1.2); CK (CPK) 85 U/L (29-168); Calc. Creatinine Clearance 0 mL/min (70-130); Calcium 10.2 mg/dL (7.8-10.44); Carbon Dioxide 18 mmol/L (22-29); Chloride 89 mmol/L (98-107); Estimated GFR-MDRD 5; Glucose 464 mg/dL (70-105); Lipase 17 U/L (8-78); Potassium 4.2 mmol/L (3.5-5.1); Protein, Total 8.8 g/dL (6.0-8.3); Sodium 131 mmol/L (136-145)
[2018-03-27 12:52] LABS: Band 1 % (5-11); Lymphocytes 23 % (21-51); MDiff Complete? YES; Macrocytosis SLIGHT = 6-15 cells (100X) (0-5/hpf); Monocytes 4 % (0-10); Neutrophil 70 % (42-75); PLT Morphology Comment Appears Adequate
--- NOTE | 2018-03-27 13:00 | RAD ---
CHEST ONE VIEW: HISTORY: Altered mental status. COMPARISON: 03/23/2018 FINDINGS: The cardiac silhouette is magnified by projection. The pulmonary vasculature is unremarkable. The m ediastinum is midline. No lobar consolidation or evidence of pneumothorax. night monitor leads ov erly the chest. IMPRESSION: No active cardiopulmonary abnormalities are demonstrated. POS: RC
[2018-03-27] MEDS ORDERED: Promethazine HCl 25 MG/ML VIAL ONE (13:49)
[2018-03-27] MEDS ORDERED: Diltiazem 125 MG/25 ML ONE (14:42)
[2018-03-27] MEDS ORDERED: hydrALAZINE 20 MG/ML VIAL ONE (16:05)
[2018-03-27] MEDS ORDERED: Ondansetron HCl/PF 4 MG/2 ML Vial IVP PRN (16:49)
[2018-03-27] MEDS ORDERED: Bisacodyl 5 MG TAB PO PRN (16:49)
[2018-03-27] MEDS ORDERED: Acetaminophen 650 MG Suppository PR PRN (16:49)
[2018-03-27] MEDS ORDERED: Sodium Chloride 0.9% 1,000 ML IV PRN ×4 (17:12)
[2018-03-27] MEDS ORDERED: NS 0.9% w/ 20 MEQ KCL 1,000 ML IV PRN ×2 (17:12)
[2018-03-27] MEDS ORDERED: D5 1/2 NS w/20 mEq KCL 1,000 ML IV PRN (17:12)
[2018-03-27] MEDS ORDERED: Dextrose 5 %-0.45 % NaCl 1,000 ML IV PRN (17:12)
[2018-03-27] MEDS ORDERED: CCU Electrolyte Replacement 1 EACH IVPB ONE (17:12)
[2018-03-27] MEDS ORDERED: Potassium Phosphate 15 MMOL in Sodium Chloride 0.9% 250 ML 250 ML IV PRN (17:18)
[2018-03-27] MEDS ORDERED: CCU ELECTROLYTE REPLACEMENT PROTOCOL FS PRN (17:18)
[2018-03-27] MEDS ORDERED: Potassium Chloride 20 MEQ TAB PO PRN (17:18)
[2018-03-27] MEDS ORDERED: Magnesium 2 GM/NS 0.9% 100 ML 2 GM in Premix Bag 1 BAG IVPB PRN (17:18)
[2018-03-27] MEDS ORDERED: Potassium Phosphate 9 MMOL in Sodium Chloride 0.9% 100 ML IVPB PRN (17:18)
[2018-03-27] MEDS ORDERED: Potassium Chloride 40 MEQ in Sodium Chloride 0.9% 250 ML 250 ML IVPB PRN (17:18)
[2018-03-27] MEDS ORDERED: Potassium Chloride 40 MEQ in Premix Bag 1 BAG IVPB PRN (17:18)
[2018-03-27] MEDS ORDERED: Magnesium Oxide 400 MG TAB PO PRN ×2 (17:18)
[2018-03-27] MEDS ORDERED: Potassium Phosphate 12 MMOL in Sodium Chloride 0.9% 250 ML 250 ML IV PRN (17:18)
--- NOTE | 2018-03-27 17:38 | HP ---
PRIMARY CARE PHYSICIAN: Bran Mcginnis M.D. CHIEF COMPLAINT: Nausea and vomiting. HISTORY OF PRESENT ILLNESS: Ms. Chavis is a pleasant 32-year-old lady who was seen at [facility] on 03/27/2018. She was hospitalized at this facility from 03/23/2018-03/25/2018 for diabetic ketoacidosis and intractable nausea and vomiting. She reports that she was feeling well at the time of discharge. Yesterday, she developed nausea. She reports vomiting multiple times. She is unable to tolerate any diet or oral medications. She denies any fevers or chills. She denies any abdominal pain. She denies any chest pain. REVIEW OF SYSTEMS: All other systems reviewed and found to be negative. PAST MEDICAL HISTORY: Diabetic gastroparesis, end-stage renal disease on hemodialysis on Sunday, Sunday, and Sunday, hypertension, diabetes mellitus type 1, gastroesophageal reflux disease, diabetic peripheral neuropathy, and medication nonadherence. PAST SURGICAL HISTORY: Left eye enucleation and left upper extremity fistula creation. FAMILY HISTORY: Significant for diabetes and hypertension among several family members. SOCIAL HISTORY: No history of tobacco use, alcohol use or recreational drug use. ALLERGIES: No known drug allergies. CURRENT MEDICATIONS: Lisinopril 20 mg 2 times a day, Renvela 800 mg tablets, 2 tablets three times a day, hydralazine 100 mg 2 times a day, Nifedical XL 60 mg daily, carvedilol 12.5 mg daily, Reglan 10 mg every 6 hours as needed, Lantus insulin 12 units subcutaneously 2 times a day. PHYSICAL EXAMINATION: GENERAL: Ms. Chavis is awake and alert, in mild distress. VITAL SIGNS: Blood pressure is 154/93, pulse is 108. She is breathing at rate of 19 and saturating 96% on room air. She is afebrile. Earlier, she had blood pressure that was as high as 214/134. EYES: R eye enucleated. No scleral icterus in left eye. No conjunctival pallor in left eye. ENT: Dry mucosal membranes, no oropharyngeal erythema or exudates. NECK: Supple, normal range of movement. Trachea is midline. RESPIRATORY: Accessory muscles of breathing are not active. Chest wall movements are symmetric bilaterally. LUNGS: Clear to auscultation without wheeze, rhonchi or crepitations. CARDIOVASCULAR: S1 and S2 are heard, tachycardic and regular. Peripheral pulses palpable. No carotid bruit, no pericardial rub. ABDOMEN: Soft, nontender, bowel sounds are heard, no hepatomegaly, no splenomegaly. LYMPHATIC: No cervical lymphadenopathy. NEUROLOGIC: Cranial nerves II-XII intact. SKIN: No rashes or subcutaneous nodules. PSYCHIATRIC: The patient in mild distress, oriented to person, place, and time. LABORATORY DATA: Mr. Chavis's labs and investigations were reviewed. I reviewed her electrocardiogram, which shows sinus tachycardia, no ST changes to suggest an acute coronary syndrome. I also reviewed her chest x-ray, which does not show any pulmonary infiltrates. She has normal white count, normal hemoglobin, normal platelet count. Sodium 131, potassium 4.2, carbon dioxide decreased at 18, anion gap elevated at 28 at 1207, although point of care venous anion gap was 13 at 1242 hours. Blood urea nitrogen is elevated at 62, creatinine is elevated at 11.53. Liver function tests are unremarkable. Troponin I is normal. ASSESSMENT AND PLAN: Ms. Chavis is a pleasant 32-year-old lady who was seen at [facility] on 03/27/2018. Her problem list includes: 1. Diabetic ketoacidosis. As of 1207 hours today, she was in diabetic ketoacidosis, although it may have improved subsequently, since she has received intravenous fluids in the emergency room. It appears that she has not received any insulin in the emergency room. The patient will be admitted to the hospital. We will recheck BMP. If patient is still acidotic and has elevated anion gap, we will start patient on diabetic ketoacidosis protocol. 2. Hypertensive urgency: Patient has received diltiazem in the emergency room along with the hydralazine, with improvement of her blood pressure. We will start her on p.r.n. hydralazine. 3. End-stage renal disease on dialysis. Nephrology Service has been consulted by emergency room physician for maintenance hemodialysis. 4. Diabetes mellitus type 1. Continue home medications once diabetic ketoacidosis resolved. Many thanks for allowing me to participate in your patient's care. Please feel free to contact me with any questions or concerns. LEVEL OF RISK: High. LEVEL OF COMPLEXITY: High. MTDD
[2018-03-27 19:10] LABS: BHCG - Serum Negative (NEGATIVE); Pregs Control Background? CLEAR/WHITE (CLR/WHITE); Pregs Control Bar Appear? YES (CONTROL BAR)
[2018-03-27 19:16] LABS: Anion Gap 25 mmol/L (10-20); BUN (Urea Nitrogen) 36 mg/dL (7.0-18.7); Calc. Creatinine Clearance 0 mL/min (70-130); Calcium 9.3 mg/dL (7.8-10.44); Carbon Dioxide 19 mmol/L (22-29); Chloride 95 mmol/L (98-107); Estimated GFR-MDRD 8; Glucose 307 mg/dL (70-105); Sodium 135 mmol/L (136-145)
--- NOTE | 2018-03-27 20:11 | CON ---
DATE OF CONSULTATION: 03/27/2018 REASON FOR CONSULTATION: End-stage renal disease, on maintenance hemodialysis. HISTORY OF PRESENT ILLNESS: This is a 32-year-old old female with recurrent admissions, presented to the hospital with profound nausea and vomiting. The patient is not taking her medication including insulin and diabetic medications and her blood pressure medicine. The patient was given fluid, but r emained hypertensive. Her dialysis center was not available. [facility]. PAST MEDICAL HISTORY: Significant for diabetic gastropathy, end-stage renal disease, hypertension, t ype 2 diabetes mellitus, diabetic neuropathy, medical nonadherence, left eye enucleation, history of diabetic retinopathy, history of left AV fistula, history of tunneled dialysis catheter. HOME MEDICATIONS: Reviewed. ALLERGIES: Reviewed. FAMILY HISTORY: Negative for ESRD. SOCIAL HISTORY: No alcohol or drug use. REVIEW OF SYSTEMS: A 15-point review of systems was performed and negative except, GENERAL: Weakness HEAD: Headache- NECK: No swelling or lumps. NOSE: No epistaxis or discharge. EYES: No diplopia or pain. RESPIRATORY: Dyspnea- CARDIOVASCULAR: Chest pain- GASTROINTESTINAL: Nausea- /RECEIVER SETTER: Hematuria- MUSCULOSKELETAL: No joint pain. NEUROPSYCHIATIC SYSTEMS: No suicidal ideation. No ideation. SKIN: Denies any rash or ulcer. CONSTITUTIONAL: No fever or chills. PHYSICAL EXAMINATION: GENERAL: Patient is awake, alert. VITAL SIGNS: Afebrile, pulse 106, breathing at 16, blood pressure 160/70. HEAD/NECK: Normocephalic. Atraumatic. EYES: EOMI. No deformity. EARS: Clear. No ulcers. NOSE: Intact. No lesions. MOUTH: Clear. No discharge. THROAT: Clear. No exudate. LUNGS: Clear. No crackles. CARDIAC: S1, S2. No rub. ABDOMEN: Benign. BS+. GENITALIA/RECTUM: Taylor absent. BACK/EXTREMITIES: Edema 0+ Ulcer- NEUROLOGICAL: Alert and motor intact. SKIN: Rash- Bruise- LYMPHATICS: Edema- Ulcer- LABORATORY DATA: Potassium is 4.5, sodium 131, bicarbonate 18. ASSESSMENT AND RECOMMENDATIONS: 1. Stage 6 chronic kidney disease with uremia, nausea, vomiting, and volume overload. Plan hemodial ysis. 2. Hypertension. Plan dialysis ultrafiltration. 3. Uremia, plan dialysis. 4. Anemia, stable. 5. Medications based on GFR. Overall, prognosis is extremely poor.
[2018-03-27] MEDS: Ondansetron ODT 4 MG TAB SL PRN (21:39)
[2018-03-27] MEDS: Heparin 5,000 UNITS/ML VIAL SC SCH (21:41)
[2018-03-27 21:55] VITALS: BMI 23.6
[2018-03-27 22:00] LABS: Anion Gap 27 mmol/L (10-20); BUN (Urea Nitrogen) 24 mg/dL (7.0-18.7); Calc. Creatinine Clearance 15 mL/min (70-130); Calcium 8.9 mg/dL (7.8-10.44); Carbon Dioxide 19 mmol/L (22-29); Chloride 96 mmol/L (98-107); Estimated GFR-MDRD 11; Glucose 317 mg/dL (70-105); Potassium 4.6 mmol/L (3.5-5.1); Sodium 137 mmol/L (136-145)
[2018-03-27] MEDS ORDERED: Insulin Glargine 10 UNITS in Pre-Filled Syringe 1 EACH SC SCH (23:15)
[2018-03-27] MEDS ORDERED: Promethazine HCl 12.5 MG in Sodium Chloride 0.9% 50 ML IVPB SCH (23:15)
[2018-03-28 02:51] LABS: Anion Gap 34 mmol/L (10-20); BUN (Urea Nitrogen) 32 mg/dL (7.0-18.7); Calc. Creatinine Clearance 12 mL/min (70-130); Calcium 8.7 mg/dL (7.8-10.44); Carbon Dioxide 14 mmol/L (22-29); Chloride 93 mmol/L (98-107); Estimated GFR-MDRD 9; Glucose 404 mg/dL (70-105); Potassium 4.7 mmol/L (3.5-5.1); Sodium 136 mmol/L (136-145)
[2018-03-28] MEDS ORDERED: Sodium Chloride 0.9% 1,000 ML IV SCH (03:45)
[2018-03-28] MEDS: Acetaminophen 325 MG TAB PO PRN (03:59)
[2018-03-28] MEDS: Calcium Carbonate 500 MG ChewTAB PO PRN ×3 (05:39→22:06)
[2018-03-28] MEDS: Ondansetron ODT 4 MG TAB SL PRN ×2 (05:45→12:33)
[2018-03-28 05:55] LABS: Anion Gap 35 mmol/L (10-20); BUN (Urea Nitrogen) 36 mg/dL (7.0-18.7); Calc. Creatinine Clearance 11 mL/min (70-130); Calcium 8.7 mg/dL (7.8-10.44); Carbon Dioxide 11 mmol/L (22-29); Chloride 93 mmol/L (98-107); Estimated GFR-MDRD 8; Glucose 372 mg/dL (70-105); Potassium 4.3 mmol/L (3.5-5.1); Sodium 135 mmol/L (136-145)
[2018-03-28 06:33] LABS: #Lymphocytes 1.8 thou/uL (1.20-3.40); #Monocytes 0.6 thou/uL (0.11-0.59); #Neutrophils 7.6 thou/uL (1.40-6.50); %Basophils 0.2 % (0.0-1.0); %Eosinophils 0.2 % (0.0-10.0); %Monocytes 5.6 % (0.0-10.0); Hemoglobin 11.9 g/dL (12.0-16.0); Mean Corpuscular HGB CONC 32.5 g/dL (32.0-36.0); Mean Corpuscular Hemoglobin 33.4 pg (27.0-31.0); Mean Platelet Volume 7.4 fL (7.4-10.4); Platelet Count 248 thou/uL (130-400); RBC Distribution Width 13.7 % (11.5-14.5); Red Blood Cell (RBC) Count 3.57 mill/uL (4.20-5.40)
[2018-03-28] MEDS: Heparin 5,000 UNITS/ML VIAL SC SCH ×3 (09:27→20:11)
--- NOTE | 2018-03-28 10:54 | PRG ---
DATE OF SERVICE: 03/28/2018 SUBJECTIVE: A 32-year-old female being seen for end-stage renal disease. The patient tolerated dial ysis well. Denies any nausea or vomiting as she is resting, but has had nausea and vomiting all thr oughout. PHYSICAL EXAMINATION: GENERAL: The patient is resting. VITAL SIGNS: Afebrile, pulse 75, breathing 16, blood pressure 110/71. OBJECTIVE: See above. Awake, alert, in no acute distress. GENERAL APPEARANCE AND MENTAL STATUS: Fair. HEAD/NECK: Normocephalic. Atraumatic. EYES: EOMI. No deformity. EARS: Clear. No ulcers. NOSE: Intact. No lesions. MOUTH: Clear. No discharge. THROAT: Clear. No exudate. LUNGS: Clear. No crackles. CARDIAC: S1, S2. No rub. ABDOMEN: Benign. BS+. GENITALIA/RECTUM: Taylor absent. BACK/EXTREMITIES: Edema 0+ Ulcer- NEUROLOGICAL: Alert and motor intact. SKIN: Rash- Bruise- LYMPHATICS: Edema- Ulcer- LABORATORY: Hemoglobin 11.9. ASSESSMENT AND RECOMMENDATIONS: 1. Stage 6 chronic kidney disease, plan dialysis tomorrow. 2. Hypertension, stable. 3. Anemia, stable. 4. Medication based on glomerular filtration rate are appropriate. 5. Chronic nausea and vomiting. Management per GI.
[2018-03-28] MEDS ORDERED: Dextrose 50% Abboject 50 ML SYRINGE SLOW IVP PRN (11:32)
[2018-03-28] MEDS: Promethazine HCl 25 MG/ML VIAL SLOW IVP PRN ×2 (11:38→20:01)
[2018-03-28] MEDS: Dextrose 5 % And 0.9 % NaCl 1,000 ML IV SCH ×2 (11:39→22:06)
[2018-03-28] MEDS ORDERED: Dextrose 50% Abboject 50 ML SYRINGE SLOW IVP SCH (11:45)
--- NOTE | 2018-03-28 12:18 | CON ---
DATE OF CONSULTATION: 03/28/2018 SERVICE: Pulmonary Medicine. REASON FOR CONSULTATION: IMCU patient. HISTORY OF PRESENT ILLNESS: The patient is a 32-year-old -[place] female with past medical history significant for type 1 diabetes mellitus and frequent admissions to the hospital because of DKA. She was in her usual state of health until she started having intractable nausea and vomiting. She discontinued some of her insulin. Ultimately, she developed increasing DKA. In the Emergency Department, she was given some insulin. She was tucked in the [facility] on an insulin drip overnight. Her blood sugars were low, so the insulin drip was turned off. She subsequently opened back up. She is back on her insulin drip at this point. Long-acting insulin had been provided as well. She currently denies any fevers, chills, nausea, vomiting, chest discomfort. She is tolerating a little bit of p.o. PAST MEDICAL HISTORY: 1. Type 1 diabetes mellitus. 2. Hypertension. 3. Dyslipidemia. 4. End-stage renal disease. 5. Gastroparesis secondary to diabetes. 6. Peripheral vascular disease. 7. Gastroesophageal reflux disease. 8. Medication noncompliance. PAST SURGICAL HISTORY: 1. Left eye enucleation. 2. Left upper extremity fistula. FAMILY HISTORY: Noncontributory. SOCIAL HISTORY: Negative for alcohol, tobacco or illicit drug use. She has no exposure to chemicals, dust asbestos or tuberculosis. ALLERGIES: No known drug allergies. MEDICATIONS: List of her inpatient medications were reviewed. Couple of small updates were made. REVIEW OF SYSTEMS: General, head, ears, eyes, nose, throat, cardiovascular, respiratory, GI, , musculoskeletal, neurologic and skin is negative except as mentioned in the HPI. PHYSICAL EXAMINATION: VITAL SIGNS: Afebrile, pulse 109, blood pressure 138/90, respirations 10, saturation 97% on room air. GENERAL: The patient is awake, alert, no apparent distress. LUNGS: Excellent air entry. There is no prolonged expiratory phase, wheezing, rhonchi or crackles. HEART: Normal rate, regular. ABDOMEN: Soft, nontender, nondistended. Bowel sounds are positive. MUSCULOSKELETAL: No cyanosis or clubbing. There is no pitting in the bilateral lower extremities. NEUROLOGIC: Nonfocal. LABORATORY DATA: WBC 10.0, hemoglobin 11.9, platelets 248,000. A pH 7.4, pCO2 of 32, pO2 97. Blood sugar is 71 and down trending. Anion gap remains elevated at 35, bicarbonate 11 and down trending, chloride 93, sodium 135. Beta hydroxybutyric acid is up trending. ASSESSMENT: 1. Diabetic ketoacidosis. 2. Type 1 diabetes mellitus. 3. Gastroparesis with intractable nausea and vomiting. PLAN: We will continue our insulin drip. This will not be interrupted until her anion gap resolves. I will switch her over to D5 NS. We will give multiple doses of D50 if necessary. She will need to remain in the ICU for the time being. 70 minutes have been devoted to this patient in various activities. I personally reviewed all imaging studies and laboratory data noted within this document. For fifty percent of this time, I was interacting with the patient at the bedside or coordinating care with the care team. For the remainder of the time I was immediately available to the patient in the hospital unit. VANESSA
[2018-03-28 13:07] LABS: Anion Gap 29 mmol/L (10-20); BUN (Urea Nitrogen) 39 mg/dL (7.0-18.7); Calc. Creatinine Clearance 10 mL/min (70-130); Calcium 9.3 mg/dL (7.8-10.44); Carbon Dioxide 16 mmol/L (22-29); Chloride 98 mmol/L (98-107); Estimated GFR-MDRD 7; Glucose 125 mg/dL (70-105); Potassium 4.8 mmol/L (3.5-5.1); Sodium 138 mmol/L (136-145)
--- NOTE | 2018-03-28 15:07 | PDOC.PN ---
- Subjective Encounter Start Date: 03/28/18 Encounter Start Time: 08:00 Pt seen for followup re: DKA. Nausea is better. No fevers or chills. No chest pain. - Objective MAR Reviewed: Yes Vital Signs & Weight: Vital Signs (12 hours) Temp Pulse Resp BP BP Pulse Ox 03/28/18 11:19 98.8 F 109 H 10 L 138/90 97 03/28/18 08:00 97.9 F 112 H 20 03/28/18 07:35 97.9 F 112 H 20 146/87 H 100 03/28/18 04:00 98.2 F 99 19 110/71 100 Weight Weight 140 lb 10.479 oz I&O: 03/27/18 03/28/18 03/29/18 06:59 06:59 06:59 Intake Total 486 725 Balance 486 725 Result Diagrams: 03/28/18 05:01 03/28/18 12:41 Additional Labs: Accuchecks 03/28/18 03/28/18 03/28/18 14:21 13:19 12:34 POC Glucose 169 H 144 H 118 H 03/28/18 03/28/18 03/28/18 11:38 10:38 09:29 POC Glucose 80 71 93 03/28/18 03/28/18 03/28/18 08:13 06:56 05:49 POC Glucose 126 H 216 H 291 H 03/28/18 03/28/18 03/27/18 05:03 04:09 21:36 POC Glucose 326 H 385 H 281 H 03/27/18 18:48 POC Glucose 292 H Phys Exam - Physical Examination Constitutional: NAD HEENT: sclera anicteric, oral pharynx no lesions, 2+ tonsils Dry mucosae Neck: no nodes, no JVD, supple, full ROM Respiratory: no wheezing, no rales, no rhonchi, clear to auscultation bilateral Cardiovascular: RRR, no rub S1, S2 Gastrointestinal: soft, non-tender, no distention, positive bowel sounds Musculoskeletal: pulses present Neurological: moves all 4 limbs Psychiatric: normal affect Dx/Plan (1) DKA (diabetic ketoacidosis) Code(s): E13.10 - OTH DIABETES MELLITUS WITH KETOACIDOSIS WITHOUT COMA Status : Acute Comment: Continue insulin drip and fluids in IMCU. (2) Nausea & vomiting Code(s): R11.2 - NAUSEA WITH VOMITING, UNSPECIFIED Status: Acute Comment: Improving (3) ESRD (end stage renal disease) on dialysis Code(s): N18.6 - END STAGE RENAL DISEASE; Z99.2 - DEPENDENCE ON RENAL DIALYSIS Status: Chronic Comment: Dialysis per nephrology service (4) GERD (gastroesophageal reflux disease) Code(s): K21.9 - GASTRO-ESOPHAGEAL REFLUX DISEASE WITHOUT ESOPHAGITIS Status: Chronic Qualifiers: Esophagitis presence: esophagitis presence not specified Qualified Code(s) : K21.9 - Gastro-esophageal reflux disease without esophagitis Comment: stable (5) Labile hypertension Code(s): I10 - ESSENTIAL (PRIMARY) HYPERTENSION Status: Chronic Comment: Monitor vital signs, titrate antihypertensives as needed - Plan * . Review of Systems - Review of Systems Constitutional: negative: fever, chills, sweats, weakness, malaise Respiratory: negative: Cough, Shortness of Breath, SOB with Excertion, Pleuritic Pain, Wheezing Cardiovascular: negative: chest pain, palpitations, orthopnea, paroxysmal nocturnal dyspnea, edema, light headedness Gastrointestinal: Nausea. negative: Vomiting, Abdominal Pain, Diarrhea, Constipation, Melena, Hematochezia Genitourinary: negative: Dysuria, Frequency, Incontinence, Hematuria, Retention Skin: negative: Rash, Lesions, Walker, Bruising - Medications/Allergies Allergies/Adverse Reactions: Allergies Allergy/AdvReac Type Severity Reaction Status Date / Time No Known Allergies Allergy Verified 12/05/17 21:40 Medications: Current Medications Acetaminophen (Tylenol) 650 mg PO Q4H PRN PRN Reason: Headache/Fever or Pain Last Admin: 03/28/18 03:59 Dose: 650 mg Acetaminophen (Tylenol) 650 mg [place] Q4H PRN PRN Reason: Headache/Fever or Pain Atropine Sulfate (Atropine 1% Ophth Soln) 1 drop R EYE BID [facility] Bisacodyl (Dulcolax) 10 mg PO DAILYPRN PRN PRN Reason: Constipation Brimonidine Tartrate (Alphagan 0.2% Ophth Soln) 1 drop R EYE BID [facility] Calcium Carbonate (Tums) 1,000 mg PO Q4H PRN PRN Reason: INDIGESTION/ HEARTBURN Last Admin: 03/28/18 14:16 Dose: 1,000 mg Carvedilol (Coreg) 12.5 mg PO BID [facility] Dextrose/Water (Dextrose 50%) 25 gm SLOW IVP Q2H PRN PRN Reason: Hypoglycemia Dorzolamide HCl (Trusopt 2% Ophth Soln) 1 drop R EYE BID [facility] Heparin Sodium (Porcine) (Heparin) 5,000 units SC TID [facility] Last Admin: 03/28/18 14:35 Dose: Not Given Hydralazine HCl (Apresoline) 100 mg PO TID [facility] Insulin Human Regular 100 (units/ Sodium Chloride) 101 mls @ 0 mls/hr IVPB INF [facility]; Titrate PRN Reason: Protocol Last Admin: 03/28/18 03:59 Dose: 101 mls Potassium Chloride 40 meq/ (Sodium Chloride) 270 mls @ 135 mls/hr IVPB ASDIR PRN PRN Reason: FOR SERUM K+ 2.5 - 3.5 Potassium Chloride 40 meq/ (Device) 100 mls @ 50 mls/hr IVPB ASDIR PRN PRN Reason: FOR SERUM K+ 2.5 - 3.5 Magnesium Sulfate 1 gm/ Sodium (Chloride) 102 mls @ 102 mls/hr IV PRN PRN PRN Reason: MAG LEVEL 1.4 - 2.0 Magnesium Sulfate 2 gm/ Device 100 mls @ 100 mls/hr IVPB ASDIR PRN PRN Reason: MAGNESIUM < 1.4 Potassium Phosphate 9 mmol/ (Sodium Chloride) 103 mls @ 25.75 mls/hr IVPB ASDIR PRN PRN Reason: Phosphate 1.0-1.8 Potassium Phosphate 12 mmol/ (Sodium Chloride) 254 mls @ 63.5 mls/hr IV ASDIR PRN PRN Reason: Serum phosphate 0.5-0.9 Potassium Phosphate 15 mmol/ (Sodium Chloride) 255 mls @ 63.75 mls/hr IV ASDIR PRN PRN Reason: Serum Phos < 0.5 Promethazine HCl 25 mg/ Sodium (Chloride) 51 mls @ 204 mls/hr IVPB Q6H PRN PRN Reason: Nausea Dextrose/Sodium Chloride (D5 0.9% Ns) 1,000 mls @ 100 mls/hr IV .Q10H [facility] Last Admin: 03/28/18 11:39 Dose: 1,000 mls Insulin Glargine 10 units/ (Miscellaneous Medication) 0.1 mls @ 0 mls/hr SC HS [facility] Lisinopril (Zestril) 20 mg PO BID [facility] Magnesium Oxide (Magnesium Oxide) 400 mg PO BIDPRN PRN PRN Reason: FOR SERUM MAG 1.4 - 2.0 Magnesium Oxide (Magnesium Oxide) 800 mg PO PRN PRN PRN Reason: FOR SERUM MAG < 1.4 Miscellaneous Medication (Phos-Nak) 1 pkt PO TIDPRN PRN PRN Reason: FOR PHOS LEVEL 1.0 - 1.8 Miscellaneous Medication (Phos-Nak) 2 pkt PO TIDPRN PRN PRN Reason: FOR PHOS LEVEL 0.5 - 1.0 Nifedipine (Procardia Xl) 90 [facility] [place] Ccu Electrolyte (Replacement Protocol) 0 each FS PRN PRN PRN Reason: FOR ELECTROLYTE REPLACEMENT Ondansetron HCl (Zofran) 4 mg IVP Q6H PRN PRN Reason: Nausea/Vomiting Ondansetron HCl (Zofran Odt) 4 mg SL Q6H PRN PRN Reason: Nausea/Vomiting Last Admin: 03/28/18 12:33 Dose: 4 mg Potassium Chloride (K-Dur) 40 meq PO ASDIR PRN PRN Reason: FOR SERUM K+ 2.5 - 3.5 Potassium Chloride (Klor-Con) 40 meq PER TUBE ASDIR PRN PRN Reason: FOR SERUM K+ 2.5-3.5 Promethazine HCl (Phenergan) 25 mg SLOW IVP Q6H PRN PRN Reason: Nausea Last Admin: 03/28/18 11:38 Dose: 25 mg Sevelamer Carbonate (Renvela) 800 mg PO TID-WM [facility] Sodium Chloride (Flush - Normal Saline) 10 ml IVF Q12HR [facility] Sodium Chloride (Flush - Normal Saline) 10 ml IVF PRN PRN PRN Reason: Saline Flush Timolol Maleate (Timoptic 0.5% [facility]) 1 drop R EYE BID [facility]
[2018-03-28] MEDS ORDERED: Metoclopramide HCl 10 MG/2 ML VIAL IVP SCH (15:30)
[2018-03-28] MEDS: Sevelamer Carbonate 800 MG TAB PO SCH (15:54)
[2018-03-28] MEDS: hydrALAZINE 25 MG TAB PO SCH ×2 (15:54→20:05)
[2018-03-28] MEDS: Lisinopril 20 MG TAB PO SCH (20:06)
[2018-03-28] MEDS: Carvedilol 25 MG TAB PO SCH (20:06)
[2018-03-28] MEDS: Atropine Sulfate 1% Ophth Soln 5 ml Bottle R EYE SCH (20:10)
[2018-03-28] MEDS: Brimonidine Tartrate 0.2% Ophth Soln 5 ml Bottle R EYE SCH (20:11)
[2018-03-28] MEDS: Dorzolamide HCl 2% Ophth Soln 10 ml Bottle R EYE SCH (20:11)
[2018-03-28] MEDS: Insulin Glargine 10 UNITS in Pre-Filled Syringe 1 EACH SC SCH (20:11)
[2018-03-28] MEDS: Timolol 0.5% Ophth Soln 5 ml Bottle R EYE SCH (20:12)
[2018-03-28] MEDS ORDERED: Non-Formulary Item 1 EACH (Insulin Detemir 100 Units/Ml [Levemir] 10 UNITS) SC SCH (21:00)
[2018-03-29] MEDS: Calcium Carbonate 500 MG ChewTAB PO PRN ×2 (04:05→18:26)
[2018-03-29] MEDS: Promethazine HCl 25 MG/ML VIAL SLOW IVP PRN (04:09)
[2018-03-29 04:26] LABS: #Basophils 0.1 thou/uL (0.0-0.2); #Eosinphils 0.1 thou/uL (0.0-0.7); #Lymphocytes 2.1 thou/uL (1.20-3.40); #Monocytes 0.6 thou/uL (0.11-0.59); #Neutrophils 5.4 thou/uL (1.40-6.50); %Basophils 0.7 % (0.0-1.0); %Eosinophils 1.2 % (0.0-10.0); %Lymphocytes 25.5 % (21.0-51.0); %Monocytes 7.4 % (0.0-10.0); %Neutrophils 65.1 % (42.0-75.0); Hemoglobin 11.2 g/dL (12.0-16.0); Mean Corpuscular HGB CONC 32.7 g/dL (32.0-36.0); Mean Corpuscular Hemoglobin 33.9 pg (27.0-31.0); Mean Platelet Volume 6.9 fL (7.4-10.4); Platelet Count 229 thou/uL (130-400); RBC Distribution Width 14.2 % (11.5-14.5); White Blood Cell (WBC) Count 8.3 thou/uL (4.8-10.8)
[2018-03-29 04:49] LABS: Anion Gap 18 mmol/L (10-20); BUN (Urea Nitrogen) 40 mg/dL (7.0-18.7); Calc. Creatinine Clearance 9 mL/min (70-130); Calcium 9.4 mg/dL (7.8-10.44); Carbon Dioxide 25 mmol/L (22-29); Chloride 101 mmol/L (98-107); Estimated GFR-MDRD 6; Glucose 132 mg/dL (70-105); Potassium 3.7 mmol/L (3.5-5.1); Sodium 140 mmol/L (136-145)
[2018-03-29] MEDS: Dextrose 5 % And 0.9 % NaCl 1,000 ML IV SCH (08:36)
[2018-03-29] MEDS: Brimonidine Tartrate 0.2% Ophth Soln 5 ml Bottle R EYE SCH (08:37)
[2018-03-29] MEDS: Heparin 5,000 UNITS/ML VIAL SC SCH ×3 (08:37→23:15)
[2018-03-29] MEDS: Sevelamer Carbonate 800 MG TAB PO SCH ×3 (08:37→16:35)
[2018-03-29] MEDS: Dorzolamide HCl 2% Ophth Soln 10 ml Bottle R EYE SCH (08:37)
[2018-03-29] MEDS: Atropine Sulfate 1% Ophth Soln 5 ml Bottle R EYE SCH (08:37)
[2018-03-29] MEDS: Timolol 0.5% Ophth Soln 5 ml Bottle R EYE SCH (08:38)
--- NOTE | 2018-03-29 09:36 | PRG ---
DATE OF SERVICE: 03/29/2018 SUBJECTIVE: This is a 32-year-old female being seen for end-stage renal disease. The patient denies any nausea, vomiting, or chest pain. PHYSICAL EXAMINATION: GENERAL: Patient is awake, alert. VITAL SIGNS: Afebrile, pulse 92, breathing 16, blood pressure 121/76. OBJECTIVE: See above. Awake, alert, in no acute distress. GENERAL APPEARANCE AND MENTAL STATUS: Fair. HEAD/NECK: Normocephalic. Atraumatic. EYES: EOMI. No deformity. EARS: Clear. No ulcers. NOSE: Intact. No lesions. MOUTH: Clear. No discharge. THROAT: Clear. No exudate. LUNGS: Clear. No crackles. CARDIAC: S1, S2. No rub. ABDOMEN: Benign. BS+. GENITALIA/RECTUM: Taylor absent. BACK/EXTREMITIES: Edema 0+ Ulcer- NEUROLOGICAL: Alert and motor intact. SKIN: Rash- Bruise- LYMPHATICS: Edema- Ulcer- LABORATORY: Hemoglobin 11.2. ASSESSMENT AND RECOMMENDATIONS: 1. Stage 6 chronic kidney disease. Continue dialysis. 2. Hypertension, stable. 3. Anemia, stable. 4. Medication based on glomerular filtration rate are appropriate.
[2018-03-29] MEDS: Carvedilol 25 MG TAB PO SCH ×2 (11:49→23:15)
[2018-03-29] MEDS: hydrALAZINE 25 MG TAB PO SCH ×3 (11:49→23:15)
[2018-03-29] MEDS: NIFEdipine XL 90 MG TAB PO SCH (11:50)
[2018-03-29] MEDS: Lisinopril 20 MG TAB PO SCH ×2 (11:50→23:16)
[2018-03-29] MEDS: Ondansetron ODT 4 MG TAB SL PRN ×2 (13:30→22:59)
--- NOTE | 2018-03-29 14:04 | PDOC.PN ---
- Subjective Encounter Start Date: 03/29/18 Encounter Start Time: 09:00 Pt seen for followup re: nausea and vomiting. Nausea and vomiting better. No fevers or chills. - Objective MAR Reviewed: Yes Vital Signs & Weight: Vital Signs (12 hours) Temp Pulse Resp BP BP Pulse Ox 03/29/18 11:49 102 H 03/29/18 08:38 102 H 03/29/18 07:44 98.7 F 102 H 13 155/99 H 96 03/29/18 07:38 97 F L 92 16 99 03/29/18 04:00 97 F L 92 16 121/76 99 Weight Weight 143 lb 1.28 oz I&O: 03/28/18 03/29/18 03/30/18 06:59 06:59 06:59 Intake Total 486 2677.0 Balance 486 2677.0 Result Diagrams: 03/29/18 04:04 03/29/18 04:04 Additional Labs: Accuchecks 03/29/18 03/29/18 03/29/18 08:07 07:11 06:01 POC Glucose 106 110 111 H 03/29/18 03/29/18 03/29/18 04:59 04:06 02:59 POC Glucose 119 H 121 H 113 H 03/29/18 03/29/18 03/28/18 02:01 00:58 23:58 POC Glucose 114 H 105 113 H 03/28/18 03/28/18 03/28/18 23:00 22:02 20:59 POC Glucose 99 99 92 03/28/18 03/28/18 03/28/18 20:12 19:12 18:30 POC Glucose 100 90 100 03/28/18 03/28/18 03/28/18 17:40 16:29 15:16 POC Glucose 105 137 H 170 H 03/28/18 14:21 POC Glucose 169 H EKG Reviewed by me: Yes (Tele: NSR) Phys Exam - Physical Examination Constitutional: NAD HEENT: moist MMs, sclera anicteric, oral pharynx no lesions, 2+ tonsils Respiratory: no wheezing, no rales, no rhonchi, clear to auscultation bilateral Cardiovascular: RRR, no rub S1, S2 Gastrointestinal: soft, non-tender, no distention, positive bowel sounds Neurological: moves all 4 limbs Psychiatric: normal affect, A&O x 3 Dx/Plan (1) Nausea & vomiting Code(s): R11.2 - NAUSEA WITH VOMITING, UNSPECIFIED Status: Acute Comment: continue PRN antiemetics, improving (2) ESRD (end stage renal disease) on dialysis Code(s): N18.6 - END STAGE RENAL DISEASE; Z99.2 - DEPENDENCE ON RENAL DIALYSIS Status: Chronic Comment: Nephrology following, pt getting maintainance hemodialysis (3) GERD (gastroesophageal reflux disease) Code(s): K21.9 - GASTRO-ESOPHAGEAL REFLUX DISEASE WITHOUT ESOPHAGITIS Status: Chronic Qualifiers: Esophagitis presence: esophagitis presence not specified Qualified Code(s) : K21.9 - Gastro-esophageal reflux disease without esophagitis Comment: stable (4) Labile hypertension Code(s): I10 - ESSENTIAL (PRIMARY) HYPERTENSION Status: Chronic Comment: titrate antihypertensives as needed (5) Diabetes mellitus, labile Code(s): E10.9 - TYPE 1 DIABETES MELLITUS WITHOUT COMPLICATIONS Status: Chronic Comment: start accuchecks, insulin sliding scale (6) DKA (diabetic ketoacidosis) Code(s): E13.10 - OTH DIABETES MELLITUS WITH KETOACIDOSIS WITHOUT COMA Status : Resolved Comment: Transfer to medical floor - Plan * . Review of Systems - Review of Systems Constitutional: negative: fever, chills, sweats, weakness, malaise Respiratory: negative: Cough, Shortness of Breath, SOB with Excertion, Pleuritic Pain, Wheezing Cardiovascular: negative: chest pain, palpitations, orthopnea, paroxysmal nocturnal dyspnea, edema, light headedness Gastrointestinal: Nausea, Vomiting. negative: Abdominal Pain, Diarrhea, Constipation, Melena, Hematochezia Skin: negative: Rash, Lesions, Walker, Bruising Neurological: negative: Weakness, Numbness, Incoordination, Change in Speech, Confusion, Seizures - Medications/Allergies Allergies/Adverse Reactions: Allergies Allergy/AdvReac Type Severity Reaction Status Date / Time No Known Allergies Allergy Verified 12/05/17 21:40 Medications: Current Medications Acetaminophen (Tylenol) 650 mg PO Q4H PRN PRN Reason: Headache/Fever or Pain Last Admin: 03/28/18 03:59 Dose: 650 mg Acetaminophen (Tylenol) 650 mg [place] Q4H PRN PRN Reason: Headache/Fever or Pain IF NPO Bisacodyl (Dulcolax) 10 mg PO DAILYPRN PRN PRN Reason: Constipation Calcium Carbonate (Tums) 1,000 mg PO Q4H PRN PRN Reason: INDIGESTION/ HEARTBURN Last Admin: 03/29/18 04:05 Dose: 1,000 mg Carvedilol (Coreg) 12.5 mg PO BID [facility] Last Admin: 03/29/18 11:49 Dose: Not Given Dextrose/Water (Dextrose 50%) 25 gm SLOW IVP Q2H PRN PRN Reason: Hypoglycemia Heparin Sodium (Porcine) (Heparin) 5,000 units SC TID [facility] Last Admin: 03/29/18 08:37 Dose: Not Given Hydralazine HCl (Apresoline) 100 mg PO TID [facility] Last Admin: 03/29/18 11:49 Dose: Not Given Promethazine HCl 25 mg/ Sodium (Chloride) 51 mls @ 204 mls/hr IVPB Q6H PRN PRN Reason: Nausea Insulin Glargine 10 units/ (Miscellaneous Medication) 0.1 mls @ 0 mls/hr SC [facility] Last Admin: 03/28/18 20:11 Dose: Not Given Lisinopril (Zestril) 20 mg PO BID [facility] Last Admin: 03/29/18 11:50 Dose: Not Given Nifedipine (Procardia Xl) [facility] Last Admin: 03/29/18 11:50 Dose: Not Given Ondansetron HCl (Zofran) 4 mg IVP Q6H PRN PRN Reason: Nausea/Vomiting Ondansetron HCl (Zofran Odt) 4 mg SL Q6H PRN PRN Reason: Nausea/Vomiting Last Admin: 03/29/18 13:30 Dose: 4 mg Promethazine HCl (Phenergan) 25 mg SLOW IVP Q6H PRN PRN Reason: Nausea Last Admin: 03/29/18 04:09 Dose: 25 mg Sevelamer Carbonate (Renvela) 800 mg PO TID[facility] Last Admin: 03/29/18 12:54 Dose: Not Given Sodium Chloride (Flush - Normal Saline) 10 ml IVF Q12HR [facility] Last Admin: 03/29/18 11:50 Dose: Not Given Sodium Chloride (Flush - Normal Saline) 10 ml IVF PRN PRN PRN Reason: Saline Flush
--- NOTE | 2018-03-29 14:50 | PRG ---
DATE OF SERVICE: 03/29/2018 SERVICE: Pulmonary Medicine. INTERVAL HISTORY: The patient is doing fine from a respiratory standpoint. She is breathing comfortably. She denies any current chest pain, nausea, vomiting, fevers or chills. Otherwise, there has been no interval change to her condition. Gap closed overnight. She successfully transitioned back off the insulin. PHYSICAL EXAMINATION: VITAL SIGNS: Afebrile, pulse 107, blood pressure 154/104, respirations 16, saturation 97% on room air. GENERAL: The patient is awake, alert, no apparent distress. LUNGS: Decent air entry with no prolonged expiratory phase, wheezing, rhonchi or crackles. HEART: Normal rate, regular. ABDOMEN: Soft, nontender, nondistended. Bowel sounds are positive. MUSCULOSKELETAL: No cyanosis or clubbing. There is no pitting in the bilateral lower extremities. NEUROLOGIC: Grossly nonfocal. LABORATORY DATA: WBC 8.3, hemoglobin 11.2, platelets 229,000. Creatinine 9.55. Basic metabolic profile is otherwise unremarkable. Anion gap is significantly improved to 18, bicarbonate is 25 and normal. Blood cultures x2 remain unremarkable. ASSESSMENT: 1. Diabetic ketoacidosis. 2. Type 1 diabetes mellitus. 3. Gastroparesis with intractable nausea and vomiting, improving. PLAN: The anion gap is improved, but not closed. There is a possibility that the acidosis was fixed with dialysis without a significant improvement in the ketosis. I will repeat a beta hydroxybutyric acid with morning labs. If her anion gap increases again, she will benefit from transitioning back to the ICU. At this point, however, if she is moving in the right direction, she will have no further requirements for inpatient Pulmonary or Critical Care opinion and we will sign off. Please call with additional questions or concerns moving forward. VANESSA
[2018-03-29] MEDS ORDERED: Dextrose 5% in Water 1,000 ML IV PRN (16:41)
[2018-03-29] MEDS ORDERED: Dextrose 50% Abboject 50 ML SYRINGE IVP PRN (16:41)
[2018-03-29] MEDS ORDERED: HumaLOG 300 UNITS/3 ML VIAL SC PRN (16:41)
[2018-03-29] MEDS: Promethazine HCl 25 MG in Sodium Chloride 0.9% 50 ML IVPB PRN (18:19)
[2018-03-29] MEDS ORDERED: Piperacillin/Tazobactam 4.5 GM VIAL ONE (21:42)
[2018-03-29] MEDS ORDERED: Sodium Chloride 0.9% 500 ML IV SCH (22:45)
[2018-03-29] MEDS: Insulin Glargine 10 UNITS in Pre-Filled Syringe 1 EACH SC SCH (23:00)
[2018-03-30] MEDS: Calcium Carbonate 500 MG ChewTAB PO PRN ×2 (01:11→09:33)
[2018-03-30] MEDS: Promethazine HCl 25 MG in Sodium Chloride 0.9% 50 ML IVPB PRN (04:14)
[2018-03-30 05:25] LABS: BUN (Urea Nitrogen) 36 mg/dL (7.0-18.7); Calc. Creatinine Clearance 12 mL/min (70-130); Calcium 9.1 mg/dL (7.8-10.44); Carbon Dioxide Less than 8 mmol/L (22-29); Chloride 91 mmol/L (98-107); Estimated GFR-MDRD 8; Glucose 699 mg/dL (70-105); Potassium 5.8 mmol/L (3.5-5.1); Sodium 131 mmol/L (136-145)
[2018-03-30] MEDS ORDERED: Sodium Chloride 0.9% 500 ML IV SCH (05:45)
[2018-03-30] MEDS ORDERED: Insulin Regular 300 UNITS/3 ML VIAL IVP SCH (05:45)
--- NOTE | 2018-03-30 05:46 | PDOC.EVN ---
Event Note - Event Note Event Note: Nurse Yolanda called about pt's abnormal labs. Pt's blood sugar on bmp is 699 and low bicarb. blood sugar rechecked with glucometer stated high. will repeat bmp to make sure not an error. Pt's blood sugars have been in the 200-300 range. will give pt 10units of regular insulin and 500ml bolus and start her on a insulin drip and transfer her to [facility].
[2018-03-30 05:50] LABS: BUN (Urea Nitrogen) 37 mg/dL (7.0-18.7); Calc. Creatinine Clearance 12 mL/min (70-130); Chloride 90 mmol/L (98-107); Estimated GFR-MDRD 8; Potassium 5.4 mmol/L (3.5-5.1); Sodium 131 mmol/L (136-145)
[2018-03-30 05:53] LABS: Carbon Dioxide Less than 8 mmol/L (22-29); Glucose 727 mg/dL (70-105)
[2018-03-30 06:15] LABS: #Lymphocytes 1.1 thou/uL (1.20-3.40); #Monocytes 0.7 thou/uL (0.11-0.59); #Neutrophils 7.8 thou/uL (1.40-6.50); %Basophils 0.3 % (0.0-1.0); %Eosinophils 0.4 % (0.0-10.0); %Lymphocytes 11.2 % (21.0-51.0); %Monocytes 6.8 % (0.0-10.0); %Neutrophils 81.3 % (42.0-75.0); Hemoglobin 11.6 g/dL (12.0-16.0); MDiff Complete? YES; Macrocytosis SLIGHT = 6-15 cells (100X) (0-5/hpf); Mean Corpuscular Hemoglobin 33.5 pg (27.0-31.0); Mean Platelet Volume 7.8 fL (7.4-10.4); Platelet Count 216 thou/uL (130-400); RBC Distribution Width 13.8 % (11.5-14.5); Red Blood Cell (RBC) Count 3.47 mill/uL (4.20-5.40); White Blood Cell (WBC) Count 9.6 thou/uL (4.8-10.8)
[2018-03-30 07:14] LABS: CO2 Tension 20.4 mmHg (35.0-45.0); pH, Arterial 7.31 (7.35-7.45)
[2018-03-30 07:15] LABS: Actual Bicarbonate (HCO3a) 9.9 mEq/L (22-28); Base Excess (BEa) -14.6 mEq/L (-2.0 to +3.0); O2 Tension (PaO2) 110.8 mmHg (80.0-100.0)
[2018-03-30 07:16] LABS: Calcium, Ionized 1.2 mmol/L (1.12-1.30); Puncture Site RBA
[2018-03-30] MEDS: Sevelamer Carbonate 800 MG TAB PO SCH ×3 (08:09→17:20)
[2018-03-30] MEDS: Heparin 5,000 UNITS/ML VIAL SC SCH ×3 (09:28→21:18)
[2018-03-30] MEDS: Carvedilol 25 MG TAB PO SCH ×2 (09:30→21:18)
[2018-03-30] MEDS: hydrALAZINE 25 MG TAB PO SCH ×3 (09:30→23:22)
[2018-03-30] MEDS: Lisinopril 20 MG TAB PO SCH ×2 (09:31→21:19)
[2018-03-30] MEDS: NIFEdipine XL 90 MG TAB PO SCH (09:31)
[2018-03-30 12:43] LABS: Anion Gap 24 mmol/L (10-20); BUN (Urea Nitrogen) 41 mg/dL (7.0-18.7); Calc. Creatinine Clearance 11 mL/min (70-130); Calcium 9.6 mg/dL (7.8-10.44); Carbon Dioxide 19 mmol/L (22-29); Chloride 96 mmol/L (98-107); Estimated GFR-MDRD 7; Glucose 243 mg/dL (70-105); Potassium 3.9 mmol/L (3.5-5.1); Sodium 135 mmol/L (136-145)
[2018-03-30 12:50] LABS: CKMB 2.2 ng/mL (0-6.6); Troponin I 0.126 ng/mL (< 0.028)
--- NOTE | 2018-03-30 12:58 | PRG ---
DATE OF SERVICE: 03/30/2018 SUBJECTIVE: A 32-year-old female being seen for end-stage renal disease. The patient still has naus ea and vomiting. OBJECTIVE: GENERAL: Patient is resting. VITAL SIGNS: Afebrile, pulse 114, breathing 16, blood pressure 143/81. GENERAL APPEARANCE AND MENTAL STATUS: Fair. HEAD/NECK: Normocephalic. Atraumatic. EYES: EOMI. No deformity. EARS: Clear. No ulcers. NOSE: Intact. No lesions. MOUTH: Clear. No discharge. THROAT: Clear. No exudate. LUNGS: Clear. No crackles. CARDIAC: S1, S2. No rub. ABDOMEN: Benign. BS+. GENITALIA/RECTUM: Taylor absent. BACK/EXTREMITIES: Edema 0+ Ulcer- NEUROLOGICAL: Alert and motor intact. SKIN: Rash- Bruise- LYMPHATICS: Edema- Ulcer- LABORATORY: Hemoglobin 11.6, potassium 5.4, bicarbonate 8. ASSESSMENT AND RECOMMENDATIONS: 1. Stage 6 chronic kidney disease, plan hemodialysis. 2. Hyperkalemia, plan dialysis. 3. Anemia, plan dialysis. 4. Metabolic acidosis, plan dialysis. I will keep the patient euvolemic.
--- NOTE | 2018-03-30 13:59 | PDOC.PN ---
- Subjective Encounter Start Date: 03/30/18 Encounter Start Time: 08:40 Pt seen for followup re: DKA. reports nausea and vomiting. No fevers or chills. - Objective MAR Reviewed: Yes Vital Signs & Weight: Vital Signs (12 hours) Temp Pulse Resp BP BP Pulse Ox 03/30/18 12:00 98.9 F 106 H 22 H 133/91 H 99 03/30/18 09:31 114 H 88/52 L 03/30/18 09:30 114 H 03/30/18 08:00 98.2 F 114 H 20 03/30/18 06:50 98.2 F 114 H 18 143/81 H 100 03/30/18 05:45 98.7 F 114 H 16 116/69 98 Weight Weight 143 lb 1.28 oz I&O: 03/29/18 03/30/18 03/31/18 06:59 06:59 06:59 Intake Total 2677.0 0 Balance 2677.0 0 Result Diagrams: 04/01/18 03:39 04/01/18 03:39 Additional Labs: Accuchecks 03/30/18 03/30/18 03/30/18 13:01 12:04 11:17 POC Glucose 161 H 195 H 261 H 03/30/18 03/30/18 03/30/18 10:06 09:10 07:59 POC Glucose 362 H 467 H 520 H 03/30/18 03/29/18 03/29/18 07:11 20:56 15:39 POC Glucose 528 H 316 H 327 H EKG Reviewed by me: Yes (Tele: sinus tachycardia) Phys Exam - Physical Examination Constitutional: NAD HEENT: moist MMs R corneal opacity Neck: supple Respiratory: clear to auscultation bilateral S1, S2, reg, tachy Gastrointestinal: soft, non-tender Neurological: moves all 4 limbs Psychiatric: normal affect Dx/Plan (1) DKA (diabetic ketoacidosis) Code(s): E13.10 - OTH DIABETES MELLITUS WITH KETOACIDOSIS WITHOUT COMA Status : Acute Comment: Improving, continue insulin drip and IV fluids (2) Nausea & vomiting Code(s): R11.2 - NAUSEA WITH VOMITING, UNSPECIFIED Status: Acute Comment: Improved, continue pepcid (3) ESRD (end stage renal disease) on dialysis Code(s): N18.6 - END STAGE RENAL DISEASE; Z99.2 - DEPENDENCE ON RENAL DIALYSIS Status: Chronic Comment: nephrology following for maintainance dialysis (4) GERD (gastroesophageal reflux disease) Code(s): K21.9 - GASTRO-ESOPHAGEAL REFLUX DISEASE WITHOUT ESOPHAGITIS Status: Chronic Qualifiers: Esophagitis presence: esophagitis presence not specified Qualified Code(s) : K21.9 - Gastro-esophageal reflux disease without esophagitis Comment: continue pepcid (5) Labile hypertension Code(s): I10 - ESSENTIAL (PRIMARY) HYPERTENSION Status: Chronic Comment: Controlled (6) Diabetes mellitus, labile Code(s): E10.9 - TYPE 1 DIABETES MELLITUS WITHOUT COMPLICATIONS Status: Chronic Comment: pt now in DKA, on IV insulin and fluids - Plan * . Review of Systems - Review of Systems Constitutional: weakness. negative: fever, chills, sweats, malaise Respiratory: negative: Cough, Shortness of Breath Cardiovascular: negative: chest pain, palpitations, orthopnea, paroxysmal nocturnal dyspnea, edema, light headedness Gastrointestinal: Nausea, Vomiting. negative: Abdominal Pain, Diarrhea, Constipation, Melena, Hematochezia - Medications/Allergies Allergies/Adverse Reactions: Allergies Allergy/AdvReac Type Severity Reaction Status Date / Time No Known Allergies Allergy Verified 12/05/17 21:40 Medications: Current Medications Acetaminophen (Tylenol) 650 mg PO Q4H PRN PRN Reason: Headache/Fever or Pain Last Admin: 03/28/18 03:59 Dose: 650 mg Acetaminophen (Tylenol) 650 mg [place] Q4H PRN PRN Reason: Headache/Fever or Pain IF NPO Bisacodyl (Dulcolax) 10 mg PO DAILYPRN PRN PRN Reason: Constipation Calcium Carbonate (Tums) 1,000 mg PO Q4H PRN PRN Reason: INDIGESTION/ HEARTBURN Last Admin: 03/30/18 09:33 Dose: 1,000 mg Carvedilol (Coreg) 12.5 mg PO BID [facility] Last Admin: 03/30/18 09:30 Dose: 12.5 mg Dextrose/Water (Dextrose 50%) 25 gm SLOW IVP Q2H PRN PRN Reason: Hypoglycemia Dextrose/Water (Dextrose 50%) 25 gm IVP PRN PRN PRN Reason: HYPOGLYCEMIA PROTOCOL Famotidine (Pepcid) 20 mg SLOW IVP NOW [facility] Stop: 03/30/18 15:00 Glucagon (Glucagon) 1 mg IM PRN PRN PRN Reason: HYPOGLYCEMIA PROTOCOL Heparin Sodium (Porcine) (Heparin) 5,000 units SC TID [facility] Last Admin: 03/30/18 09:28 Dose: Not Given Hydralazine HCl (Apresoline) 100 mg PO TID [facility] Last Admin: 03/30/18 09:30 Dose: 100 mg Promethazine HCl 25 mg/ Sodium (Chloride) 51 mls @ 204 mls/hr IVPB Q6H PRN PRN Reason: Nausea Last Admin: 03/30/18 04:14 Dose: 51 mls Insulin Glargine 10 units/ (Miscellaneous Medication) 0.1 mls @ 0 mls/hr SC [facility] Last Admin: 03/29/18 23:00 Dose: 0.1 mls Dextrose/Water (D5w) 1,000 mls @ 0 mls/hr IV INF PRN; As Directed PRN Reason: HYPOGLYCEMIA PROTOCOL Insulin Human Regular 100 (units/ Sodium Chloride) 101 mls @ 0 mls/hr IVPB INF [facility]; Titrate PRN Reason: Protocol Last Admin: 03/30/18 07:31 Dose: 101 mls Insulin Human Lispro (Humalog) 0 units SC .MODERATE SLIDING SC PRN; Protocol PRN Reason: MODERATE SLIDING SCALE Last Admin: 03/29/18 16:57 Dose: 8 units Lisinopril (Zestril) 20 mg PO BID [facility] Last Admin: 03/30/18 09:31 Dose: 20 mg Nifedipine (Procardia Xl) [facility] Last Admin: 03/30/18 09:31 Dose: 90 mg Ondansetron HCl (Zofran) 4 mg IVP Q6H PRN PRN Reason: Nausea/Vomiting Ondansetron HCl (Zofran Odt) 4 mg SL Q6H PRN PRN Reason: Nausea/Vomiting Last Admin: 03/29/18 22:59 Dose: 4 mg Promethazine HCl (Phenergan) 25 mg SLOW IVP Q6H PRN PRN Reason: Nausea Last Admin: 03/29/18 04:09 Dose: 25 mg Sevelamer Carbonate (Renvela) 800 mg PO TID[facility] Last Admin: 03/30/18 08:09 Dose: Not Given Sodium Chloride (Flush - Normal Saline) 10 ml IVF Q12HR [facility] Last Admin: 03/30/18 09:28 Dose: Not Given Sodium Chloride (Flush - Normal Saline) 10 ml IVF PRN PRN PRN Reason: Saline Flush
[2018-03-30] MEDS ORDERED: Famotidine/PF 20 mg/2ml Vial SLOW IVP SCH (14:00)
[2018-03-30 18:13] LABS: Troponin I 0.134 ng/mL (< 0.028)
[2018-03-30] MEDS: Sodium Chloride 0.9% 1,000 ML IV SCH (18:29)
[2018-03-30] MEDS: Insulin Glargine 10 UNITS in Pre-Filled Syringe 1 EACH SC SCH (21:18)
[2018-03-31] MEDS: Calcium Carbonate 500 MG ChewTAB PO PRN (02:17)
[2018-03-31] MEDS: Sodium Chloride 0.9% 1,000 ML IV SCH ×3 (02:19→16:40)
[2018-03-31] MEDS: Ondansetron ODT 4 MG TAB SL PRN ×2 (04:05→20:30)
[2018-03-31] MEDS: Promethazine HCl 25 MG/ML VIAL SLOW IVP PRN (06:04)
[2018-03-31] MEDS: Sevelamer Carbonate 800 MG TAB PO SCH ×3 (08:14→16:19)
[2018-03-31] MEDS: Carvedilol 25 MG TAB PO SCH ×2 (08:15→20:41)
[2018-03-31] MEDS: Famotidine 20 MG TAB PO SCH (08:15)
[2018-03-31] MEDS: hydrALAZINE 25 MG TAB PO SCH ×3 (08:15→20:41)
[2018-03-31] MEDS: Heparin 5,000 UNITS/ML VIAL SC SCH ×3 (08:15→20:39)
[2018-03-31] MEDS: Lisinopril 20 MG TAB PO SCH ×2 (08:16→20:42)
[2018-03-31] MEDS: NIFEdipine XL 90 MG TAB PO SCH (08:16)
[2018-03-31 08:17] LABS: #Basophils 0.1 thou/uL (0.0-0.2); #Eosinphils 0.2 thou/uL (0.0-0.7); #Lymphocytes 1.3 thou/uL (1.20-3.40); #Monocytes 0.6 thou/uL (0.11-0.59); #Neutrophils 5.9 thou/uL (1.40-6.50); %Basophils 0.8 % (0.0-1.0); %Eosinophils 2.2 % (0.0-10.0); %Lymphocytes 16.6 % (21.0-51.0); %Monocytes 6.9 % (0.0-10.0); %Neutrophils 73.5 % (42.0-75.0); Hemoglobin 10.8 g/dL (12.0-16.0); Mean Corpuscular HGB CONC 32.1 g/dL (32.0-36.0); Mean Corpuscular Hemoglobin 33.7 pg (27.0-31.0); Mean Platelet Volume 7.5 fL (7.4-10.4); Platelet Count 168 thou/uL (130-400); RBC Distribution Width 13.9 % (11.5-14.5); Red Blood Cell (RBC) Count 3.21 mill/uL (4.20-5.40)
[2018-03-31 08:43] LABS: MDiff Complete? YES; Macrocytosis SLIGHT = 6-15 cells (100X) (0-5/hpf)
[2018-03-31 08:46] LABS: Anion Gap 26 mmol/L (10-20); BUN (Urea Nitrogen) 20 mg/dL (7.0-18.7); Calc. Creatinine Clearance 17 mL/min (70-130); Calcium 8.7 mg/dL (7.8-10.44); Carbon Dioxide 13 mmol/L (22-29); Chloride 102 mmol/L (98-107); Estimated GFR-MDRD 12; Glucose 246 mg/dL (70-105); Potassium 4.4 mmol/L (3.5-5.1); Sodium 137 mmol/L (136-145)
--- NOTE | 2018-03-31 13:05 | PDOC.PN ---
- Subjective Encounter Start Date: 03/31/18 Encounter Start Time: 09:40 Pt seen for followup re: DKA. Reports nausea is better. Pepcid helping with heartburn. Denies fevers or chills. - Objective MAR Reviewed: Yes Vital Signs & Weight: Vital Signs (12 hours) Temp Pulse Resp BP BP Pulse Ox 03/31/18 11:52 97.8 F 91 14 100/63 03/31/18 08:16 91 99/57 L 03/31/18 08:15 91 03/31/18 07:58 98.7 F 91 16 03/31/18 07:40 98.7 F 91 16 166/94 H 03/31/18 04:00 97.7 F 99 20 157/104 H 100 Weight Weight 146 lb 6.191 oz I&O: 03/30/18 03/31/18 04/01/18 06:59 06:59 06:59 Intake Total 0 2423 Balance 0 2423 Result Diagrams: 03/31/18 07:58 03/31/18 07:58 Additional Labs: Accuchecks 03/31/18 03/31/18 03/31/18 12:43 11:32 10:08 POC Glucose 112 H 144 H 208 H 03/31/18 03/31/18 03/31/18 09:08 08:16 06:56 POC Glucose 226 H 233 H 177 H 03/31/18 03/31/18 03/31/18 06:02 04:42 04:09 POC Glucose 171 H 87 62 L 03/31/18 03/31/18 03/31/18 02:01 01:01 00:09 POC Glucose 114 H 152 H 198 H 03/30/18 03/30/18 03/30/18 23:08 22:06 21:07 POC Glucose 250 H 249 H 239 H 03/30/18 03/30/18 03/30/18 20:10 19:00 18:02 POC Glucose 182 H 153 H 120 H 03/30/18 03/30/18 03/30/18 17:18 16:07 15:05 POC Glucose 111 H 80 76 03/30/18 03/30/18 14:01 13:01 POC Glucose 106 161 H EKG Reviewed by me: Yes (Tele: sinus tachycardia) Phys Exam - Physical Examination Constitutional: NAD HEENT: moist MMs Neck: supple Respiratory: clear to auscultation bilateral S1, S2, reg, tachy Gastrointestinal: soft, non-tender Neurological: moves all 4 limbs Psychiatric: normal affect Dx/Plan (1) DKA (diabetic ketoacidosis) Code(s): E13.10 - OTH DIABETES MELLITUS WITH KETOACIDOSIS WITHOUT COMA Status : Acute Comment: Improving, continue IV insulin and IV fluids (2) Nausea & vomiting Code(s): R11.2 - NAUSEA WITH VOMITING, UNSPECIFIED Status: Acute Comment: Improved, continue pepcid for heartburn (3) ESRD (end stage renal disease) on dialysis Code(s): N18.6 - END STAGE RENAL DISEASE; Z99.2 - DEPENDENCE ON RENAL DIALYSIS Status: Chronic Comment: nephrology following (4) GERD (gastroesophageal reflux disease) Code(s): K21.9 - GASTRO-ESOPHAGEAL REFLUX DISEASE WITHOUT ESOPHAGITIS Status: Chronic Qualifiers: Esophagitis presence: esophagitis presence not specified Qualified Code(s) : K21.9 - Gastro-esophageal reflux disease without esophagitis Comment: continue pepcid (5) Labile hypertension Code(s): I10 - ESSENTIAL (PRIMARY) HYPERTENSION Status: Chronic Comment: titrate antihypertensives as needed - Plan * . Review of Systems - Review of Systems Respiratory: negative: Cough, Shortness of Breath, SOB with Excertion, Pleuritic Pain, Wheezing Gastrointestinal: Nausea. negative: Vomiting, Abdominal Pain, Diarrhea, Constipation, Melena, Hematochezia - Medications/Allergies Allergies/Adverse Reactions: Allergies Allergy/AdvReac Type Severity Reaction Status Date / Time No Known Allergies Allergy Verified 12/05/17 21:40 Medications: Current Medications Acetaminophen (Tylenol) 650 mg PO Q4H PRN PRN Reason: Headache/Fever or Pain Last Admin: 03/28/18 03:59 Dose: 650 mg Acetaminophen (Tylenol) 650 mg UT Q4H PRN PRN Reason: Headache/Fever or Pain IF NPO Bisacodyl (Dulcolax) 10 mg PO DAILYPRN PRN PRN Reason: Constipation Calcium Carbonate (Tums) 1,000 mg PO Q4H PRN PRN Reason: INDIGESTION/ HEARTBURN Last Admin: 03/31/18 02:17 Dose: 1,000 mg Carvedilol (Coreg) 12.5 mg PO BID IESHA Last Admin: 03/31/18 08:15 Dose: 12.5 mg Dextrose/Water (Dextrose 50%) 25 gm SLOW IVP Q2H PRN PRN Reason: Hypoglycemia Dextrose/Water (Dextrose 50%) 25 gm IVP PRN PRN PRN Reason: HYPOGLYCEMIA PROTOCOL Famotidine (Pepcid) 20 mg PO DAILY [facility] Last Admin: 03/31/18 08:15 Dose: 20 mg Glucagon (Glucagon) 1 mg IM PRN PRN PRN Reason: HYPOGLYCEMIA PROTOCOL Heparin Sodium (Porcine) (Heparin) 5,000 units SC TID [facility] Last Admin: 03/31/18 08:15 Dose: Not Given Hydralazine HCl (Apresoline) 100 mg PO TID [facility] Last Admin: 03/31/18 08:15 Dose: 100 mg Promethazine HCl 25 mg/ Sodium (Chloride) 51 mls @ 204 mls/hr IVPB Q6H PRN PRN Reason: Nausea Last Admin: 03/30/18 04:14 Dose: 51 mls Insulin Glargine 10 units/ (Miscellaneous Medication) 0.1 mls @ 0 mls/hr SC HS [facility] Last Admin: 03/30/18 21:18 Dose: Not Given Dextrose/Water (D5w) 1,000 mls @ 0 mls/hr IV INF PRN; As Directed PRN Reason: HYPOGLYCEMIA PROTOCOL Insulin Human Regular 100 (units/ Sodium Chloride) 101 mls @ 0 mls/hr IVPB INF [facility]; Titrate PRN Reason: Protocol Last Admin: 03/30/18 07:31 Dose: 101 mls Sodium Chloride (Normal Saline 0.9%) 1,000 mls @ 100 mls/hr IV .Q10H [facility] Last Admin: 03/31/18 02:19 Dose: 1,000 mls Insulin Human Lispro (Humalog) 0 units SC .MODERATE SLIDING SC PRN; Protocol PRN Reason: MODERATE SLIDING SCALE Last Admin: 03/29/18 16:57 Dose: 8 units Lisinopril (Zestril) 20 mg PO BID [facility] Last Admin: 03/31/18 08:16 Dose: 20 mg Nifedipine (Procardia Xl) 90 mg PO QAM [facility] Last Admin: 03/31/18 08:16 Dose: 90 mg Ondansetron HCl (Zofran) 4 mg IVP Q6H PRN PRN Reason: Nausea/Vomiting Ondansetron HCl (Zofran Odt) 4 mg SL Q6H PRN PRN Reason: Nausea/Vomiting Last Admin: 03/31/18 04:05 Dose: 4 mg Promethazine HCl (Phenergan) 25 mg SLOW IVP Q6H PRN PRN Reason: Nausea Last Admin: 03/31/18 06:04 Dose: 25 mg Sevelamer Carbonate (Renvela) 800 mg PO TID-WM [facility] Last Admin: 03/31/18 11:45 Dose: Not Given Sodium Chloride (Flush - Normal Saline) 10 ml IVF Q12HR [facility] Last Admin: 03/31/18 08:16 Dose: Not Given Sodium Chloride (Flush - Normal Saline) 10 ml IVF PRN PRN PRN Reason: Saline Flush
[2018-03-31] MEDS: Insulin Glargine 10 UNITS in Pre-Filled Syringe 1 EACH SC SCH (20:39)
[2018-04-01 03:51] LABS: #Eosinphils 0.2 thou/uL (0.0-0.7); #Lymphocytes 1.6 thou/uL (1.20-3.40); #Monocytes 0.4 thou/uL (0.11-0.59); %Basophils 0.9 % (0.0-1.0); %Eosinophils 3.1 % (0.0-10.0); %Lymphocytes 30.3 % (21.0-51.0); %Monocytes 8.1 % (0.0-10.0); %Neutrophils 57.6 % (42.0-75.0); Hemoglobin 10.7 g/dL (12.0-16.0); Mean Corpuscular Hemoglobin 34.4 pg (27.0-31.0); Mean Platelet Volume 6.9 fL (7.4-10.4); Platelet Count 177 thou/uL (130-400); RBC Distribution Width 13.8 % (11.5-14.5); Red Blood Cell (RBC) Count 3.12 mill/uL (4.20-5.40); White Blood Cell (WBC) Count 5.1 thou/uL (4.8-10.8)
[2018-04-01 04:07] LABS: Anion Gap 17 mmol/L (10-20); BUN (Urea Nitrogen) 24 mg/dL (7.0-18.7); Calc. Creatinine Clearance 12 mL/min (70-130); Calcium 8.6 mg/dL (7.8-10.44); Carbon Dioxide 23 mmol/L (22-29); Chloride 103 mmol/L (98-107); Estimated GFR-MDRD 8; Glucose 111 mg/dL (70-105); Potassium 3.6 mmol/L (3.5-5.1); Sodium 139 mmol/L (136-145)
[2018-04-01] MEDS: Sodium Chloride 0.9% 1,000 ML IV SCH (06:37)
[2018-04-01] MEDS: Ondansetron ODT 4 MG TAB SL PRN (07:27)
[2018-04-01] MEDS: Sevelamer Carbonate 800 MG TAB PO SCH ×3 (08:26→16:54)
--- NOTE | 2018-04-01 09:48 | PRG ---
DATE OF SERVICE: 04/01/2018 SERVICE: Pulmonary Medicine. INTERVAL HISTORY: The patient is doing fine from a respiratory standpoint. She denies any chest mal n, nausea, or vomiting. She does not have an appetite for food at this time. PHYSICAL EXAMINATION: VITAL SIGNS: Afebrile, pulse 89, blood pressure 162/91, respirations 16, saturation 94% on room air. GENERAL: The patient is awake and alert, in no apparent distress. LUNGS: Decent air entry. There is no prolonged expiratory phase, wheezing, rhonchi, or crackles pre sent. HEART: Normal rate, regular. ABDOMEN: Soft, nontender, nondistended. Bowel sounds are positive. MUSCULOSKELETAL: No cyanosis or clubbing. There is no pitting in the bilateral lower extremities. NEUROLOGIC: Grossly nonfocal. LABORATORY DATA: WBC 5.1, hemoglobin 10.7, platelets 177,000. Creatinine 6.8. Basic metabolic prof ile is otherwise unremarkable. Anion gap remains elevated once again. ASSESSMENT: 1. Diabetic ketoacidosis. 2. Type 1 diabetes mellitus. 3. Gastroparesis with intractable nausea and vomiting, slowly improving. PLAN: The patient still needs to be on her insulin drip. It keeps being interrupted because of low blood sugars. I will give her an amp of D50, so that we can get that drip back on. We really do not need to be titrating this down. Once her anion gap closes and she is tolerating p.o., we will be ab le to get her back on her long-acting insulin. Pulmonary and Critical Care will continue to follow a long, but she will need to be in IMCU for another day.
[2018-04-01] MEDS: Heparin 5,000 UNITS/ML VIAL SC SCH ×3 (10:17→20:55)
[2018-04-01] MEDS: Carvedilol 25 MG TAB PO SCH ×2 (10:17→20:55)
[2018-04-01] MEDS: Lisinopril 20 MG TAB PO SCH ×2 (10:17→20:55)
[2018-04-01] MEDS: Famotidine 20 MG TAB PO SCH (10:17)
[2018-04-01] MEDS: NIFEdipine XL 90 MG TAB PO SCH (10:17)
[2018-04-01] MEDS: hydrALAZINE 25 MG TAB PO SCH ×3 (10:17→20:56)
--- NOTE | 2018-04-01 12:12 | PDOC.PN ---
- Subjective Encounter Start Date: 04/01/18 Encounter Start Time: 08:20 Pt seen for followup re: DKA. Demands chest pain, shortness of breath, fevers or chills. Nausea better. No vomiting. Not eating much due to poor appetite. - Objective MAR Reviewed: Yes Vital Signs & Weight: Vital Signs (12 hours) Temp Pulse Resp BP BP BP Pulse Ox 04/01/18 11:36 97.6 F 90 16 134/83 98 04/01/18 10:17 89 99/57 L 04/01/18 08:00 98.1 F 89 16 04/01/18 07:18 98.1 F 89 16 162/91 H 94 L 04/01/18 03:45 98.3 F 91 17 135/90 99 Weight Weight 148 lb 5.938 oz I&O: 03/31/18 04/01/18 04/02/18 06:59 06:59 06:59 Intake Total 2423 1232 Balance 2423 1232 Result Diagrams: 04/01/18 03:39 04/01/18 03:39 Additional Labs: Accuchecks 04/01/18 04/01/18 04/01/18 11:26 10:09 08:05 POC Glucose 259 H 143 H 92 04/01/18 04/01/18 04/01/18 06:40 05:40 04:27 POC Glucose 93 90 107 04/01/18 04/01/18 04/01/18 03:41 02:38 01:22 POC Glucose 106 105 129 H 04/01/18 03/31/18 03/31/18 00:37 23:35 22:28 POC Glucose 135 H 121 H 114 H 03/31/18 03/31/18 03/31/18 21:27 20:34 19:36 POC Glucose 128 H 117 H 134 H 03/31/18 03/31/18 03/31/18 18:30 17:30 16:43 POC Glucose 132 H 146 H 154 H 03/31/18 03/31/18 03/31/18 15:35 14:19 12:43 POC Glucose 183 H 188 H 112 H EKG Reviewed by me: Yes (Tele: NSR) Phys Exam - Physical Examination Constitutional: NAD HEENT: moist MMs Neck: supple Respiratory: clear to auscultation bilateral Cardiovascular: RRR Gastrointestinal: soft Neurological: moves all 4 limbs Psychiatric: normal affect Dx/Plan (1) DKA (diabetic ketoacidosis) Code(s): E13.10 - OTH DIABETES MELLITUS WITH KETOACIDOSIS WITHOUT COMA Status : Acute Comment: Improving, continue insulin drip and IV fluids (2) Nausea & vomiting Code(s): R11.2 - NAUSEA WITH VOMITING, UNSPECIFIED Status: Acute Comment: Improved, continue pepcid (3) ESRD (end stage renal disease) on dialysis Code(s): N18.6 - END STAGE RENAL DISEASE; Z99.2 - DEPENDENCE ON RENAL DIALYSIS Status: Chronic Comment: nephrology following for maintainance dialysis (4) GERD (gastroesophageal reflux disease) Code(s): K21.9 - GASTRO-ESOPHAGEAL REFLUX DISEASE WITHOUT ESOPHAGITIS Status: Chronic Qualifiers: Esophagitis presence: esophagitis presence not specified Qualified Code(s) : K21.9 - Gastro-esophageal reflux disease without esophagitis Comment: continue pepcid (5) Labile hypertension Code(s): I10 - ESSENTIAL (PRIMARY) HYPERTENSION Status: Chronic Comment: Controlled - Plan * . Review of Systems - Review of Systems Cardiovascular: negative: chest pain, palpitations, orthopnea, paroxysmal nocturnal dyspnea, edema, light headedness Gastrointestinal: Nausea. negative: Vomiting, Abdominal Pain, Diarrhea, Constipation, Melena, Hematochezia - Medications/Allergies Allergies/Adverse Reactions: Allergies Allergy/AdvReac Type Severity Reaction Status Date / Time No Known Allergies Allergy Verified 12/05/17 21:40 Medications: Current Medications Acetaminophen (Tylenol) 650 mg PO Q4H PRN PRN Reason: Headache/Fever or Pain Last Admin: 03/28/18 03:59 Dose: 650 mg Acetaminophen (Tylenol) 650 mg PA Q4H PRN PRN Reason: Headache/Fever or Pain IF NPO Bisacodyl (Dulcolax) 10 mg PO DAILYPRN PRN PRN Reason: Constipation Calcium Carbonate (Tums) 1,000 mg PO Q4H PRN PRN Reason: INDIGESTION/ HEARTBURN Last Admin: 03/31/18 02:17 Dose: 1,000 mg Carvedilol (Coreg) 12.5 mg PO BID IESHA Last Admin: 04/01/18 10:17 Dose: 12.5 mg Dextrose/Water (Dextrose 50%) 25 gm SLOW IVP Q2H PRN PRN Reason: Hypoglycemia Dextrose/Water (Dextrose 50%) 25 gm IVP PRN PRN PRN Reason: HYPOGLYCEMIA PROTOCOL Famotidine (Pepcid) 20 mg PO DAILY [facility] Last Admin: 04/01/18 10:17 Dose: 20 mg Glucagon (Glucagon) 1 mg IM PRN PRN PRN Reason: HYPOGLYCEMIA PROTOCOL Heparin Sodium (Porcine) (Heparin) 5,000 units SC TID [facility] Last Admin: 04/01/18 10:17 Dose: Not Given Hydralazine HCl (Apresoline) 100 mg PO TID [facility] Last Admin: 04/01/18 10:17 Dose: 100 mg Promethazine HCl 25 mg/ Sodium (Chloride) 51 mls @ 204 mls/hr IVPB Q6H PRN PRN Reason: Nausea Last Admin: 03/30/18 04:14 Dose: 51 mls Insulin Glargine 10 units/ (Miscellaneous Medication) 0.1 mls @ 0 mls/hr SC HS [facility] Last Admin: 03/31/18 20:39 Dose: Not Given Dextrose/Water (D5w) 1,000 mls @ 0 mls/hr IV INF PRN; As Directed PRN Reason: HYPOGLYCEMIA PROTOCOL Dextrose/Sodium Chloride (D5 0.9% Ns) 1,000 mls @ 75 mls/hr IV .[id number] [facility] Insulin Human Regular 100 (units/ Sodium Chloride) 101 mls @ 1.01 mls/hr IVPB INF [facility]; 1 UNITS/HR PRN Reason: Protocol Insulin Human Lispro (Humalog) 0 units SC .MODERATE SLIDING SC PRN; Protocol PRN Reason: MODERATE SLIDING SCALE Last Admin: 03/29/18 16:57 Dose: 8 units Lisinopril (Zestril) 20 mg PO BID [facility] Last Admin: 04/01/18 10:17 Dose: 20 mg Nifedipine (Procardia Xl) 90 mg PO QAM [facility] Last Admin: 04/01/18 10:17 Dose: 90 mg Ondansetron HCl (Zofran) 4 mg IVP Q6H PRN PRN Reason: Nausea/Vomiting Ondansetron HCl (Zofran Odt) 4 mg SL Q6H PRN PRN Reason: Nausea/Vomiting Last Admin: 04/01/18 07:27 Dose: 4 mg Promethazine HCl (Phenergan) 25 mg SLOW IVP Q6H PRN PRN Reason: Nausea Last Admin: 03/31/18 06:04 Dose: 25 mg Sevelamer Carbonate (Renvela) 800 mg PO TID-WM [facility] Last Admin: 04/01/18 12:07 Dose: Not Given Sodium Chloride (Flush - Normal Saline) 10 ml IVF Q12HR [facility] Last Admin: 04/01/18 10:18 Dose: Not Given Sodium Chloride (Flush - Normal Saline) 10 ml IVF PRN PRN PRN Reason: Saline Flush
--- NOTE | 2018-04-01 12:47 | EKG ---
Test Reason : Blood Pressure : / mmHG Vent. Rate : 105 BPM Atrial Rate : 105 BPM P-R Int : 152 ms QRS Dur : 082 ms QT Int : 342 ms P-R-T Axes : 049 020 -27 degrees QTc Int : 452 ms Sinus tachycardia T wave abnormality, consider inferior ischemia Abnormal ECG When compared with ECG of 27-MAR-2018 11:16, (Unconfirmed) Minimal criteria for Anteroseptal infarct are no longer Present Non-specific change in ST segment in Anterior leads T wave inversion now evident in Inferior leads Nonspecific T wave abnormality now evident in Anterolateral leads Confirmed by SATYA RASCON M.D. ([id number]), [employer] ([id number]) on 04/01/2018 12:46:54 PM Referred By: Confirmed By:SATYA RASCON M.D.
[2018-04-01] MEDS: Dextrose 5 % And 0.9 % NaCl 1,000 ML IV SCH (14:36)
--- NOTE | 2018-04-01 15:21 | PRG ---
DATE OF SERVICE: 03/31/2018 at 12:00 p.m. SUBJECTIVE: This is a 32-year-old female being seen for end-stage renal disease. The patient denies any nausea, vomiting or chest pain. PHYSICAL EXAMINATION: GENERAL: Patient is awake, alert. VITAL SIGNS: Afebrile, pulse 100, breathing at 16, blood pressure 141/79. GENERAL APPEARANCE AND MENTAL STATUS: Fair. HEAD/NECK: Normocephalic, atraumatic. EYES: EOMI. No deformity. EARS: Clear. No ulcers. NOSE: Intact. No lesions. MOUTH: Clear. No discharge. THROAT: Clear. No exudate. LUNGS: Clear. No crackles. CARDIAC: S1, S2. No rub. ABDOMEN: Benign. BS+. GENITALIA/RECTUM: Taylor absent. BACK/EXTREMITIES: Edema 0+ Ulcer-. NEUROLOGICAL: Alert and motor intact. SKIN: Rash- Bruise- LYMPHATICS: Edema- Ulcer-. LABORATORY DATA: Show potassium is 4.4. ASSESSMENT: 1. Stage 6 chronic kidney disease, stable. 2. Hypertension, stable. 3. Anemia, stable. 4. Metabolic acidosis. Management per primary team.
--- NOTE | 2018-04-01 15:44 | RAD ---
PORTABLE CHEST ONE VIEW: Date: 04-01-18 Time: 1:28 p.m. History: Central line placement. FINDINGS/IMPRESSION: Comparison is made with exam of 03-27-18. There has been interval placement of a right central line with tip in the projection of the inferior right atrium. No pneumothorax is seen. The heart size is normal. The lungs are clear. POS: [facility]
--- NOTE | 2018-04-01 16:23 | OP ---
PREOPERATIVE DIAGNOSES: Gastroparesis, diabetic ketoacidosis, end-stage renal disease, poor IV acces s. POSTOPERATIVE DIAGNOSES: Gastroparesis, diabetic ketoacidosis, end-stage renal disease, poor IV acce ss. PROCEDURE: Right IJ central line, ultrasound guidance placement. SURGEON: Dr. Jovan Andre. ANESTHESIA: 1% Xylocaine. PROCEDURE IN DETAIL: At the patient's bedside, her neck and chest were prepared with ChloraPrep, hyacinth ped in routine fashion. Local anesthetic infiltrated into skin and subcutaneous tissue about the ope rative sites. Ultrasound guidance used to cannulate the right internal jugular vein. Seldinger tech nique used to place a triple lumen catheter, removed the J-wire, securing the tube sutures of 3-0 anna k. Sterile dressing applied. Each port aspirated blood and flushed with saline solution. The patie nt tolerated the procedure well.
[2018-04-01] MEDS: Acetaminophen 325 MG TAB PO PRN (18:58)
[2018-04-01] MEDS: Insulin Glargine 10 UNITS in Pre-Filled Syringe 1 EACH SC SCH (20:56)
--- NOTE | 2018-04-01 23:00 | PRG ---
DATE OF SERVICE: 04/01/2018 SUBJECTIVE: Patient was seen and examined at bedside and overnight events noted. Patient denies any shortness of breath or chest pain or palpitation. No history of nausea or vomiting or diarrhea or f ever or chills or cramps. OBJECTIVE: GENERAL: This is a well-built female, in no apparent distress. VITAL SIGNS: Temperature 99.1, pulse 93, respirations 16, blood pressure 129/69. HEENT: Atraumatic, normocephalic, oral mucosa is moist. NECK: Supple. CARDIOVASCULAR: S1, S2 heard, rate and rhythm regular. RESPIRATORY: Clear to auscultation. GASTROINTESTINAL: Abdomen is soft. MUSCULOSKELETAL: No tenderness, no edema. DERMATOLOGIC: No skin rash. NEUROLOGIC: Alert and awake and oriented x3. No focal neurologic deficits. Moving all the extremit ies. PSYCHIATRIC: Mood and affect normal. LABORATORY DATA: Not done today. ASSESSMENT AND PLAN: 1. End-stage renal disease. We will continue on dialysis Sunday, Sunday, and Sunday. 2. Edema. Remove fluid. 3. Hypertension. 4. Anemia, monitor hemoglobin. We will add Epogen if hemoglobin less than 10. We will follow.
[2018-04-02] MEDS: Dextrose 5 % And 0.9 % NaCl 1,000 ML IV SCH ×2 (01:10→13:30)
[2018-04-02] MEDS: Carvedilol 25 MG TAB PO SCH ×2 (09:57→20:13)
[2018-04-02] MEDS: Famotidine 20 MG TAB PO SCH (09:57)
[2018-04-02] MEDS: Sevelamer Carbonate 800 MG TAB PO SCH ×3 (09:57→17:12)
[2018-04-02] MEDS: NIFEdipine XL 90 MG TAB PO SCH (09:58)
[2018-04-02] MEDS: Lisinopril 20 MG TAB PO SCH ×2 (09:58→20:15)
[2018-04-02] MEDS: Heparin 5,000 UNITS/ML VIAL SC SCH ×3 (09:58→20:14)
[2018-04-02] MEDS: hydrALAZINE 25 MG TAB PO SCH ×3 (09:58→20:14)
[2018-04-02] MEDS ORDERED: Insulin Glargine 10 UNITS in Pre-Filled Syringe SC SCH (11:45)
--- NOTE | 2018-04-02 11:46 | PDOC.PN ---
- Subjective Encounter Start Date: 04/02/18 Encounter Start Time: 11:35 Subjective: f/u for DKA on low-dose insulin gtt. Feels overall better and tolerating -: po intake. No fever or chills. - Objective MAR Reviewed: Yes Vital Signs & Weight: Vital Signs (12 hours) Temp Pulse Resp BP BP BP BP 04/02/18 11:24 98.7 F 91 16 112/57 L 04/02/18 09:58 85 121/68 04/02/18 08:00 98.0 F 85 16 04/02/18 07:42 98.0 F 85 16 117/61 04/02/18 04:00 98.7 F 85 16 122/64 04/02/18 00:00 98.5 F 89 16 139/86 Pulse Ox 04/02/18 11:24 96 04/02/18 09:58 04/02/18 08:00 98 04/02/18 07:42 04/02/18 04:00 04/02/18 00:00 97 Weight Weight 147 lb I&O: 04/01/18 04/02/18 04/03/18 06:59 06:59 06:59 Intake Total 1232 931 Balance 1232 931 Result Diagrams: 04/01/18 03:39 04/01/18 03:39 Additional Labs: Accuchecks 04/02/18 04/02/18 04/02/18 11:12 10:38 09:05 POC Glucose 263 H 247 H 248 H 04/02/18 04/02/18 04/02/18 08:05 07:03 05:16 POC Glucose 223 H 191 H 218 H 04/02/18 04/02/18 04/02/18 04:11 03:08 02:05 POC Glucose 304 H 431 H 490 H 04/02/18 04/02/18 04/01/18 01:06 00:02 23:02 POC Glucose 457 H 394 H 379 H 04/01/18 04/01/18 04/01/18 22:02 21:05 20:02 POC Glucose 275 H 318 H 267 H 04/01/18 04/01/18 04/01/18 18:59 18:06 16:57 POC Glucose 254 H 168 H 168 H 06/11/18 06/11/18 06/11/18 16:11 14:16 12:11 POC Glucose 154 H 226 H 306 H EKG Reviewed by me: Yes (Tele - SR in 90's) Phys Exam - Physical Examination Constitutional: NAD HEENT: PERRLA, sclera anicteric, oral pharynx no lesions Neck: no nodes, no JVD, supple, full ROM Respiratory: no wheezing, no rales, no rhonchi, clear to auscultation bilateral Cardiovascular: RRR, no rub, gallop Gastrointestinal: soft, non-tender, no distention, positive bowel sounds Musculoskeletal: no edema, pulses present Neurological: non-focal, normal sensation, moves all 4 limbs Psychiatric: normal affect, A&O x 3 Skin: no rash, normal turgor, cap refill <2 seconds Dx/Plan (1) DKA (diabetic ketoacidosis) Code(s): E13.10 - OTH DIABETES MELLITUS WITH KETOACIDOSIS WITHOUT COMA Status : Acute Comment: Resolving, d/c insulin gtt and continue long-acting insulin (2) Nausea & vomiting Code(s): R11.2 - NAUSEA WITH VOMITING, UNSPECIFIED Status: Acute Comment: Resolved, advance diet as tolerated (3) ESRD (end stage renal disease) on dialysis Code(s): N18.6 - END STAGE RENAL DISEASE; Z99.2 - DEPENDENCE ON RENAL DIALYSIS Status: Chronic Comment: s/p HD on 04/01/18 with net 4L removed (4) Gastroparesis due to DM Code(s): E11.43 - TYPE 2 DIABETES W DIABETIC AUTONOMIC (POLY)NEUROPATHY; K31.84 - GASTROPARESIS Status: Chronic Comment: - Plan out of bed/ambulate Stable overall -: D/C insulin gtt -: Continue Glargine 10u sc HS -: Saline lock IVF -: Start Reglan 10mg po QID * AM lab: BMP * Transfer to medical floor
[2018-04-02 12:26] LABS: Anion Gap 13 mmol/L (10-20); BUN (Urea Nitrogen) 21 mg/dL (7.0-18.7); Calc. Creatinine Clearance 16 mL/min (70-130); Calcium 7.9 mg/dL (7.8-10.44); Carbon Dioxide 26 mmol/L (22-29); Chloride 99 mmol/L (98-107); Estimated GFR-MDRD 11; Glucose 328 mg/dL (70-105); Phosphorus 3.4 mg/dL (2.3-4.7); Potassium 3.8 mmol/L (3.5-5.1); Sodium 134 mmol/L (136-145)
--- NOTE | 2018-04-02 12:56 | PRG ---
DATE OF SERVICE: 04/02/2018 SERVICE: Pulmonary Medicine. INTERVAL HISTORY: The patient is doing great from a respiratory standpoint. She denies any current chest pain, nausea, vomiting, fevers or chills. She is tolerating p.o. Her appetite has come back. Overall, she feels much improved. Interestingly, we actually do not have any laboratories on her th is morning. Her blood sugars have been reasonable. IMAGING DATA: Chest x-ray demonstrates new placement of a central line, projecting over the right at rium. Otherwise, no cardiopulmonary abnormality is identified. ASSESSMENT: 1. Diabetic ketoacidosis. 2. Type 1 diabetes mellitus. 3. Gastroparesis with nausea and vomiting, resolving. DISCUSSION AND PLAN: I will get laboratories. Assuming her gap is closed, we will transition her on to subcutaneous insulin, and we will work on getting her out of the IMCU. Pulmonary or Critical Car e will continue to follow while she remains in this location. When she goes to the floor, she has no further requirements for our assist or for visiting her if that occurs, I will sign off.
[2018-04-02] MEDS ORDERED: HumaLOG 300 UNITS/3 ML VIAL SC PRN (13:26)
[2018-04-02] MEDS ORDERED: Dextrose 5 % And 0.9 % NaCl 1,000 ML IV SCH (13:28)
[2018-04-02] MEDS ORDERED: HumaLOG 300 UNITS/3 ML VIAL SC SCH (15:30)
[2018-04-02] MEDS: HumaLOG 300 UNITS/3 ML VIAL SC SCH (17:12)
[2018-04-02] MEDS: Metoclopramide HCl 10 MG TAB PO SCH ×2 (17:12→20:15)
--- NOTE | 2018-04-02 18:55 | PRG ---
DATE OF SERVICE: 04/02/2018 NEPHROLOGY PROGRESS NOTE SUBJECTIVE: Patient was seen and examined at bedside and overnight events noted. Patient denies any shortness of breath or chest pain or palpitation. No history of nausea or vomiting or diarrhea or fever or chills or cramps. OBJECTIVE: GENERAL: This is a well-built female in no apparent distress. VITAL SIGNS: Temperature 98.5, pulse 95, respiratory rate 16, blood pressure 156/94. HEENT: Atraumatic, normocephalic, Oral mucosa is moist. NECK: Supple. CARDIOVASCULAR: S1, S2 heard. Rate and rhythm regular. RESPIRATORY: Clear to auscultation. GASTROINTESTINAL: Abdomen is soft. MUSCULOSKELETAL : No tenderness. No edema. DERMATOLOGIC : No skin rash. NEUROLOGIC: Alert and awake and oriented X3. No focal neurologic deficits. Moving all the extremit ies. PSYCHIATRIC: Mood and affect normal. LABORATORY DATA: Potassium is 3.8, BUN is 21, creatinine is 5.3. ASSESSMENT AND PLAN: 1. End-stage renal disease, on hemodialysis. Plan is to continue on hemodialysis Sunday, Sunday, and Sunday. 2. Edema. We will remove fluid with dialysis as tolerated. 3. Hypertension, very labile, currently controlled. Continue home medications, close monitoring. 4. Anemia. Monitor hemoglobin. Continue MATEO with dialysis. We will continue to follow. Plan is to have hemodialysis Sunday, Sunday, and Sunday as tolerated.
[2018-04-02] MEDS: Insulin Glargine 10 UNITS in Pre-Filled Syringe 1 EACH SC SCH (20:14)
[2018-04-03 04:30] LABS: Anion Gap 14 mmol/L (10-20); BUN (Urea Nitrogen) 29 mg/dL (7.0-18.7); Calc. Creatinine Clearance 12 mL/min (70-130); Calcium 7.7 mg/dL (7.8-10.44); Carbon Dioxide 25 mmol/L (22-29); Chloride 100 mmol/L (98-107); Estimated GFR-MDRD 8; Glucose 341 mg/dL (70-105); Sodium 135 mmol/L (136-145)
--- NOTE | 2018-04-03 09:50 | PRG ---
DATE OF SERVICE: 04/03/2018 SERVICE: Pulmonary Medicine. INTERVAL HISTORY: The patient is doing fine with dialysis. She is tolerating it okay. She denies a ny current chest pain, nausea, vomiting, fevers or chills. Appetite is decent. Otherwise, there has been no interval change to her condition. She has no specific complaints of fevers, chills, nausea or vomiting. There were no overnight events. PHYSICAL EXAMINATION: VITAL SIGNS: Afebrile with a T-max of 99.0, pulse 100, blood pressure 162/89, respirations 16, satur ation 98% on room air. GENERAL: The patient is awake and alert, in no apparent distress. LUNGS: Excellent air entry. I do not appreciate wheezing, rhonchi or crackles. There is no prolong ed expiratory phase. HEART: Normal rate and regular. ABDOMEN: Soft, nontender, and nondistended. Bowel sounds are positive. MUSCULOSKELETAL: No cyanosis or clubbing. No pitting in the bilateral lower extremities. NEUROLOGIC: Grossly nonfocal. LABORATORY DATA: Anion gap 14, bicarbonate 25. Basic metabolic profile is otherwise unremarkable. Blood culture is negative to date. ASSESSMENT: 1. Diabetic ketoacidosis. 2. Type 1 diabetes mellitus. 3. End-stage renal disease. DISCUSSION AND PLAN: The patient can be transitioned out of the IMCU to the regular medical unit. W hen she arrives at that location, she will have no further requirements for inpatient Pulmonary or Cr itical Care opinion and I will sign off. Please call with additional questions or concerns moving solange gomez.
[2018-04-03] MEDS: HumaLOG 300 UNITS/3 ML VIAL SC SCH ×3 (11:02→18:07)
[2018-04-03] MEDS: Metoclopramide HCl 10 MG TAB PO SCH ×4 (11:02→22:01)
[2018-04-03] MEDS: Sevelamer Carbonate 800 MG TAB PO SCH ×3 (11:02→18:08)
[2018-04-03] MEDS: Lisinopril 20 MG TAB PO SCH ×2 (11:03→22:01)
[2018-04-03] MEDS: Carvedilol 25 MG TAB PO SCH ×2 (11:03→22:01)
[2018-04-03] MEDS: Heparin 5,000 UNITS/ML VIAL SC SCH ×3 (11:03→22:09)
[2018-04-03] MEDS: hydrALAZINE 25 MG TAB PO SCH ×3 (11:03→22:01)
[2018-04-03] MEDS: NIFEdipine XL 90 MG TAB PO SCH (11:04)
[2018-04-03] MEDS: Famotidine 20 MG TAB PO SCH (12:59)
--- NOTE | 2018-04-03 14:18 | PRG ---
DATE OF SERVICE: 04/03/2018 SUBJECTIVE: Patient was seen and examined at bedside and overnight events noted. Patient denies any shortness of breath or chest pain or palpitation. No history of nausea or vomiting or diarrhea or fever or chills or cramps. OBJECTIVE: GENERAL: This is a well-built female, in no acute distress VITAL SIGNS: Temperature 98.4, pulse 106, respiratory rate 20, blood pressure 179/118. HEENT: Atraumatic, normocephalic. Oral mucosa is moist NECK: Supple CARDIOVASCULAR: S1S2 heard, Rate and rhythm regular. RESPIRATORY: Clear to auscultation. GASTROINTESTINAL: Abdomen is soft. MUSCULOSKELETAL: No tenderness. 1+ edema. DERMATOLOGIC: No skin rash. NEUROLOGIC: Alert and awake and oriented x3. No focal neurologic deficits. Moving all the extremit ies. PSYCHIATRIC: Mood and affect normal. LABORATORY DATA: Potassium is 4.0, BUN 29, creatinine 7.1. ASSESSMENT AND PLAN: 1. End-stage renal disease, continue on hemodialysis as tolerated. 2. Edema. 3. Hypertension. 4. Anemia. We will monitor hemoglobin. Plan is to continue on dialysis as tolerated.
[2018-04-03] MEDS ORDERED: hydrALAZINE 20 MG/ML VIAL SLOW IVP PRN (14:48)
[2018-04-03] MEDS ORDERED: Chloraseptic Spray 180 ml Bottle PO PRN (17:24)
--- NOTE | 2018-04-03 17:29 | PDOC.PN ---
- Subjective Encounter Start Date: 04/03/18 Encounter Start Time: 17:15 Subjective: f/u for DKA now resolved. Tolerated HD today without difficulty. Overall -: feeling better. Some throat irritation and dry cough. - Objective MAR Reviewed: Yes Vital Signs & Weight: Vital Signs (12 hours) Temp Pulse Resp BP BP BP Pulse Ox 04/03/18 16:15 112 H 16 160/96 H 99 04/03/18 15:46 98.4 F 117 H 16 97 04/03/18 15:00 98.4 F 117 H 16 143/91 H 04/03/18 13:28 113 H 198/118 H 95 04/03/18 13:20 116 H 198/118 H 04/03/18 12:00 98.4 F 116 H 14 179/118 H 95 04/03/18 11:04 100 04/03/18 11:03 100 96/68 04/03/18 08:00 99.0 F 100 16 98 04/03/18 07:23 99.0 F 100 16 162/89 H 94 L Weight Weight 147 lb 3.2 oz I&O: 04/02/18 04/03/18 04/04/18 06:59 06:59 06:59 Intake Total 931 855 Balance 931 855 Result Diagrams: 04/01/18 03:39 04/03/18 04:13 Additional Labs: Accuchecks 04/03/18 04/03/18 04/03/18 12:49 04:10 00:37 POC Glucose 362 H 327 H 158 H 04/02/18 03/30/18 20:12 05:40 POC Glucose 102 Greater than 550 H* Phys Exam - Physical Examination Constitutional: NAD HEENT: PERRLA, sclera anicteric, oral pharynx no lesions Neck: no nodes, no JVD, supple Respiratory: no wheezing, no rales, no rhonchi, clear to auscultation bilateral tachycardic S1, S2 Cardiovascular: no significant murmur, no rub, gallop Gastrointestinal: soft, non-tender, no distention, positive bowel sounds Musculoskeletal: no edema, pulses present Neurological: normal sensation, moves all 4 limbs Psychiatric: normal affect, A&O x 3 Skin: no rash, normal turgor, cap refill <2 seconds Dx/Plan (1) DKA (diabetic ketoacidosis) Code(s): E13.10 - OTH DIABETES MELLITUS WITH KETOACIDOSIS WITHOUT COMA Status : Acute Comment: Resolving, d/c insulin gtt and continue long-acting insulin, increase Lantus 15u sc HS (2) Nausea & vomiting Code(s): R11.2 - NAUSEA WITH VOMITING, UNSPECIFIED Status: Acute Comment: Resolved, advance diet as tolerated (3) ESRD (end stage renal disease) on dialysis Code(s): N18.6 - END STAGE RENAL DISEASE; Z99.2 - DEPENDENCE ON RENAL DIALYSIS Status: Chronic Comment: s/p HD on 04/03/18 with net 4L removed (4) Gastroparesis due to DM Code(s): E11.43 - TYPE 2 DIABETES W DIABETIC AUTONOMIC (POLY)NEUROPATHY; K31.84 - GASTROPARESIS Status: Chronic Comment: Continue Reglan 10mg ACHS (5) Sinus tachycardia Code(s): R00.0 - TACHYCARDIA, UNSPECIFIED Status: Acute Comment: Likely due to volume removal from HD, continue to monitor, asymptomatic currently - Plan plan discussed w/ family, out of bed/ambulate, DVT proph w/SCDs Stable overall -: ADAT to ADA -: OOB/ambulate -: Chloraseptic spray BID prn -: Increase Lantus 15u sc HS * Home in am 04/04/18
[2018-04-03] MEDS ORDERED: HumaLOG 300 UNITS/3 ML VIAL SC SCH (18:00)
[2018-04-03] MEDS: Calcium Carbonate 500 MG ChewTAB PO PRN ×2 (18:08→22:07)
[2018-04-03] MEDS ORDERED: Insulin Glargine 15 UNITS in Pre-Filled Syringe 1 EACH SC SCH (21:00)
[2018-04-03] MEDS: HumaLOG 300 UNITS/3 ML VIAL SC PRN (22:11)
[2018-04-03] MEDS: Promethazine HCl 25 MG in Sodium Chloride 0.9% 50 ML IVPB PRN (22:49)
[2018-04-04] MEDS: HumaLOG 300 UNITS/3 ML VIAL SC PRN (01:12)
[2018-04-04] MEDS: hydrALAZINE 25 MG TAB PO SCH (04:43)
[2018-04-04 05:08] LABS: Anion Gap 10 mmol/L (10-20); BUN (Urea Nitrogen) 30 mg/dL (7.0-18.7); Calc. Creatinine Clearance 16 mL/min (70-130); Calcium 8.9 mg/dL (7.8-10.44); Carbon Dioxide 32 mmol/L (22-29); Chloride 101 mmol/L (98-107); Estimated GFR-MDRD 11; Glucose 92 mg/dL (70-105); Potassium 3.8 mmol/L (3.5-5.1); Sodium 139 mmol/L (136-145)
[2018-04-04] MEDS: Lisinopril 20 MG TAB PO SCH (08:02)
[2018-04-04] MEDS: NIFEdipine XL 90 MG TAB PO SCH (08:02)
[2018-04-04] MEDS: Carvedilol 25 MG TAB PO SCH (08:02)
[2018-04-04] MEDS: Sevelamer Carbonate 800 MG TAB PO SCH ×2 (08:02→12:23)
[2018-04-04] MEDS: Metoclopramide HCl 10 MG TAB PO SCH ×2 (08:02→12:23)
[2018-04-04] MEDS: Heparin 5,000 UNITS/ML VIAL SC SCH (08:03)
[2018-04-04] MEDS: HumaLOG 300 UNITS/3 ML VIAL SC SCH ×2 (08:03→12:23)
[2018-04-04 11:22] VITALS: BP 114/73; TEMP 97.8
--- NOTE | 2018-04-04 11:57 | DIS ---
DATE OF ADMISSION: 03/27/2018 DATE OF DISCHARGE: 04/04/2018 DISCHARGE DIAGNOSES: 1. Diabetic ketoacidosis, resolved. 2. Nausea and vomiting secondary to #1, resolved. 3. End-stage renal disease with hemodialysis. 4. Gastroparesis secondarily to diabetes mellitus. 5. Hypertension, labile. CONSULTATIONS: Dr. Mariscal with Pulmonary and Critical Care Service; Dr. Arevalo and Dr. Puentes with N ephrology Service. PERTINENT LABORATORY DATA AND X-RAY FINDINGS: Creatinine ranged between 5.30-11.53. BNP 140. CBC s howed a hemoglobin ranging between 10.7-15.0. Beta hydroxybutyrate level ranged between 4.15-14.11. Blood culture dated 03/27/2018 showed no growth at 5 days. Portable chest x-ray dated 03/27/2018 sh owed no acute cardiopulmonary process. Portable chest x-ray dated 04/01/2018 showed right central ve nous catheter tip projecting over the inferior right atrium, no acute infiltrate identified. HOSPITAL COURSE: Patient was admitted after presenting with persistent nausea and vomiting in the co ntext of known diabetes mellitus type 1. The patient was noted in diabetic ketoacidosis and placed o n DKA protocol. The patient was given antiemetics and aggressive IV fluid hydration. The patient's clinical course was protracted due to persistent nausea and vomiting and difficulty controlling diabe tic ketoacidosis. The patient underwent multiple maintenance hemodialysis sessions during her hospit al course without complication. The patient was given various regimens of insulin sliding scale as w ell as long-acting subcutaneous insulin with overall improving glucose trend. The patient continued to clinically improve and was able to tolerate regular oral intake. The patient stabilized with supp ortive measures, subcutaneous insulin and was noted ambulatory without assistance or difficulty. Pat ient continued to tolerate regular oral intake and voided appropriately. I have examined the patient at the time of discharge and discussed pertinent laboratory and radiographic findings and follow up instructions. The patient verbalized understanding and agreement and ready for discharge on 04/04/20 18. DISCHARGE MEDICATIONS: 1. Atropine 1% ophthalmic 1 drop to right eye b.i.d. 2. Brimonidine/timolol 1 drop to the right eye b.i.d. 3. Coreg 12.5 mg p.o. b.i.d. 4. Dorzolamide 1 drop to the right eye b.i.d. 5. Hydralazine 100 mg p.o. t.i.d. 6. Lisinopril 20 mg 1 tab p.o. b.i.d. 7. Reglan 10 mg p.o. a.c. and at bedtime. 8. Procardia-XL 90 mg p.o. daily. 9. Renvela 800 mg p.o. t.i.d. FOLLOWUP: Patient will follow up with Dr. Medardo Mcginnis within 7 days of discharge. The patient will follow up with Dr. Arevalo with Nephrology Service for maintenance hemodialysis. CONDITION ON DISCHARGE: Stable. ACTIVITY: Ad jairon. DIET: ADA. CODE STATUS: FULL. DISPOSITION: Home 04/04/2018. Total time preparing and coordinating discharge is 32 minutes.
--- NOTE | 2018-04-04 13:56 | PRG ---
DATE OF SERVICE: 04/04/2018 SUBJECTIVE: Patient was seen and examined at bedside and overnight events noted. Patient denies any shortness of breath or chest pain or palpitation. No history of nausea or vomiting or diarrhea or fever or chills or cramps. OBJECTIVE: GENERAL: This is a well-built female in no apparent distress. VITAL SIGNS: Temperature 97.8, pulse 94, respiratory 16, blood pressure 114/73. HEENT: Atraumatic, normocephalic. Oral mucosa is moist. NECK: Supple. CARDIOVASCULAR: S1 and S2 heard. Rate and rhythm regular. RESPIRATORY: Clear to auscultation. GASTROINTESTINAL: Abdomen is soft. MUSCULOSKELETAL: No tenderness. No edema. DERMATOLOGIC: No skin rash. NEUROLOGIC: Alert and awake and oriented x3. No focal neurologic deficits. Moving all the extremit ies. PSYCHIATRIC: Mood and affect normal. LABORATORY DATA: Potassium is 3.8, BUN is 30, creatinine is 5.4. ASSESSMENT AND PLAN: 1. End-stage renal disease. Continue on hemodialysis on Sunday, Sunday, and Sunday. 2. Edema, controlled. 3. Hypertension, stable. 4. Anemia. We will monitor hemoglobin. Plan is to continue on dialysis as tolerated.
== END 2018-04-04 14:39 | disposition home or self-care (01) | DRG 637 ==
LOC: ERS 11:05 → IMCU/EMU 16:27 → SURG B 03-29 13:17 → IMCU/EMU 03-30 07:10 → T4-B 04-03 12:34
PROVIDERS: ADMIT Internal Medicine; ATTEND Internal Medicine
PROC: 5A1D70Z Performance of Urinary Filtration, Intermittent, Less than 6 Hours Per Day (ICD-10-PCS; principal; 2018-03-27)
PROC: 5A1D70Z Performance of Urinary Filtration, Intermittent, Less than 6 Hours Per Day (ICD-10-PCS; 2018-03-29)
PROC: 5A1D70Z Performance of Urinary Filtration, Intermittent, Less than 6 Hours Per Day (ICD-10-PCS; 2018-03-30)
PROC: 5A1D70Z Performance of Urinary Filtration, Intermittent, Less than 6 Hours Per Day (ICD-10-PCS; 2018-04-01)
PROC: 02H633Z Insertion of Infusion Device into Right Atrium, Percutaneous Approach (ICD-10-PCS; 2018-04-01)
PROC: 5A1D70Z Performance of Urinary Filtration, Intermittent, Less than 6 Hours Per Day (ICD-10-PCS; 2018-04-03)
DX: E10.10 Type 1 diabetes mellitus with ketoacidosis without coma (principal); N18.6 End stage renal disease; I12.0 Hypertensive chronic kidney disease with stage 5 chronic kidney disease or end stage renal disease; E10.22 Type 1 diabetes mellitus with diabetic chronic kidney disease; E10.43 Type 1 diabetes mellitus with diabetic autonomic (poly)neuropathy; K31.84 Gastroparesis; K21.9 Gastro-esophageal reflux disease without esophagitis; E10.42 Type 1 diabetes mellitus with diabetic polyneuropathy; I16.0 Hypertensive urgency; E87.5 Hyperkalemia; Z99.2 Dependence on renal dialysis; Z79.4 Long term (current) use of insulin; Z79.899 Other long term (current) drug therapy
CPT/HCPCS: 36415; 36416; 71045; 80048; 80053; 82010; 82330; 82553; 82803; 82805; 83690; 83735; 83880; 84100; 84484; 84703; 85025; 87040; 90935; 93005; 93010; 96361; 96374; 96375; 96376; A4216; G0257; J0360; J1644; J1815; J2543; J2550; J2765; J7050; Q0162; S0028

== ENCOUNTER 2018-05-06 09:59 | Emergency (ER) | payer OTHER ==
[2018-05-06] MEDS ORDERED: Ondansetron ODT 4 MG TAB ONE (11:49)
[2018-05-06 12:04] LABS: Hemoglobin 12.8 g/dL (12.0-16.0); Mean Corpuscular Hemoglobin 33.4 pg (27.0-31.0); Mean Corpuscular Volume 98.1 fL (78.0-98.0); Mean Platelet Volume 7.7 fL (7.4-10.4); Platelet Count 193 thou/uL (130-400); RBC Distribution Width 14.7 % (11.5-14.5); Red Blood Cell (RBC) Count 3.85 mill/uL (4.20-5.40); White Blood Cell (WBC) Count 17.6 thou/uL (4.8-10.8)
[2018-05-06] MEDS ORDERED: Promethazine HCl 25 MG/ML VIAL ONE (12:11)
[2018-05-06 12:25] LABS: BHCG - Serum Negative (NEGATIVE); Pregs Control Background? CLEAR/WHITE (CLR/WHITE); Pregs Control Bar Appear? YES (CONTROL BAR)
[2018-05-06 12:26] LABS: #Lymphocytes 1.9 thou/uL (1.20-3.40); #Monocytes 0.6 thou/uL (0.11-0.59); #Neutrophils 15.1 thou/uL (1.40-6.50); %Basophils 0.2 % (0.0-1.0); %Eosinophils 0.2 % (0.0-10.0); %Lymphocytes 10.8 % (21.0-51.0); %Monocytes 3.2 % (0.0-10.0); %Neutrophils 85.5 % (42.0-75.0); Band 13 % (5-11); Lymphocytes 10 % (21-51); MDiff Complete? YES; Monocytes 5 % (0-10); Neutrophil 72 % (42-75); RBC Morphology Normal
[2018-05-06 12:31] LABS: ALT (SGPT) 21 U/L (8-55); AST (SGOT) 13 U/L (5-34); Albumin 4.5 g/dL (3.5-5.0); Alkaline Phosphatase 96 U/L (40-150); Anion Gap 33 mmol/L (10-20); BUN (Urea Nitrogen) 99 mg/dL (7.0-18.7); Bilirubin, Total 0.4 mg/dL (0.2-1.2); Calc. Creatinine Clearance 0 mL/min (70-130); Calcium 9.5 mg/dL (7.8-10.44); Carbon Dioxide 19 mmol/L (22-29); Chloride 87 mmol/L (98-107); Estimated GFR-MDRD 4; Globulin 3.7 g/dL (2.4-3.5); Glucose 90 mg/dL (70-105); Potassium 4.2 mmol/L (3.5-5.1); Protein, Total 8.2 g/dL (6.0-8.3); Sodium 135 mmol/L (136-145)
[2018-05-06 12:37] LABS: CKMB 6.8 ng/mL (0-6.6); Troponin I 0.313 ng/mL (< 0.028)
--- NOTE | 2018-05-06 12:51 | CON ---
DATE OF CONSULTATION: 05/06/2018 REASON FOR CONSULTATION: End-stage renal disease and nausea and vomiting. HISTORY OF PRESENT ILLNESS: This is a 32-year-old female who presented with a 2-day history of nause a, vomiting. The patient is supposed to dialyze Sunday, Sunday, and Sunday and presented to the [facility]. The patient denies any nausea, vomiting or chest pain. PAST MEDICAL HISTORY: Diabetes mellitus, history of BKA, history of anemia, history of hypertension , history of GERD, history of diabetic neuropathy, history of diabetic retinopathy, history of left e ye enucleation, history of AV fistula, history of tunneled dialysis catheter. HOME MEDICATIONS: Reviewed. HOSPITAL MEDICATIONS: Reviewed. SOCIAL HISTORY: No alcohol or drug use. ALLERGIES: Reviewed. PHYSICAL EXAMINATION: GENERAL: Patient is awake, alert. VITAL SIGNS: Afebrile, pulse 75, breathing 16, blood pressure was 130/70. OBJECTIVE: See above. Awake, alert, in no acute distress. GENERAL APPEARANCE AND MENTAL STATUS: Fair. HEAD/NECK: Normocephalic. Atraumatic. EYES: EOMI. No deformity. EARS: Clear. No ulcers. NOSE: Intact. No lesions. MOUTH: Clear. No discharge. THROAT: Clear. No exudate. LUNGS: Clear. No crackles. CARDIAC: S1, S2. No rub. ABDOMEN: Benign. BS+. GENITALIA/RECTUM: Taylor absent. BACK/EXTREMITIES: Edema 0+ Ulcer- NEUROLOGICAL: Alert and motor intact. SKIN: Rash- Bruise- LYMPHATICS: Edema- Ulcer- LABORATORY: Pending. ASSESSMENT AND PLAN: 1. Stage 6 chronic kidney disease. We will plan dialysis as scheduled. 2. Hypertension, stable. 3. Anemia, stable. 4. Medications based on GFR are appropriate.
[2018-05-06] MEDS ORDERED: Dextrose 50% Abboject 50 ML SYRINGE ONE (13:31)
[2018-05-06] MEDS ORDERED: Labetalol HCl 100 MG/20 ML VIAL ONE (14:04)
== END 2018-05-06 17:30 | disposition home or self-care (01) ==
LOC: ERS 09:59
DX: R11.2 Nausea with vomiting, unspecified (principal); I12.0 Hypertensive chronic kidney disease with stage 5 chronic kidney disease or end stage renal disease; N18.6 End stage renal disease; Z99.2 Dependence on renal dialysis; D64.9 Anemia, unspecified; E10.9 Type 1 diabetes mellitus without complications; K21.9 Gastro-esophageal reflux disease without esophagitis; Z79.899 Other long term (current) drug therapy; Z79.4 Long term (current) use of insulin
CPT/HCPCS: 36415; 36416; 80053; 82553; 84484; 84703; 85025; 90935; 93005; 96372; G0257; J2550; Q0162

== ENCOUNTER 2018-05-10 10:19 | Inpatient (IN) | payer BC, OTHER ==
[2018-05-10] MEDS ORDERED: Metoclopramide HCl 10 MG/2 ML VIAL ONE (10:58)
[2018-05-10 11:27] LABS: Base Excess-Venous -10.7 mmol/L (0 (+/- 2.5)); Bicarbonate (HCO3v) 13.9 mmol/L (1.0-85.0); CO2 Tension (PvCO2) 27.3 mmHg (41.0-51.0); Calcium, Ionized 1.11 mmol/L (1.12-1.32); Hemoglobin - Calc 12.4 g/dL (12.0-18.0); O2 Tension (PvO2) 50.4 mmHg (35.0-45.0); Potassium 3.5 mmol/L (3.4-4.7); T. Carbon Dioxide 14.8 mmol/L (1.0-85.0); pH (Venous) 7.316 (7.35-7.45)
[2018-05-10 11:31] LABS: ALT (SGPT) 38 U/L (8-55); AST (SGOT) 36 U/L (5-34); Albumin 3.8 g/dL (3.5-5.0); Alkaline Phosphatase 71 U/L (40-150); Anion Gap 36 mmol/L (10-20); BUN (Urea Nitrogen) 44 mg/dL (7.0-18.7); Bilirubin, Total 0.3 mg/dL (0.2-1.2); CK (CPK) 67 U/L (29-168); Calc. Creatinine Clearance 0 mL/min (70-130); Calcium 9.5 mg/dL (7.8-10.44); Carbon Dioxide 12 mmol/L (22-29); Chloride 91 mmol/L (98-107); Estimated GFR-MDRD 6; Globulin 3.1 g/dL (2.4-3.5); Glucose 426 mg/dL (70-105); Magnesium 2.6 mg/dL (1.6-2.6); Phosphorus 4.7 mg/dL (2.3-4.7); Protein, Total 6.9 g/dL (6.0-8.3); Sodium 136 mmol/L (136-145)
[2018-05-10 11:34] LABS: CKMB 2.8 ng/mL (0-6.6); Troponin I 0.107 ng/mL (< 0.028)
[2018-05-10 11:41] LABS: #Eosinphils 0.1 thou/uL (0.0-0.7); #Lymphocytes 0.9 thou/uL (1.20-3.40); #Monocytes 0.2 thou/uL (0.11-0.59); #Neutrophils 4.9 thou/uL (1.40-6.50); %Basophils 0.3 % (0.0-1.0); %Eosinophils 1.1 % (0.0-10.0); %Monocytes 3.8 % (0.0-10.0); %Neutrophils 80.7 % (42.0-75.0); Hemoglobin 11.3 g/dL (12.0-16.0); Mean Corpuscular Hemoglobin 33.6 pg (27.0-31.0); Mean Platelet Volume 7.4 fL (7.4-10.4); Platelet Count 206 thou/uL (130-400); RBC Distribution Width 14.8 % (11.5-14.5); Red Blood Cell (RBC) Count 3.37 mill/uL (4.20-5.40); White Blood Cell (WBC) Count 6.1 thou/uL (4.8-10.8)
[2018-05-10] MEDS ORDERED: Ondansetron HCl/PF 4 MG/2 ML Vial ONE ×2 (12:07→12:10)
[2018-05-10] MEDS ORDERED: Insulin Regular 100 units/100 ml in NS IVPB SCH (12:15)
[2018-05-10] MEDS ORDERED: Lidocaine Viscous Sol 2% 15 ml UD Cup ONE (13:07)
[2018-05-10] MEDS ORDERED: Mag-Al 1200 mg/1200 mg/30 ML UDCUP ONE (13:07)
[2018-05-10 14:05] LABS: Anion Gap 28 mmol/L (10-20); BUN (Urea Nitrogen) 43 mg/dL (7.0-18.7); Calc. Creatinine Clearance 0 mL/min (70-130); Calcium 9.1 mg/dL (7.8-10.44); Carbon Dioxide 17 mmol/L (22-29); Chloride 95 mmol/L (98-107); Estimated GFR-MDRD 6; Glucose 174 mg/dL (70-105); Potassium 3.3 mmol/L (3.5-5.1); Sodium 137 mmol/L (136-145)
[2018-05-10 14:11] LABS: Troponin I 0.089 ng/mL (< 0.028)
[2018-05-10] MEDS ORDERED: CCU Electrolyte Replacement 1 EACH IVPB ONE (17:03)
[2018-05-10] MEDS ORDERED: NS 0.9% w/ 20 MEQ KCL 1,000 ML IV PRN ×2 (17:03)
[2018-05-10] MEDS ORDERED: Sodium Chloride 0.9% 1,000 ML IV PRN ×4 (17:03)
[2018-05-10] MEDS ORDERED: Dextrose 5 %-0.45 % NaCl 1,000 ML IV PRN (17:03)
[2018-05-10] MEDS ORDERED: D5 1/2 NS w/20 mEq KCL 1,000 ML IV PRN (17:03)
[2018-05-10] MEDS ORDERED: Promethazine HCl 25 MG/ML VIAL IM/IV PRN (17:06)
[2018-05-10] MEDS ORDERED: Ondansetron HCl/PF 4 MG in Sodium Chloride 0.9% 50 ML IVPB PRN (17:06)
[2018-05-10] MEDS ORDERED: Ondansetron HCl/PF 8 MG in Sodium Chloride 0.9% 50 ML IVPB SCH (17:30)
[2018-05-10] MEDS ORDERED: Ondansetron ODT 4 MG TAB SL SCH (17:30)
[2018-05-10 17:53] LABS: Anion Gap 21 mmol/L (10-20); BUN (Urea Nitrogen) 15 mg/dL (7.0-18.7); Calc. Creatinine Clearance 0 mL/min (70-130); Calcium 8.5 mg/dL (7.8-10.44); Carbon Dioxide 23 mmol/L (22-29); Chloride 98 mmol/L (98-107); Estimated GFR-MDRD 17; Glucose 218 mg/dL (70-105); Magnesium 1.8 mg/dL (1.6-2.6); Phosphorus 1.9 mg/dL (2.3-4.7); Potassium 3.8 mmol/L (3.5-5.1); Sodium 138 mmol/L (136-145)
[2018-05-10 17:54] LABS: Troponin I 0.102 ng/mL (< 0.028)
--- NOTE | 2018-05-10 20:16 | HP ---
DATE OF ADMISSION: 05/10/2018 PRIMARY CARE PHYSICIAN: Bran Mcginnis M.D. CHIEF COMPLAINT: Abdominal pain, nausea, and vomiting and loose stools. HISTORY OF PRESENTING ILLNESS: Ms. Street is a 32-year-old female with known history of end-stage renal disease, on hemodialysis Sunday, Sunday, Sunday as well as history of diabetes mellitus, typ e 1; and severe diabetic gastroparesis with multiple hospitalizations; who presented to the ER with t he above-mentioned complaint. History is mainly obtained by the patient herself and electronic medic al records have been reviewed. She was last admitted to our facility on 03/27/2018 and was admitted and treated for diabetic ketoacidosis. She reports that she is compliant with her dialysis. She presented to the ER today for persistent nausea and vomiting of 1 week duration. She reports zackary t she is unable to keep anything down. She has been taking Reglan on a daily basis without any benef it. She has not missed any dialysis appointments and is compliant with her medications as well. She also has been having some generalized abdominal pain and some loose stools. She denies any fever or chills. She denies any hematochezia, melena or hematemesis. She denies any recent illnesses. She denies any weight loss or weight gain. She has malaise and anorexia. She has headache. Upon presentation to the emergency room, she was tachycardic with a pulse of 116, blood pressure 141/ 98, otherwise stable. Her initial workup showed a temperature of 98.7. EKG showed sinus tachycardia with prolonged QT interval. She initially got GI cocktail, IV fluids 500 mL, metoclopramide IV as w ell as Zofran IV. Blood work was obtained, which showed severe anion gap metabolic acidosis with ani on gap of 36, bicarbonate of 12, chloride of 91. Her blood sugar was 426, creatinine 9.29. Beta hyd roxybutyrate level was 11.94. VBG was done which showed pH of 7.3, pCO2 of 27, O2 of 50. CBC was ra ther unremarkable. She received insulin in the emergency room along with the normal saline and is no w being admitted to the [facility] for diabetic ketoacidosis. The patient was seen and examined in the hemodialysis where she is still tachycardic and very nauseat ed and has already thrown up once or twice. PAST MEDICAL HISTORY: 1. Diabetes mellitus, type 1. 2. End-stage renal disease on hemodialysis Sunday, Sunday, and Sunday. Her powder compounder is Dr. Juaquin boudreaux. 3. Hypertension. 4. Anemia of chronic kidney disease. 5. Gastroesophageal reflux disease. 6. Diabetic gastroparesis. 7. History of right eye glaucoma. 8. Multiple admissions for DKA and cleared of diabetic gastroparesis. 9. Secondary hyperparathyroidism of renal origin. PAST SURGICAL HISTORY: AV fistula placement in the left upper extremity and right eye surgery. PSYCHIATRIC HISTORY: Reviewed and negative. SOCIAL HISTORY: She lives with her mother. No history of drug, tobacco or alcohol abuse. FAMILY HISTORY: Diabetes and hypertension run in several family members. HOME MEDICATIONS: They have not been updated as yet. As per the ER record, she takes the following medications: Lisinopril 20 mg b.i.d., Renvela 800 mg 2 tabs t.i.d., hydralazine 100 mg b.i.d., nifed ipine 60 mg daily, carvedilol 12.5 mg daily, Reglan 10 mg every 6 hours p.r.n., Lantus 12 units subcu 2 times a day. REVIEW OF SYSTEMS: The following complete review of systems was negative, unless otherwise mentioned in the HPI or below: Constitutional: Weight loss or gain, ability to conduct usual activities. Sk in: Rash, itching. Eyes: Double vision, pain. ENT/Mouth: Nose bleeding, neck stiffness, pain, te nderness. Cardiovascular: Palpitations, dyspnea on exertion, orthopnea. Respiratory: Shortness of breath, wheezing, cough, hemoptysis, fever or night sweats. Gastrointestinal: Poor appetite, abdom inal pain, heartburn, nausea, vomiting, constipation, or diarrhea. Genitourinary: Urgency, frequenc y, dysuria, nocturia. Musculoskeletal: Pain, swelling. Neurologic/Psychiatric: Anxiety, depressio n. Allergy/Immunologic: Skin rash, bleeding tendency. A 12-point review of systems was done. It i s negative except for those mentioned in the history and physical. LABORATORY DATA: CBC shows hemoglobin 11.3, otherwise unremarkable. It is microcytic in nature. Se rum chemistries upon presentation include sodium of 136, potassium of 3, chloride 91, bicarbonate 12, anion gap of 36, BUN 44, creatinine 9.26, blood sugar 426, AST 36, troponin 0.107. Beta hydroxybuty rate 11.94. A 12-lead EKG by my review shows sinus tachycardia at 111 beats per minute with prolonge d QTc interval. PHYSICAL EXAMINATION: VITAL SIGNS: Upon presentation, blood pressure 141/98, pulse 116, respirations 25, saturating 100% o n room air, temperature 98.7. GENERAL: The patient was seen and examined in the hemodialysis. She appears very tired and weak. S he keeps her eyes closed throughout the interview. She feels very nauseated. HEENT: Mucous membrane is slightly dry. No oropharyngeal exudate or erythema. Head is normocephali c, atraumatic. Pupils are equal, reactive to light and accommodation. Extraocular movement intact. NECK: Supple without any lymphadenopathy, JVD or bruit. CHEST: Clear to auscultation without any wheezing, rales or rhonchi. CARDIOVASCULAR: Rate and rhythm is regular, 2/6 systolic murmur present on auscultation. ABDOMEN: Slightly tender to palpation, nondistended, positive bowel sounds, soft on palpation. No r ebound, guarding or rigidity. EXTREMITIES: Showed trace pitting edema in bilateral lower extremities. NEUROLOGIC: Nonfocal. SKIN: Free of any rashes or bruises. I feel warm and dry to touch. PSYCHIATRIC: Normal affect. IMPRESSION AND PLAN: 1. Diabetic ketoacidosis. The patient had clear indication of diabetic ketoacidosis upon presentati on. Since receiving the hemodialysis and IV fluids, her labs have been getting better. Her beta hyd roxybutyrate is still elevated to 5.15, anion gap is still elevated to 21. Her blood sugar and creat inine has since improved from dialysis. At this time, given her significant history of diabetic keto acidosis and chances of her reverting back to severe ketoacidosis; we will admit her to IMCU and serenity t her with insulin drip and DKA per protocol, IV fluids. Potassium phosphorus will be checked along with magnesium and supplemented as per the protocol. BMP q.4 hours and Accu-Cheks every 1 hour will also be instituted. We will start her on empiric Phenergan and Zofran for the control of the nausea and vomiting, which would further exacerbate the diabetic ketoacidosis. 2. Sinus tachycardia. This is secondary to ongoing dehydration from the vomiting and ketoacidosis. She will be resuscitated with IV fluids per the protocol. 3. Acute on chronic kidney disease. Dialysis has been initiated. Continue as per Nephrology recomm endation. 4. End-stage renal disease on dialysis. Continue in-house. 5. Diabetes mellitus, type 1. We will resume her home medications once the diabetic ketoacidosis mcintyre s resolved. 6. Anemia of chronic kidney disease. Continue to monitor. She is at baseline for now. 7. Secondary hyperparathyroidism of renal origin. We will continue her Renvela for now. 8. History of hypertension. Resume her home medications once confirmed. 9. Add deep venous thrombosis and gastrointestinal prophylaxis. 10. Code status: FULL CODE. Discussed with the patient. Surrogate decision maker is mother listed in the [facility]. DISPOSITION: Ms. Chavis is currently being admitted to the hospital for DKA. Estimated length of sta y is at least 2-3 midnight. Further management will depend upon her clinical course.
[2018-05-10 20:40] VITALS: BMI 22.5
[2018-05-10] MEDS: Carvedilol 25 MG TAB PO SCH (21:00)
[2018-05-10 21:35] LABS: Anion Gap 30 mmol/L (10-20); BUN (Urea Nitrogen) 18 mg/dL (7.0-18.7); Calc. Creatinine Clearance 17 mL/min (70-130); Calcium 8.1 mg/dL (7.8-10.44); Carbon Dioxide 14 mmol/L (22-29); Chloride 96 mmol/L (98-107); Estimated GFR-MDRD 14; Glucose 421 mg/dL (70-105); Potassium 3.8 mmol/L (3.5-5.1); Sodium 136 mmol/L (136-145)
[2018-05-10] MEDS: Lisinopril 20 MG TAB PO SCH (21:55)
--- NOTE | 2018-05-11 00:51 | CON ---
NEPHROLOGY CONSULTATION DATE OF CONSULTATION: 05/10/2018 REASON FOR CONSULTATION: End-stage renal disease, nausea, vomiting, and acidosis. HISTORY OF PRESENT ILLNESS: This is a very pleasant 32-year-old female with end-stage renal disease, on hemodialysis Sunday, Sunday, Sunday, who presented to the hospital after missing dialysis with persistent nausea, vomiting. The patient did dialysis Sunday. She was supposed to go to dialysi s, but presented to the ER. She has had some chest pain and tachycardia with vomiting. The patient denies any headache, numbness, tingling, had some presyncope like symptoms. PAST MEDICAL HISTORY: Hypertension, end-stage renal disease, anemia, diabetic gastroparesis, chronic nausea and vomiting, type 1 diabetes mellitus, diabetic retinopathy, blindness, , history of le ft eye surgery, . SOCIAL HISTORY: No alcohol or drug use. FAMILY HISTORY: Negative for ESRD. HOME MEDICATIONS: List reviewed. ALLERGIES: Reviewed. REVIEW OF SYSTEMS: Fifteen-point review of systems was performed and negative except positives noted above. GENERAL: Weakness- HEAD: Headache- NECK: No swelling or lumps. NOSE: No epistaxis or discharge. EYES: No diplopia or pain. RESPIRATORY: Dyspnea- CARDIOVASCULAR: Chest pain- GASTROINTESTINAL: Nausea- /WOUND SPECIALIST: Hematuria- MUSCULOSKELETAL: No joint pain. NEUROPSYCHIATIC SYSTEMS: No suicidal ideation. No ideation. SKIN: Denies any rash or ulcer. CONSTITUTIONAL: No fever or chills. PHYSICAL EXAMINATION: GENERAL: The patient is awake, alert, in [id number] distress. VITAL SIGNS: Afebrile, pulse 116, breathing rate 25, blood pressure 141/98. GENERAL APPEARANCE AND MENTAL STATUS: Fair. HEAD/NECK: Normocephalic. Atraumatic. EYES: EOMI. No deformity. EARS: Clear. No ulcers. NOSE: Intact. No lesions. MOUTH: Clear. No discharge. THROAT: Clear. No exudate. LUNGS: Clear. No crackles. CARDIAC: S1, S2. No rub. ABDOMEN: Benign. BS+. GENITALIA/RECTUM: Taylor absent. BACK/EXTREMITIES: Edema 0+ Ulcer- NEUROLOGICAL: Alert and motor intact. SKIN: Rash- Bruise- LYMPHATICS: Edema- Ulcer- LABORATORY DATA: Hemoglobin 11.3, potassium 3, bicarbonate was 12. ASSESSMENT AND RECOMMENDATIONS: 1. Chronic kidney disease, acidosis, nausea, vomiting, and uremia. Plan, urgent dialysis. 2. Metabolic acidosis. Plan, dialysis. 3. Hypokalemia, replace potassium with dialysis. 4. Anemia, stable. 5. Medications based on glomerular filtration rate. We will plan urgent dialysis. Consent was obta ined.
[2018-05-11 02:04] LABS: Anion Gap 21 mmol/L (10-20); BUN (Urea Nitrogen) 20 mg/dL (7.0-18.7); Calc. Creatinine Clearance 15 mL/min (70-130); Calcium 8.5 mg/dL (7.8-10.44); Carbon Dioxide 22 mmol/L (22-29); Chloride 98 mmol/L (98-107); Estimated GFR-MDRD 12; Glucose 289 mg/dL (70-105); Potassium 3.6 mmol/L (3.5-5.1); Sodium 137 mmol/L (136-145)
[2018-05-11 05:28] LABS: Anion Gap 18 mmol/L (10-20); BUN (Urea Nitrogen) 20 mg/dL (7.0-18.7); Calc. Creatinine Clearance 14 mL/min (70-130); Calcium 8.2 mg/dL (7.8-10.44); Carbon Dioxide 22 mmol/L (22-29); Chloride 99 mmol/L (98-107); Estimated GFR-MDRD 11; Glucose 197 mg/dL (70-105); Potassium 3.3 mmol/L (3.5-5.1); Sodium 136 mmol/L (136-145)
[2018-05-11] MEDS: Lisinopril 20 MG TAB PO SCH ×2 (09:04→20:34)
[2018-05-11] MEDS: Carvedilol 25 MG TAB PO SCH (09:04)
[2018-05-11] MEDS: NIFEdipine XL 90 MG TAB PO SCH (09:04)
[2018-05-11] MEDS ORDERED: Calcium Carbonate 500 MG ChewTAB PO PRN (09:44)
[2018-05-11] MEDS ORDERED: Dextrose 50% Abboject 50 ML SYRINGE SLOW IVP PRN (14:14)
[2018-05-11] MEDS ORDERED: Dextrose 5% in Water 1,000 ML IV PRN (14:14)
--- NOTE | 2018-05-11 14:34 | PRG ---
DATE OF SERVICE: 05/11/2018 SUBJECTIVE: A 32-year-old female being seen for end-stage renal disease. The patient denies any sandip sea, vomiting or chest pain. PHYSICAL EXAMINATION: GENERAL: Patient is awake, alert. VITAL SIGNS: Afebrile, pulse 81, breathing 16, blood pressure 115/65. HEAD/NECK: Normocephalic. Atraumatic. EYES: EOMI. No deformity. EARS: Clear. No ulcers. NOSE: Intact. No lesions. MOUTH: Clear. No discharge. THROAT: Clear. No exudate. LUNGS: Clear. No crackles. CARDIAC: S1, S2. No rub. ABDOMEN: Benign. BS+. GENITALIA/RECTUM: Taylor absent. BACK/EXTREMITIES: Edema 0+ Ulcer- NEUROLOGICAL: Alert and motor intact. SKIN: Rash- Bruise- LYMPHATICS: Edema- Ulcer- LABORATORY DATA: Show hemoglobin 11.3. ASSESSMENT AND RECOMMENDATIONS: 1. Stage 6 chronic kidney disease, continue hemodialysis. 2. Hypertension, stable. 3. Anemia, stable. 4. Medications based on glomerular filtration rate are appropriate.
[2018-05-11 14:59] LABS: Anion Gap 18 mmol/L (10-20); BUN (Urea Nitrogen) 22 mg/dL (7.0-18.7); Calc. Creatinine Clearance 12 mL/min (70-130); Calcium 8.3 mg/dL (7.8-10.44); Carbon Dioxide 21 mmol/L (22-29); Chloride 98 mmol/L (98-107); Estimated GFR-MDRD 10; Glucose 212 mg/dL (70-105); Potassium 3.8 mmol/L (3.5-5.1); Sodium 133 mmol/L (136-145)
[2018-05-11] MEDS ORDERED: Insulin Glargine 20 UNITS in Pre-Filled Syringe 1 EACH SC SCH (15:00)
--- NOTE | 2018-05-11 15:53 | PRG ---
DATE OF SERVICE: 05/11/2018 SERVICE: Pulmonary Medicine. REASON FOR CONSULTATION: IMCU patient. HISTORY OF PRESENT ILLNESS: The patient is a 32-year-old type 1 diabetic who is well known to me. [facility], she lost insurance recently. She has been taking her Levemir 10 units twice daily. Th at being said, she previously used an insulin pump and is not currently using any premeal insulin or sliding scale insulin. She once again went into DKA after a 2-3 day history of increasing nausea and vomiting. She presented to the Emergency Department and was found to be in DKA. She initially clos ed. Her insulin drip was titrated down. She reopened her gap. We subsequently cracked back up on h er insulin drip. This morning, she has her appetite back. She denies any current fevers, chills, na usea or vomiting. She has no chest discomfort. She indicates that there is no way that she is curre ntly . PAST MEDICAL HISTORY: 1. Type 1 diabetes mellitus. 2. Hypertension. 3. Dyslipidemia. 4. End-stage renal disease. 5. Gastroparesis secondary to dyslipidemia. 6. Peripheral vascular disease. 7. Gastroesophageal reflux disease. 8. Medication noncompliance. 9. Glaucoma of the right eye. PAST SURGICAL HISTORY: 1. Enucleation of the eye. 2. Upper extremity fistula. FAMILY HISTORY: Noncontributory. SOCIAL HISTORY: Negative for alcohol, tobacco or illicit drug use. She denies any exposure to chemi cals, dust asbestos or tuberculosis. ALLERGIES: No known drug allergies. MEDICATIONS: List of her inpatient medications was reviewed. Multiple updates were made at this [facility]. REVIEW OF SYSTEMS: General, head, ears, eyes, nose, throat, cardiovascular, respiratory, GI, , mus culoskeletal, neurologic and skin is negative except as mentioned in the HPI. PHYSICAL EXAMINATION: VITAL SIGNS: Afebrile, pulse 88, respirations 18, saturation 100% on room air, blood pressure 99/64. GENERAL: Patient is awake, alert, no apparent distress. LUNGS: Decent air entry. There is no prolonged expiratory phase or wheezing present. HEART: Normal rate, regular. ABDOMEN: Soft, nontender, nondistended. Bowel sounds are positive. MUSCULOSKELETAL: No cyanosis or clubbing. There is no pitting in the bilateral lower extremities. NEUROLOGIC: Grossly nonfocal. LABORATORY DATA: WBC 6.1, hemoglobin 11.3, platelets 206,000. PH 7.316, pCO2 of 27 on a VBG. Blood sugar ranges from 118-192. As of this morning, creatinine 5.32, BUN 20. Potassium 3.3. Basic meta bolic profile is otherwise unremarkable. Beta hydroxybutyric acid is 10.02 and up trending as of t night. C. diff antigen and toxin is unremarkable. Blood cultures x3 are negative. ASSESSMENT: 1. Diabetic ketoacidosis secondary to not using short-acting insulin. 2. End-stage renal disease. PLAN: I will recheck her laboratories as we have not evaluated them since early this morning. If he r gap is closed, we will transition her over to subcu insulin, and get her to the floor. Pulmonary o r Critical Care will continue to follow along while she remains in this location; however. She under stands how important it is for her to take both her long-acting and her short-acting insulin. She mcintyre s been up to work with her primary care physician and her hospitalist physician to get her converted off of her pump (which she currently does not have access to her supplies for) on to premeals rapid-a cting insulin.
--- NOTE | 2018-05-11 16:58 | PDOC.PN ---
- Subjective Encounter Start Date: 05/11/18 Encounter Start Time: 09:20 Pt seen for followup re: DKA. Nausea is better. No fevers or chills. - Objective MAR Reviewed: Yes Vital Signs & Weight: Vital Signs (12 hours) Temp Pulse Resp BP BP Pulse Ox 05/11/18 16:00 99.1 F 93 18 96/58 L 98 05/11/18 11:00 98.9 F 81 18 99/64 100 05/11/18 09:04 88 05/11/18 08:00 99.0 F 88 16 05/11/18 07:00 99.0 F 88 18 115/65 100 Weight Weight 131 lb 3.2 oz I&O: 05/10/18 05/11/18 05/12/18 06:59 06:59 06:59 Intake Total 1900 Balance 1900 Result Diagrams: 05/10/18 10:58 05/11/18 14:40 Additional Labs: Accuchecks 05/11/18 05/11/18 05/11/18 16:02 15:03 14:05 POC Glucose 160 H 198 H 223 H 05/11/18 05/11/18 05/11/18 13:03 12:08 11:04 POC Glucose 224 H 217 H 192 H 05/11/18 05/11/18 05/11/18 10:06 09:00 08:04 POC Glucose 123 H 123 H 118 H 05/11/18 05/11/18 05/11/18 07:03 06:04 05:10 POC Glucose 147 H 193 H 189 H 05/11/18 05/11/18 05/11/18 03:59 03:00 02:13 POC Glucose 174 H 209 H 259 H 05/11/18 05/11/18 05/10/18 01:16 00:08 23:07 POC Glucose 264 H 213 H 217 H 05/10/18 05/10/18 05/10/18 22:12 21:02 19:56 POC Glucose 322 H 396 H 396 H 05/10/18 19:01 POC Glucose 324 H EKG Reviewed by me: Yes (Tele: NSR) Phys Exam - Physical Examination Constitutional: NAD HEENT: moist MMs, sclera anicteric, oral pharynx no lesions corneal opacity Respiratory: no wheezing, no rales, no rhonchi, clear to auscultation bilateral Cardiovascular: RRR, no rub S1, S2 Gastrointestinal: soft, non-tender, no distention, positive bowel sounds Neurological: moves all 4 limbs Psychiatric: normal affect Deviation from normal: Oriented to person and place, not to time Dx/Plan (1) DKA (diabetic ketoacidosis) Code(s): E13.10 - OTH DIABETES MELLITUS WITH KETOACIDOSIS WITHOUT COMA Status : Acute Comment: Improving, still on insulin drip. Start ADA 1800 diet (2) Nausea & vomiting Code(s): R11.2 - NAUSEA WITH VOMITING, UNSPECIFIED Status: Acute Comment: PRN antiemetics (3) ESRD (end stage renal disease) on dialysis Code(s): N18.6 - END STAGE RENAL DISEASE; Z99.2 - DEPENDENCE ON RENAL DIALYSIS Status: Chronic Comment: Nephrology following for maintenance dialysis (4) GERD (gastroesophageal reflux disease) Code(s): K21.9 - GASTRO-ESOPHAGEAL REFLUX DISEASE WITHOUT ESOPHAGITIS Status: Chronic Qualifiers: Esophagitis presence: esophagitis presence not specified Qualified Code(s) : K21.9 - Gastro-esophageal reflux disease without esophagitis Comment: stable - Plan * . Review of Systems - Review of Systems Constitutional: negative: fever, chills, sweats, weakness, malaise Respiratory: negative: Cough, Shortness of Breath, SOB with Excertion, Pleuritic Pain, Wheezing Cardiovascular: negative: chest pain, palpitations, orthopnea, paroxysmal nocturnal dyspnea, edema, light headedness Gastrointestinal: Nausea, Vomiting. negative: Abdominal Pain, Diarrhea, Constipation, Melena, Hematochezia Genitourinary: negative: Dysuria, Frequency, Incontinence, Hematuria, Retention Skin: negative: Rash, Lesions, Walker, Bruising - Medications/Allergies Allergies/Adverse Reactions: Allergies Allergy/AdvReac Type Severity Reaction Status Date / Time No Known Allergies Allergy Verified 12/05/17 21:40 Medications: Current Medications Calcium Carbonate (Tums) 500 mg PO PRN PRN PRN Reason: Heartburn or Indigestion Carvedilol (Coreg) 6.25 mg PO BID [facility] Dextrose/Water (Dextrose 50%) 25 gm SLOW IVP PRN PRN PRN Reason: Hypoglycemia Glucagon (Glucagon) 1 mg IM PRN PRN PRN Reason: Hypoglycemia Insulin Human Regular 100 (units/ Sodium Chloride) 101 mls @ 0 mls/hr IVPB INF [facility]; Titrate PRN Reason: Protocol Last Admin: 05/10/18 21:56 Dose: 101 mls Ondansetron HCl 4 mg/ Sodium (Chloride) 52 mls @ 200 mls/hr IVPB Q6H PRN PRN Reason: Nausea/Vomiting Insulin Glargine 20 units/ (Miscellaneous Medication) 0.2 mls @ 0 mls/hr SC NOW [facility] Stop: 05/11/18 17:00 Insulin Glargine 20 units/ (Miscellaneous Medication) 0.2 mls @ 0 mls/hr SC QAM [facility] Dextrose/Water (D5w) 1,000 mls @ 0 mls/hr IV .Q0M PRN; As Directed PRN Reason: Hypoglycemia Insulin Human Lispro (Humalog) 5 units SC [facility] Insulin Human Lispro (Humalog) 0 units SC .MILD SLIDING SCALE PRN PRN Reason: Mild Correctional Scale Lisinopril (Zestril) 20 mg PO BID [facility] Last Admin: 05/11/18 09:04 Dose: 20 mg Nifedipine (Procardia Xl) 90 mg PO QAM [facility] Last Admin: 05/11/18 09:04 Dose: 90 mg Promethazine HCl (Phenergan) 12.5 mg IM/IV Q6H PRN PRN Reason: Nausea/Vomiting Last Admin: 05/10/18 21:00 Dose: 12.5 mg
[2018-05-11 17:31] LABS: BHCG - Serum Negative (NEGATIVE); Pregs Control Background? CLEAR/WHITE (CLR/WHITE); Pregs Control Bar Appear? YES (CONTROL BAR)
[2018-05-11] MEDS: HumaLOG 300 UNITS/3 ML VIAL SC SCH (17:38)
[2018-05-11] MEDS: Sevelamer Carbonate 800 MG TAB PO SCH (17:38)
[2018-05-11] MEDS ORDERED: Sodium Chloride 0.9% 1,000 ML IV SCH (18:45)
[2018-05-11] MEDS: Carvedilol 6.25 MG TAB PO SCH (20:34)
[2018-05-11] MEDS: hydrALAZINE 25 MG TAB PO SCH (20:34)
[2018-05-12 04:20] LABS: Anion Gap 17 mmol/L (10-20); BUN (Urea Nitrogen) 33 mg/dL (7.0-18.7); Calc. Creatinine Clearance 10 mL/min (70-130); Calcium 8.1 mg/dL (7.8-10.44); Carbon Dioxide 24 mmol/L (22-29); Chloride 97 mmol/L (98-107); Estimated GFR-MDRD 8; Glucose 420 mg/dL (70-105); Sodium 134 mmol/L (136-145)
[2018-05-12 05:19] LABS: #Eosinphils 0.1 thou/uL (0.0-0.7); #Lymphocytes 1.1 thou/uL (1.20-3.40); #Monocytes 0.3 thou/uL (0.11-0.59); #Neutrophils 2.6 thou/uL (1.40-6.50); %Basophils 0.3 % (0.0-1.0); %Eosinophils 1.8 % (0.0-10.0); %Lymphocytes 27.7 % (21.0-51.0); %Monocytes 7.1 % (0.0-10.0); Anisocytosis SLIGHT = 6-15 cells (100X) (0-5/hpf); Hemoglobin 9.9 g/dL (12.0-16.0); MDiff Complete? YES; Macrocytosis SLIGHT = 6-15 cells (100X) (0-5/hpf); Mean Corpuscular HGB CONC 33.2 g/dL (32.0-36.0); Mean Corpuscular Hemoglobin 33.7 pg (27.0-31.0); Mean Platelet Volume 7.3 fL (7.4-10.4); Platelet Count 176 thou/uL (130-400); RBC Distribution Width 14.6 % (11.5-14.5); Red Blood Cell (RBC) Count 2.92 mill/uL (4.20-5.40); White Blood Cell (WBC) Count 4.1 thou/uL (4.8-10.8)
[2018-05-12] MEDS: HumaLOG 300 UNITS/3 ML VIAL SC PRN (05:48)
[2018-05-12] MEDS: NIFEdipine XL 90 MG TAB PO SCH (09:10)
[2018-05-12] MEDS: hydrALAZINE 25 MG TAB PO SCH ×2 (09:10→21:08)
[2018-05-12] MEDS: Carvedilol 6.25 MG TAB PO SCH ×2 (09:11→21:08)
[2018-05-12] MEDS: Lisinopril 20 MG TAB PO SCH ×2 (09:11→21:08)
[2018-05-12] MEDS: HumaLOG 300 UNITS/3 ML VIAL SC SCH ×3 (09:11→17:43)
[2018-05-12] MEDS: Sevelamer Carbonate 800 MG TAB PO SCH ×3 (09:11→17:43)
[2018-05-12] MEDS: Insulin Glargine 20 UNITS in Pre-Filled Syringe 1 EACH SC SCH (09:18)
--- NOTE | 2018-05-12 12:56 | PRG ---
DATE OF SERVICE: 05/12/2018 SUBJECTIVE: This 32-year-old female being seen for end-stage renal disease. The patient denies any nausea, vomiting, or chest pain. PHYSICAL EXAMINATION: GENERAL: Patient is awake, alert. VITAL SIGNS: Afebrile, pulse 100, breathing at 16, blood pressure 102/62. HEAD/NECK: Normocephalic. Atraumatic. EYES: EOMI. No deformity. EARS: Clear. No ulcers. NOSE: Intact. No lesions. MOUTH: Clear. No discharge. THROAT: Clear. No exudate. LUNGS: Clear. No crackles. CARDIAC: S1, S2. No rub. ABDOMEN: Benign. BS+. GENITALIA/RECTUM: Taylor absent. BACK/EXTREMITIES: Edema 0+ Ulcer- NEUROLOGICAL: Alert and motor intact. SKIN: Rash- Bruise- LYMPHATICS: Edema- Ulcer- LABORATORY DATA: Show hemoglobin 9.9, potassium . ASSESSMENT AND PLAN: 1. Stage 6 chronic kidney disease, plan dialysis tomorrow. 2. Hypertension, stable. 3. Anemia, stable. 4. Chronic nausea and vomiting. 5. Management per primary team.
[2018-05-12] MEDS ORDERED: Melatonin 3 MG TAB PO PRN (14:46)
--- NOTE | 2018-05-12 14:49 | PDOC.PN ---
- Subjective Encounter Start Date: 05/12/18 Encounter Start Time: 14:47 Pt seen for followup re: hypertensive urgency. Denies chest pain, shortness of breath, fevers or chills. No nausea or vomiting, tolerating diet. - Objective MAR Reviewed: Yes Vital Signs & Weight: Vital Signs (12 hours) Temp Pulse Resp BP BP BP Pulse Ox 05/12/18 11:24 98.0 F 92 102/62 100 05/12/18 09:11 191/116 H 05/12/18 09:10 87 191/116 H 05/12/18 08:00 97.9 F 87 18 05/12/18 07:35 97.9 F 87 17 137/75 100 05/12/18 03:46 98.7 F 90 18 147/79 H 99 Weight Weight 131 lb 3.2 oz I&O: 05/11/18 05/12/18 05/13/18 06:59 06:59 06:59 Intake Total 1900 1229 Balance 1900 1229 Result Diagrams: 05/12/18 03:24 05/12/18 03:24 Additional Labs: Accuchecks 05/12/18 05/12/18 05/12/18 10:29 05:33 00:15 POC Glucose 191 H 443 H 264 H 05/11/18 05/11/18 05/11/18 20:34 17:24 16:02 POC Glucose 138 H 137 H 160 H 05/11/18 15:03 POC Glucose 198 H EKG Reviewed by me: Yes (Tele: NSR) Phys Exam - Physical Examination Constitutional: NAD HEENT: moist MMs, sclera anicteric, oral pharynx no lesions, 2+ tonsils Neck: no nodes, no JVD, supple, full ROM Respiratory: clear to auscultation bilateral Cardiovascular: RRR, no rub S1, S2 Gastrointestinal: soft, non-tender, no distention, positive bowel sounds Neurological: moves all 4 limbs Psychiatric: normal affect Deviation from normal: Oriented to person and place, not to time Dx/Plan (1) Hypertensive urgency Code(s): I16.0 - HYPERTENSIVE URGENCY Status: Acute Comment: BP higher earlier today, will add PRN IV hydralazine (2) Insomnia Code(s): G47.00 - INSOMNIA, UNSPECIFIED Status: Acute Comment: start PRN melatonin, discussed with patient (3) DM2 (diabetes mellitus, type 2) Status: Chronic Comment: on insulin and diabetic diet (4) ESRD (end stage renal disease) on dialysis Code(s): N18.6 - END STAGE RENAL DISEASE; Z99.2 - DEPENDENCE ON RENAL DIALYSIS Status: Chronic Comment: maintenance dialysis per nephrology (5) GERD (gastroesophageal reflux disease) Code(s): K21.9 - GASTRO-ESOPHAGEAL REFLUX DISEASE WITHOUT ESOPHAGITIS Status: Chronic Qualifiers: Esophagitis presence: esophagitis presence not specified Qualified Code(s) : K21.9 - Gastro-esophageal reflux disease without esophagitis Comment: stable (6) DKA (diabetic ketoacidosis) Code(s): E13.10 - OTH DIABETES MELLITUS WITH KETOACIDOSIS WITHOUT COMA Status : Resolved (7) Nausea & vomiting Code(s): R11.2 - NAUSEA WITH VOMITING, UNSPECIFIED Status: Resolved - Plan * . Review of Systems - Review of Systems Constitutional: other (insomnia). negative: fever, chills, sweats, weakness, malaise Respiratory: negative: Cough, Shortness of Breath, SOB with Excertion, Pleuritic Pain, Wheezing Cardiovascular: negative: chest pain, palpitations, orthopnea, paroxysmal nocturnal dyspnea, edema, light headedness Gastrointestinal: negative: Nausea, Vomiting, Abdominal Pain, Diarrhea, Constipation, Melena, Hematochezia Genitourinary: negative: Dysuria, Frequency, Incontinence, Hematuria, Retention Skin: negative: Rash, Lesions, Walker, Bruising Neurological: negative: Weakness, Numbness, Incoordination, Change in Speech, Confusion, Seizures - Medications/Allergies Allergies/Adverse Reactions: Allergies Allergy/AdvReac Type Severity Reaction Status Date / Time No Known Allergies Allergy Verified 12/05/17 21:40 Medications: Current Medications Calcium Carbonate (Tums) 500 mg PO PRN PRN PRN Reason: Heartburn or Indigestion Carvedilol (Coreg) 6.25 mg PO BID [facility] Last Admin: 05/12/18 09:11 Dose: 6.25 mg Dextrose/Water (Dextrose 50%) 25 gm SLOW IVP PRN PRN PRN Reason: Hypoglycemia Glucagon (Glucagon) 1 mg IM PRN PRN PRN Reason: Hypoglycemia Hydralazine HCl (Apresoline) 100 mg PO BID [facility] Last Admin: 05/12/18 09:10 Dose: 100 mg Insulin Human Regular 100 (units/ Sodium Chloride) 101 mls @ 0 mls/hr IVPB INF [facility]; Titrate PRN Reason: Protocol Last Admin: 05/10/18 21:56 Dose: 101 mls Ondansetron HCl 4 mg/ Sodium (Chloride) 52 mls @ 200 mls/hr IVPB Q6H PRN PRN Reason: Nausea/Vomiting Insulin Glargine 20 units/ (Miscellaneous Medication) 0.2 mls @ 0 mls/hr SC [facility] Last Admin: 05/12/18 09:18 Dose: 0.2 mls Dextrose/Water (D5w) 1,000 mls @ 0 mls/hr IV .Q0M PRN; As Directed PRN Reason: Hypoglycemia Insulin Human Lispro (Humalog) 5 units SC [facility] Last Admin: 05/12/18 12:49 Dose: 5 units Insulin Human Lispro (Humalog) 0 units SC .MILD SLIDING SCALE PRN PRN Reason: Mild Correctional Scale Last Admin: 05/12/18 05:48 Dose: 443 unit Lisinopril (Zestril) 20 mg PO BID [facility] Last Admin: 05/12/18 09:11 Dose: 20 mg Melatonin (Melatonin) 3 mg PO HS PRN PRN Reason: Insomnia Nifedipine (Procardia Xl) 90 mg PO [facility] Last Admin: 05/12/18 09:10 Dose: 90 mg Promethazine HCl (Phenergan) 12.5 mg IM/IV Q6H PRN PRN Reason: Nausea/Vomiting Last Admin: 05/10/18 21:00 Dose: 12.5 mg Sevelamer Carbonate (Renvela) 800 mg PO TID-[facility] Last Admin: 05/12/18 12:49 Dose: 800 mg
[2018-05-12] MEDS ORDERED: hydrALAZINE 20 MG/ML VIAL SLOW IVP PRN (14:58)
--- NOTE | 2018-05-12 15:53 | PRG ---
DATE OF SERVICE: 05/12/2018 SERVICE: Pulmonary Medicine. INTERVAL HISTORY: The patient is doing fine from cardiovascular and respiratory standpoint. She has a good appetite, but does not want to eat the food that we bring here. She denies any chest pain, n ausea, vomiting, fevers or chills. Otherwise, she has returned to her usual state of health. PHYSICAL EXAMINATION: VITAL SIGNS: Afebrile, pulse 92, blood pressure 191/116, respirations 14, saturation 100% on room ai r. GENERAL: The patient is awake and alert, in no apparent distress. LUNGS: Excellent air entry. There is no prolonged expiratory phase, wheezing, rhonchi or crackles. HEART: Normal rate, regular. ABDOMEN: Soft, nontender, nondistended. Bowel sounds are positive. MUSCULOSKELETAL: No cyanosis or clubbing. No pitting in the bilateral lower extremities. NEUROLOGIC: Grossly nonfocal. LABORATORY DATA: WBC 4.1, hemoglobin 9.9, platelets 176,000. Creatinine 7.16, BUN 33. Basic metabo lic profile is otherwise unremarkable. The anion gap is down trending gently, bicarbonate 24 and rou ghly stable. ASSESSMENT: 1. Diabetic ketoacidosis secondary to not using short-acting insulin. 2. End-stage renal disease. 3. Dehydration. DISCUSSION AND PLAN: I am going to repeat a beta-hydroxybutyric acid and a basic metabolic profile t his afternoon. If the beta-hydroxybutyric is normal, she can be transitioned out of the ICU. Pulchary zargaoza and Critical Care will continue to follow along while she remains inhouse, however.
[2018-05-12 16:32] LABS: Anion Gap 15 mmol/L (10-20); BUN (Urea Nitrogen) 39 mg/dL (7.0-18.7); Calc. Creatinine Clearance 9 mL/min (70-130); Calcium 8.5 mg/dL (7.8-10.44); Carbon Dioxide 23 mmol/L (22-29); Chloride 101 mmol/L (98-107); Estimated GFR-MDRD 7; Glucose 71 mg/dL (70-105); Potassium 4.1 mmol/L (3.5-5.1); Sodium 135 mmol/L (136-145)
[2018-05-13 04:24] LABS: #Eosinphils 0.1 thou/uL (0.0-0.7); #Lymphocytes 1.1 thou/uL (1.20-3.40); #Monocytes 0.3 thou/uL (0.11-0.59); #Neutrophils 2.4 thou/uL (1.40-6.50); %Basophils 0.5 % (0.0-1.0); %Eosinophils 1.9 % (0.0-10.0); %Lymphocytes 28.2 % (21.0-51.0); %Monocytes 7.4 % (0.0-10.0); %Neutrophils 62.1 % (42.0-75.0); Hemoglobin 9.7 g/dL (12.0-16.0); Mean Corpuscular HGB CONC 33.6 g/dL (32.0-36.0); Mean Corpuscular Hemoglobin 34.2 pg (27.0-31.0); Mean Platelet Volume 7.4 fL (7.4-10.4); Platelet Count 196 thou/uL (130-400); RBC Distribution Width 14.6 % (11.5-14.5); Red Blood Cell (RBC) Count 2.85 mill/uL (4.20-5.40); White Blood Cell (WBC) Count 3.8 thou/uL (4.8-10.8)
[2018-05-13 04:42] LABS: Anion Gap 17 mmol/L (10-20); BUN (Urea Nitrogen) 44 mg/dL (7.0-18.7); Calc. Creatinine Clearance 9 mL/min (70-130); Calcium 8.3 mg/dL (7.8-10.44); Carbon Dioxide 21 mmol/L (22-29); Chloride 99 mmol/L (98-107); Estimated GFR-MDRD 6; Glucose 251 mg/dL (70-105); Potassium 3.9 mmol/L (3.5-5.1); Sodium 133 mmol/L (136-145)
[2018-05-13] MEDS: HumaLOG 300 UNITS/3 ML VIAL SC PRN (05:43)
[2018-05-13] MEDS: hydrALAZINE 25 MG TAB PO SCH ×3 (09:00→21:00)
[2018-05-13] MEDS: Lisinopril 20 MG TAB PO SCH ×3 (09:00→21:00)
[2018-05-13] MEDS: NIFEdipine XL 90 MG TAB PO SCH ×2 (09:00)
[2018-05-13] MEDS: Insulin Glargine 20 UNITS in Pre-Filled Syringe 1 EACH SC SCH (09:00)
[2018-05-13] MEDS: HumaLOG 300 UNITS/3 ML VIAL SC SCH ×3 (09:01→17:35)
[2018-05-13] MEDS: Carvedilol 6.25 MG TAB PO SCH ×2 (09:01→21:01)
[2018-05-13] MEDS: Sevelamer Carbonate 800 MG TAB PO SCH ×3 (09:01→17:36)
--- NOTE | 2018-05-13 11:40 | PRG ---
DATE OF SERVICE: 05/13/2018 SERVICE: Pulmonary Medicine INTERVAL HISTORY: The patient is doing great from a respiratory standpoint. She denies any current shortness of breath. Her appetite is not great. That being said, she is not having any abdominal di scomfort. Her bowels are normal. There is no nausea or vomiting. She does not have any bleeding. She did not have any cough or fevers. Otherwise, she is returning to her usual state of health. PHYSICAL EXAMINATION: VITAL SIGNS: Afebrile, pulse 117, blood pressure 145/93, respirations 15, saturation 100% on room ai r. GENERAL: The patient is awake, alert, in no apparent distress. LUNGS: Excellent air entry. There is no prolonged expiratory phase or wheezing present. HEART: Normal rate, regular. ABDOMEN: Soft, nontender, nondistended. Bowel sounds are positive. MUSCULOSKELETAL: No cyanosis or clubbing. There is no pitting in the bilateral lower extremities. NEUROLOGIC: Grossly nonfocal. LABORATORY DATA: WBC 3.8, hemoglobin 9.7, platelets 196,000 with a normal differential. Creatinine 8.8, BUN 44. Basic metabolic profile is otherwise unremarkable. Blood sugar ranges from 60-243. To xicology shows that we cleared her beta hydroxybutyric acid despite the fact that her anion gap persi st slightly. C. diff antigen and toxin was not performed. ASSESSMENT: 1. Diabetic ketoacidosis, resolved. 2. Type 1 diabetes mellitus. 3. End-stage renal disease. 4. Dehydration. DISCUSSION AND PLAN: The patient is stable for transition out of the ICU to the medical unit. When she arrives on the floor, she will have no further requirement for inpatient Pulmonary or Critical Ca re opinion, and we will sign off. Please call with additional questions or concerns moving forward.
--- NOTE | 2018-05-13 18:30 | PDOC.PN ---
- Subjective Encounter Start Date: 05/13/18 Encounter Start Time: 10:30 Pt seen for followup re: hypertensive urgency. Denies chest pain or shortness of breath. No nausea. Reports poor appetite. - Objective MAR Reviewed: Yes Vital Signs & Weight: Vital Signs (12 hours) Temp Pulse Resp BP BP Pulse Ox 05/13/18 16:30 98.1 F 91 16 05/13/18 16:05 98.1 F 91 16 131/89 100 05/13/18 11:41 98.2 F 85 17 123/71 97 05/13/18 09:01 118/91 H 05/13/18 09:00 85 118/91 H 05/13/18 08:00 98.0 F 117 H 16 05/13/18 07:33 97.4 F L 117 H 145/93 H 100 Weight Weight 131 lb 3.2 oz I&O: 05/12/18 05/13/18 05/14/18 06:59 06:59 06:59 Intake Total 1229 Balance 1229 Result Diagrams: 05/13/18 03:36 05/13/18 03:36 Additional Labs: Accuchecks 05/13/18 05/13/18 05/13/18 18:17 16:54 16:14 POC Glucose 161 H 60 L 48 L* 05/13/18 05/13/18 05/13/18 10:37 05:45 00:22 POC Glucose 90 243 H 265 H 05/12/18 05/10/18 18:56 16:45 POC Glucose 165 H 171 H EKG Reviewed by me: Yes (Tele: NSR) Phys Exam - Physical Examination Constitutional: NAD HEENT: moist MMs Neck: supple Respiratory: clear to auscultation bilateral Cardiovascular: RRR Gastrointestinal: soft Neurological: moves all 4 limbs Psychiatric: normal affect Dx/Plan (1) Hypertensive urgency Code(s): I16.0 - HYPERTENSIVE URGENCY Status: Acute Comment: BP better today (2) Insomnia Code(s): G47.00 - INSOMNIA, UNSPECIFIED Status: Acute Comment: on PRN melatonin (3) DM2 (diabetes mellitus, type 2) Status: Chronic Comment: continue insulin and diabetic diet (4) ESRD (end stage renal disease) on dialysis Code(s): N18.6 - END STAGE RENAL DISEASE; Z99.2 - DEPENDENCE ON RENAL DIALYSIS Status: Chronic Comment: maintenance dialysis per nephrology (5) GERD (gastroesophageal reflux disease) Code(s): K21.9 - GASTRO-ESOPHAGEAL REFLUX DISEASE WITHOUT ESOPHAGITIS Status: Chronic Qualifiers: Esophagitis presence: esophagitis presence not specified Qualified Code(s) : K21.9 - Gastro-esophageal reflux disease without esophagitis Comment: stable (6) DKA (diabetic ketoacidosis) Code(s): E13.10 - OTH DIABETES MELLITUS WITH KETOACIDOSIS WITHOUT COMA Status : Resolved (7) Nausea & vomiting Code(s): R11.2 - NAUSEA WITH VOMITING, UNSPECIFIED Status: Resolved - Plan * . Improving overall, likely home 24-48 hours Review of Systems - Review of Systems Respiratory: negative: Cough, Shortness of Breath, SOB with Excertion, Pleuritic Pain, Wheezing Cardiovascular: negative: chest pain, palpitations, orthopnea, paroxysmal nocturnal dyspnea, edema, light headedness - Medications/Allergies Allergies/Adverse Reactions: Allergies Allergy/AdvReac Type Severity Reaction Status Date / Time No Known Allergies Allergy Verified 12/05/17 21:40 Medications: Current Medications Calcium Carbonate (Tums) 500 mg PO PRN PRN PRN Reason: Heartburn or Indigestion Carvedilol (Coreg) 6.25 mg PO BID [facility] Last Admin: 05/13/18 09:01 Dose: 6.25 mg Dextrose/Water (Dextrose 50%) 25 gm SLOW IVP PRN PRN PRN Reason: Hypoglycemia Glucagon (Glucagon) 1 mg IM PRN PRN PRN Reason: Hypoglycemia Hydralazine HCl (Apresoline) 100 mg PO BID [facility] Last Admin: 05/13/18 09:00 Dose: Not Given Hydralazine HCl (Apresoline) 10 mg SLOW IVP Q6H PRN PRN Reason: SBP Greater Than 170 Insulin Human Regular 100 (units/ Sodium Chloride) 101 mls @ 0 mls/hr IVPB INF [facility]; Titrate PRN Reason: Protocol Last Admin: 05/10/18 21:56 Dose: 101 mls Ondansetron HCl 4 mg/ Sodium (Chloride) 52 mls @ 200 mls/hr IVPB Q6H PRN PRN Reason: Nausea/Vomiting Insulin Glargine 20 units/ (Miscellaneous Medication) 0.2 mls @ 0 mls/hr SC QAM [facility] Last Admin: 05/13/18 09:00 Dose: 0.2 mls Dextrose/Water (D5w) 1,000 mls @ 0 mls/hr IV .Q0M PRN; As Directed PRN Reason: Hypoglycemia Insulin Human Lispro (Humalog) 5 units SC AC [facility] Last Admin: 05/13/18 17:35 Dose: Not Given Insulin Human Lispro (Humalog) 0 units SC .MILD SLIDING SCALE PRN PRN Reason: Mild Correctional Scale Last Admin: 05/13/18 05:43 Dose: 3 unit Lisinopril (Zestril) 20 mg PO BID [facility] Last Admin: 05/13/18 09:00 Dose: Not Given Melatonin (Melatonin) 3 mg PO HS PRN PRN Reason: Insomnia Last Admin: 05/13/18 00:23 Dose: 3 mg Nifedipine (Procardia Xl) 90 mg PO QAM [facility] Last Admin: 05/13/18 09:00 Dose: Not Given Promethazine HCl (Phenergan) 12.5 mg IM/IV Q6H PRN PRN Reason: Nausea/Vomiting Last Admin: 05/10/18 21:00 Dose: 12.5 mg Sevelamer Carbonate (Renvela) 800 mg PO TID-[facility] Last Admin: 05/13/18 17:36 Dose: 800 mg
--- NOTE | 2018-05-13 21:59 | PRG ---
DATE OF SERVICE: 05/13/2018 NEPHROLOGY PROGRESS NOTE SUBJECTIVE: A 32-year-old female being seen for end-stage renal disease. Patient denies any nausea, vomiting or chest pain. PHYSICAL EXAMINATION: GENERAL: Patient is awake, alert. VITAL SIGNS: Afebrile, pulse 91, breathing 16, blood pressure 131/89. HEAD/NECK: Normocephalic. Atraumatic. EYES: EOMI. No deformity. EARS: Clear. No ulcers. NOSE: Intact. No lesions. MOUTH: Clear. No discharge. THROAT: Clear. No exudate. LUNGS: Clear. No crackles. CARDIAC: S1, S2. No rub. ABDOMEN: Benign. BS+. GENITALIA/RECTUM: Taylor absent. BACK/EXTREMITIES: Edema 0+ Ulcer- NEUROLOGICAL: Alert and motor intact. SKIN: Rash- Bruise- LYMPHATICS: Edema- Ulcer- LABORATORY DATA: Show hemoglobin 9.7. ASSESSMENT AND RECOMMENDATIONS: 1. Stage 6 chronic kidney disease, plan hemodialysis. 2. Hypertension, stable. 3. Anemia, stable. 4. Nausea and vomiting, better. 5. We will plan dialysis today.
[2018-05-14 05:17] LABS: #Lymphocytes 1.1 thou/uL (1.20-3.40); #Monocytes 0.2 thou/uL (0.11-0.59); #Neutrophils 1.9 thou/uL (1.40-6.50); %Basophils 1.4 % (0.0-1.0); %Eosinophils 1.1 % (0.0-10.0); %Lymphocytes 32.7 % (21.0-51.0); %Monocytes 7.2 % (0.0-10.0); %Neutrophils 57.7 % (42.0-75.0); Hemoglobin 10.5 g/dL (12.0-16.0); Mean Corpuscular HGB CONC 32.5 g/dL (32.0-36.0); Mean Corpuscular Hemoglobin 33.1 pg (27.0-31.0); Mean Platelet Volume 7.3 fL (7.4-10.4); Platelet Count 211 thou/uL (130-400); RBC Distribution Width 14.8 % (11.5-14.5); Red Blood Cell (RBC) Count 3.17 mill/uL (4.20-5.40); White Blood Cell (WBC) Count 3.4 thou/uL (4.8-10.8)
[2018-05-14 06:01] LABS: Anion Gap 16 mmol/L (10-20); BUN (Urea Nitrogen) 23 mg/dL (7.0-18.7); Calc. Creatinine Clearance 12 mL/min (70-130); Calcium 8.5 mg/dL (7.8-10.44); Carbon Dioxide 26 mmol/L (22-29); Chloride 99 mmol/L (98-107); Estimated GFR-MDRD 10; Glucose 225 mg/dL (70-105); Potassium 4.4 mmol/L (3.5-5.1); Sodium 137 mmol/L (136-145)
[2018-05-14] MEDS: HumaLOG 300 UNITS/3 ML VIAL SC SCH ×2 (07:46→12:00)
[2018-05-14] MEDS: Sevelamer Carbonate 800 MG TAB PO SCH ×2 (07:46→12:00)
[2018-05-14] MEDS: Carvedilol 6.25 MG TAB PO SCH (07:47)
[2018-05-14] MEDS: hydrALAZINE 25 MG TAB PO SCH (07:47)
[2018-05-14] MEDS: Lisinopril 20 MG TAB PO SCH (07:47)
[2018-05-14 07:55] VITALS: BP 189/107; TEMP 97.9
[2018-05-14] MEDS: NIFEdipine XL 90 MG TAB PO SCH (09:07)
[2018-05-14] MEDS: Insulin Glargine 20 UNITS in Pre-Filled Syringe 1 EACH SC SCH (09:07)
--- NOTE | 2018-05-14 21:53 | DIS ---
DATE OF ADMISSION: 05/10/2018 DATE OF DISCHARGE: 05/14/2018 PRIMARY CARE PROVIDER: Dr. Bran Mcginnis. DISCHARGE DIAGNOSES: 1. Diabetic ketoacidosis. 2. Nausea and vomiting. 3. Hypertensive urgency. CONSULTATIONS DURING THIS HOSPITALIZATION: Pulmonology, Dr. Mariscal and Nephrology, Dr. Puentes. CONDITION OF PATIENT ON THE DAY OF DISCHARGE: Stable. I assessed Ms. Chavis on the day of discharge. She denies any chest pain or shortness of breath. She denies any nausea or vomiting. S1 and S2 ar e heard, regular. Lungs are clear to auscultation bilaterally. Vital signs are stable. DISCHARGE MEDICATIONS: No change was made to her preadmission home medications as dictated by Dr. Sabina gambino in history and physical note dated 05/10/2018. HOSPITAL COURSE: Ms. Chavis is a pleasant 32-year-old lady who was admitted to [facility] on 05/10/2018 for recurrent diabetic ketoacidosis. She was seen by Nephrology Service fo r maintenance dialysis. She was also seen by Pulmonary Critical Care Medicine Service. She improved with intravenous fluids and insulin. She was subsequently changed to subcutaneous insulin. She con tinued to improve and is being discharged home in a stable condition. Many thanks for allowing me to participate in your patient's care. Please feel free to contact me wi th any questions or concerns. LABORATORY DATA: On the day of discharge, she has white count 3,400, hemoglobin 10.5, platelet count 211,000, normal electrolytes, blood urea nitrogen 23 and creatinine 6.08. DISCHARGE DESTINATION: Home. TOTAL AMOUNT OF TIME SPENT COORDINATING THIS DISCHARGE: 32 minutes.
--- NOTE | 2018-05-14 23:04 | PRG ---
DATE OF SERVICE: 05/14/2018 OBJECTIVE: GENERAL: This is a well-built female in no apparent distress. VITAL SIGNS: Temperature 97.9, pulse 97, respiratory rate 18, blood pressure 158/101. LABORATORY DATA: Potassium 4.4, BUN is 23, creatinine is 6.8. ASSESSMENT AND PLAN: 1. End-stage renal disease. Continue on hemodialysis as tolerated. 2. Edema, controlled. Limit fluid intake. 3. Hypertension, stable. Plan is to continue dialysis as tolerated.
== END 2018-05-14 12:39 | disposition home or self-care (01) | DRG 637 ==
LOC: ERS 10:19 → INTOOBSV 13:23 → OBSVTOIN 13:23 → ERHOLD 13:23 → ONC 16:08 → IMCU/EMU 17:02 → ONC 05-13 11:51
PROVIDERS: ADMIT Internal Medicine; ATTEND Internal Medicine
DX: E10.10 Type 1 diabetes mellitus with ketoacidosis without coma (principal); N18.6 End stage renal disease; I12.0 Hypertensive chronic kidney disease with stage 5 chronic kidney disease or end stage renal disease; E87.2 Acidosis; N25.81 Secondary hyperparathyroidism of renal origin; Z79.4 Long term (current) use of insulin; I16.0 Hypertensive urgency; E11.22 Type 2 diabetes mellitus with diabetic chronic kidney disease; I10 Essential (primary) hypertension; Z99.2 Dependence on renal dialysis; K21.9 Gastro-esophageal reflux disease without esophagitis; E86.0 Dehydration; G47.00 Insomnia, unspecified; D63.1 Anemia in chronic kidney disease; E10.43 Type 1 diabetes mellitus with diabetic autonomic (poly)neuropathy; K31.84 Gastroparesis; E78.5 Hyperlipidemia, unspecified; E87.6 Hypokalemia; H40.89 Other specified glaucoma
CPT/HCPCS: 36415; 36416; 80048; 80053; 82010; 82330; 82550; 82553; 82803; 83735; 84100; 84484; 84703; 85025; 87324; 87449; 90935; 93005; 96365; 96375; G0257; J1815; J2405; J2550; J2765; J7050; Q0162

== ENCOUNTER 2018-06-03 08:26 | Inpatient (IN) | payer OTHER ==
--- NOTE | 2018-06-03 10:27 | RAD ---
PORTABLE UPRIGHT FRONTAL CHEST RADIOGRAPH: DATE: 06/03/18. COMPARISON: 04/01/18. HISTORY: Short of breath. FINDINGS: Heart and mediastinal contours demonstrate mild prominence of the cardiac silhouette. There is no pn eumothorax. There is new perihilar and bibasilar interstitial prominence with new bibasilar airspace disease. IMPRESSION: Interstitial and alveolar opacities, new. The findings suggest pulmonary edema. Infectious pneumoni tis is a possibility as well. Recommend followup imaging following treatment to document resolution. POS: [facility]
[2018-06-03 10:32] LABS: #Eosinphils 0.1 thou/uL (0.0-0.7); #Monocytes 0.2 thou/uL (0.11-0.59); #Neutrophils 6.6 thou/uL (1.40-6.50); %Basophils 0.6 % (0.0-1.0); %Eosinophils 1.2 % (0.0-10.0); %Monocytes 2.5 % (0.0-10.0); %Neutrophils 83.6 % (42.0-75.0); Hemoglobin 10.1 g/dL (12.0-16.0); Mean Corpuscular Hemoglobin 34.3 pg (27.0-31.0); Mean Platelet Volume 7.4 fL (7.4-10.4); Platelet Count 196 thou/uL (130-400); RBC Distribution Width 15.6 % (11.5-14.5); Red Blood Cell (RBC) Count 2.95 mill/uL (4.20-5.40); White Blood Cell (WBC) Count 7.9 thou/uL (4.8-10.8)
[2018-06-03 10:54] LABS: ALT (SGPT) 57 U/L (8-55); AST (SGOT) 35 U/L (5-34); Albumin 4.1 g/dL (3.5-5.0); Alkaline Phosphatase 111 U/L (40-150); Anion Gap 25 mmol/L (10-20); BUN (Urea Nitrogen) 81 mg/dL (7.0-18.7); Bilirubin, Total 0.4 mg/dL (0.2-1.2); Calc. Creatinine Clearance 0 mL/min (70-130); Calcium 8.5 mg/dL (7.8-10.44); Carbon Dioxide 17 mmol/L (22-29); Chloride 96 mmol/L (98-107); Estimated GFR-MDRD 5; Globulin 3.5 g/dL (2.4-3.5); Glucose 334 mg/dL (70-105); Potassium 5.7 mmol/L (3.5-5.1); Protein, Total 7.6 g/dL (6.0-8.3); Sodium 132 mmol/L (136-145)
--- NOTE | 2018-06-03 10:54 | RAD ---
RADIOGRAPH RIGHT HAND 3 VIEWS: DATE: 06/03/18. HISTORY: This is a 32-year-old female with right hand laceration after a fall. FINDINGS: There is no dislocation and no evidence of fracture. Soft tissue detail is partially obscured by ban dages overlying the 4th and 5th digits. IMPRESSION: No fracture. POS: [facility]
[2018-06-03 12:28] LABS: Lactic Acid 2.4 mmol/L (0.5-2.2)
[2018-06-03] MEDS ORDERED: cefTRIAXone\\ROCEPHIN 1 GM VIAL ONE (12:54)
[2018-06-03] MEDS ORDERED: Azithromycin 500 MG VIAL ONE (12:54)
--- NOTE | 2018-06-03 12:54 | CON ---
DATE OF CONSULTATION: 06/03/2018 NEPHROLOGY CONSULTATION REASON FOR CONSULTATION: Hyperkalemia and end-stage renal disease. HISTORY OF PRESENT ILLNESS: This is a very pleasant 32-year-old female with a history of recurrent a dmissions, presented to the hospital with nausea, vomiting, and dyspnea. The patient's potassium was more than 5.6. The patient did have headache, numbness, tingling, weakness, nausea, vomiting or shaylee st pain. PAST MEDICAL HISTORY: Significant for end-stage renal disease, hypertension, anemia, history of diab etes mellitus with diabetic retinopathy, history of diabetic gastroparesis, type 1 diabetes mellitus, history of tunneled dialysis catheter, history of AV fistula. SOCIOECONOMIC HISTORY: No alcohol or drug use. FAMILY HISTORY: Negative for ESRD. ALLERGIES: Reviewed. HOME MEDICATIONS: Reviewed. REVIEW OF SYSTEMS: A 15-point review of systems was performed and was negative except for positives noted above. GENERAL: Weakness- HEAD: Headache- NECK: No swelling or lumps. NOSE: No epistaxis or discharge. EYES: No diplopia or pain. RESPIRATORY: Dyspnea- CARDIOVASCULAR: Chest pain- GASTROINTESTINAL: Nausea- /[employer] MANAGER: Hematuria- MUSCULOSKELETAL: No joint pain. NEUROPSYCHIATIC SYSTEMS: No suicidal ideation. No ideation. SKIN: Denies any rash or ulcer. CONSTITUTIONAL: No fever or chills. PHYSICAL EXAMINATION: GENERAL: Patient was awake, alert. VITAL SIGNS: Afebrile, pulse 75, breathing 16, blood pressure 130/75. HEAD/NECK: Normocephalic. Atraumatic. EYES: EOMI. No deformity. EARS: Clear. No ulcers. NOSE: Intact. No lesions. MOUTH: Clear. No discharge. THROAT: Clear. No exudate. LUNGS: Clear. No crackles. CARDIAC: S1, S2. No rub. ABDOMEN: Benign. BS+. GENITALIA/RECTUM: Taylor absent. BACK/EXTREMITIES: Edema 0+ Ulcer- NEUROLOGICAL: Alert and motor intact. SKIN: Rash- Bruise- LYMPHATICS: Edema- Ulcer- LABORATORY DATA: Show hemoglobin 10.1, potassium 5.7. ASSESSMENT AND PLAN: 1. Stage 6 chronic kidney disease. We will plan dialysis. 2. Hypertension, plan ultrafiltration. 3. Anemia, stable. 4. Metabolic acidosis. Plan dialysis. 5. Anemia, stable.
[2018-06-03] MEDS ORDERED: HYDROcodone/Acetaminophen 5/325 mg Tablet ONE (13:19)
[2018-06-03] MEDS ORDERED: hydrALAZINE 20 MG/ML VIAL SLOW IVP PRN (14:06)
[2018-06-03] MEDS ORDERED: Dextrose 5% in Water 1,000 ML IV PRN (14:07)
[2018-06-03] MEDS ORDERED: Bisacodyl 5 MG TAB PO PRN (14:07)
[2018-06-03] MEDS ORDERED: Dextrose 50% Abboject 50 ML SYRINGE SLOW IVP PRN (14:07)
[2018-06-03] MEDS ORDERED: Acetaminophen 325 MG TAB PO PRN (14:07)
[2018-06-03] MEDS ORDERED: Acetaminophen 650 MG Suppository PR PRN (14:07)
[2018-06-03] MEDS ORDERED: Labetalol HCl 100 MG/20 ML VIAL SLOW IVP PRN (14:13)
[2018-06-03] MEDS ORDERED: cefTRIAXone\\ROCEPHIN 1 GM in Sodium Chloride 0.9% 100 ML IVPB SCH (14:15)
[2018-06-03] MEDS ORDERED: Azithromycin 500 MG in Sodium Chloride 0.9% 250 ML 250 ML IVPB SCH (14:15)
[2018-06-03 14:42] LABS: BHCG - Serum Negative (NEGATIVE); Pregs Control Background? CLEAR/WHITE (CLR/WHITE); Pregs Control Bar Appear? YES (CONTROL BAR)
[2018-06-03] MEDS ORDERED: Vancomycin HCl 1 GM in Premix Bag 1 BAG IVPB SCH ×2 (14:45→23:00)
--- NOTE | 2018-06-03 15:06 | HP ---
PRIMARY CARE PROVIDER: Dr. Bran Cabrera. CHIEF COMPLAINT: Syncope. HISTORY OF PRESENT ILLNESS: Ms. Chavis is a pleasant 32-year-old lady who was seen at [facility] on 06/03/2018. She has been hospitalized here in the past for diabetic ketoacidosis. She was last discharged from [facility] approximately 3 weeks ago. She reports that she was doing well until a few days ago. Over the last few days, she has noticed th at her blood sugars at home were trending down. This morning she woke up feeling weak and lightheade d. She checked her blood sugar and it was reading in the 30s. She went to the kitchen. She reporte dly took a glass plate. The next thing she knew, she was on the floor with injuries to her right boudreaux d. She does not recall how long she lost consciousness. EMS was called. She received glucose is with i mprovement of her blood sugar. She was then brought to the emergency room. She also reports cough over the last few days. The cough is productive of a whitish to yellow sputum . She denies any fevers or chills. She denies any nausea or vomiting. She denies any abdominal mal n. REVIEW OF SYSTEMS: All other systems reviewed and found to be negative. PAST MEDICAL HISTORY: Significant for diabetes mellitus type 1, diabetic ketoacidosis, end-stage davin al disease on hemodialysis Sunday, Sunday, and Sunday, hypertension, anemia of chronic kidney dise ase, gastroesophageal reflux disease, diabetic gastroparesis, right eye glaucoma, with right eye blin dness, secondary hyperparathyroidism of renal origin. PAST SURGICAL HISTORY: AV fistula placement in the left upper extremity and right eye surgery. SOCIAL HISTORY: The patient denies tobacco use, alcohol use or recreational drug use. FAMILY HISTORY: Diabetes and hypertension in several family members. ALLERGIES: No known drug allergies. CURRENT MEDICATIONS: Lisinopril 20 mg 2 times a day, Renvela 800 mg tablets, 2 tablets three times a day, hydralazine 100 mg 2 times a day, Nifedical XL 60 mg daily, carvedilol 12.5 mg daily, Coreg, Re glan 10 mg every 6 hours as needed, Lantus 12 units subcutaneously 2 times a day. PHYSICAL EXAMINATION: GENERAL: On examination, Ms. Chavis is awake and alert, not in acute distress. VITAL SIGNS: Blood pressure is 217/175, pulse 104, respiratory rate 20, and oxygen saturation 98% on room air. She was hypothermic in the emergency room, with rectal temperature of 91.8 degrees Fahren heit. EYES: Right-sided blindness. No conjunctival pallor or scleral icterus. ENT: Moist mucosal membranes, no oropharyngeal erythema or exudates. NECK: Supple, nontender, trachea is midline. RESPIRATORY: Accessory muscles of breathing are not active. Chest wall movements are symmetric bila terally. She has bibasilar crackles. CARDIOVASCULAR: S1 and S2 are heard, tachycardic and regular. Peripheral pulses palpable. No carot id bruit, no pericardial rub. ABDOMEN: Soft, nontender, bowel sounds are heard, no hepatomegaly, no splenomegaly. NEUROLOGIC: Cranial nerves II-XII intact, with a limitation of right-sided blindness. Deep tendon r eflexes are 2+. MUSCULOSKELETAL: Power is 5/5 in all 4 extremities. SKIN: She has lacerations in the right hand, being sutured by the emergency room physician. LYMPHATIC: No cervical lymphadenopathy. PSYCHIATRIC: Normal mood, normal affect, patient is oriented to person, place, and time. LABORATORY DATA AND IMAGING DATA: Ms. Chavis's labs and investigations were reviewed. She had a ches t x-ray, which is showing interstitial and alveolar opacities, suggestive of pulmonary edema or infec tious pneumonitis. She has normal white count, macrocytic anemia with hemoglobin 10.1, normal platel et count, decreased sodium of 132, elevated potassium of 5.7, elevated anion gap of 25, elevated bloo d urea nitrogen of 81, elevated creatinine of 10.26, elevated lactic acid level of 2.4, elevated AST of 35, elevated ALT of 57, normal total bilirubin, normal alkaline phosphatase and normal beta hydrox ybutyrate level. ASSESSMENT AND PLAN: Ms. Chavis is a pleasant 32-year-old lady who was seen at [facility] on 06/03/2018. Her problem list includes: 1. Sepsis. She is presenting with sepsis, with tachypnea, tachycardia, and hypothermia as well as s uspected source of infection in the lung. 2. Pneumonia: She will be treated for healthcare associated pneumonia, since she was recently hospi talized. We will start her on cefepime, levofloxacin, and vancomycin. I will await blood cultures. 3. Hypertensive urgency: She has not taken her antihypertensives today because she was supposed to go to dialysis and usually becomes hypotensive during dialysis. We will monitor vital signs and titr ate antihypertensives as needed. 4. End-stage renal disease on dialysis. Nephrology Service has been consulted for maintenance dialy sis. 5. Anion gap metabolic acidosis: She is not in DKA, as evidenced by normal beta hydroxybutyrate. E levated anion gap is most likely secondary to lactic acidosis and uremia. She will receive treatment for positive etiology for both with antibiotic therapy as well as hemodialysis. 6. Diabetes mellitus type 1: Start Accu-Cheks, insulin sliding scale. Monitor for hypoglycemia. 7. Gastroparesis: Continue Reglan p.r.n. 8. Wounds: The patient had a fall with lacerations to the right upper extremity. This has been sut ured by the emergency room physician. Many thanks for allowing me to participate in your patient's care. Please feel free to contact me wi th any questions or concerns. Given her history of syncope, we will order CT scan of the head after obtaining a serum john t. She also has abnormal liver function tests, likely secondary to volume overload or rhabdomyolysis . We will check CK. LEVEL OF RISK: Moderate. LEVEL OF COMPLEXITY: Moderate.
[2018-06-03 16:19] LABS: Troponin I 0.036 ng/mL (< 0.028)
[2018-06-03] MEDS: HYDROcodone/Acetaminophen 5/325 mg Tablet PO PRN (16:25)
[2018-06-03] MEDS ORDERED: Cefepime 1 GM in Sodium Chloride 0.9% 100 ML IVPB SCH ×2 (17:00→20:00)
[2018-06-03] MEDS ORDERED: Metoclopramide HCl 10 MG TAB PO PRN (19:59)
--- NOTE | 2018-06-03 20:16 | CT ---
CT HEAD NONCONTRAST: 06/03/18 INDICATION: Syncope. FINDINGS: There is no evidence of ventriculomegaly, mass effect, midline shift, or acute intracranial hemorrhag e. Imaged paranasal sinuses are clear. IMPRESSION: No acute intracranial abnormalities. If there are persistent neurologic deficits, recommend followup with brain MRI for further evaluation . POS: [facility]
[2018-06-03] MEDS: HumaLOG 300 UNITS/3 ML VIAL SC PRN (20:40)
[2018-06-03] MEDS ORDERED: Insulin Glargine 8 UNITS in Pre-Filled Syringe 1 EACH SC SCH (21:00)
[2018-06-03 21:16] LABS: Troponin I 0.023 ng/mL (< 0.028)
[2018-06-03] MEDS: hydrALAZINE 25 MG TAB PO SCH (21:36)
[2018-06-03] MEDS: Insulin Glargine 10 UNITS in Pre-Filled Syringe 1 EACH SC SCH (21:38)
[2018-06-03] MEDS: Atropine Sulfate 1% Ophth Soln 5 ml Bottle R EYE SCH (21:40)
[2018-06-03] MEDS: Brimonidine Tartrate 0.2% Ophth Soln 5 ml Bottle R EYE SCH (21:41)
[2018-06-03] MEDS: Dorzolamide HCl 2% Ophth Soln 10 ml Bottle R EYE SCH (21:41)
[2018-06-03] MEDS: Timolol 0.5% Ophth Soln 5 ml Bottle R EYE SCH (21:41)
[2018-06-03] MEDS ORDERED: Vancomycin HCl 750 MG in Sodium Chloride 0.9% 250 ML 250 ML IVPB PRN (22:54)
[2018-06-03] MEDS ORDERED: Vancomycin HCl 1 GM in Premix Bag 1 BAG IVPB PRN (22:54)
[2018-06-03] MEDS ORDERED: Vancomycin HCl 500 MG in Sodium Chloride 0.9% 100 ML IVPB PRN (22:55)
[2018-06-03] MEDS ORDERED: Vancomycin HCl 250 MG in Sodium Chloride 0.9% 100 ML IVPB PRN (22:56)
[2018-06-03] MEDS ORDERED: HOLD VANCOMYCIN FOR LEVEL >20 FS PRN (22:56)
[2018-06-03] MEDS ORDERED: Vancomycin Sliding Scale 1 EACH FS SCH (23:00)
[2018-06-04] MEDS: HYDROcodone/Acetaminophen 5/325 mg Tablet PO PRN ×3 (03:23→21:42)
[2018-06-04 06:07] LABS: Anion Gap 25 mmol/L (10-20); BUN (Urea Nitrogen) 38 mg/dL (7.0-18.7); Calc. Creatinine Clearance 14 mL/min (70-130); Calcium 8.4 mg/dL (7.8-10.44); Carbon Dioxide 21 mmol/L (22-29); Chloride 96 mmol/L (98-107); Estimated GFR-MDRD 10; Glucose 297 mg/dL (70-105); Sodium 137 mmol/L (136-145)
[2018-06-04 06:37] LABS: Band 1 % (5-11); Hemoglobin 8.2 g/dL (12.0-16.0); Hypochromia SLIGHT = 6-15 cells (100X) (0-5/hpf); Lymphocytes 12 % (21-51); MDiff Complete? YES; Mean Corpuscular HGB CONC 32.5 g/dL (32.0-36.0); Mean Corpuscular Hemoglobin 33.1 pg (27.0-31.0); Mean Platelet Volume 8.1 fL (7.4-10.4); Monocytes 6 % (0-10); Neutrophil 81 % (42-75); PLT Morphology Comment Appears Adequate; Platelet Count 198 thou/uL (130-400); Red Blood Cell (RBC) Count 2.48 mill/uL (4.20-5.40); White Blood Cell (WBC) Count 7.6 thou/uL (4.8-10.8)
[2018-06-04] MEDS: NIFEdipine XL 60 MG TAB PO SCH (08:26)
[2018-06-04] MEDS: hydrALAZINE 25 MG TAB PO SCH ×2 (08:26→21:36)
[2018-06-04] MEDS: Lisinopril 20 MG TAB PO SCH (08:27)
[2018-06-04] MEDS: Carvedilol 6.25 MG TAB PO SCH (08:27)
[2018-06-04] MEDS: Dorzolamide HCl 2% Ophth Soln 10 ml Bottle R EYE SCH ×2 (08:28→21:27)
[2018-06-04] MEDS: Sevelamer Carbonate 800 MG TAB PO SCH ×4 (08:28→21:25)
[2018-06-04] MEDS: Atropine Sulfate 1% Ophth Soln 5 ml Bottle R EYE SCH ×2 (08:28→21:26)
[2018-06-04] MEDS: Timolol 0.5% Ophth Soln 5 ml Bottle R EYE SCH (08:28)
[2018-06-04] MEDS: Brimonidine Tartrate 0.2% Ophth Soln 5 ml Bottle R EYE SCH ×2 (08:28→21:27)
[2018-06-04 08:33] LABS: Vancomycin, Random 26.5 ug/mL (See Comment)
--- NOTE | 2018-06-04 08:54 | PRG ---
DATE OF SERVICE: 06/04/2018 SUBJECTIVE: This 32-year-old female being seen for end-stage renal disease. The patient denies any nausea, vomiting or chest pain. PHYSICAL EXAMINATION: GENERAL: Patient is awake, alert. VITAL SIGNS: Afebrile, pulse 70, breathing at 16, blood pressure was 197/100. OBJECTIVE: See above. Awake, alert, in no acute distress. GENERAL APPEARANCE AND MENTAL STATUS: Fair. HEAD/NECK: Normocephalic. Atraumatic. EYES: EOMI. No deformity. EARS: Clear. No ulcers. NOSE: Intact. No lesions. MOUTH: Clear. No discharge. THROAT: Clear. No exudate. LUNGS: Clear. No crackles. CARDIAC: S1, S2. No rub. ABDOMEN: Benign. BS+. GENITALIA/RECTUM: Taylor absent. BACK/EXTREMITIES: Edema 0+ Ulcer- NEUROLOGICAL: Alert and motor intact. SKIN: Rash- Bruise- LYMPHATICS: Edema- Ulcer- ASSESSMENT AND RECOMMENDATIONS: 1. End-stage chronic kidney disease. We will plan dialysis per schedule. 2. Hypertension, stable. 3. Hyperkalemia, improved. 4. Hypertension. Would restart home medication and titrate blood pressure medicines as needed.
[2018-06-04] MEDS ORDERED: Ondansetron HCl/PF 4 MG/2 ML Vial SLOW IVP PRN (11:05)
[2018-06-04] MEDS: Insulin Glargine 10 UNITS in Pre-Filled Syringe 1 EACH SC SCH ×2 (11:08→21:24)
--- NOTE | 2018-06-04 11:41 | PDOC.PN ---
- Subjective Encounter Start Date: 06/04/18 Encounter Start Time: 07:20 Pt seen for followup re: sepsis. Feels slightly better. Has epistaxis. No fevers or chills. - Objective MAR Reviewed: Yes Vital Signs & Weight: Vital Signs (12 hours) Temp Pulse Resp BP BP BP Pulse Ox 06/04/18 08:28 107 H 205/103 H 06/04/18 08:27 205/103 H 06/04/18 08:26 107 H 205/103 H 06/04/18 08:20 98.2 F 107 H 16 205/103 H 06/04/18 03:27 107 H 197/101 H 06/04/18 03:13 98.7 F 104 H 16 186/98 H 96 06/04/18 00:49 96 06/03/18 23:45 99 F 103 H 16 132/76 93 L Weight Weight 142 lb I&O: 06/03/18 06/04/18 06/05/18 06:59 06:59 06:59 Intake Total 700 240 Output Total 0 Balance 700 240 Result Diagrams: 06/04/18 05:28 06/04/18 05:28 Additional Labs: Accuchecks 06/04/18 06/03/18 06/03/18 05:44 23:48 20:34 POC Glucose 278 H 221 H 484 H 06/03/18 15:57 POC Glucose 311 H EKG Reviewed by me: Yes (Tele: NSR) Phys Exam - Physical Examination Constitutional: NAD HEENT: moist MMs, sclera anicteric, oral pharynx no lesions, 2+ tonsils R corneal opacity Neck: no nodes, no JVD, supple, full ROM Respiratory: no wheezing, no rhonchi Bibasal crackles Cardiovascular: RRR, no rub S1, s2 Neurological: moves all 4 limbs Psychiatric: normal affect, A&O x 3 Deviation from normal: dressings over RUE wounds Dx/Plan (1) Sepsis Code(s): A41.9 - SEPSIS, UNSPECIFIED ORGANISM Status: Acute Comment: Improving (2) Pneumonia Code(s): J18.9 - PNEUMONIA, UNSPECIFIED ORGANISM Status: Acute Comment: continue IV antibiotics as below, follow blood cultures (3) Epistaxis Code(s): R04.0 - EPISTAXIS Status: Acute Comment: add humidifier to oxygen circuit (4) Syncope Code(s): R55 - SYNCOPE AND COLLAPSE Status: Acute Comment: due to hypoglycemia, no recurrence (5) Hypertensive urgency Code(s): I16.0 - HYPERTENSIVE URGENCY Status: Acute Comment: BP better today (6) DM2 (diabetes mellitus, type 2) Status: Chronic Comment: on accuchecks, insulin sliding scale, diabetic diet (7) ESRD (end stage renal disease) on dialysis Code(s): N18.6 - END STAGE RENAL DISEASE; Z99.2 - DEPENDENCE ON RENAL DIALYSIS Status: Chronic Comment: maintenance dialysis per nephrology (8) GERD (gastroesophageal reflux disease) Code(s): K21.9 - GASTRO-ESOPHAGEAL REFLUX DISEASE WITHOUT ESOPHAGITIS Status: Chronic Qualifiers: Esophagitis presence: esophagitis presence not specified Qualified Code(s) : K21.9 - Gastro-esophageal reflux disease without esophagitis Comment: stable (9) Labile hypertension Code(s): I10 - ESSENTIAL (PRIMARY) HYPERTENSION Status: Chronic Comment: monitor vital signs, titrate antihypertensives as needed - Plan * . Review of Systems - Review of Systems Constitutional: negative: fever, chills, sweats, weakness, malaise ENT: Other (epistaxis) Respiratory: Cough, Sputum. negative: Dry, Shortness of Breath, Hemoptysis, SOB with Excertion, Pleuritic Pain, Wheezing Cardiovascular: negative: chest pain, palpitations, orthopnea, paroxysmal nocturnal dyspnea, edema, light headedness Gastrointestinal: negative: Nausea, Vomiting, Abdominal Pain, Diarrhea, Constipation, Melena, Hematochezia Genitourinary: negative: Dysuria, Frequency, Incontinence, Hematuria, Retention Musculoskeletal: negative: Neck Pain, Shoulder Pain, Arm Pain, Back Pain, Hand Pain, Leg Pain, Foot Pain - Medications/Allergies Allergies/Adverse Reactions: Allergies Allergy/AdvReac Type Severity Reaction Status Date / Time No Known Allergies Allergy Verified 12/05/17 21:40 Medications: Current Medications Acetaminophen (Tylenol) 650 mg PO Q4H PRN PRN Reason: Headache/Fever or Pain Acetaminophen (Tylenol) 650 mg [place] Q4H PRN PRN Reason: Headache/Fever or Pain Hydrocodone Bitart/Acetaminophen ([place] 5/325) 1 tab PO Q6H PRN PRN Reason: Moderate Pain (4-6) Last Admin: 06/04/18 03:23 Dose: 1 tab Atropine Sulfate (Atropine 1% Ophth Soln) 1 drop R EYE BID [facility] Last Admin: 06/04/18 08:28 Dose: Not Given Bisacodyl (Dulcolax) 10 mg PO DAILYPRN PRN PRN Reason: Constipation Brimonidine Tartrate (Alphagan 0.2% Ophth Soln) 1 drop R EYE BID [facility] Last Admin: 06/04/18 08:28 Dose: Not Given Carvedilol (Coreg) 12.5 mg PO DAILY [facility] Last Admin: 06/04/18 08:27 Dose: 12.5 mg Dextrose/Water (Dextrose 50%) 25 gm SLOW IVP PRN PRN PRN Reason: Hypoglycemia Dorzolamide HCl (Trusopt 2% Ophth Soln) 1 drop R EYE BID [facility] Last Admin: 06/04/18 08:28 Dose: Not Given Glucagon (Glucagon) 1 mg IM PRN PRN PRN Reason: Hypoglycemia Hydralazine HCl (Apresoline) 10 mg SLOW IVP Q6H PRN PRN Reason: SBP Greater Than 170 Last Admin: 06/04/18 03:27 Dose: 10 mg Hydralazine HCl (Apresoline) 100 mg PO BID [facility] Last Admin: 06/04/18 08:26 Dose: 100 mg Dextrose/Water (D5w) 1,000 mls @ 0 mls/hr IV .Q0M PRN PRN Reason: Hypoglycemia Levofloxacin 500 mg/ Device 100 mls @ 100 mls/hr IVPB Q2DAYS@2100 [facility] Cefepime HCl 0.5 gm/ Sodium (Chloride) 50 mls @ 100 mls/hr IVPB 2000 [facility] Insulin Glargine 10 units/ (Miscellaneous Medication) 0.1 mls @ 0 mls/hr SC BID [facility] Last Admin: 06/04/18 11:08 Dose: 0.1 mls Vancomycin HCl 1 gm/ Device 200 mls @ 200 mls/hr IVPB WILLCALL PRN PRN Reason: IF VANC LEVEL <= 5; Vancomycin HCl 750 mg/ Sodium (Chloride) 250 mls @ 250 mls/hr IVPB WILLCALL PRN PRN Reason: IF VANC LEVEL > 5 AND <= 10 Vancomycin HCl 500 mg/ Sodium (Chloride) 100 mls @ 100 mls/hr IVPB WILLCALL PRN PRN Reason: IF VANC LEVEL > 5 AND <= 10 Vancomycin HCl 250 mg/ Sodium (Chloride) 100 mls @ 100 mls/hr IVPB WILLCALL PRN PRN Reason: IF VANC LEVEL >15 AND <=20 Insulin Human Lispro (Humalog) 0 units SC .MILD SLIDING SCALE PRN PRN Reason: Mild Correctional Scale Last Admin: 06/03/18 20:40 Dose: 6 unit Labetalol HCl (Normodyne) 10 mg SLOW IVP Q4H PRN PRN Reason: SBP Greater Than 180 Lisinopril (Zestril) 20 mg PO DAILY [facility] Last Admin: 06/04/18 08:27 Dose: 20 mg Metoclopramide HCl (Reglan) 10 mg PO Q6H PRN PRN Reason: Nausea Last Admin: 06/04/18 08:27 Dose: 10 mg Miscellaneous Medication (Pharmacy To Dose) 0 each IVPB PRN PRN PRN Reason: VANC Pharmacy to Dose Miscellaneous Medication (Vancomycin Sliding Scale) 1 each FS ASDIR [facility] Morphine Sulfate (Morphine) 2 mg SLOW IVP Q6H PRN PRN Reason: Severe Pain (7-10) Last Admin: 06/04/18 06:09 Dose: 2 mg Nifedipine (Procardia Xl) [facility] Last Admin: 06/04/18 08:26 Dose: 60 mg Hold Vancomycin For (Level >20) 0 each FS .AT DIALYSIS PRN PRN Reason: HOLD VANCOMYCIN IF LEVEL >20 Ondansetron HCl (Zofran) 4 mg SLOW IVP Q6H PRN PRN Reason: Nausea/Vomiting Last Admin: 06/04/18 11:08 Dose: 4 mg Sevelamer Carbonate (Renvela) 800 mg PO TID-[facility] Last Admin: 06/04/18 11:08 Dose: 800 mg Timolol Maleate (Timoptic 0.5% [facility]) 1 drop R EYE BID [facility] Last Admin: 06/04/18 08:28 Dose: Not Given
[2018-06-04] MEDS: HumaLOG 300 UNITS/3 ML VIAL SC PRN (16:53)
[2018-06-04] MEDS: Promethazine HCl 25 MG/ML VIAL IM/IV PRN ×2 (17:45→17:47)
[2018-06-04] MEDS ORDERED: Benzonatate 100 MG CAP PO SCH ×2 (18:15→21:00)
[2018-06-04] MEDS ORDERED: Cefepime 0.5 GM in Sodium Chloride 0.9% 100 ML IVPB SCH (20:00)
[2018-06-05] MEDS: Timolol 0.5% Ophth Soln 5 ml Bottle R EYE SCH ×3 (02:48→20:49)
[2018-06-05 05:07] LABS: Hemoglobin 8.6 g/dL (12.0-16.0); Mean Corpuscular HGB CONC 30.3 g/dL (32.0-36.0); Mean Corpuscular Hemoglobin 31.3 pg (27.0-31.0); Mean Platelet Volume 8.8 fL (7.4-10.4); Platelet Count 201 thou/uL (130-400); RBC Distribution Width 16.2 % (11.5-14.5); Red Blood Cell (RBC) Count 2.74 mill/uL (4.20-5.40); White Blood Cell (WBC) Count 6.7 thou/uL (4.8-10.8)
[2018-06-05 05:08] LABS: Band 1 % (5-11); Eosinophils 3 % (0-10); Lymphocytes 25 % (21-51); MDiff Complete? YES; Monocytes 4 % (0-10); Neutrophil 67 % (42-75); PLT Morphology Comment Appears Adequate
[2018-06-05 05:09] LABS: Anion Gap 22 mmol/L (10-20); BUN (Urea Nitrogen) 47 mg/dL (7.0-18.7); Calc. Creatinine Clearance 11 mL/min (70-130); Calcium 8.8 mg/dL (7.8-10.44); Carbon Dioxide 23 mmol/L (22-29); Chloride 101 mmol/L (98-107); Estimated GFR-MDRD 7; Glucose 62 mg/dL (70-105); Potassium 5.1 mmol/L (3.5-5.1); Sodium 141 mmol/L (136-145)
[2018-06-05] MEDS: HYDROcodone/Acetaminophen 5/325 mg Tablet PO PRN ×2 (07:29→20:44)
--- NOTE | 2018-06-05 10:38 | PRG ---
DATE OF SERVICE: 06/05/2018. SUBJECTIVE: This is a 32-year-old female being seen for end-stage renal disease. Patient denies any nausea, vomiting or chest pain. PHYSICAL EXAMINATION: GENERAL: Patient is awake, alert. VITAL SIGNS: Afebrile, pulse 99, breathing 16, blood pressure 124/70. OBJECTIVE: See above. Awake, alert, in no acute distress. GENERAL APPEARANCE AND MENTAL STATUS: Fair. HEAD/NECK: Normocephalic. Atraumatic. EYES: EOMI. No deformity. EARS: Clear. No ulcers. NOSE: Intact. No lesions. MOUTH: Clear. No discharge. THROAT: Clear. No exudate. LUNGS: Clear. No crackles. CARDIAC: S1, S2. No rub. ABDOMEN: Benign. BS+. GENITALIA/RECTUM: Taylor absent. BACK/EXTREMITIES: Edema 0+ Ulcer- NEUROLOGICAL: Alert and motor intact. SKIN: Rash- Bruise- LYMPHATICS: Edema- Ulcer- LABORATORY DATA: Hemoglobin 8.6. ASSESSMENT AND RECOMMENDATIONS: 1. Stage 6 chronic kidney disease. Continue hemodialysis. 2. Hypertension, stable. 3. Hyperkalemia, stable. 4. Anemia, stable. 5. Medication based on glomerular filtration rate are appropriate.
--- NOTE | 2018-06-05 11:46 | EKG ---
Test Reason : Blood Pressure : / mmHG Vent. Rate : 101 BPM Atrial Rate : 101 BPM P-R Int : 154 ms QRS Dur : 080 ms QT Int : 390 ms P-R-T Axes : 047 011 050 degrees QTc Int : 505 ms Sinus tachycardia Biatrial enlargement (Possibly) Abnormal ECG When compared with ECG of 10-MAY-2018 10:26, No significant change was found Confirmed by OXANA MOREL ([id number]) on 06/05/2018 11:45:33 AM Referred By: ERIK Confirmed By:OXANA MOREL
[2018-06-05] MEDS: hydrALAZINE 25 MG TAB PO SCH ×2 (12:12→20:42)
[2018-06-05] MEDS: Benzonatate 100 MG CAP PO SCH ×3 (12:12→20:41)
[2018-06-05] MEDS: Dorzolamide HCl 2% Ophth Soln 10 ml Bottle R EYE SCH ×2 (12:12→20:41)
[2018-06-05] MEDS: Brimonidine Tartrate 0.2% Ophth Soln 5 ml Bottle R EYE SCH ×2 (12:12→20:41)
[2018-06-05] MEDS: Atropine Sulfate 1% Ophth Soln 5 ml Bottle R EYE SCH ×2 (12:12→20:41)
[2018-06-05] MEDS: Insulin Glargine 10 UNITS in Pre-Filled Syringe 1 EACH SC SCH ×2 (12:13→20:42)
[2018-06-05] MEDS: Lisinopril 20 MG TAB PO SCH (12:34)
[2018-06-05] MEDS: Sevelamer Carbonate 800 MG TAB PO SCH ×2 (12:34→16:38)
[2018-06-05] MEDS: NIFEdipine XL 60 MG TAB PO SCH (12:35)
[2018-06-05] MEDS: Carvedilol 6.25 MG TAB PO SCH (12:35)
[2018-06-05 13:02] LABS: Vancomycin, Random 11.5 ug/mL (See Comment)
[2018-06-05] MEDS ORDERED: Cefdinir 300 MG CAP PO SCH (13:15)
--- NOTE | 2018-06-05 15:56 | PDOC.PN ---
- Subjective Encounter Start Date: 06/05/18 Encounter Start Time: 07:20 Pt seen for followup re: pneumonia. feels much better. No epistaxis. No fevers or chills. - Objective MAR Reviewed: Yes Vital Signs & Weight: Vital Signs (12 hours) Temp Pulse Resp BP BP Pulse Ox 06/05/18 12:35 96 125/76 06/05/18 12:34 125/76 06/05/18 12:14 98.1 F 96 16 125/76 99 06/05/18 12:13 101 H 06/05/18 12:12 101 H 06/05/18 07:26 99.0 F 101 H 16 123/71 94 L 06/05/18 04:00 99.2 F 99 19 124/78 94 L Weight Admit Weight 142 lb 3.2 oz Weight 152 lb 11.2 oz I&O: 06/04/18 06/05/18 06/06/18 06:59 06:59 06:59 Intake Total 700 660 Output Total 0 0 Balance 700 660 Result Diagrams: 06/06/18 03:55 06/06/18 10:15 Additional Labs: Accuchecks 06/05/18 06/05/18 06/05/18 10:46 10:37 05:27 POC Glucose 223 H 231 H 84 06/04/18 06/04/18 21:13 16:44 POC Glucose 132 H 312 H EKG Reviewed by me: Yes (Tele: NSR) Phys Exam - Physical Examination Constitutional: NAD HEENT: moist MMs R corneal opacity Neck: supple Respiratory: clear to auscultation bilateral Cardiovascular: RRR Gastrointestinal: soft Neurological: moves all 4 limbs Psychiatric: normal affect Dx/Plan (1) Pneumonia Code(s): J18.9 - PNEUMONIA, UNSPECIFIED ORGANISM Status: Acute Comment: discontinue IV antibiotics, start cefdinir (2) DM2 (diabetes mellitus, type 2) Status: Chronic Qualifiers: Chronic kidney disease stage: on chronic dialysis Comment: sugars better, continue accuchecks, insulin sliding scale, diabetic diet (3) ESRD (end stage renal disease) on dialysis Code(s): N18.6 - END STAGE RENAL DISEASE; Z99.2 - DEPENDENCE ON RENAL DIALYSIS Status: Chronic Comment: maintenance dialysis per nephrology (4) GERD (gastroesophageal reflux disease) Code(s): K21.9 - GASTRO-ESOPHAGEAL REFLUX DISEASE WITHOUT ESOPHAGITIS Status: Chronic Qualifiers: Esophagitis presence: esophagitis presence not specified Qualified Code(s) : K21.9 - Gastro-esophageal reflux disease without esophagitis Comment: stable (5) Labile hypertension Code(s): I10 - ESSENTIAL (PRIMARY) HYPERTENSION Status: Chronic Comment: controlled (6) Sepsis Code(s): A41.9 - SEPSIS, UNSPECIFIED ORGANISM Status: Resolved (7) Epistaxis Code(s): R04.0 - EPISTAXIS Status: Resolved (8) Hypertensive urgency Code(s): I16.0 - HYPERTENSIVE URGENCY Status: Resolved (9) Syncope Code(s): R55 - SYNCOPE AND COLLAPSE Status: Resolved - Plan * . Review of Systems - Review of Systems Respiratory: negative: Cough, Shortness of Breath, Hemoptysis, Pleuritic Pain, Wheezing Cardiovascular: negative: chest pain, palpitations, orthopnea, paroxysmal nocturnal dyspnea, edema, light headedness - Medications/Allergies Allergies/Adverse Reactions: Allergies Allergy/AdvReac Type Severity Reaction Status Date / Time No Known Allergies Allergy Verified 12/05/17 21:40 Medications: Current Medications Acetaminophen (Tylenol) 650 mg PO Q4H PRN PRN Reason: Headache/Fever or Pain Acetaminophen (Tylenol) 650 mg MS Q4H PRN PRN Reason: Headache/Fever or Pain Hydrocodone Bitart/Acetaminophen ([place] 5/325) 1 tab PO Q6H PRN PRN Reason: Moderate Pain (4-6) Last Admin: 06/05/18 07:29 Dose: 1 tab Atropine Sulfate (Atropine 1% Ophth Soln) 1 drop R EYE BID [facility] Last Admin: 06/05/18 12:12 Dose: Not Given Benzonatate (Tessalon) 100 mg PO TID [facility] Last Admin: 06/05/18 14:00 Dose: 100 mg Bisacodyl (Dulcolax) 10 mg PO DAILYPRN PRN PRN Reason: Constipation Brimonidine Tartrate (Alphagan 0.2% Ophth Soln) 1 drop R EYE BID [facility] Last Admin: 06/05/18 12:12 Dose: Not Given Carvedilol (Coreg) 12.5 mg PO DAILY [facility] Last Admin: 06/05/18 12:35 Dose: 12.5 mg Cefdinir (Omnicef) 300 mg PO BID [facility] Dextrose/Water (Dextrose 50%) 25 gm SLOW IVP PRN PRN PRN Reason: Hypoglycemia Dorzolamide HCl (Trusopt 2% Ophth Soln) 1 drop R EYE BID [facility] Last Admin: 06/05/18 12:12 Dose: Not Given Glucagon (Glucagon) 1 mg IM PRN PRN PRN Reason: Hypoglycemia Hydralazine HCl (Apresoline) 10 mg SLOW IVP Q6H PRN PRN Reason: SBP Greater Than 170 Last Admin: 06/04/18 03:27 Dose: 10 mg Hydralazine HCl (Apresoline) 100 mg PO BID [facility] Last Admin: 06/05/18 12:12 Dose: Not Given Dextrose/Water (D5w) 1,000 mls @ 0 mls/hr IV .Q0M PRN PRN Reason: Hypoglycemia Insulin Glargine 10 units/ (Miscellaneous Medication) 0.1 mls @ 0 mls/hr SC BID [facility] Last Admin: 06/05/18 12:13 Dose: Not Given Vancomycin HCl 1 gm/ Device 200 mls @ 200 mls/hr IVPB WILLCALL PRN PRN Reason: IF VANC LEVEL <= 5; Insulin Human Lispro (Humalog) 0 units SC .MILD SLIDING SCALE PRN PRN Reason: Mild Correctional Scale Last Admin: 06/04/18 16:53 Dose: 5 unit Labetalol HCl (Normodyne) 10 mg SLOW IVP Q4H PRN PRN Reason: SBP Greater Than 180 Lisinopril (Zestril) 20 mg PO DAILY [facility] Last Admin: 06/05/18 12:34 Dose: 20 mg Metoclopramide HCl (Reglan) 10 mg PO Q6H PRN PRN Reason: Nausea Last Admin: 06/04/18 08:27 Dose: 10 mg Miscellaneous Medication (Pharmacy To Dose) 0 each IVPB PRN PRN PRN Reason: VANC Pharmacy to Dose Miscellaneous Medication (Vancomycin Sliding Scale) 1 each FS ASDIR [facility] Morphine Sulfate (Morphine) 2 mg SLOW IVP Q6H PRN PRN Reason: Severe Pain (7-10) Last Admin: 06/04/18 13:52 Dose: 2 mg Nifedipine (Procardia Xl) 60 mg PO QAM [facility] Last Admin: 06/05/18 12:35 Dose: 60 mg Hold Vancomycin For (Level >20) 0 each FS .AT DIALYSIS PRN PRN Reason: HOLD VANCOMYCIN IF LEVEL >20 Ondansetron HCl (Zofran) 4 mg SLOW IVP Q6H PRN PRN Reason: Nausea/Vomiting Last Admin: 06/04/18 11:08 Dose: 4 mg Promethazine HCl (Phenergan) 25 mg IM/IV Q6H PRN PRN Reason: Nausea/Vomiting Last Admin: 06/04/18 17:47 Dose: 25 mg Sevelamer Carbonate (Renvela) 800 mg PO TID-WM [facility] Last Admin: 06/05/18 12:34 Dose: 800 mg Timolol Maleate (Timoptic 0.5% [facility]) 1 drop R EYE BID [facility] Last Admin: 06/05/18 12:13 Dose: Not Given
[2018-06-05] MEDS: HumaLOG 300 UNITS/3 ML VIAL SC PRN ×2 (17:02→20:43)
[2018-06-05] MEDS: Cefdinir 300 MG CAP PO SCH (20:41)
[2018-06-06 04:50] LABS: Anion Gap 22 mmol/L (10-20); BUN (Urea Nitrogen) 42 mg/dL (7.0-18.7); Calc. Creatinine Clearance 14 mL/min (70-130); Calcium 8.9 mg/dL (7.8-10.44); Carbon Dioxide 21 mmol/L (22-29); Chloride 93 mmol/L (98-107); Estimated GFR-MDRD 9; Glucose 523 mg/dL (70-105); Sodium 130 mmol/L (136-145)
[2018-06-06 05:25] LABS: Band 1 % (5-11); Eosinophils 4 % (0-10); Hemoglobin 9.4 g/dL (12.0-16.0); Lymphocytes 29 % (21-51); MDiff Complete? YES; Mean Corpuscular Hemoglobin 33.6 pg (27.0-31.0); Monocytes 8 % (0-10); Neutrophil 56 % (42-75); Platelet Count 236 thou/uL (130-400); RBC Distribution Width 15.7 % (11.5-14.5); Reactive Lymphocytes 2 % (0-10); Red Blood Cell (RBC) Count 2.78 mill/uL (4.20-5.40); White Blood Cell (WBC) Count 7.4 thou/uL (4.8-10.8)
[2018-06-06] MEDS: Insulin Glargine 10 UNITS in Pre-Filled Syringe 1 EACH SC SCH (06:10)
[2018-06-06] MEDS: HumaLOG 300 UNITS/3 ML VIAL SC PRN ×4 (06:11→21:05)
[2018-06-06] MEDS: HYDROcodone/Acetaminophen 5/325 mg Tablet PO PRN (06:17)
[2018-06-06] MEDS ORDERED: Metoclopramide HCl 10 MG TAB PO PRN ×2 (07:46→11:11)
[2018-06-06] MEDS: hydrALAZINE 25 MG TAB PO SCH ×2 (08:16→21:14)
[2018-06-06] MEDS: Sevelamer Carbonate 800 MG TAB PO SCH ×3 (08:16→16:26)
[2018-06-06] MEDS: Cefdinir 300 MG CAP PO SCH (08:17)
[2018-06-06] MEDS: NIFEdipine XL 60 MG TAB PO SCH (08:17)
[2018-06-06] MEDS: Carvedilol 6.25 MG TAB PO SCH (08:17)
[2018-06-06] MEDS: Lisinopril 20 MG TAB PO SCH ×3 (08:17→21:06)
[2018-06-06] MEDS: Benzonatate 100 MG CAP PO SCH ×3 (08:17→21:06)
[2018-06-06] MEDS ORDERED: Lisinopril 5 MG TAB PO SCH (09:00)
[2018-06-06] MEDS ORDERED: Insulin Glargine 10 UNITS in Pre-Filled Syringe 1 EACH SC SCH (09:00)
[2018-06-06] MEDS ORDERED: Carvedilol 25 MG TAB PO SCH (09:00)
[2018-06-06 10:02] LABS: Anion Gap 24 mmol/L (10-20); BUN (Urea Nitrogen) 53 mg/dL (7.0-18.7); Calc. Creatinine Clearance 13 mL/min (70-130); Carbon Dioxide 18 mmol/L (22-29); Chloride 92 mmol/L (98-107); Estimated GFR-MDRD 8; Glucose 433 mg/dL (70-105); Potassium 5.4 mmol/L (3.5-5.1); Sodium 129 mmol/L (136-145)
[2018-06-06] MEDS: Atropine Sulfate 1% Ophth Soln 5 ml Bottle R EYE SCH ×2 (10:08→21:14)
[2018-06-06] MEDS: Brimonidine Tartrate 0.2% Ophth Soln 5 ml Bottle R EYE SCH ×2 (10:08→21:14)
[2018-06-06] MEDS: Dorzolamide HCl 2% Ophth Soln 10 ml Bottle R EYE SCH ×2 (10:08→21:14)
[2018-06-06] MEDS: Timolol 0.5% Ophth Soln 5 ml Bottle R EYE SCH ×2 (10:08→21:14)
--- NOTE | 2018-06-06 10:13 | PRG ---
DATE OF SERVICE: 06/05/2018 SUBJECTIVE: A 32-year-old female being seen for end-stage renal disease. The patient denies any sandip sea, vomiting or chest pain. PHYSICAL EXAMINATION: GENERAL: Patient is awake, alert. VITAL SIGNS: Afebrile, pulse 75, breathing 16, blood pressure 125/76. HEAD/NECK: Normocephalic. Atraumatic. EYES: EOMI. No deformity. EARS: Clear. No ulcers. NOSE: Intact. No lesions. MOUTH: Clear. No discharge. THROAT: Clear. No exudate. LUNGS: Clear. No crackles. CARDIAC: S1, S2. No rub. ABDOMEN: Benign. BS+. GENITALIA/RECTUM: Taylor absent. BACK/EXTREMITIES: Edema 0+ Ulcer- NEUROLOGICAL: Alert and motor intact. SKIN: Rash- Bruise- LYMPHATICS: Edema- Ulcer- LABORATORY DATA: Show hemoglobin 9.4, potassium is 5.4. ASSESSMENT AND RECOMMENDATIONS: 1. Stage 6 chronic kidney disease, plan dialysis. 2. Hyperkalemia, plan dialysis. 3. Hyperglycemia, would recommend titrating blood sugars. 4. Anemia, stable. 5. Medications based on glomerular filtration rate are appropriate.
[2018-06-06 10:46] LABS: Anion Gap 21 mmol/L (10-20); BUN (Urea Nitrogen) 52 mg/dL (7.0-18.7); Calc. Creatinine Clearance 13 mL/min (70-130); Calcium 8.9 mg/dL (7.8-10.44); Carbon Dioxide 20 mmol/L (22-29); Chloride 91 mmol/L (98-107); Estimated GFR-MDRD 8; Glucose 473 mg/dL (70-105); Potassium 5.3 mmol/L (3.5-5.1); Sodium 127 mmol/L (136-145)
[2018-06-06 12:38] VITALS: BMI 26.3
--- NOTE | 2018-06-06 17:10 | PDOC.PN ---
- Subjective Encounter Start Date: 06/06/18 Encounter Start Time: 07:00 Pt seen for followup re: uncontrolled hyperglycemia. Feels better. No nausea or vomiting. No fevers or chills. - Objective MAR Reviewed: Yes Vital Signs & Weight: Vital Signs (12 hours) Temp Pulse Resp BP BP Pulse Ox 06/06/18 16:24 98.2 F 93 16 117/65 98 06/06/18 11:46 98.4 F 89 17 118/63 96 06/06/18 10:08 105 H 125/76 06/06/18 08:27 125/76 06/06/18 08:17 105 H 125/76 06/06/18 08:16 105 H 06/06/18 08:13 98.1 F 105 H 16 139/87 96 Weight Admit Weight 142 lb 3.2 oz Weight 153 lb 3.54 oz I&O: 06/05/18 06/06/18 06/07/18 06:59 06:59 06:59 Intake Total 660 300 Output Total 0 Balance 660 300 Result Diagrams: 06/06/18 03:55 06/06/18 10:15 Additional Labs: Accuchecks 06/06/18 06/06/18 06/06/18 10:54 06:12 05:41 POC Glucose 461 H Greater than 550 H* Greater than 550 H* 06/06/18 06/05/18 06/05/18 03:33 23:56 20:42 POC Glucose 462 H 312 H 543 H 06/05/18 16:47 POC Glucose Greater than 550 H* EKG Reviewed by me: Yes (Tele: NSR) Phys Exam - Physical Examination Constitutional: NAD HEENT: moist MMs R corneal opacity Neck: supple Respiratory: clear to auscultation bilateral Cardiovascular: RRR Gastrointestinal: soft Neurological: moves all 4 limbs Psychiatric: normal affect Dx/Plan (1) Uncontrolled diabetes mellitus with hyperglycemia Code(s): E11.65 - TYPE 2 DIABETES MELLITUS WITH HYPERGLYCEMIA Status: Acute Comment: Change insulin sliding scale to aggressive, increase Lantus dose. Pt is a brittle diabetic, came in with hypoglycemia and syncopal episode. Hyperkalemia likely due to poorly controlled diabetes mellitus. (2) Pneumonia Code(s): J18.9 - PNEUMONIA, UNSPECIFIED ORGANISM Status: Acute Comment: continue cefdinir (3) ESRD (end stage renal disease) on dialysis Code(s): N18.6 - END STAGE RENAL DISEASE; Z99.2 - DEPENDENCE ON RENAL DIALYSIS Status: Chronic Comment: maintenance dialysis per nephrology (4) GERD (gastroesophageal reflux disease) Code(s): K21.9 - GASTRO-ESOPHAGEAL REFLUX DISEASE WITHOUT ESOPHAGITIS Status: Chronic Qualifiers: Esophagitis presence: esophagitis presence not specified Qualified Code(s) : K21.9 - Gastro-esophageal reflux disease without esophagitis Comment: stable (5) Labile hypertension Code(s): I10 - ESSENTIAL (PRIMARY) HYPERTENSION Status: Chronic Comment: controlled (6) Sepsis Code(s): A41.9 - SEPSIS, UNSPECIFIED ORGANISM Status: Resolved (7) Epistaxis Code(s): R04.0 - EPISTAXIS Status: Resolved (8) Hypertensive urgency Code(s): I16.0 - HYPERTENSIVE URGENCY Status: Resolved (9) Syncope Code(s): R55 - SYNCOPE AND COLLAPSE Status: Resolved - Plan * . Review of Systems - Review of Systems Respiratory: negative: Cough, Shortness of Breath, SOB with Excertion, Pleuritic Pain, Wheezing Cardiovascular: negative: chest pain, palpitations, orthopnea, paroxysmal nocturnal dyspnea, edema, light headedness - Medications/Allergies Allergies/Adverse Reactions: Allergies Allergy/AdvReac Type Severity Reaction Status Date / Time No Known Allergies Allergy Verified 12/05/17 21:40 Medications: Current Medications Acetaminophen (Tylenol) 650 mg PO Q4H PRN PRN Reason: Headache/Fever or Pain Acetaminophen (Tylenol) 650 mg [place] Q4H PRN PRN Reason: Headache/Fever or Pain Hydrocodone Bitart/Acetaminophen ([place] 5/325) 1 tab PO Q6H PRN PRN Reason: Moderate Pain (4-6) Last Admin: 06/06/18 06:17 Dose: 1 tab Atropine Sulfate (Atropine 1% Ophth Soln) 1 drop R EYE BID [facility] Last Admin: 06/06/18 10:08 Dose: Not Given Benzonatate (Tessalon) 100 mg PO TID [facility] Last Admin: 06/06/18 16:26 Dose: 100 mg Bisacodyl (Dulcolax) 10 mg PO DAILYPRN PRN PRN Reason: Constipation Brimonidine Tartrate (Alphagan 0.2% Ophth Soln) 1 drop R EYE BID [facility] Last Admin: 06/06/18 10:08 Dose: Not Given Carvedilol (Coreg) 12.5 mg PO DAILY [facility] Last Admin: 06/06/18 08:17 Dose: 12.5 mg Cefdinir (Omnicef) 300 mg PO 0900 [facility] Dextrose/Water (Dextrose 50%) 25 gm SLOW IVP PRN PRN PRN Reason: Hypoglycemia Dorzolamide HCl (Trusopt 2% Ophth Soln) 1 drop R EYE BID [facility] Last Admin: 06/06/18 10:08 Dose: Not Given Glucagon (Glucagon) 1 mg IM PRN PRN PRN Reason: Hypoglycemia Hydralazine HCl (Apresoline) 10 mg SLOW IVP Q6H PRN PRN Reason: SBP Greater Than 170 Last Admin: 06/04/18 03:27 Dose: 10 mg Hydralazine HCl (Apresoline) 100 mg PO BID [facility] Last Admin: 06/06/18 08:16 Dose: 100 mg Dextrose/Water (D5w) 1,000 mls @ 0 mls/hr IV .Q0M PRN PRN Reason: Hypoglycemia Insulin Glargine 12 units/ (Miscellaneous Medication) 0.12 mls @ 0 mls/hr SC BID [facility] Insulin Human Lispro (Humalog) 0 units SC .AGGRESSIVE SLIDING PRN; Protocol PRN Reason: AGGRESSIVE SLIDING SCALE Last Admin: 06/06/18 12:31 Dose: 13 unit Labetalol HCl (Normodyne) 10 mg SLOW IVP Q4H PRN PRN Reason: SBP Greater Than 180 Lisinopril (Zestril) 20 mg PO BID [facility] Last Admin: 06/06/18 08:27 Dose: Not Given Metoclopramide HCl (Reglan) 5 mg PO Q6H PRN PRN Reason: Nausea/Vomiting Morphine Sulfate (Morphine) 2 mg SLOW IVP Q6H PRN PRN Reason: Severe Pain (7-10) Last Admin: 06/04/18 13:52 Dose: 2 mg Nifedipine (Procardia Xl) 60 mg PO QAM [facility] Last Admin: 06/06/18 08:17 Dose: 60 mg Ondansetron HCl (Zofran) 4 mg SLOW IVP Q6H PRN PRN Reason: Nausea/Vomiting Last Admin: 06/04/18 11:08 Dose: 4 mg Promethazine HCl (Phenergan) 25 mg IM/IV Q6H PRN PRN Reason: Nausea/Vomiting Last Admin: 06/04/18 17:47 Dose: 25 mg Sevelamer Carbonate (Renvela) 800 mg PO TID[facility] Last Admin: 06/06/18 16:26 Dose: 800 mg Sodium Chloride (Flush - Normal Saline) 10 ml IVF Q12HR [facility] Last Admin: 06/06/18 10:08 Dose: Not Given Sodium Chloride (Flush - Normal Saline) 10 ml IVF PRN PRN PRN Reason: Saline Flush Timolol Maleate (Timoptic 0.5% Oph Soln) 1 drop R EYE BID [facility] Last Admin: 06/06/18 10:08 Dose: Not Given
[2018-06-06 18:34] LABS: Anion Gap 21 mmol/L (10-20); BUN (Urea Nitrogen) 62 mg/dL (7.0-18.7); Calc. Creatinine Clearance 11 mL/min (70-130); Calcium 9.3 mg/dL (7.8-10.44); Carbon Dioxide 24 mmol/L (22-29); Chloride 91 mmol/L (98-107); Estimated GFR-MDRD 7; Glucose 320 mg/dL (70-105); Potassium 5.3 mmol/L (3.5-5.1); Sodium 131 mmol/L (136-145)
[2018-06-06] MEDS: Insulin Glargine 12 UNITS in Pre-Filled Syringe SC SCH (21:06)
[2018-06-07] MEDS: HYDROcodone/Acetaminophen 5/325 mg Tablet PO PRN (00:27)
[2018-06-07] MEDS: HumaLOG 300 UNITS/3 ML VIAL SC PRN (06:36)
[2018-06-07] MEDS: Sevelamer Carbonate 800 MG TAB PO SCH ×3 (08:46→15:57)
[2018-06-07] MEDS: Insulin Glargine 12 UNITS in Pre-Filled Syringe SC SCH (08:46)
[2018-06-07] MEDS: Benzonatate 100 MG CAP PO SCH ×2 (08:46→14:57)
[2018-06-07] MEDS: Atropine Sulfate 1% Ophth Soln 5 ml Bottle R EYE SCH (08:46)
[2018-06-07] MEDS: Carvedilol 6.25 MG TAB PO SCH (08:46)
[2018-06-07] MEDS: Dorzolamide HCl 2% Ophth Soln 10 ml Bottle R EYE SCH (08:47)
[2018-06-07] MEDS: Brimonidine Tartrate 0.2% Ophth Soln 5 ml Bottle R EYE SCH (08:47)
[2018-06-07] MEDS: hydrALAZINE 25 MG TAB PO SCH (08:47)
[2018-06-07] MEDS: Lisinopril 20 MG TAB PO SCH (08:48)
[2018-06-07] MEDS: Timolol 0.5% Ophth Soln 5 ml Bottle R EYE SCH (08:50)
[2018-06-07] MEDS: NIFEdipine XL 60 MG TAB PO SCH (08:50)
[2018-06-07] MEDS ORDERED: Cefdinir 300 MG CAP PO SCH (09:00)
--- NOTE | 2018-06-07 09:49 | PRG ---
DATE OF SERVICE: 06/07/2018 SUBJECTIVE: This is a 32-year-old female being seen for end-stage renal disease. The patient denies any nausea, vomiting or chest pain. PHYSICAL EXAMINATION: GENERAL: Patient is awake, alert. VITAL SIGNS: Afebrile, pulse 95, breathing 16, blood pressure 137/50. OBJECTIVE: See above. Awake, alert, in no acute distress. GENERAL APPEARANCE AND MENTAL STATUS: Fair. HEAD/NECK: Normocephalic. Atraumatic. EYES: EOMI. No deformity. EARS: Clear. No ulcers. NOSE: Intact. No lesions. MOUTH: Clear. No discharge. THROAT: Clear. No exudate. LUNGS: Clear. No crackles. CARDIAC: S1, S2. No rub. ABDOMEN: Benign. BS+. GENITALIA/RECTUM: Taylor absent. BACK/EXTREMITIES: Edema 0+ Ulcer- NEUROLOGICAL: Alert and motor intact. SKIN: Rash- Bruise- LYMPHATICS: Edema- Ulcer- LABORATORY: Hemoglobin 9.4. ASSESSMENT AND RECOMMENDATIONS: 1. Stage 6 chronic kidney disease. We will plan hemodialysis. 2. Hypertension, stable. 3. Anemia, stable. 4. Medication based on glomerular filtration rate are appropriate.
--- NOTE | 2018-06-07 10:32 | DIS ---
DATE OF ADMISSION: 06/03/2018 DATE OF DISCHARGE: 06/07/2018 PRIMARY CARE PROVIDER: Bran Mcginnis M.D. DISCHARGE DIAGNOSES: 1. Syncope. 2. Fall. 3. Hypoglycemia. 4. Brittle diabetes mellitus. 5. Laceration. 6. Pneumonia. CONDITION OF PATIENT ON THE DAY OF DISCHARGE: Stable. I assessed Ms. Chavis on the day of discharge. She denies any chest pain or shortness of breath. Vital signs are stable. S1 and S2 are heard, re gular. Lungs are clear to auscultation bilaterally. DISCHARGE MEDICATIONS: No change was made to her preadmission home medications as dictated on my his tory and physical note dated 06/03/2018. She was reportedly taking 10 units of Lantus insulin twice daily at home. She has been advised to continue the same and titrate the insulin dose depending on h er blood sugars. She is currently waiting for her insulin pump supplies. Cefdinir 300 mg daily for 5 more days. HOSPITAL COURSE: Ms. Chavis is a pleasant 32-year-old lady who was admitted to [facility] on 06/03/2018 following a syncopal episode secondary to hypoglycemia. She also had pneum onia and was treated with antibiotics. She was seen by Nephrology Service for maintenance hemodialys is. Her blood sugars improved and were actually high. Her insulin dose was adjusted accordingly. She was stepped down to oral antibiotics. She is being discharged home in a stable condition. LABORATORY DATA: Preliminary blood cultures are negative at the time of this dictation. She is advi sed to follow up with her primary care provider for final blood culture result. On the day of discharge, she has white count 7,400, hemoglobin 9.4, platelet count 236,000. Sodium 1 31, potassium 5.3 and creatinine 7.76. Many thanks for allowing me to participate in your patient's care. Please feel free to contact me wi th any questions or concerns. DISCHARGE DESTINATION: Home. TOTAL AMOUNT OF TIME SPENT COORDINATING THIS DISCHARGE: 33 minutes.
[2018-06-07 15:53] VITALS: BP 118/75; TEMP 97.5
== END 2018-06-07 19:08 | disposition home or self-care (01) | DRG 871 ==
LOC: ERS 08:26 → ERHOLD 13:09 → 2NO 15:22
PROVIDERS: ADMIT Internal Medicine; ATTEND Internal Medicine
PROC: 5A1D70Z Performance of Urinary Filtration, Intermittent, Less than 6 Hours Per Day (ICD-10-PCS; principal; 2018-06-03)
PROC: 0HQFXZZ Repair Right Hand Skin, External Approach (ICD-10-PCS; 2018-06-03)
PROC: 0HQFXZZ Repair Right Hand Skin, External Approach (ICD-10-PCS; 2018-06-03)
PROC: 0HQDXZZ Repair Right Lower Arm Skin, External Approach (ICD-10-PCS; 2018-06-03)
PROC: 5A1D70Z Performance of Urinary Filtration, Intermittent, Less than 6 Hours Per Day (ICD-10-PCS; 2018-06-05)
PROC: 5A1D70Z Performance of Urinary Filtration, Intermittent, Less than 6 Hours Per Day (ICD-10-PCS; 2018-06-07)
DX: A41.9 Sepsis, unspecified organism (principal); J18.9 Pneumonia, unspecified organism; N18.6 End stage renal disease; I12.0 Hypertensive chronic kidney disease with stage 5 chronic kidney disease or end stage renal disease; N25.81 Secondary hyperparathyroidism of renal origin; E10.649 Type 1 diabetes mellitus with hypoglycemia without coma; E10.22 Type 1 diabetes mellitus with diabetic chronic kidney disease; Z99.2 Dependence on renal dialysis; I16.0 Hypertensive urgency; Y95 Nosocomial condition; D63.1 Anemia in chronic kidney disease; K21.9 Gastro-esophageal reflux disease without esophagitis; E10.43 Type 1 diabetes mellitus with diabetic autonomic (poly)neuropathy; K31.84 Gastroparesis; H40.9 Unspecified glaucoma; H54.61 Unqualified visual loss, right eye, normal vision left eye; E87.5 Hyperkalemia; E10.319 Type 1 diabetes mellitus with unspecified diabetic retinopathy without macular edema; R04.0 Epistaxis; S61.214A Laceration without foreign body of right ring finger without damage to nail, initial encounter; S61.216A Laceration without foreign body of right little finger without damage to nail, initial encounter; S61.511A Laceration without foreign body of right wrist, initial encounter; Z79.4 Long term (current) use of insulin; Z79.01 Long term (current) use of anticoagulants; Z79.899 Other long term (current) drug therapy; W26.8XXA Contact with other sharp object(s), not elsewhere classified, initial encounter; Y92.000 Kitchen of unspecified non-institutional (private) residence as the place of occurrence of the external cause
CPT/HCPCS: 12042; 36415; 36416; 70450; 71045; 80048; 80053; 80202; 82010; 82550; 83605; 84484; 84703; 85025; 87040; 90935; 93005; 93010; 96365; 96366; 96368; A4216; G0257; J0360; J0456; J0692; J0696; J1956; J2270; J2405; J2550; J3370; J7050

== ENCOUNTER 2018-10-25 11:25 | Inpatient (IN) | payer MEDICARE, MEDICAID ==
[2018-10-25] MEDS ORDERED: Promethazine HCl 25 MG/ML VIAL ONE (12:37)
[2018-10-25] MEDS ORDERED: hydrALAZINE 20 MG/ML VIAL ONE (12:37)
[2018-10-25 12:38] LABS: #Lymphocytes 1.3 thou/uL (1.20-3.40); #Monocytes 0.6 thou/uL (0.11-0.59); #Neutrophils 13.4 thou/uL (1.40-6.50); %Basophils 0.3 % (0.0-1.0); %Eosinophils 0.2 % (0.0-10.0); %Lymphocytes 8.4 % (21.0-51.0); %Neutrophils 87.1 % (42.0-75.0); Hemoglobin 10.3 g/dL (12.0-16.0); Mean Corpuscular HGB CONC 33.2 g/dL (32.0-36.0); Mean Corpuscular Hemoglobin 31.7 pg (27.0-31.0); Mean Corpuscular Volume 95.5 fL (78.0-98.0); Mean Platelet Volume 7.6 fL (7.4-10.4); Platelet Count 249 thou/uL (130-400); Red Blood Cell (RBC) Count 3.25 mill/uL (4.20-5.40); White Blood Cell (WBC) Count 15.3 thou/uL (4.8-10.8)
[2018-10-25 12:57] LABS: ALT (SGPT) 11 U/L (8-55); AST (SGOT) 13 U/L (5-34); Albumin 4.7 g/dL (3.5-5.0); Alkaline Phosphatase 83 U/L (40-150); Anion Gap 30 mmol/L (10-20); BUN (Urea Nitrogen) 71 mg/dL (7.0-18.7); Bilirubin, Total 0.4 mg/dL (0.2-1.2); Calc. Creatinine Clearance 0 mL/min (70-130); Calcium 9.9 mg/dL (7.8-10.44); Carbon Dioxide 16 mmol/L (22-29); Chloride 90 mmol/L (98-107); Estimated GFR-MDRD 4; Potassium 4.2 mmol/L (3.5-5.1); Protein, Total 8.7 g/dL (6.0-8.3); Sodium 132 mmol/L (136-145)
[2018-10-25 12:59] LABS: Glucose 643 mg/dL (70-105)
[2018-10-25] MEDS ORDERED: Potassium Chloride 20 MEQ TAB ONE ×2 (13:25→14:28)
[2018-10-25] MEDS ORDERED: Insulin Regular 300 UNITS/3 ML VIAL ONE (13:25)
[2018-10-25] MEDS ORDERED: Insulin Regular 100 units/100 ml in NS IVPB SCH (13:30)
--- NOTE | 2018-10-25 14:22 | RAD ---
CHEST ONE VIEW: HISTORY: A 33-year-old female with a history of cough for several days with nausea and diarrhea. COMPARISON: 04/01/2018 FINDINGS: Heart size is normal. Lungs are clear. No pneumonia, edema, or pleural effusion. IMPRESSION: No acute intrathoracic disease. Stable from prior study. POS: [facility]
[2018-10-25] MEDS ORDERED: NIFEdipine XL 60 MG TAB PO SCH (14:45)
--- NOTE | 2018-10-25 17:32 | CON ---
DATE OF CONSULTATION: NEPHROLOGY CONSULTATION REASON FOR CONSULTATION: End-stage kidney disease. HISTORY OF PRESENT ILLNESS: This is a very pleasant 33-year-old female, presented to the hospital after having cough and elevated white count. The patient was supposed to get dialysis on Sunday, Sunday, and Sunday and was acidotic. The patient also had hyperglycemia. The patient can give no further history. PAST MEDICAL HISTORY: Significant for hypertension, diabetes mellitus, diabetic retinopathy, anemia, history of surgery, history of tunneled dialysis catheter, and history of secondary hyperparathyroidism. SOCIAL HISTORY: No tobacco, alcohol, or drug use. FAMILY HISTORY: Negative for ESRD. ALLERGIES: REVIEWED. MEDICATIONS: Home medications list, reviewed. REVIEW OF SYSTEMS: A 15-point review of systems was performed and was negative except for positives noted above. NECK: No swelling or lumps. NOSE: No epistaxis or discharge. EYES: No diplopia or pain. MUSCULOSKELETAL: No joint pain. NEUROPSYCHIATRIC SYSTEMS: No suicidal ideation. No ideation. SKIN: Denies any rash or ulcer. CONSTITUTIONAL: No fever or chills. PHYSICAL EXAMINATION: GENERAL: The patient is awake and alert. VITAL SIGNS: Afebrile, pulse 90, breathing 16, blood pressure was 170/110. GENERAL APPEARANCE AND MENTAL STATUS: Fair. HEAD/NECK: Normocephalic. Atraumatic. EYES: EOMI. No deformity. EARS: Clear. No ulcers. NOSE: Intact. No lesions. MOUTH: Clear. No discharge. THROAT: Clear. No exudate. LUNGS: Clear. No crackles. CARDIAC: S1, S2. No rub. ABDOMEN: Benign. Bowel sounds positive. GENITALIA/RECTUM: Taylor absent. BACK/EXTREMITIES: Edema 0+. NEUROLOGICAL: Alert and motor intact. SKIN: LYMPHATICS: LABORATORY DATA: Labs show sodium 132, bicarb 16, and potassium 4.0. ASSESSMENT AND PLAN: 1. Stage 6 chronic kidney disease. Plan hemodialysis. 2. Hypertension. Start home medication. 3. Anemia, stable. 4. Medications based on GFR, appropriate. 5. Elevated white count. Management per primary team. Job ID: [id number]
[2018-10-25 17:40] LABS: HBSAg Index 0.16 S/CO (0-0.99); Hep B Surf Ag Non-Reactive S/CO (NonReactive)
[2018-10-25] MEDS ORDERED: Ondansetron PF 4 MG/2 ML Vial ONE (18:41)
[2018-10-25] MEDS ORDERED: Sodium Chloride 0.9% 1,000 ML IV SCH (19:05)
[2018-10-25] MEDS: Ondansetron PF 4 MG/2 ML Vial IVP PRN (19:05)
[2018-10-25] MEDS ORDERED: Heparin 5,000 UNITS/ML VIAL SC SCH (19:15)
[2018-10-25] MEDS ORDERED: Famotidine/PF 20 mg/2ml Vial SLOW IVP SCH (21:00)
--- NOTE | 2018-10-25 22:49 | HP ---
CHIEF COMPLAINTS: Nausea and vomiting x3 days, some abdominal cramping. No shortness of breath. HISTORY OF PRESENT ILLNESS: The patient is a 33-year-old female, who presented to the emergency room with symptoms of nausea and vomiting, and abdominal cramping for the last 3 days. She denies any fever or chills. She denies any shortness of breath. She feels tired. She has some cough, which started approximately 1 month ago. She is a hemodialysis patient. She gets hemodialyzed 3 times a week. Her primary doctor is Dr. Bran Mcginnis from [facility] and the surrogate decision maker is Kathleen Stephanie, I believe this is her sister. She stopped her insulin pump this morning. We know that she has brittle diabetes mellitus. She had multiple admissions for the same and DKA issue. She is getting admitted for DKA management. PAST MEDICAL HISTORY: 1. Diabetes mellitus type 1. 2. Multiple admissions for diabetic ketoacidosis. 3. End-stage renal disease, on hemodialysis 3 times a week. 4. Hypertension. 5. Anemia of chronic disease. 6. Gastroesophageal reflux disease. 7. Diabetic gastroparesis. 8. 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 9. Secondary hyperparathyroidism of renal origin. PAST SURGICAL HISTORY: AV fistula placement to the left upper extremity and right eye surgery. SOCIAL HISTORY: She denies any tobacco use, alcohol intake, or illicit drug use. FAMILY HISTORY: Mother had diabetes. Father, she does not know. ALLERGIES: NONE. MEDICATIONS: To be found out. REVIEW OF SYSTEMS: 14 systems were reviewed and the only positive findings are those which are mentioned in the HPI. PHYSICAL EXAMINATION: VITAL SIGNS: Blood pressure is 203/110, pulse is 95, temperature is 98.2, respiratory rate is 16. HEAD: Atraumatic and normocephalic. EYES: Right eye; blind. Left eye; pupil respond to light properly. Conjunctiva pinkish. Oral mucosa is moist. NECK: Supple. LUNGS: Breath sounds diminished at both bases. HEART: S1 and S2 are normal. No S3. No S4. No any murmur. ABDOMEN: Soft, nontender, and nondistended. Bowel sounds are present. No organomegaly. EXTREMITIES: No clubbing, cyanosis, or edema. NEUROLOGICAL: She is alert and oriented x4. There is no any motor or sensory deficits. Cranial nerves are intact. LABORATORY DATA: Labs showed white count of 15.3, hemoglobin 10.3, hematocrit 31.1, platelet count 249,000. Sodium of 132, potassium of 4.2, chloride 90, CO2 of 16, BUN 71, creatinine 11.85, glucose 643, serum total protein 8.7, globulin 4.0. Chest x-ray done, within normal limits. EKG pending. Influenza type A and B negative. IMPRESSION: 1. Diabetic ketoacidosis. 2. Uncontrolled hypertension. 3. Diabetes mellitus type 1. 4. Hyperparathyroidism. 5. 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 6. Gastroparesis secondary to diabetes. 7. End-stage renal disease, on hemodialysis 3 times a week. 8. Hypertension. PLAN: Admission to Critical Care with DKA protocol. Activity, bedrest and bathroom privileges. IV normal saline 50 mL/h. Dr. Puentes, Nephrology consultation for hemodialysis today as she is due. Serial CBCs and BMPs. Her white count is elevated, but we do not see any evidence of any infection at this point. We will just watch her. Repeat the CBC tomorrow morning. We will do H2 vish for PUD prophylaxis and 5000 units of heparin subcu every 12 hours for DVT prophylaxis. We will use Zofran for vomiting, but it does not look like she is really vomiting, she is just spitting out a lot of phlegm, which is clear. We will obtain serial BMPs and treat her blood pressure with nifedipine and lisinopril. If this does not help, we will use labetalol and hydralazine. Dr. Puentes came and saw the patient in the emergency room and he is going to dialyze her today. Job ID: [id number]
[2018-10-25] MEDS ORDERED: Promethazine HCl 25 MG/ML VIAL SLOW IVP SCH (23:15)
[2018-10-25] MEDS ORDERED: Promethazine HCl 25 MG in Sodium Chloride 0.9% 50 ML IVPB SCH (23:45)
[2018-10-26] MEDS: Ondansetron PF 4 MG/2 ML Vial IVP PRN ×2 (02:06→10:38)
[2018-10-26 05:19] LABS: Anion Gap 25 mmol/L (10-20); BUN (Urea Nitrogen) 21 mg/dL (7.0-18.7); Calc. Creatinine Clearance 14 mL/min (70-130); Calcium 9.8 mg/dL (7.8-10.44); Carbon Dioxide 20 mmol/L (22-29); Chloride 97 mmol/L (98-107); Estimated GFR-MDRD 10; Glucose 260 mg/dL (70-105); Potassium 4.2 mmol/L (3.5-5.1); Sodium 138 mmol/L (136-145)
[2018-10-26 05:41] VITALS: BMI 24.2
[2018-10-26 06:27] LABS: #Lymphocytes 1.5 thou/uL (1.20-3.40); #Monocytes 0.6 thou/uL (0.11-0.59); #Neutrophils 14.4 thou/uL (1.40-6.50); %Basophils 0.3 % (0.0-1.0); %Eosinophils 0.3 % (0.0-10.0); %Lymphocytes 8.9 % (21.0-51.0); %Monocytes 3.7 % (0.0-10.0); %Neutrophils 86.8 % (42.0-75.0); Hemoglobin 11.5 g/dL (12.0-16.0); Mean Corpuscular HGB CONC 33.2 g/dL (32.0-36.0); Mean Corpuscular Hemoglobin 32.2 pg (27.0-31.0); Mean Platelet Volume 7.9 fL (7.4-10.4); Platelet Count 270 thou/uL (130-400); RBC Distribution Width 15.5 % (11.5-14.5); Red Blood Cell (RBC) Count 3.59 mill/uL (4.20-5.40); White Blood Cell (WBC) Count 16.6 thou/uL (4.8-10.8)
[2018-10-26] MEDS ORDERED: Metoclopramide HCl 10 MG/2 ML VIAL IVP PRN (07:44)
[2018-10-26] MEDS: Lisinopril 20 MG TAB PO SCH (08:13)
[2018-10-26] MEDS: NIFEdipine XL 60 MG TAB PO SCH (08:14)
[2018-10-26] MEDS: Heparin 5,000 UNITS/ML VIAL SC SCH ×3 (08:15→19:21)
[2018-10-26 08:29] LABS: Anion Gap 21 mmol/L (10-20); BUN (Urea Nitrogen) 24 mg/dL (7.0-18.7); Calc. Creatinine Clearance 13 mL/min (70-130); Carbon Dioxide 25 mmol/L (22-29); Chloride 99 mmol/L (98-107); Estimated GFR-MDRD 9; Glucose 133 mg/dL (70-105); Sodium 141 mmol/L (136-145)
--- NOTE | 2018-10-26 09:34 | CON ---
DATE OF CONSULTATION: 10/26/2018 CONSULTING PHYSICIAN: Clyde Solomon MD REASON FOR CONSULTATION: DKA. HISTORY OF PRESENT ILLNESS: The patient is a 33-year-old with longstanding type 1 diabetes mellitus and end-stage renal disease, who presented with several days of nausea and vomiting with a profoundly elevated glucose. She was diagnosed with DKA and started on insulin appropriately. She says she feels better today, but she is still bothered by nausea. She remains on an insulin drip at about 2 units/hour. PAST MEDICAL HISTORY: 1. Diabetes mellitus, type 1. 2. End-stage renal disease, requiring dialysis 3 times weekly. 3. Hypertension. 4. Anemia. 5. Gastroesophageal reflux. 6. Gastroparesis. 7. 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 8. Secondary hyperparathyroidism. PAST SURGICAL HISTORY: 1. AV fistula placement. 2. Right eye surgery. SOCIAL HISTORY: Nonsmoker. Does not consume alcohol. Does not use illicit. FAMILY MEDICAL HISTORY: Remarkable for diabetes in her mother. ALLERGIES: NONE. REVIEW OF SYSTEMS: Remarkable for nausea and vomiting. Otherwise, 12-point review of systems negative. MEDICATIONS: Prior to admission; 1. Coreg 12.5 mg daily. 2. Lisinopril 20 mg b.i.d. 3. Lantus insulin 12 units subcu b.i.d. 4. Procardia XL 60 mg daily. 5. Reglan 10 mg every 6 hours as needed. 6. Hydralazine 100 mg b.i.d. 7. Renvela 800 mg t.i.d. PHYSICAL EXAMINATION: VITAL SIGNS: Temperature is 98.3, pulse 94, blood pressure 109/66, and O2 sat 96% on room air. GENERAL: She is awake, alert, and in no distress. HEENT: Unremarkable. NECK: No adenopathy, JVD, or bruits. LUNGS: Clear without wheezing or rhonchi. CARDIAC: S1 and S2, regular without audible murmur. ABDOMEN: Soft, nontender to deep palpation. EXTREMITIES: No clubbing, cyanosis, or edema. She has an AV fistula in left forearm. LABORATORY DATA: White blood cell count 16.6, hematocrit 34.8, and platelet count 270. Sodium 138, potassium 4.2, chloride 97, CO2 of 20, BUN 21, creatinine 5.7, glucose 260, and anion gap is currently 16. Beta-hydroxybutyrate at the time of admission was 5.6. IMAGING DATA: Chest x-ray demonstrates clear lung smith. Normal heart size. ASSESSMENT: 1. Diabetic ketoacidosis. 2. Nausea, vomiting. 3. End-stage renal disease. RECOMMENDATIONS: The patient will probably be off the insulin drip by noon. I would assume she can transfer to the floor after that. I reviewed the current orders and agree with management. Job ID: [id number]
[2018-10-26] MEDS: Sodium Chloride 0.9% 1,000 ML IV SCH (10:33)
[2018-10-26] MEDS ORDERED: Chloraseptic Spray 180 ml Bottle PO PRN (12:48)
[2018-10-26] MEDS ORDERED: Dextrose 5% in Water 1,000 ML IV PRN (12:53)
[2018-10-26] MEDS ORDERED: Dextrose 50% Abboject 50 ML SYRINGE SLOW IVP PRN (12:53)
[2018-10-26] MEDS ORDERED: Insulin Glargine 10 UNITS in Pre-Filled Syringe SC SCH (13:15)
--- NOTE | 2018-10-26 13:34 | PRG ---
DATE OF SERVICE: 10/26/2018 SUBJECTIVE: The patient is complaining about some esophageal soreness most likely from her recent vomiting. OBJECTIVE: VITAL SIGNS: Blood pressure is 110/70, pulse is 101, respiratory rate is 18, and O2 saturation 95% on room air. HEENT: Her right eye is blind. Left eye, responds to light properly with constriction of the pupil. Sclerae are nonicteric. Oral mucosa is moist. NECK: Supple. LUNGS: Clear. HEART: S1, S2 normal. No S3. No S4. ABDOMEN: Soft, obese, and nontender. EXTREMITIES: No clubbing, cyanosis, or edema. NEUROLOGICAL: She is alert and oriented x4. There is no any focal deficits. LABORATORY DATA: Labs showed white count of 16.6, hemoglobin of 11.5, hematocrit 34.8, platelet count is 270, neutrophils 86.8. Chemistry showed normal electrolytes, anion gap is 21, BUN is 24, creatinine 6.3, glycemia is ranging from 129 to 193, calcium 10.0. Beta-hydroxybutyrate is 1.00, down from 5.62 yesterday. Microbiology; negative test for influenza type A and B. IMPRESSION: 1. Diabetic ketoacidosis. It is still unclear why this happened and her white count is elevated, but chest x-ray did not show any infection. She makes urine small amount couple of times a day. I do not see any source of any infection, which would trigger diabetic ketoacidosis. She is going to be switched from insulin drip to insulin by sliding scale, plus 20 units of insulin Lantus long-acting according to her requirement of insulin for 24 hours is less than 25 units. She is using a pump at home, which was stopped yesterday morning. 2. Multiple admissions for diabetic ketoacidosis. 3. End-stage renal disease. The patient was dialyzed last night which helped tremendously to control her DKA. 4. Hypertension. 5. Esophageal soreness secondary to vomiting. We will use some Chloraseptic. 6. Anemia of chronic disease. 7. Gastroesophageal reflux disease. 8. Diabetic gastroparesis. 9. 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 10. Secondary hyperparathyroidism of renal origin. PLAN: Plan is to continue her nifedipine 60 mg daily, lisinopril 20 mg daily for blood pressure control. We will start her on Chloraseptic p.r.n. for her esophageal discomfort. We will give her 10 units of insulin Lantus now, then I am going to stop her insulin drip in 2 hours. We will all also start her on carvedilol. If the blood pressure is in good range, she should be able to be moved out from the unit later today. Job ID: [id number]
[2018-10-26] MEDS: Insulin Regular 300 UNITS/3 ML VIAL SC PRN ×2 (14:51→21:52)
--- NOTE | 2018-10-26 15:14 | PRG ---
DATE OF SERVICE: 10/26/2018 SUBJECTIVE: A 33-year-old female, being seen for end-stage kidney disease. The patient complains of nausea and vomiting. OBJECTIVE: GENERAL: The patient is resting. VITAL SIGNS: breathing 16, blood pressure 122/72. NECK: Normocephalic. Atraumatic. EYES: EOMI. No deformity. EARS: Clear. No ulcers. NOSE: Intact. No lesions. MOUTH: Clear. No discharge. THROAT: Clear. No exudate. LUNGS: Clear. No crackles. CARDIAC: S1, S2. No rub. ABDOMEN: Benign. Bowel sounds positive. GENITALIA/RECTUM: Taylor absent. BACK/EXTREMITIES: Edema 0+. NEUROLOGICAL: Alert and motor intact. ASSESSMENT: 1. Stage 6 chronic kidney disease. Plan hemodialysis. 2. . 3. Medications based on glomerular filtration rate, appropriate. Job ID: [id number]
[2018-10-27] MEDS: Sodium Chloride 0.9% 1,000 ML IV SCH (06:15)
[2018-10-27] MEDS: Insulin Regular 300 UNITS/3 ML VIAL SC PRN (06:15)
[2018-10-27] MEDS: NIFEdipine XL 60 MG TAB PO SCH (08:17)
[2018-10-27] MEDS: Heparin 5,000 UNITS/ML VIAL SC SCH ×3 (08:18→19:59)
[2018-10-27] MEDS: Lisinopril 20 MG TAB PO SCH (08:18)
[2018-10-27 08:27] LABS: #Eosinphils 0.1 thou/uL (0.0-0.7); #Lymphocytes 2.1 thou/uL (1.20-3.40); #Monocytes 0.6 thou/uL (0.11-0.59); %Basophils 0.6 % (0.0-1.0); %Eosinophils 1.5 % (0.0-10.0); %Lymphocytes 27.1 % (21.0-51.0); %Monocytes 7.3 % (0.0-10.0); %Neutrophils 63.5 % (42.0-75.0); Hemoglobin 11.7 g/dL (12.0-16.0); Mean Corpuscular HGB CONC 33.1 g/dL (32.0-36.0); Mean Corpuscular Hemoglobin 32.5 pg (27.0-31.0); Mean Corpuscular Volume 98.1 fL (78.0-98.0); Mean Platelet Volume 7.8 fL (7.4-10.4); Platelet Count 236 thou/uL (130-400); RBC Distribution Width 15.5 % (11.5-14.5); Red Blood Cell (RBC) Count 3.61 mill/uL (4.20-5.40); White Blood Cell (WBC) Count 7.9 thou/uL (4.8-10.8)
[2018-10-27 08:40] LABS: Anion Gap 19 mmol/L (10-20); BUN (Urea Nitrogen) 44 mg/dL (7.0-18.7); Calc. Creatinine Clearance 9 mL/min (70-130); Calcium 9.4 mg/dL (7.8-10.44); Carbon Dioxide 22 mmol/L (22-29); Chloride 98 mmol/L (98-107); Estimated GFR-MDRD 6; Glucose 332 mg/dL (70-105); Potassium 4.4 mmol/L (3.5-5.1); Sodium 135 mmol/L (136-145)
[2018-10-27] MEDS ORDERED: Insulin Glargine 10 UNITS in Pre-Filled Syringe SC SCH (09:00)
[2018-10-27] MEDS ORDERED: Dextrose 50% Abboject 50 ML SYRINGE SLOW IVP PRN (12:51)
[2018-10-27] MEDS ORDERED: Dextrose 5% in Water 1,000 ML IV PRN (12:51)
[2018-10-27] MEDS: HumaLOG 300 UNITS/3 ML VIAL SC PRN (13:08)
--- NOTE | 2018-10-27 14:06 | PRG ---
DATE OF SERVICE: 10/27/2018 SUBJECTIVE: The patient is seen and examined at bedside. She is feeling better. She is able to tolerate fluids. She does not vomit anymore. She was moved from the unit after her DKA improved. OBJECTIVE: VITAL SIGNS: Blood pressure is 122/85, temperature is 98.4, O2 saturation is 98% on room air, pulse is 98, and respiratory rate is 16. HEENT: Right eye is blind. The left eye pupil is responding to light properly. Sclerae are nonicteric. Conjunctiva somewhat palish. Oral mucosa is moist. NECK: Supple. LUNGS: Clear. HEART: S1 and S2 normal. No S3. No S4. No any murmur. ABDOMEN: Soft, nontender. Bowel sounds are present. No organomegaly. EXTREMITIES: No clubbing, cyanosis, or edema. NEUROLOGICAL: She is alert and oriented x4. There is no any motor deficits present. Cranial nerves are intact. LABORATORY DATA: Labs showed white count of 7.9, hemoglobin 11.7, hematocrit 35.4, and platelet count is 236,000. Sodium of 135, potassium 4.4, chloride 98, CO2 of 22, BUN 44, creatinine 9.29, glycemia is ranging from 189 to 338. IMPRESSION: 1. Diabetic ketoacidosis resolved, but now with hyperglycemia. According to her, daily requirement for insulin was less than 25 units, so knowing this I put her on a regimen which would give her around this number amount of insulin, but it looks like she requires much more. We will have to double the dose on her long-acting insulin and give her more aggressive regimen to prevent her from going into ketoacidosis again. Clinically, she seems to be doing fine and tolerating food. We will just have to go up on her insulin dose. 2. Multiple admission for diabetic ketoacidosis. 3. End-stage renal disease, scheduled for dialysis tomorrow. 4. Hypertension. 5. Esophageal soreness secondary to vomiting, improved. 6. Anemia of chronic disease. 7. Gastroesophageal reflux disease. 8. Diabetic gastroparesis. 9. 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 10. Secondary hyperparathyroidism of renal origin. PLAN: As mentioned above. Job ID: [id number]
--- NOTE | 2018-10-27 15:03 | PRG ---
DATE OF SERVICE: 10/27/2018 SUBJECTIVE: A 33-year-old female, being seen for end-stage renal disease. The patient denied any nausea, vomiting, or chest pain. OBJECTIVE: CONSTITUTIONAL: The patient is awake and alert. VITAL SIGNS: Afebrile. Pulse 98, breathing 16, and blood pressure 132/85. GENERAL APPEARANCE AND MENTAL STATUS: Fair. HEAD/NECK: Normocephalic. Atraumatic. EYES: EOMI. No deformity. EARS: Clear. No ulcers. NOSE: Intact. No lesions. MOUTH: Clear. No discharge. THROAT: Clear. No exudate. LUNGS: Clear. No crackles. CARDIAC: S1, S2. No rub. ABDOMEN: Benign. Bowel sounds positive. GENITALIA/RECTUM: Taylor absent. BACK/EXTREMITIES: Edema 0+. NEUROLOGICAL: Alert and motor intact. SKIN: LYMPHATICS: LABORATORY DATA: Hemoglobin 11.7. ASSESSMENT: 1. Stage 6 chronic kidney disease, plan hemodialysis. 2. Hypertension, stable. 3. Anemia, stable. 4. Medications based on glomerular filtration rate, appropriate. Job ID: [id number]
[2018-10-27] MEDS ORDERED: Insulin Glargine 15 UNITS in Pre-Filled Syringe SC SCH (21:00)
[2018-10-28] MEDS: HumaLOG 300 UNITS/3 ML VIAL SC PRN (03:51)
[2018-10-28] MEDS: Lisinopril 20 MG TAB PO SCH ×2 (08:15→15:08)
[2018-10-28] MEDS: Heparin 5,000 UNITS/ML VIAL SC SCH ×2 (08:15→15:03)
[2018-10-28] MEDS: NIFEdipine XL 60 MG TAB PO SCH ×3 (08:16→15:05)
[2018-10-28 14:59] VITALS: TEMP 97.8
[2018-10-28 15:09] VITALS: BP 166/117
--- NOTE | 2018-10-28 19:37 | PRG ---
DATE OF SERVICE: 10/28/2018 SUBJECTIVE: Patient was seen and examined at bedside and overnight events noted. Patient denies any shortness of breath or chest pain or palpitation. No history of nausea or vomiting or diarrhea or fever or chills or cramps. OBJECTIVE: GENERAL: This is a well-built female, in no apparent distress. VITAL SIGNS: Temperature 97.8. Heart rate 102. Respiratory rate 18. Blood pressure 166/107. HEENT: Atraumatic, normocephalic. Oral mucosa is moist NECK: Supple. CARDIOVASCULAR: S1, S2 heard. Rate and rhythm regular. RESPIRATORY: Clear to auscultation. GASTROINTESTINAL: Abdomen is soft. MUSCULOSKELETAL: No tenderness. No edema. DERMATOLOGIC: No skin rash. NEUROLOGIC: Alert and awake and oriented X3. No focal neurologic deficits. Moving all the extremities. PSYCHIATRIC: Mood and affect normal. LABORATORY DATA: Not done today. ASSESSMENT AND PLAN: 1. End-stage renal disease. Continue dialysis on Sunday, Sunday, and Sunday. 2. Hypertension. 3. Anemia. 4. Edema. We will continue on dialysis as tolerated. Job ID: [id number]
--- NOTE | 2018-10-28 23:22 | DIS ---
DATE OF ADMISSION: 10/25/2018 DATE OF DISCHARGE: 10/28/2018 DIAGNOSES AT THE TIME OF DISCHARGE: 1. Diabetic ketoacidosis, resolved. 2. End-stage renal disease. 3. Hypertension. 4. Esophageal soreness secondary to vomiting, resolved. 5. Anemia of chronic disease. 6. Gastroesophageal reflux disease. 7. Diabetic gastroparesis. 8. 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 9. Secondary hyperparathyroidism of renal origin. CONSULTANTS: Dr. Puentes of Nephrology Service. PROCEDURE: Hemodialysis. HOSPITAL COURSE: The patient is a 33-year-old female who presented to the emergency room with symptoms of nausea and vomiting and abdominal cramping for the last 3 days prior to this admission. She denied any fever or chills. Denied any shortness of breath. She felt tired. She had some cough, which started approximately 1 month ago. She is a hemodialysis patient. She gets hemodialysis dialysis 3 times a week. Her primary care physician is Dr. Bran Mcginnis from [facility]. She has very brittle diabetes mellitus. She had multiple admissions for the same diagnosis of DKA. At the time of emergency room visit, her labs showed white count of 15.3, hemoglobin 10.3, hematocrit 31.1, platelet count 249,000. Sodium of 132, potassium 4.2, chloride 90, CO2 of 16, BUN 71, creatinine 11.85, glucose 643. Serum protein was 8.7, globulin 4.0. Chest x-ray did not reveal any abnormalities. Influenza type A and B were negative. She was admitted to critical care with DKA protocol with IV fluids, normal saline 50 mL/h. Nephrology was consulted and she underwent hemodialysis, which corrected tremendously her ketoacidosis. She was kept on insulin drip and followed DKA protocol in the intensive care unit. The next day, she was switched to long-acting insulin glargine and sliding scale. She was able to eat and she was transferred out to the medical floor. She is doing well. She had hemodialysis today. She is able to tolerate food without any problems. Her glycemia significantly improved, now it is 200, the latest measurements. Her white count went down to 7.9. She is doing well. She is examined and evaluated before she is discharged home. We recommend her to stay on 2000 calories ADA diet and activities as tolerated. Her medications at the time of discharge, she will start her insulin pump with Humalog and followup closely her Accu-Cheks for the next 2 to 3 days. She will follow up with her primary care physician in 1 week and she will continue her lisinopril 20 mg twice a day, nifedipine 60 mg every morning, and sevelamer 800 mg 3 times a day. TIME SPENT: Time spent on this discharge is less than 30 minutes. Job ID: [id number]
== END 2018-10-28 16:59 | disposition home or self-care (01) | DRG 637 ==
LOC: ERS 11:25 → CCU 14:14 → T4-B 10-26 18:07
PROVIDERS: ADMIT Internal Medicine; ATTEND Internal Medicine
PROC: 5A1D70Z Performance of Urinary Filtration, Intermittent, Less than 6 Hours Per Day (ICD-10-PCS; principal; 2018-10-25)
DX: E10.10 Type 1 diabetes mellitus with ketoacidosis without coma (principal); N18.6 End stage renal disease; I12.0 Hypertensive chronic kidney disease with stage 5 chronic kidney disease or end stage renal disease; N25.81 Secondary hyperparathyroidism of renal origin; K21.9 Gastro-esophageal reflux disease without esophagitis; E10.43 Type 1 diabetes mellitus with diabetic autonomic (poly)neuropathy; K31.84 Gastroparesis; H54.61 Unqualified visual loss, right eye, normal vision left eye; E10.22 Type 1 diabetes mellitus with diabetic chronic kidney disease; E10.319 Type 1 diabetes mellitus with unspecified diabetic retinopathy without macular edema; H40.9 Unspecified glaucoma; D63.8 Anemia in other chronic diseases classified elsewhere; Z99.2 Dependence on renal dialysis; Z79.899 Other long term (current) drug therapy; Z98.890 Other specified postprocedural states
CPT/HCPCS: 36415; 36416; 71045; 80048; 80053; 82010; 85025; 87340; 87804; 93005; 96361; 96365; 96366; 96375; 96376; J0360; J1644; J1815; J2405; J2550; J2765; J3490; J7050; S0028

== ENCOUNTER 2019-11-06 12:58 | Inpatient (IN) | payer MEDICARE, OTHER ==
[2019-11-06 13:37] LABS: Hemoglobin 14.5 g/dL (12.0-16.0); Mean Corpuscular HGB CONC 31.1 g/dL (32.0-36.0); Mean Corpuscular Hemoglobin 30.2 pg (27.0-31.0); Mean Corpuscular Volume 97.2 fL (78.0-98.0); Mean Platelet Volume 8.7 fL (7.4-10.4); Platelet Count 264 thou/uL (130-400); RBC Distribution Width 12.4 % (11.5-14.5); White Blood Cell (WBC) Count 11.5 thou/uL (4.8-10.8)
[2019-11-06 14:05] LABS: ALT (SGPT) 13 U/L (8-55); AST (SGOT) 18 U/L (5-34); Albumin 4.3 g/dL (3.5-5.0); Alkaline Phosphatase 81 U/L (40-110); Anion Gap 18 mmol/L (10-20); BUN (Urea Nitrogen) 25 mg/dL (7.0-18.7); Bilirubin, Total 0.3 mg/dL (0.2-1.2); Calc. Creatinine Clearance 0 mL/min (70-130); Calcium 10.3 mg/dL (7.8-10.44); Carbon Dioxide 19 mmol/L (22-29); Chloride 105 mmol/L (98-107); Estimated GFR-MDRD 81; Globulin 4.5 g/dL (2.4-3.5); Glucose 115 mg/dL (70-105); Potassium 4.9 mmol/L (3.5-5.1); Protein, Total 8.8 g/dL (6.0-8.3); Sodium 137 mmol/L (136-145)
[2019-11-06 14:15] LABS: Band 20 % (5-11); Hypochromia SLIGHT = 6-15 cells (100X) (0-5/hpf); Lymphocytes 4 % (21-51); MDiff Complete? YES; Monocytes 5 % (0-10); Neutrophil 66 % (42-75); Platelet Morphology Comment Appears Adequate; Polychromasia SLIGHT = 2-3 cells (100X) (0-2/hpf); Reactive Lymphocytes 5 % (0-10); Target Cells SLIGHT = 2-5 cells (100X) (0-1/hpf); Tear Drops SLIGHT = 2-5 cells (100X) (0-1/hpf)
[2019-11-06] MEDS ORDERED: Mag-Al 1200 mg/1200 mg/30 ML UDCUP ONE ×2 (14:34→17:48)
[2019-11-06] MEDS ORDERED: Lidocaine Viscous Sol 2% 15 ml UD Cup ONE ×2 (14:34→17:48)
--- NOTE | 2019-11-06 15:16 | RAD ---
EXAM: Single view of the chest HISTORY: Fever COMPARISON: 10/25/2018 FINDINGS: Single view of the chest shows a normal sized cardiomediastinal silhouette. There is no cesar dence of consolidation, mass, or pleural effusion. The bones are unremarkable. IMPRESSION: No evidence of acute cardiopulmonary disease
[2019-11-06 15:17] LABS: BHCG - Serum Negative (NEGATIVE); Pregs Control Background? CLEAR/WHITE (CLR/WHITE); Pregs Control Bar Appear? YES (CONTROL BAR)
[2019-11-06] MEDS ORDERED: Cefepime 2 GM VIAL ONE (16:19)
[2019-11-06] MEDS ORDERED: Promethazine HCl 25 MG/ML VIAL ONE (16:19)
[2019-11-06] MEDS ORDERED: Acetaminophen 650 MG Suppository PR PRN (16:52)
[2019-11-06] MEDS ORDERED: Enoxaparin Sodium 30 MG/0.3 ML SYRINGE SC SCH (17:00)
[2019-11-06 17:02] LABS: Bacteria/HPF 4+ HPF (None Seen); Bilirubin Negative (Negative); Blood, Urine 3+ (Negative); Clarity Turbid (Clear); Glucose, Urine (Dipstick) Normal (Negative); Leukocyte 25 Leu/uL (Negative); Nitrite Negative (Negative); Protein, Urine (Dipstick) 200 mg/dL (Neg-Trace); Urobilinogen Normal mg/dL (Less than 2)
--- NOTE | 2019-11-06 18:49 | HP ---
PRIMARY CARE PROVIDER: Dr. Bran Mcginnis at [facility]. CHIEF COMPLAINT: Nausea and vomiting. HISTORY OF PRESENT ILLNESS: Ms. Chavis is a pleasant 34-year-old lady, who was seen at [facility] on 11/06/2019. She has a history of end-stage renal disease for which she was on hemodialysis. In January 2019, she underwent renal and pancreatic transplant, with resolution of end-stage renal disease. She reports doing well until 2 days ago. Two days ago, she started having nausea, vomiting, and diarrhea. She reports multiple watery stools. She also reports vomiting multiple times. She is unable to maintain oral intake. Today, she had a temperature of 101 degrees Fahrenheit. She denies any abdominal pain. She denies any chest pain. She denies any dysuria or increased frequency of urination. She presented to the emergency room because of the above symptoms. She denies any sick contacts. She denies any outside food prior to the onset of symptoms. REVIEW OF SYSTEMS: All systems were reviewed and found to be negative except for the pertinent positives mentioned above. PAST MEDICAL HISTORY: End-stage renal disease, hypertension, pancreatic and renal transplant, gastroesophageal reflux disease, gastroparesis. PAST SURGICAL HISTORY: Renal and pancreatic transplant, left eye surgery, fistula to left arm, graft to left arm. SOCIAL HISTORY: The patient denies tobacco use, alcohol use, or recreational drug use. FAMILY HISTORY: No family history of premature coronary artery disease. ALLERGIES: NO KNOWN DRUG ALLERGIES. CURRENT MEDICATIONS: 1. Aspirin 81 mg daily. 2. Pepcid 20 mg daily. 3. Gabapentin 300 mg 3 times a day. 4. CellCept 1000 mg 2 times a day. 5. Prednisone 5 mg daily. 6. Phospha Neutral one tablet daily. 7. Prograf 4 mg 2 times a day. 8. Valcyte 900 mg 2 times a day. PHYSICAL EXAMINATION: GENERAL: On examination, Ms. Chavis is awake and alert, not in acute distress. VITAL SIGNS: Blood pressure is 121/84, pulse 112, respiratory rate 17, and oxygen saturation 99% on room air. She is afebrile. EYES: No scleral icterus, she is blind in the right eye. ENT: Dry mucosal membranes. No oropharyngeal erythema or exudates. NECK: Supple, nontender, trachea is midline. RESPIRATORY: Accessory muscles of breathing are not active. Chest wall movements are symmetric bilaterally. Lungs are clear to auscultation without wheeze, rhonchi, or crepitations. CARDIOVASCULAR: S1 and S2 are heard, tachycardic and regular. Peripheral pulses palpable. No carotid bruit. ABDOMEN: Soft, nontender, bowel sounds heard. NEUROLOGIC: No facial droop. Deep tendon reflexes 2+. MUSCULOSKELETAL: The patient is moving all 4 extremities. SKIN: No rashes. LYMPHATIC: No cervical lymphadenopathy. PSYCHIATRIC: Normal mood, normal affect. The patient is oriented to person, place, and time. LABORATORY DATA: Ms. Chavis's labs and investigations were reviewed. I reviewed her electrocardiogram, which shows sinus tachycardia, no ST changes to suggest an acute coronary syndrome. I also reviewed her chest x-ray, which does not show any pulmonary infiltrates. She has leukocytosis with 11,500 white cells, of which 66% are neutrophils. She also has bandemia with 20% bands. Hemoglobin and platelet count are normal. She has normal sodium, normal potassium, normal creatinine, unremarkable LFTs and low lipase of 7. Serum test is negative. Urinalysis is positive for ketones and blood, negative for nitrite and leukocyte esterase. Beta-hydroxybutyrate is elevated at 1.21. Anion gap is 18 and bicarb is 19. Lactic acid is normal at 1.4. ASSESSMENT AND PLAN: Ms. Chavis is a pleasant 34-year-old lady, who was seen at [facility] on 11/06/2019. Her problem list includes: 1. Sepsis: Ms. Chavis is presenting with sepsis, most likely source of infection is gastroenteritis. She will be admitted to the hospital for further management including intravenous fluids and antibiotics. 2. Gastroenteritis: We will send out stool cultures and Clostridium difficile toxin assay. The patient has been started on cefepime and vancomycin, which I will continue. We will also follow blood cultures in case there is bacteremia. 3. Diabetic neuropathy: Continue gabapentin. 4. History of renal and pancreatic transplant: Continue CellCept and Prograf as well as Valcyte. Many thanks for allowing me to participate in your patient's care. Please feel free to contact me with any questions or concerns. LEVEL OF RISK: High. LEVEL OF COMPLEXITY: High. Job ID: [id number] [facility]
[2019-11-06 19:42] VITALS: BMI 26.2
[2019-11-06] MEDS: Acetaminophen 325 MG TAB PO PRN (19:47)
[2019-11-06] MEDS: Ondansetron PF 4 MG/2 ML Vial IVP PRN (19:53)
[2019-11-06] MEDS: Sodium Chloride 0.9% 1,000 ML IV SCH (19:54)
[2019-11-06] MEDS: Famotidine 20 MG TAB PO SCH (20:39)
[2019-11-06] MEDS: Gabapentin 300 MG CAP PO SCH (20:39)
[2019-11-06] MEDS: Tacrolimus 1 MG CAP PO SCH (20:43)
[2019-11-06] MEDS: Mycophenolate 250 MG CAP PO SCH (20:51)
[2019-11-07] MEDS: hydrALAZINE 20 MG/ML VIAL SLOW IVP PRN ×3 (00:35→17:02)
[2019-11-07] MEDS: Promethazine HCl 12.5 MG in Sodium Chloride 0.9% 50 ML IVPB PRN ×2 (01:56→11:26)
[2019-11-07] MEDS: Vancomycin HCl 1 GM in Premix Bag 1 BAG IVPB SCH ×2 (02:37→15:38)
[2019-11-07] MEDS: Cefepime 1 GM in Sodium Chloride 0.9% 100 ML IVPB SCH ×2 (04:10→15:38)
[2019-11-07 05:36] LABS: #Lymphocytes 0.8 thou/uL (1.20-3.40); #Monocytes 0.4 thou/uL (0.11-0.59); #Neutrophils 6.9 thou/uL (1.40-6.50); %Basophils 0.3 % (0.0-1.0); %Eosinophils 0.2 % (0.0-10.0); %Lymphocytes 10.1 % (21.0-51.0); %Monocytes 4.5 % (0.0-10.0); %Neutrophils 84.9 % (42.0-75.0); Hemoglobin 13.4 g/dL (12.0-16.0); Mean Corpuscular HGB CONC 31.9 g/dL (32.0-36.0); Mean Corpuscular Hemoglobin 31.2 pg (27.0-31.0); Mean Corpuscular Volume 97.8 fL (78.0-98.0); Mean Platelet Volume 7.4 fL (7.4-10.4); Platelet Count 260 thou/uL (130-400); RBC Distribution Width 12.2 % (11.5-14.5); Red Blood Cell (RBC) Count 4.29 mill/uL (4.20-5.40); White Blood Cell (WBC) Count 8.1 thou/uL (4.8-10.8)
[2019-11-07 05:51] LABS: Anion Gap 12 mmol/L (10-20); BUN (Urea Nitrogen) 16 mg/dL (7.0-18.7); Calc. Creatinine Clearance 112 mL/min (70-130); Carbon Dioxide 21 mmol/L (22-29); Chloride 109 mmol/L (98-107); Estimated GFR-MDRD Greater than 90; Glucose 106 mg/dL (70-105); Potassium 4.1 mmol/L (3.5-5.1); Sodium 138 mmol/L (136-145)
[2019-11-07] MEDS: Acetaminophen 325 MG TAB PO PRN (06:39)
[2019-11-07] MEDS: Sodium Chloride 0.9% 1,000 ML IV SCH ×2 (07:14→20:24)
[2019-11-07] MEDS: Gabapentin 300 MG CAP PO SCH ×3 (09:04→20:25)
[2019-11-07] MEDS: Tacrolimus 1 MG CAP PO SCH ×2 (09:04→20:25)
[2019-11-07] MEDS: Mycophenolate 250 MG CAP PO SCH ×2 (09:04→20:25)
[2019-11-07] MEDS: predniSONE 5 MG TAB PO SCH (09:04)
[2019-11-07] MEDS: Aspirin 81 mg Enteric Coated Tablet PO SCH (09:04)
[2019-11-07] MEDS: Famotidine 20 MG TAB PO SCH ×2 (09:05→20:24)
[2019-11-07] MEDS: Morphine 2 MG/ML SYRINGE SLOW IVP PRN ×2 (11:26→17:01)
--- NOTE | 2019-11-07 12:20 | CON ---
DATE OF CONSULTATION: REASON FOR CONSULTATION: Renal transplant management. HISTORY OF PRESENT ILLNESS: This is a 34-year-old female with history of diabetes mellitus and history of end-stage renal disease in the past, who was admitted for nausea, vomiting, and sepsis. The patient's baseline creatinine was 0.7, after transplant remained stable. The patient is having proteinuria. The patient denies no headache, numbness, tingling, or weakness. Denies nausea, vomiting, or chest pain. PAST MEDICAL HISTORY: Significant for end-stage renal disease, hypertension, status post renal and pancreatic transplant, left eye surgery, AV fistula, blindness, GERD, and gastroparesis. SOCIAL HISTORY: No alcohol or drug use. FAMILY HISTORY: Negative for ESRD. ALLERGIES: REVIEWED. MEDICATIONS: Home medications list reviewed. Hospital medication list reviewed. REVIEW OF SYSTEMS: Fifteen-point review of system was performed and was negative except for positives noted above. GENERAL: HEAD: NECK: No swelling or lumps. NOSE: No epistaxis or discharge. EYES: No diplopia or pain. RESPIRATORY: CARDIOVASCULAR: GASTROINTESTINAL: /CLINICAL TRIAL HEAD: MUSCULOSKELETAL: No joint pain. NEUROPSYCHIATRIC SYSTEMS: No suicidal ideation. No ideation. SKIN: Denies any rash or ulcer. CONSTITUTIONAL: No fever or chills. PHYSICAL EXAMINATION: CONSTITUTIONAL: On exam, the patient is awake and alert. VITAL SIGNS: Afebrile, pulse 75, breathing 16, and blood pressure 145/96. GENERAL APPEARANCE AND MENTAL STATUS: Fair. HEAD/NECK: Normocephalic. Atraumatic. EYES: EOMI. No deformity. EARS: Clear. No ulcers. NOSE: Intact. No lesions. MOUTH: Clear. No discharge. THROAT: Clear. No exudate. LUNGS: Clear. No crackles. CARDIAC: S1, S2. No rub. ABDOMEN: Benign. Bowel sounds positive. GENITALIA/RECTUM: Taylor absent. BACK/EXTREMITIES: Edema 0+. NEUROLOGICAL: Alert and motor intact. SKIN: LYMPHATICS: LABORATORY DATA: Reviewed. ASSESSMENT AND PLAN: 1. Chronic kidney disease, stage 1, stable. 2. Hypertension, stable. 3. Anemia, stable. 4. Proteinuria. We will check random urine protein-creatinine ratio to evaluate the etiology of the proteinuria. Job ID: [id number]
[2019-11-07] MEDS: Ondansetron PF 4 MG/2 ML Vial IVP PRN (15:43)
--- NOTE | 2019-11-07 19:28 | PDOC.HOSPP ---
- Subjective Encounter Date: 11/07/19 Encounter Time: 08:20 Subjective: Pt seen for followup re: sepsis. Feels better. Headache+. nausea+. No diarrhea. - Objective Vital Signs & Weight: Vital Signs (12 hours) Temp Pulse Resp BP Pulse Ox 11/07/19 17:31 107 H 114/71 11/07/19 17:02 113 H 11/07/19 16:37 99.2 F 113 H 16 161/107 H 99 11/07/19 13:17 103 H 117/73 11/07/19 11:58 108 H 11/07/19 11:36 99.2 F 108 H 16 164/108 H 97 11/07/19 08:19 99.2 F 105 H 16 145/96 H 97 Weight Weight 152 lb 12.485 oz Result Diagrams: 11/07/19 05:15 11/07/19 05:15 Additional Labs: Labs and MARs reviewed by nc Hospitalist ROS - Review of Systems Constitutional: reports: weakness. denies: fever, chills, sweats, malaise Respiratory: denies: cough, shortness of breath, SOB with excertion, pleuritic pain, wheezing Cardiovascular: denies: chest pain, palpitations, orthopnea, paroxysmal noc. dyspnea, edema, light headedness Gastrointestinal: reports: nausea, vomiting. denies: abdominal pain, diarrhea, constipation, melena, hematochezia Genitourinary: denies: dysuria, frequency, incontinence, hematuria, retention - Medication Medications: Active Medications Generic Name Dose Route Start Last Admin Trade Name Freq PRN Reason Stop Dose Admin Acetaminophen 650 mg 11/06/19 16:52 11/07/19 06:39 Tylenol PO 650 mg Q4H PRN Administration Headache/Fever/Mild Pain (1-3) Aspirin 81 mg 11/07/19 09:00 11/07/19 09:04 Ecotrin PO 81 mg DAILY IESHA Administration Famotidine 20 mg 11/06/19 21:00 11/07/19 09:05 Pepcid PO 20 mg BID IESHA Administration Gabapentin 300 mg 11/06/19 21:00 11/07/19 15:38 Neurontin PO 300 mg TID IESHA Administration Hydralazine HCl 10 mg 11/07/19 00:28 11/07/19 17:02 Apresoline SLOW IVP 10 mg Q6H PRN Administration SBP GREATER THAN 160 Sodium Chloride 1,000 mls @ 75 mls/hr 11/06/19 17:00 11/07/19 07:14 Normal Saline 0.9% IV Not Given .[id number] IESHA Vancomycin HCl 1 gm/ Device 200 mls @ 200 mls/hr 11/07/19 03:00 11/07/19 15: 38 IVPB 200 mls 0300,1500 IESHA Administration Cefepime HCl 1 gm/ Sodium 100 mls @ 200 mls/hr 11/07/19 04:00 11/07/19 15:38 Chloride IVPB 100 mls 0400,1600 IESHA Administration Promethazine HCl 12.5 mg/ 50.5 mls @ 202 mls/hr 11/07/19 01:12 11/07/19 11:26 Sodium Chloride IVPB 50.5 mls Q6H PRN Administration Nausea/vomiting, use second Morphine Sulfate 2 mg 11/07/19 10:29 11/07/19 17:01 Morphine SLOW IVP 2 mg Q6H PRN Administration Pain Mycophenolate Mofetil 1,000 mg 11/06/19 21:00 11/07/19 09:04 Cellcept PO 1,000 mg BID IESHA Administration Ondansetron HCl 4 mg 11/06/19 16:52 11/07/19 15:43 Zofran IVP 4 mg Q6H PRN Administration Nausea/Vomiting Prednisone 5 mg 11/07/19 08:00 11/07/19 09:04 Prednisone PO 5 mg QAM-WM IESHA Administration Tacrolimus 4 mg 11/06/19 21:00 11/07/19 09:04 Prograf PO 4 mg BID IESHA Administration Valganciclovir 900 mg 11/07/19 08:00 11/07/19 17:01 Valcyte PO 900 mg BID-WM IESHA Administration - Exam General Appearance: NAD Eye - other findings: R blindness Neck: supple, symmetric, no JVD, no thyromegaly Heart: RRR, no murmur, no rubs, normal peripheral pulses Respiratory: CTAB, no wheezes, no rales, no ronchi Gastrointestinal: soft, non-tender, non-distended, normal bowel sounds Extremities: no cyanosis Psychiatric: normal affect, normal behavior, A&O x 3 Hosp A/P (1) Sepsis Code(s): A41.9 - SEPSIS, UNSPECIFIED ORGANISM Status: Acute (2) Gastroenteritis Code(s): K52.9 - NONINFECTIVE GASTROENTERITIS AND COLITIS, UNSPECIFIED Status : Acute (3) Headache Code(s): R51 - HEADACHE Status: Acute - Plan plan discussed w/ family, continue antibiotics, out of bed/ambulate s/p renal and pancreatic xplant Immunocompromised host. Nephrology consulted re; immunosuppressant meds. Trial Fioricet/morphine. Continue cefepime and vancomycin, follow cultures. Diarrhea resolved.
[2019-11-08] MEDS: Fioricet 325/50/40 mg Tablet PO PRN (00:49)
[2019-11-08] MEDS: Promethazine HCl 12.5 MG in Sodium Chloride 0.9% 50 ML IVPB PRN ×4 (00:56→21:37)
[2019-11-08] MEDS: Sodium Chloride 0.9% 1,000 ML IV SCH ×2 (01:22→11:18)
[2019-11-08 02:31] LABS: Vancomycin, Trough 14.7 ug/mL
[2019-11-08] MEDS: Vancomycin HCl 1 GM in Premix Bag 1 BAG IVPB SCH ×2 (03:10→14:05)
[2019-11-08] MEDS: Cefepime 1 GM in Sodium Chloride 0.9% 100 ML IVPB SCH ×2 (04:51→15:44)
[2019-11-08 06:26] LABS: Hemoglobin 12.7 g/dL (12.0-16.0); Mean Corpuscular HGB CONC 31.5 g/dL (32.0-36.0); Mean Corpuscular Hemoglobin 30.8 pg (27.0-31.0); Mean Platelet Volume 7.4 fL (7.4-10.4); Platelet Count 275 thou/uL (130-400); RBC Distribution Width 12.2 % (11.5-14.5); Red Blood Cell (RBC) Count 4.13 mill/uL (4.20-5.40); White Blood Cell (WBC) Count 5.8 thou/uL (4.8-10.8)
[2019-11-08 06:48] LABS: Anion Gap 11 mmol/L (10-20); BUN (Urea Nitrogen) 16 mg/dL (7.0-18.7); Calc. Creatinine Clearance 95 mL/min (70-130); Carbon Dioxide 20 mmol/L (22-29); Chloride 111 mmol/L (98-107); Estimated GFR-MDRD 86; Glucose 88 mg/dL (70-105); Potassium 3.7 mmol/L (3.5-5.1); Sodium 138 mmol/L (136-145)
[2019-11-08 06:51] LABS: Band 7 % (5-11); Eosinophils 2 % (0-10); Lymphocytes 17 % (21-51); MDiff Complete? YES; Monocytes 7 % (0-10); Neutrophil 67 % (42-75)
[2019-11-08] MEDS: Tacrolimus 1 MG CAP PO SCH ×2 (08:29→22:45)
[2019-11-08] MEDS: predniSONE 5 MG TAB PO SCH (08:30)
[2019-11-08] MEDS: Gabapentin 300 MG CAP PO SCH ×3 (08:30→22:46)
[2019-11-08] MEDS: Aspirin 81 mg Enteric Coated Tablet PO SCH (08:30)
[2019-11-08] MEDS: Famotidine 20 MG TAB PO SCH ×2 (08:31→22:45)
--- NOTE | 2019-11-08 09:48 | PRG ---
DATE OF SERVICE: 11/08/2019 SUBJECTIVE: This is a 34-year-old female being seen for chronic kidney disease. The patient denies any chest pain or dyspnea. OBJECTIVE: See above. The patient is awake and alert, in no acute distress. VITAL SIGNS: Afebrile, pulse 99, breathing 16, blood pressure 123/78. GENERAL APPEARANCE AND MENTAL STATUS: Fair. HEAD/NECK: Normocephalic. Atraumatic. EYES: EOMI. No deformity. EARS: Clear. No ulcers. NOSE: Intact. No lesions. MOUTH: Clear. No discharge. THROAT: Clear. No exudate. LUNGS: Clear. No crackles. CARDIAC: S1, S2. No rub. ABDOMEN: Benign. Bowel sounds positive. GENITALIA/RECTUM: Taylor absent. BACK/EXTREMITIES: Edema 0+. NEUROLOGICAL: Alert and motor intact. SKIN: LYMPHATICS: LABORATORY DATA: Labs show hemoglobin 12.7. Creatinine 0.9. ASSESSMENT AND PLAN: 1. Chronic kidney disease stage 1, stable. 2. Hypertension, stable. 3. Anemia, stable. 4. Chronic immunosuppression. Continue immunosuppressant. Job ID: [id number]
[2019-11-08] MEDS: Mycophenolate 250 MG CAP PO SCH ×2 (10:38→22:46)
[2019-11-08] MEDS: Morphine 2 MG/ML SYRINGE SLOW IVP PRN (12:04)
[2019-11-08] MEDS ORDERED: Simethicone Chewable 80 MG TAB PO PRN (13:42)
--- NOTE | 2019-11-08 15:10 | PDOC.HOSPP ---
- Subjective Encounter Date: 11/08/19 Encounter Time: 10:00 Subjective: The patient is still nauseous. She hasn't eaten for the past few days. She denies abdominal pain. Her diarrhea resolved two days ago. She does not remember eating any outside food the day she felt nauseous. She hasn't had a bowel movement in a few days. Her stomach feels empty. Phenergan helps with her nausea. Zofran does not. She has not tried simethicone. She is willing to try gatorade - Objective Vital Signs & Weight: Vital Signs (12 hours) Temp Pulse Resp BP Pulse Ox 11/08/19 12:10 162/98 H 11/08/19 08:00 98 11/08/19 07:50 98.9 F 110 H 18 162/102 H 98 11/08/19 04:40 98.5 F 96 16 144/91 H 97 Weight Weight 152 lb 12.485 oz Result Diagrams: 11/08/19 06:12 11/08/19 06:12 Hospitalist ROS - Review of Systems Constitutional: denies: fever, chills Respiratory: denies: cough, dry - Medication Medications: Active Medications Generic Name Dose Route Start Last Admin Trade Name Freq PRN Reason Stop Dose Admin Acetaminophen 650 mg 11/06/19 16:52 11/07/19 06:39 Tylenol PO 650 mg Q4H PRN Administration Headache/Fever/Mild Pain (1-3) Acetaminophen/Butalbital/Caffeine 1 tab 11/07/19 10:29 11/08/19 00:49 Fioricet PO 11/12/19 10:30 1 tab Q4H PRN Administration Headache Aspirin 81 mg 11/07/19 09:00 11/08/19 08:30 Ecotrin PO 81 mg DAILY IESHA Administration Famotidine 20 mg 11/06/19 21:00 11/08/19 08:31 Pepcid PO 20 mg BID IESHA Administration Gabapentin 300 mg 11/06/19 21:00 11/08/19 14:04 Neurontin PO 300 mg TID IESHA Administration Hydralazine HCl 10 mg 11/07/19 00:28 11/07/19 17:02 Apresoline SLOW IVP 10 mg Q6H PRN Administration SBP GREATER THAN 160 Sodium Chloride 1,000 mls @ 75 mls/hr 11/06/19 17:00 11/08/19 11:18 Normal Saline 0.9% IV Not Given .[id number] IESHA Vancomycin HCl 1 gm/ Device 200 mls @ 200 mls/hr 11/07/19 03:00 11/08/19 14: 05 IVPB 200 mls 0300,1500 IESHA Administration Cefepime HCl 1 gm/ Sodium 100 mls @ 200 mls/hr 11/07/19 04:00 11/08/19 04:51 Chloride IVPB 100 mls 0400,1600 IESHA Administration Promethazine HCl 12.5 mg/ 50.5 mls @ 202 mls/hr 11/07/19 01:12 11/08/19 08:33 Sodium Chloride IVPB 50.5 mls Q6H PRN Administration Nausea/vomiting, use second Morphine Sulfate 2 mg 11/07/19 10:29 11/08/19 12:04 Morphine SLOW IVP 2 mg Q6H PRN Administration Pain Mycophenolate Mofetil 1,000 mg 11/06/19 21:00 11/08/19 10:38 Cellcept PO 1,000 mg BID IESHA Administration Ondansetron HCl 4 mg 11/06/19 16:52 11/07/19 15:43 Zofran IVP 4 mg Q6H PRN Administration Nausea/Vomiting Prednisone 5 mg 11/07/19 08:00 11/08/19 08:30 Prednisone PO 5 mg QAM-WM IESHA Administration Tacrolimus 4 mg 11/06/19 21:00 11/08/19 08:29 Prograf PO 4 mg BID IESHA Administration Valganciclovir 900 mg 11/07/19 08:00 11/08/19 08:30 Valcyte PO 900 mg BID-WM IESHA Administration - Exam General Appearance: NAD, awake alert Eye: PERRL, anicteric sclera ENT: normocephalic atraumatic, no oropharyngeal lesions, moist mucosa Neck: supple, symmetric, no JVD, no thyromegaly, no lymphadenopathy, no carotid bruit Heart: RRR, no murmur, no gallops, no rubs, normal peripheral pulses Respiratory: CTAB, no wheezes, no rales, no ronchi, normal chest expansion, no tachypnea, normal percussion Gastrointestinal: soft, non-tender, non-distended, no hepatomegaly, no splenomegaly, no bruit Gastrointestinal - other findings: hypoactive bowel sounds Extremities: no cyanosis, no clubbing, no edema Skin: normal turgor, no lesions, no rashes Neurological: cranial nerve grossly intact, normal sensation to touch, no weakness, no focal deficits, no new deficit Musculoskeletal: normal tone, normal strength, no muscle wasting Psychiatric: normal affect, normal behavior, A&O x 3 Hosp A/P - Plan This is a 34 year old female s/p pancreatic and kidney transplant 01/2019 who presented with nausea, fever and diarrhea #Sepsis from Gastroenteritis #Nausea #Hyperchloremic metabolic acidosis - diarrhea and fevers have resolved. Was placed on cefepime and vanc empirically. Blood cultures negative. Unlikely C diff since diarrhea has resolved. Stool cultures unable to be collected since no BM - will discontinue vancomycin, continue cefepime for now - will check abdominal X ray due to hypoactive bowel sounds - continue phenergan prn - added simethicone prn - encouraged patient to try clear liquids - check TSH - switch fluids to D5 1/2NS Constipation - suppository prn History of type I DM and ESRD s/p pancreatic and kidney transplant - continue mycophenolate and tacrolimus per nephrology - valganciclovir for CMV prophylaxis
--- NOTE | 2019-11-08 15:33 | EKG ---
Test Reason : Blood Pressure : / mmHG Vent. Rate : 111 BPM Atrial Rate : 111 BPM P-R Int : 142 ms QRS Dur : 076 ms QT Int : 304 ms P-R-T Axes : 061 056 049 degrees QTc Int : 413 ms Sinus tachycardia Biatrial enlargement Septal infarct , age undetermined Abnormal ECG Confirmed by LUPE JOHNSON, ADRIEN ([id number]), marketing editor ADRIANA MORROW ([id number]) on 11/08/2019 3:33:22 PM Referred By: JELANI ANDRADE Confirmed By:ADRIEN ANDRADE MD
[2019-11-08] MEDS: Dextrose 5 %-0.45 % NaCl 1,000 ML IV SCH (15:52)
--- NOTE | 2019-11-08 16:13 | RAD ---
Radiograph abdomen one view: HISTORY: Nausea and decreased bowel sounds in 34-year-old female FINDINGS: Small amount of gas in nondilated colon. Paucity of small bowel gas. Distended urinary bladder. Multi ple surgical clips in the bilateral lower quadrants. IMPRESSION: Difficult to evaluate the small intestine because of lack of small bowel gas.
[2019-11-08] MEDS: hydrALAZINE 20 MG/ML VIAL SLOW IVP PRN (21:31)
[2019-11-09] MEDS: Cefepime 1 GM in Sodium Chloride 0.9% 100 ML IVPB SCH (04:04)
[2019-11-09] MEDS: Acetaminophen 325 MG TAB PO PRN (04:05)
[2019-11-09] MEDS: Promethazine HCl 12.5 MG in Sodium Chloride 0.9% 50 ML IVPB PRN ×4 (05:40→23:51)
[2019-11-09] MEDS: Dextrose 5 %-0.45 % NaCl 1,000 ML IV SCH ×2 (06:38→17:29)
[2019-11-09] MEDS: Gabapentin 300 MG CAP PO SCH ×3 (09:04→21:38)
[2019-11-09] MEDS: Aspirin 81 mg Enteric Coated Tablet PO SCH (09:05)
[2019-11-09] MEDS: Famotidine 20 MG TAB PO SCH ×2 (09:05→21:38)
[2019-11-09] MEDS: predniSONE 5 MG TAB PO SCH (09:05)
[2019-11-09] MEDS: Mycophenolate 250 MG CAP PO SCH ×2 (09:06→21:38)
[2019-11-09] MEDS: Fioricet 325/50/40 mg Tablet PO PRN (09:29)
[2019-11-09 10:41] LABS: Bilirubin Negative (Negative); Blood, Urine 3+ (Negative); Clarity Turbid (Clear); Glucose, Urine (Dipstick) Normal (Negative); Leukocyte Negative Leu/uL (Negative); Nitrite Negative (Negative); Protein, Urine (Dipstick) 30 mg/dL (Neg-Trace); RBC/HPF Greater than 50 HPF (0-3); Urobilinogen Normal mg/dL (Less than 2)
[2019-11-09 10:42] LABS: Bacteria/HPF 1+ HPF (None Seen)
--- NOTE | 2019-11-09 10:52 | PDOC.HOSPP ---
- Subjective Encounter Date: 11/09/19 Encounter Time: 10:50 Subjective: The patient is tolerating [place]a, is taking tiny amounts. She is urinating adequately per nursing staff. No abdominal pain, no diarrhea Patient denies frequency, urgency, dysuria - Objective Vital Signs & Weight: Vital Signs (12 hours) Temp Pulse Resp BP Pulse Ox 11/09/19 08:00 98.9 F 107 H 16 152/94 H 97 11/09/19 04:35 98.3 F 105 H 16 167/102 H 100 11/09/19 00:55 98.1 F 97 16 116/77 100 Weight Weight 152 lb 12.485 oz Result Diagrams: 11/08/19 06:12 11/08/19 06:12 Hospitalist ROS - Review of Systems Constitutional: denies: fever, chills Respiratory: denies: cough, dry - Medication Medications: Active Medications Generic Name Dose Route Start Last Admin Trade Name Freq PRN Reason Stop Dose Admin Acetaminophen 650 mg 11/06/19 16:52 11/09/19 04:05 Tylenol PO 650 mg Q4H PRN Administration Headache/Fever/Mild Pain (1-3) Acetaminophen/Butalbital/Caffeine 1 tab 11/07/19 10:29 11/09/19 09:29 Fioricet PO 11/12/19 10:30 1 tab Q4H PRN Administration Headache Aspirin 81 mg 11/07/19 09:00 11/09/19 09:05 Ecotrin PO 81 mg DAILY IESHA Administration Famotidine 20 mg 11/06/19 21:00 11/09/19 09:05 Pepcid PO 20 mg BID IESHA Administration Gabapentin 300 mg 11/06/19 21:00 11/09/19 09:04 Neurontin PO 300 mg TID IESHA Administration Hydralazine HCl 10 mg 11/07/19 00:28 11/08/19 21:31 Apresoline SLOW IVP 10 mg Q6H PRN Administration SBP GREATER THAN 160 Cefepime HCl 1 gm/ Sodium 100 mls @ 200 mls/hr 11/07/19 04:00 11/09/19 04:04 Chloride IVPB 100 mls 0400,1600 IESHA Administration Promethazine HCl 12.5 mg/ 50.5 mls @ 202 mls/hr 11/07/19 01:12 11/09/19 05:40 Sodium Chloride IVPB 50.5 mls Q6H PRN Administration Nausea/vomiting, use second Dextrose/Sodium Chloride 1,000 mls @ 75 mls/hr 11/08/19 15:30 11/09/19 06:38 D5 1/2 Ns IV Not Given .[id number] IESHA Morphine Sulfate 2 mg 11/07/19 10:29 11/08/19 12:04 Morphine SLOW IVP 2 mg Q6H PRN Administration Pain Mycophenolate Mofetil 1,000 mg 11/06/19 21:00 11/09/19 09:06 Cellcept PO 1,000 mg BID IESHA Administration Ondansetron HCl 4 mg 11/06/19 16:52 11/07/19 15:43 Zofran IVP 4 mg Q6H PRN Administration Nausea/Vomiting Prednisone 5 mg 11/07/19 08:00 11/09/19 09:05 Prednisone PO 5 mg QAM-WM IESHA Administration Tacrolimus 4 mg 11/06/19 21:00 11/08/19 22:45 Prograf PO 4 mg BID IESHA Administration Valganciclovir 900 mg 11/07/19 08:00 11/09/19 09:06 Valcyte PO 900 mg BID-WM IESHA Administration - Exam General Appearance: NAD, awake alert Eye: PERRL, anicteric sclera Heart: no murmur Respiratory: CTAB, no wheezes, no rales, no ronchi Gastrointestinal: soft. negative: tender to palpation Gastrointestinal - other findings: bowel sounds heard in RUQ, improved Hosp A/P - Plan Abdominal X ray: paucity of gas, nondilated colon This is a 34 year old female s/p pancreatic and kidney transplant 01/2019 who presented with nausea, fever and diarrhea #Sepsis from Gastroenteritis #Nausea #Hyperchloremic metabolic acidosis - diarrhea and fevers have resolved. Was placed on cefepime and vanc empirically. Blood cultures negative. Unlikely C diff since diarrhea has resolved. Stool cultures unable to be collected since no BM - discontinued vanc 11/08, will d/c cefepime 11/09 to see if it improves nausea - continue phenergan prn, simethicone prn - encouraged patient to try soup today - TSH low, will check free T4 and T3 - continue D5 1/2 NS Constipation - suppository prn Turbid urine - will send urine culture - patient currently asymptomatic with no dysuria History of type I DM and ESRD s/p pancreatic and kidney transplant - continue mycophenolate and tacrolimus per nephrology - valganciclovir for CMV prophylaxis
[2019-11-09] MEDS: Tacrolimus 1 MG CAP PO SCH ×2 (11:19→21:38)
[2019-11-09 11:54] LABS: Free T4 (Free Thyroxine) 0.93 ng/dL (0.70-1.48)
[2019-11-09] MEDS: Ondansetron PF 4 MG/2 ML Vial IVP PRN (22:56)
[2019-11-10] MEDS: Dextrose 5 %-0.45 % NaCl 1,000 ML IV SCH ×4 (08:02→23:40)
[2019-11-10] MEDS: Gabapentin 300 MG CAP PO SCH ×3 (08:48→20:35)
[2019-11-10] MEDS: Aspirin 81 mg Enteric Coated Tablet PO SCH (08:48)
[2019-11-10] MEDS: Famotidine 20 MG TAB PO SCH ×2 (08:49→20:35)
[2019-11-10] MEDS: Tacrolimus 1 MG CAP PO SCH ×2 (08:49→20:34)
[2019-11-10] MEDS: predniSONE 5 MG TAB PO SCH (08:49)
[2019-11-10] MEDS: Fioricet 325/50/40 mg Tablet PO PRN (08:50)
[2019-11-10] MEDS: Mycophenolate 250 MG CAP PO SCH ×2 (10:38→20:35)
[2019-11-10 11:13] LABS: Anion Gap 12 mmol/L (10-20); BUN (Urea Nitrogen) 7 mg/dL (7.0-18.7); Calc. Creatinine Clearance 109 mL/min (70-130); Calcium 9.1 mg/dL (7.8-10.44); Carbon Dioxide 24 mmol/L (22-29); Chloride 108 mmol/L (98-107); Estimated GFR-MDRD Greater than 90; Glucose 127 mg/dL (70-105); Potassium 3.6 mmol/L (3.5-5.1); Sodium 140 mmol/L (136-145)
[2019-11-10 11:21] LABS: Hemoglobin 13.1 g/dL (12.0-16.0); Mean Corpuscular HGB CONC 32.3 g/dL (32.0-36.0); Mean Corpuscular Hemoglobin 31.7 pg (27.0-31.0); Mean Corpuscular Volume 98.3 fL (78.0-98.0); Mean Platelet Volume 7.1 fL (7.4-10.4); Platelet Count 317 thou/uL (130-400); RBC Distribution Width 12.2 % (11.5-14.5); Red Blood Cell (RBC) Count 4.12 mill/uL (4.20-5.40); White Blood Cell (WBC) Count 4.6 thou/uL (4.8-10.8)
[2019-11-10 11:27] LABS: ALT (SGPT) 9 U/L (8-55); AST (SGOT) 10 U/L (5-34); Albumin 3.5 g/dL (3.5-5.0); Alkaline Phosphatase 62 U/L (40-110); Anion Gap 13 mmol/L (10-20); BUN (Urea Nitrogen) 7 mg/dL (7.0-18.7); Bilirubin, Total 0.3 mg/dL (0.2-1.2); Calc. Creatinine Clearance 107 mL/min (70-130); Calcium 8.9 mg/dL (7.8-10.44); Carbon Dioxide 23 mmol/L (22-29); Chloride 108 mmol/L (98-107); Estimated GFR-MDRD Greater than 90; Globulin 2.7 g/dL (2.4-3.5); Glucose 125 mg/dL (70-105); Potassium 3.7 mmol/L (3.5-5.1); Protein, Total 6.2 g/dL (6.0-8.3); Sodium 140 mmol/L (136-145)
[2019-11-10] MEDS: Promethazine HCl 12.5 MG in Sodium Chloride 0.9% 50 ML IVPB PRN (12:42)
--- NOTE | 2019-11-10 17:22 | PDOC.HOSPP ---
- Subjective Encounter Date: 11/10/19 Encounter Time: 11:30 Subjective: The patient did not tolerate soup well because she did not like the taste. She still has some nausea. No BM yet She ordered regular food with scrambled eggs this morning but had not tried it yet - Objective Vital Signs & Weight: Vital Signs (12 hours) Temp Pulse Resp BP Pulse Ox 11/10/19 16:43 98.9 F 97 18 111/73 97 11/10/19 12:28 99.9 F H 107 H 18 136/90 99 11/10/19 08:45 95 11/10/19 07:49 98.7 F 89 18 148/89 H 95 Weight Weight 152 lb 12.485 oz Result Diagrams: 11/10/19 10:38 11/10/19 10:38 Hospitalist ROS - Review of Systems Constitutional: denies: fever, chills - Medication Medications: Active Medications Generic Name Dose Route Start Last Admin Trade Name Freq PRN Reason Stop Dose Admin Acetaminophen 650 mg 11/06/19 16:52 11/09/19 04:05 Tylenol PO 650 mg Q4H PRN Administration Headache/Fever/Mild Pain (1-3) Acetaminophen/Butalbital/Caffeine 1 tab 11/07/19 10:29 11/10/19 08:50 Fioricet PO 11/12/19 10:30 1 tab Q4H PRN Administration Headache Aspirin 81 mg 11/07/19 09:00 11/10/19 08:48 Ecotrin PO 81 mg DAILY IESHA Administration Famotidine 20 mg 11/06/19 21:00 11/10/19 08:49 Pepcid PO 20 mg BID IESHA Administration Gabapentin 300 mg 11/06/19 21:00 11/10/19 14:23 Neurontin PO 300 mg TID IESHA Administration Hydralazine HCl 10 mg 11/07/19 00:28 11/08/19 21:31 Apresoline SLOW IVP 10 mg Q6H PRN Administration SBP GREATER THAN 160 Promethazine HCl 12.5 mg/ 50.5 mls @ 202 mls/hr 11/07/19 01:12 11/10/19 12:42 Sodium Chloride IVPB 50.5 mls Q6H PRN Administration Nausea/vomiting, use second Dextrose/Sodium Chloride 1,000 mls @ 75 mls/hr 11/08/19 15:30 11/10/19 12:42 D5 1/2 Ns IV 1,000 mls .[id number] IESHA Administration Morphine Sulfate 2 mg 11/07/19 10:29 11/08/19 12:04 Morphine SLOW IVP 2 mg Q6H PRN Administration Pain Mycophenolate Mofetil 1,000 mg 11/06/19 21:00 11/10/19 10:38 Cellcept PO 1,000 mg BID IESHA Administration Ondansetron HCl 4 mg 11/06/19 16:52 11/09/19 22:56 Zofran IVP 4 mg Q6H PRN Administration Nausea/Vomiting Prednisone 5 mg 11/07/19 08:00 11/10/19 08:49 Prednisone PO 5 mg QAM-WM IESHA Administration Tacrolimus 4 mg 11/06/19 21:00 11/10/19 08:49 Prograf PO 4 mg BID IESHA Administration Valganciclovir 900 mg 11/07/19 08:00 11/10/19 16:56 Valcyte PO 900 mg BID-WM IESHA Administration - Exam General Appearance: NAD, awake alert Eye: PERRL, anicteric sclera ENT: normocephalic atraumatic, no oropharyngeal lesions Neck: no JVD Heart: RRR, no murmur, no gallops, no rubs Respiratory: CTAB, no wheezes, no rales, no ronchi Gastrointestinal: soft, non-tender, non-distended, diminished bowl sounds Extremities: no cyanosis, no clubbing, no edema Hosp A/P - Plan Abdominal X ray: paucity of gas, nondilated colon This is a 34 year old female s/p pancreatic and kidney transplant 01/2019 who presented with nausea, fever and diarrhea #Sepsis from Gastroenteritis #Nausea #Hyperchloremic metabolic acidosis - diarrhea and fevers have resolved. Was placed on cefepime and vanc empirically. Blood cultures negative. Unlikely C diff since diarrhea has resolved. Stool cultures unable to be collected since no BM - discontinued vanc 11/08, d/c cefepime 11/09 - continue phenergan prn, simethicone prn - encouraged patient to try regular diet today - TSH low, free T4 and T3 normal - continue D5 1/2 NS Constipation - suppository prn Turbid urine - urine culture negative - patient currently asymptomatic with no dysuria History of type I DM and ESRD s/p pancreatic and kidney transplant - continue mycophenolate and tacrolimus per nephrology - valganciclovir for CMV prophylaxis Dispo: d/c when tolerating regular diet
[2019-11-11] MEDS: Promethazine HCl 12.5 MG in Sodium Chloride 0.9% 50 ML IVPB PRN ×2 (00:09→10:11)
[2019-11-11] MEDS: Gabapentin 300 MG CAP PO SCH ×2 (08:26→16:03)
[2019-11-11] MEDS: predniSONE 5 MG TAB PO SCH (08:26)
[2019-11-11] MEDS: Aspirin 81 mg Enteric Coated Tablet PO SCH (08:26)
[2019-11-11] MEDS: Famotidine 20 MG TAB PO SCH (08:26)
[2019-11-11] MEDS: Mycophenolate 250 MG CAP PO SCH (10:12)
[2019-11-11] MEDS: Tacrolimus 1 MG CAP PO SCH (10:12)
[2019-11-11] MEDS ORDERED: Loratadine 10 MG TAB PO PRN (10:58)
[2019-11-11] MEDS ORDERED: Polyethylene Glycol 3350 17 GM Packet PER TUBE SCH (11:15)
[2019-11-11 17:14] VITALS: BP 136/93
--- NOTE | 2019-11-11 17:36 | DIS ---
DATE OF ADMISSION: 11/06/2019 DATE OF DISCHARGE: 11/10/2019 DISCHARGE DIAGNOSES: Sepsis secondary to likely viral gastroenteritis, hypokalemic metabolic acidosis, nausea, constipation, leukocytosis, and leukopenia. SECONDARY DISCHARGE DIAGNOSES: History of type 1 diabetes and end-stage renal disease, status post pancreatic and kidney transplant. BRIEF HISTORY OF PRESENT ILLNESS: This is a 34-year-old female with a past medical history of diabetes type 1 and ESRD, status post pancreatic and renal transplant , who had presented to the emergency room with nausea, vomiting, and diarrhea. The patient was unable to maintain oral intake and she had a temperature of 101 degrees Fahrenheit. She denied any abdominal pain. She denied eating any unusual foods , travel, or eating any undercooked meat. The patient's vitals on admission were unremarkable. Her labs show a white count of 11.5. The patient was admitted to the hospital and started on vancomycin and cefepime empirically given her history of immunosuppression. HOSPITAL COURSE: Acute gastroenteritis: She had lab workup sent for C diff and stool culture sent to rule out a bacterial infection. However, this was unable to be done because the patient's diarrhea had resolved within a day. The patient had a chest x-ray that was unremarkable. The patient continued to have some abdominal distention and nausea and for 3 days was unable to eat solid food. This was managed conservatively. She did have an abdominal x-ray on the , which showed some paucity of gas in the small intestine. On 11/10, the patient was able to tolerate a regular diet. On the day of discharge, she tolerated a regular diet without any vomiting. The patient was given a laxative and eventually had a bowel movement today. She is stable for discharge home. She declines any laxatives on discharge, however, is requesting some nausea medication to go home with. Leukopenia/leukocytosis: The patient had a white count of 11.5 on the . Her white count came down to 4.6 on the . This can be repeated as an outpatient. DISCHARGE PHYSICAL EXAMINATION: VITAL SIGNS: Temperature 98.8, pulse 95, respiratory rate 18, O2 saturation 99% on room air, blood pressure 153/92. GENERAL: The patient is alert, awake, and oriented x3. CARDIOVASCULAR SYSTEM: Regular rate and rhythm with no murmurs, rubs, or gallops. LUNGS: Clear to auscultation bilaterally. ABDOMEN: Slightly hypoactive bowel sounds. Abdomen is soft, nontender, nondistended. EXTREMITIES: No edema. PERTINENT LABORATORY DATA: CBC on 11/10: White blood cell count 4.6, hemoglobin 13.1, hematocrit 40.5, MCV 98.3, platelet count 317. BMP on 11/08: Shows a sodium of 138, chloride 111, bicarb of 20. TSH on 11/08: 0.3351. Free T3: 2.53. Free T4: 0.93. Serum test: Negative. Lipase: 7. LFTs: AST 10, ALT 9, alkaline phosphatase 62. UA on 11/09: Shows turbid urine with 11 to 20 white blood cells. Beta-hydroxybutyrate on 11/06: 1.21. Influenza panel on 11/06: Negative. Blood culture: Negative x2. Urine culture: Negative. PERTINENT IMAGING: Chest x-ray on 11/06: Shows no acute disease. Abdominal x-ray on 11/08: Shows paucity of gas in the small intestine. No colon dilation. DISCHARGE CONDITION: Stable for home. ACTIVITY: As tolerated. DIET: Regular diet. DISCHARGE INSTRUCTIONS: The patient should follow up with her PCP in a week and consider getting repeat lab work to assess her leukopenia. She will be discharged with nausea medication p.r.n. DISCHARGE MEDICATIONS: 1. Aspirin 81 mg p.o. daily. 2. Pepcid 20 mg p.o. daily. 3. Gabapentin 300 mg p.o. t.i.d. 4. CellCept 2000 mg p.o. b.i.d. 5. Prednisone 5 mg p.o. daily. 6. Sodium diphosphate 250 mg p.o. daily. 7. Tacrolimus 4 mg p.o. b.i.d. 8. Valganciclovir 900 mg p.o. b.i.d. 9. Promethazine 12.5 mg p.o. q.6 hours p.r.n. Job ID: [id number] [facility]
[2019-11-11 17:39] VITALS: TEMP 98.2
[2019-11-12] MEDS ORDERED: Polyethylene Glycol 3350 17 GM Packet PER TUBE SCH (09:00)
== END 2019-11-11 18:14 | disposition home or self-care (01) | DRG 872 ==
LOC: ERS 12:58 → T4-B 19:37
PROVIDERS: ADMIT Internal Medicine; ATTEND Internal Medicine
DX: A41.89 Other specified sepsis (principal); Z94.83 Pancreas transplant status; Z94.0 Kidney transplant status; E87.2 Acidosis; A08.4 Viral intestinal infection, unspecified; K21.9 Gastro-esophageal reflux disease without esophagitis; K31.84 Gastroparesis; I12.9 Hypertensive chronic kidney disease with stage 1 through stage 4 chronic kidney disease, or unspecified chronic kidney disease; N18.1 Chronic kidney disease, stage 1; D63.1 Anemia in chronic kidney disease; E87.8 Other disorders of electrolyte and fluid balance, not elsewhere classified; E10.22 Type 1 diabetes mellitus with diabetic chronic kidney disease; E10.40 Type 1 diabetes mellitus with diabetic neuropathy, unspecified; E10.43 Type 1 diabetes mellitus with diabetic autonomic (poly)neuropathy; K59.00 Constipation, unspecified; Z79.82 Long term (current) use of aspirin; Z79.52 Long term (current) use of systemic steroids; Z79.899 Other long term (current) drug therapy
CPT/HCPCS: 36415; 71045; 74018; 80048; 80053; 80202; 81001; 81003; 81015; 82010; 83605; 83690; 84439; 84443; 84481; 84703; 85025; 85027; 87040; 87086; 87804; 93005; J0360; J0692; J2270; J2405; J2550; J3370; J3490; J7507; J7512; J7517; J8499

== ENCOUNTER 2022-05-28 08:10 | Emergency (ER) | payer MEDICARE, MEDICAID ==
[2022-05-28] MEDS ORDERED: Promethazine HCl 12.5 MG SUPP ONE (08:38)
[2022-05-28] MEDS ORDERED: Promethazine HCl 12.5 MG in Sodium Chloride 0.9% 50 ML IVPB SCH (09:00)
[2022-05-28 09:18] LABS: #Lymphocytes 0.6 thou/uL (1.20-3.40); #Monocytes 0.4 thou/uL (0.11-0.59); #Neutrophils 2.4 thou/uL (1.40-6.50); %Basophils 0.2 % (0.0-1.0); %Eosinophils 0.3 % (0.0-10.0); %Lymphocytes 16.3 % (21.0-51.0); %Monocytes 11.5 % (0.0-10.0); %Neutrophils 71.7 % (42.0-75.0); Hemoglobin 12.2 g/dL (12.0-16.0); Mean Corpuscular HGB CONC 32.1 g/dL (32.0-36.0); Mean Corpuscular Hemoglobin 29.3 pg (27.0-31.0); Mean Corpuscular Volume 91.4 fL (78.0-98.0); Mean Platelet Volume 7.9 fL (7.4-10.4); Platelet Count 188 thou/uL (130-400); RBC Distribution Width 13.2 % (11.5-14.5); Red Blood Cell (RBC) Count 4.16 mill/uL (4.20-5.40); White Blood Cell (WBC) Count 3.4 thou/uL (4.8-10.8)
[2022-05-28] MEDS ORDERED: Famotidine/PF 20 mg/2ml Vial ONE (09:21)
[2022-05-28 09:33] LABS: BHCG - Serum Negative (NEGATIVE); Pregs Control Background? CLEAR/WHITE (CLR/WHITE); Pregs Control Bar Appear? YES (CONTROL BAR)
[2022-05-28 09:42] LABS: ALT (SGPT) 13 U/L (8-55); AST (SGOT) 22 U/L (5-34); Albumin 4.8 g/dL (3.5-5.0); Alkaline Phosphatase 57 U/L (40-110); Anion Gap 19 mmol/L (10-20); BUN (Urea Nitrogen) 14 mg/dL (7.0-18.7); Bilirubin, Total 0.4 mg/dL (0.2-1.2); CK (CPK) 214 U/L (29-168); Calc. Creatinine Clearance 0 mL/min (70-130); Calcium 9.7 mg/dL (7.8-10.44); Carbon Dioxide 19 mmol/L (22-29); Chloride 97 mmol/L (98-107); Estimated GFR 92; Globulin 4.5 g/dL (2.4-3.5); Glucose 113 mg/dL (70-105); Lipase 14 U/L (8-78); Magnesium 1.5 mg/dL (1.6-2.6); Potassium 3.6 mmol/L (3.5-5.1); Protein, Total 9.3 g/dL (6.0-8.3); Sodium 131 mmol/L (136-145)
== END 2022-05-28 12:18 | disposition home or self-care (01) ==
LOC: ERS 08:10
DX: R11.2 Nausea with vomiting, unspecified (principal); R19.7 Diarrhea, unspecified; K21.9 Gastro-esophageal reflux disease without esophagitis; I12.0 Hypertensive chronic kidney disease with stage 5 chronic kidney disease or end stage renal disease; N18.6 End stage renal disease; Z99.2 Dependence on renal dialysis; Z79.82 Long term (current) use of aspirin; Z79.899 Other long term (current) drug therapy
CPT/HCPCS: 36415; 80053; 82550; 83605; 83690; 83735; 84484; 84703; 85025; 93005; 96365; 96375; J2550; S0028

== ENCOUNTER 2023-08-12 12:34 | Observation (INO) | payer MEDICARE, MEDICAID ==
[2023-08-12] MEDS ORDERED: Ondansetron PF 4 MG/2 ML Vial ONE ×2 (13:28→16:46)
[2023-08-12 13:37] LABS: #Monocytes 0.5 thou/uL (0.11-0.59); #Neutrophils 7.5 thou/uL (1.40-6.50); %Basophils 0.1 % (0.0-1.0); %Lymphocytes 10.3 % (21.0-51.0); %Monocytes 5.7 % (0.0-10.0); %Neutrophils 83.7 % (42.0-75.0); Hematocrit 39.9 % (36.0-47.0); Mean Corpuscular HGB CONC 32.6 g/dL (32.0-36.0); Mean Corpuscular Hemoglobin 28.2 pg (27.0-31.0); Mean Corpuscular Volume 86.6 fl (78.0-98.0); Mean Platelet Volume 9.8 fL (7.4-10.4); Platelet Count 267 10x3/uL (130-400); RBC Distribution Width 14.5 % (11.5-14.5); Red Blood Cell (RBC) Count 4.61 mill/uL (4.20-5.40)
[2023-08-12 13:47] LABS: BHCG - Serum Negative (NEGATIVE); Pregs Control Background? CLEAR/WHITE (CLR/WHITE); Pregs Control Bar Appear? YES (CONTROL BAR)
[2023-08-12 14:01] LABS: ALT (SGPT) 8 U/L (8-55); AST (SGOT) 17 U/L (5-34); Albumin 5.7 g/dL (3.5-5.0); Alkaline Phosphatase 73 U/L (40-110); Anion Gap 20 mmol/L (10-20); BUN (Urea Nitrogen) 23 mg/dL (7.0-18.7); Bilirubin, Total 0.6 mg/dL (0.2-1.2); Calc. Creatinine Clearance 0 mL/min (70-130); Calcium 10.6 mg/dL (7.8-10.44); Carbon Dioxide 19 mmol/L (22-29); Chloride 102 mmol/L (98-107); Estimated GFR 52; Globulin 4.1 g/dL (2.4-3.5); Glucose 126 mg/dL (70-105); Lipase 5 U/L (8-78); Magnesium 1.3 mg/dL (1.6-2.6); Potassium 4.3 mmol/L (3.5-5.1); Protein, Total 9.8 g/dL (6.0-8.3); Sodium 137 mmol/L (136-145)
[2023-08-12] MEDS ORDERED: Acetaminophen 325 MG TAB PO PRN (14:29)
[2023-08-12] MEDS ORDERED: Calcium Carbonate 500 MG ChewTAB PO PRN (14:29)
[2023-08-12] MEDS ORDERED: Senokot S 8.6-50 MG TAB PO PRN (14:29)
[2023-08-12] MEDS ORDERED: Ondansetron PF 4 MG/2 ML Vial IVP PRN (14:29)
[2023-08-12] MEDS ORDERED: Metoclopramide HCl 10 MG/2 ML VIAL IVP SCH ×2 (14:45→21:00)
[2023-08-12] MEDS ORDERED: Morphine 2 MG/ML VIAL ONE ×2 (14:53→15:46)
[2023-08-12] MEDS ORDERED: Magnesium 2 GM/50 ML BAG (IN WATER) ONE (14:54)
[2023-08-12] MEDS ORDERED: Gabapentin 300 MG CAP ONE (14:54)
[2023-08-12] MEDS ORDERED: hydrALAZINE 20 MG/ML VIAL SLOW IVP PRN (15:00)
[2023-08-12] MEDS ORDERED: Pantoprazole 40 MG VIAL IVP SCH (15:30)
[2023-08-12] MEDS ORDERED: cefTRIAXone (ROCEPHIN) 1 GM VIAL ONE (16:21)
[2023-08-12] MEDS ORDERED: Sodium Chloride 0.9% 100 ML ONE (16:21)
[2023-08-12] MEDS ORDERED: hydrALAZINE 20 MG/ML VIAL ONE (16:21)
[2023-08-12 18:06] VITALS: BMI 29.7
[2023-08-12] MEDS: Gabapentin 300 MG CAP PO SCH ×2 (19:36→20:15)
[2023-08-12] MEDS: guaiFENesin ER 600 MG TAB PO SCH (20:15)
[2023-08-12] MEDS: Dextrose 5 %-0.45 % NaCl 1,000 ML IV SCH (20:16)
[2023-08-12] MEDS ORDERED: Famotidine 20 MG TAB PO SCH (21:00)
[2023-08-12] MEDS ORDERED: Zolpidem Tartrate 5 MG TAB PO SCH (21:00)
[2023-08-12] MEDS ORDERED: Prochlorperazine Edisylate 10 MG in Sodium Chloride 0.9% 50 ML IVPB SCH (21:30)
[2023-08-13] MEDS: Mycophenolate 250 MG CAP PO SCH ×4 (00:03→21:07)
[2023-08-13] MEDS: Tacrolimus 1 MG CAP PO SCH ×4 (00:03→21:07)
[2023-08-13] MEDS: Fioricet 325/50/40 mg Tablet PO PRN ×2 (01:12→15:40)
[2023-08-13] MEDS: Dextrose 5 %-0.45 % NaCl 1,000 ML IV SCH ×2 (02:11→11:07)
[2023-08-13] MEDS ORDERED: FLU VACC QS2023-24(6MOS UP)/PF 60 MCG/0.5 ML SYRINGE IM ONE (09:00)
[2023-08-13] MEDS: Gabapentin 300 MG CAP PO SCH ×3 (09:15→21:06)
[2023-08-13] MEDS: Aspirin Chewable 81 MG TAB PO SCH (09:15)
[2023-08-13] MEDS: Famotidine/PF 20 mg/2ml Vial SLOW IVP SCH ×2 (09:15→21:06)
[2023-08-13] MEDS: guaiFENesin ER 600 MG TAB PO SCH ×2 (09:15→21:06)
[2023-08-13] MEDS: predniSONE 5 MG TAB PO SCH (09:16)
[2023-08-13 10:26] LABS: #Eosinphils 0.1 thou/uL (0.0-0.7); #Monocytes 0.6 thou/uL (0.11-0.59); #Neutrophils 3.4 thou/uL (1.40-6.50); %Basophils 0.2 % (0.0-1.0); %Eosinophils 0.9 % (0.0-10.0); %Monocytes 11.7 % (0.0-10.0); %Neutrophils 61.8 % (42.0-75.0); Hematocrit 35.5 % (36.0-47.0); Mean Corpuscular Hemoglobin 27.7 pg (27.0-31.0); Mean Platelet Volume 10.8 fL (7.4-10.4); RBC Distribution Width 14.8 % (11.5-14.5); Red Blood Cell (RBC) Count 3.97 mill/uL (4.20-5.40); White Blood Cell (WBC) Count 5.5 10x3/uL (4.8-10.8)
[2023-08-13 10:41] LABS: Platelet Count 158 10x3/uL (130-400)
[2023-08-13 10:54] LABS: ALT (SGPT) 7 U/L (8-55); AST (SGOT) 24 U/L (5-34); Albumin 4.1 g/dL (3.5-5.0); Alkaline Phosphatase 47 U/L (40-110); Anion Gap 14 mmol/L (10-20); BUN (Urea Nitrogen) 16 mg/dL (7.0-18.7); Bilirubin, Total 0.5 mg/dL (0.2-1.2); Calc. Creatinine Clearance 80 mL/min (70-130); Calcium 8.9 mg/dL (7.8-10.44); Carbon Dioxide 16 mmol/L (22-29); Chloride 108 mmol/L (98-107); Estimated GFR 63; Globulin 3.3 g/dL (2.4-3.5); Glucose 114 mg/dL (70-105); Magnesium 1.7 mg/dL (1.6-2.6); Potassium 4.6 mmol/L (3.5-5.1); Protein, Total 7.4 g/dL (6.0-8.3); Sodium 133 mmol/L (136-145)
[2023-08-13] MEDS ORDERED: Sodium Bicarbonate 50 MEQ in Sodium Chloride 0.45% 1,000 ML IV SCH ×2 (11:30→18:30)
[2023-08-13 12:08] LABS: Mean Corpuscular Volume 89.4 fl (78.0-98.0)
[2023-08-13 13:19] LABS: Bilirubin Negative (Negative); Blood, Urine 1+ (Negative); CAUTI Indications for Culture Immunosuppressed; Clarity Turbid (Clear); Glucose, Urine (Dipstick) Normal (Negative); Ketone, Urine 40 mg/dL (Negative); Leukocyte 75 Leu/uL (Negative); Nitrite Negative (Negative); Protein, Urine (Dipstick) 70 mg/dL (Neg-Trace); Specific Gravity, Urine 1.025 (1.002-1.036); Urobilinogen Normal mg/dL (Less than 2)
[2023-08-13 13:22] LABS: Bacteria/HPF 1+ HPF (None Seen)
[2023-08-13 13:23] LABS: Urine Culture Reflex Yes Yes
[2023-08-13] MEDS ORDERED: Magnesium 2 GM/50 ML(in water) 2 GM in Premix 1 BAG IVPB SCH (16:00)
[2023-08-13] MEDS ORDERED: cefTRIAXone\\ROCEPHIN 1 GM in Sodium Chloride 0.9% 100 ML IVPB SCH (16:00)
[2023-08-13 17:36] LABS: Anion Gap 13 mmol/L (10-20); BUN (Urea Nitrogen) 14 mg/dL (7.0-18.7); Calc. Creatinine Clearance 77 mL/min (70-130); Calcium 9.5 mg/dL (7.8-10.44); Carbon Dioxide 16 mmol/L (22-29); Chloride 108 mmol/L (98-107); Estimated GFR 60; Glucose 121 mg/dL (70-105); Sodium 133 mmol/L (136-145)
[2023-08-14 06:13] LABS: #Monocytes 0.6 thou/uL (0.11-0.59); #Neutrophils 3.6 thou/uL (1.40-6.50); %Basophils 0.3 % (0.0-1.0); %Eosinophils 0.6 % (0.0-10.0); %Neutrophils 55.9 % (42.0-75.0); Hematocrit 32.9 % (36.0-47.0); Hemoglobin 10.3 g/dL (12.0-16.0); Mean Corpuscular HGB CONC 31.3 g/dL (32.0-36.0); Mean Corpuscular Hemoglobin 28.1 pg (27.0-31.0); Mean Corpuscular Volume 89.6 fl (78.0-98.0); Mean Platelet Volume 9.9 fL (7.4-10.4); Platelet Count 211 10x3/uL (130-400); RBC Distribution Width 14.8 % (11.5-14.5); Red Blood Cell (RBC) Count 3.67 mill/uL (4.20-5.40); White Blood Cell (WBC) Count 6.4 10x3/uL (4.8-10.8)
[2023-08-14 06:38] LABS: ALT (SGPT) 7 U/L (8-55); AST (SGOT) 12 U/L (5-34); Albumin 4.1 g/dL (3.5-5.0); Alkaline Phosphatase 49 U/L (40-110); Anion Gap 13 mmol/L (10-20); BUN (Urea Nitrogen) 11 mg/dL (7.0-18.7); Bilirubin, Total 0.3 mg/dL (0.2-1.2); Calc. Creatinine Clearance 93 mL/min (70-130); Carbon Dioxide 18 mmol/L (22-29); Chloride 111 mmol/L (98-107); Estimated GFR 75; Globulin 2.7 g/dL (2.4-3.5); Glucose 95 mg/dL (70-105); Magnesium 1.9 mg/dL (1.6-2.6); Potassium 3.5 mmol/L (3.5-5.1); Protein, Total 6.8 g/dL (6.0-8.3); Sodium 138 mmol/L (136-145)
[2023-08-14] MEDS: Famotidine/PF 20 mg/2ml Vial SLOW IVP SCH (09:33)
[2023-08-14] MEDS: Aspirin Chewable 81 MG TAB PO SCH (09:33)
[2023-08-14] MEDS: guaiFENesin ER 600 MG TAB PO SCH (09:33)
[2023-08-14] MEDS: Gabapentin 300 MG CAP PO SCH (09:33)
[2023-08-14] MEDS: predniSONE 5 MG TAB PO SCH (09:33)
[2023-08-14] MEDS: Mycophenolate 250 MG CAP PO SCH (09:33)
[2023-08-14] MEDS: Tacrolimus 1 MG CAP PO SCH (09:34)
[2023-08-14 12:34] VITALS: BP 142/82; TEMP 98.4
[2023-08-14 16:38] LABS: Tacrolimus 15.5 ng/mL (2.0-20.0)
== END 2023-08-14 14:31 | disposition home or self-care (01) ==
LOC: SUATTDRO 12:34 → ERS 12:34 → ERHOLD 14:29 → T4-A 18:01
PROVIDERS: ADMIT Internal Medicine; ATTEND Emergency Medicine
DX: R11.2 Nausea with vomiting, unspecified (principal); N17.9 Acute kidney failure, unspecified; R82.71 Bacteriuria; D84.9 Immunodeficiency, unspecified; E11.22 Type 2 diabetes mellitus with diabetic chronic kidney disease; I12.0 Hypertensive chronic kidney disease with stage 5 chronic kidney disease or end stage renal disease; N18.6 End stage renal disease; E87.20 Acidosis, unspecified; J01.90 Acute sinusitis, unspecified; E78.5 Hyperlipidemia, unspecified; G47.30 Sleep apnea, unspecified; N39.0 Urinary tract infection, site not specified; Z79.82 Long term (current) use of aspirin; Z79.899 Other long term (current) drug therapy
CPT/HCPCS: 70450; 80048; 80053 ×3; 80197; 81001; 82010; 82962 ×2; 83605; 83690; 83735 ×3; 84703; 85025 ×3; 87077; 87081; 87086; 96361; 96365; 96367; 96375 ×2; 96376 ×3; 99285; G0378 ×4; J0360; 36415; 36416; 87186; J0696; J0780; J2272; J2405; J3475; J3490; J7042; J7507; J7512; J7517; S0028

== ENCOUNTER 2023-09-05 09:52 | Inpatient (IN) | payer MEDICARE, MEDICAID ==
[2023-09-05] MEDS ORDERED: Promethazine HCl 12.5 MG, Admixture Fee 1 EACH in Sodium Chloride 0.9% 50 ML IVPB SCH (11:00)
[2023-09-05] MEDS ORDERED: CEFAZOLIN 2 GM VIAL ONE (11:08)
[2023-09-05] MEDS ORDERED: Sodium Chloride 0.9% 100 ML ONE (11:09)
[2023-09-05 11:22] LABS: #Monocytes 0.4 thou/uL (0.11-0.59); #Neutrophils 7.5 thou/uL (1.40-6.50); %Basophils 0.1 % (0.0-1.0); %Eosinophils 0.1 % (0.0-10.0); %Lymphocytes 9.4 % (21.0-51.0); %Monocytes 4.6 % (0.0-10.0); %Neutrophils 85.6 % (42.0-75.0); Hematocrit 40.3 % (36.0-47.0); Hemoglobin 12.8 g/dL (12.0-16.0); Mean Corpuscular HGB CONC 31.8 g/dL (32.0-36.0); Mean Corpuscular Hemoglobin 27.6 pg (27.0-31.0); Mean Corpuscular Volume 86.9 fl (78.0-98.0); Mean Platelet Volume 9.3 fL (7.4-10.4); Platelet Count 304 10x3/uL (130-400); RBC Distribution Width 14.6 % (11.5-14.5); Red Blood Cell (RBC) Count 4.64 mill/uL (4.20-5.40); White Blood Cell (WBC) Count 8.8 10x3/uL (4.8-10.8)
[2023-09-05 11:46] LABS: ALT (SGPT) Less than 7 U/L (8-55); AST (SGOT) 15 U/L (5-34); Alkaline Phosphatase 70 U/L (40-110); Anion Gap 17 mmol/L (10-20); BUN (Urea Nitrogen) 17 mg/dL (7.0-18.7); Bilirubin, Total 0.8 mg/dL (0.2-1.2); Calc. Creatinine Clearance 0 mL/min (70-130); Calcium 10.7 mg/dL (7.8-10.44); Carbon Dioxide 24 mmol/L (22-29); Estimated GFR 66; Glucose 110 mg/dL (70-105); Lipase 4 U/L (8-78); Potassium 3.9 mmol/L (3.5-5.1)
[2023-09-05 11:49] LABS: Chloride 98 mmol/L (98-107); Sodium 135 mmol/L (136-145)
[2023-09-05] MEDS ORDERED: diphenhydrAMINE 50 MG/ML VIAL ONE (14:58)
[2023-09-05] MEDS ORDERED: methylPREDNISolone Sod Succ/PF 125 MG/2 ML VIAL ONE (14:59)
[2023-09-05 15:11] LABS: Bacteria/HPF 3+ HPF (None Seen); Bilirubin Negative (Negative); Blood, Urine 3+ (Negative); CAUTI Indications for Culture Pelvic or flank pain; Clarity Turbid (Clear); Glucose, Urine (Dipstick) Normal (Negative); Ketone, Urine 40 mg/dL (Negative); Leukocyte Negative Leu/uL (Negative); Nitrite Negative (Negative); Protein, Urine (Dipstick) 20 mg/dL (Neg-Trace); RBC/HPF 0-3 HPF (0-3); Specific Gravity, Urine 1.015 (1.002-1.036); Urobilinogen Normal mg/dL (Less than 2); WBC/HPF 0-3 HPF (0-3)
[2023-09-05 15:12] LABS: Urine Culture Reflex No No
[2023-09-05] MEDS ORDERED: Promethazine HCl 12.5 MG in Sodium Chloride 0.9% 50 ML IVPB SCH ×2 (15:15→18:30)
[2023-09-05] MEDS ORDERED: Lidocaine 2% Viscous Solution 10 ML, Aluminum & Magnesium Hydroxide 30 ML SSW SCH (15:15)
[2023-09-05] MEDS ORDERED: Metoclopramide HCl 10 MG/2 ML VIAL IVP PRN (19:37)
[2023-09-05] MEDS ORDERED: Acetaminophen 325 MG TAB PO PRN (19:37)
[2023-09-05] MEDS ORDERED: Sodium Chloride 0.9% 1,000 ML IV SCH ×2 (19:45)
[2023-09-05] MEDS ORDERED: Pantoprazole 40 MG VIAL IVP SCH ×2 (19:45→22:15)
[2023-09-05] MEDS ORDERED: Promethazine HCl 12.5 MG in Sodium Chloride 0.9% 50 ML IVPB PRN (19:46)
[2023-09-05] MEDS ORDERED: Ampicillin/Sulbactam 3 GM in Sodium Chloride 0.9% 100 ML IVPB SCH ×2 (20:00→22:15)
[2023-09-05 20:56] LABS: Magnesium 1.2 mg/dL (1.6-2.6)
[2023-09-05 21:44] LABS: Amphetamine Not Detected (NotDetected); Barbiturates Screen Not Detected (NotDetected); Benzodiazepine Screen Not Detected (NotDetected); Cocaine Metabolite Screen Not Detected (NotDetected); Methadone Not Detected (NotDetected); Methamphetamine Not Detected (NotDetected); Opiate Screen Not Detected (NotDetected); Oxycodone Screen Not Detected (NotDetected); Phencyclidine (PCP) Not Detected (NotDetected); THC/Cannabinoid Screen Not Detected (NotDetected); Tricyclic Screen Not Detected (NotDetected)
[2023-09-05] MEDS ORDERED: Magnesium 2 GM/50 ML(in water) 2 GM in Premix 1 BAG IVPB SCH (21:45)
[2023-09-05] MEDS: Sodium Chloride 0.9% 1,000 ML IV SCH (22:22)
[2023-09-05] MEDS: HYDROcodone/Acetaminophen 5/325 mg Tablet PO PRN (22:45)
[2023-09-06 04:54] LABS: #Monocytes 0.3 thou/uL (0.11-0.59); #Neutrophils 6.2 thou/uL (1.40-6.50); %Lymphocytes 10.2 % (21.0-51.0); %Monocytes 4.1 % (0.0-10.0); %Neutrophils 85.4 % (42.0-75.0); Hemoglobin 9.9 g/dL (12.0-16.0); Mean Corpuscular HGB CONC 31.7 g/dL (32.0-36.0); Mean Corpuscular Hemoglobin 27.9 pg (27.0-31.0); Mean Corpuscular Volume 87.9 fl (78.0-98.0); Mean Platelet Volume 9.8 fL (7.4-10.4); Platelet Count 249 10x3/uL (130-400); RBC Distribution Width 14.6 % (11.5-14.5); Red Blood Cell (RBC) Count 3.55 mill/uL (4.20-5.40); White Blood Cell (WBC) Count 7.3 10x3/uL (4.8-10.8)
[2023-09-06 04:57] LABS: Hematocrit 31.2 % (36.0-47.0)
[2023-09-06 05:23] LABS: Anion Gap 15 mmol/L (10-20); BUN (Urea Nitrogen) 17 mg/dL (7.0-18.7); Calc. Creatinine Clearance 0 mL/min (70-130); Calcium 8.6 mg/dL (7.8-10.44); Carbon Dioxide 19 mmol/L (22-29); Chloride 107 mmol/L (98-107); Estimated GFR 86; Glucose 110 mg/dL (70-105); Potassium 4.2 mmol/L (3.5-5.1); Sodium 137 mmol/L (136-145)
[2023-09-06] MEDS: Ampicillin/Sulbactam 3 GM in Sodium Chloride 0.9% 100 ML IVPB SCH ×4 (05:25→23:40)
[2023-09-06] MEDS: Sodium Chloride 0.9% 1,000 ML IV SCH ×3 (05:25→17:12)
[2023-09-06] MEDS: Pantoprazole 40 MG VIAL IVP SCH (08:37)
[2023-09-06] MEDS: HYDROcodone/Acetaminophen 5/325 mg Tablet PO PRN (09:47)
[2023-09-06] MEDS ORDERED: guaiFENesin ER 600 MG TAB PO SCH (10:30)
[2023-09-06] MEDS: Gabapentin 300 MG CAP PO SCH ×2 (14:33→20:27)
[2023-09-06 14:50] VITALS: BMI 28.3
[2023-09-06] MEDS ORDERED: Non-Formulary Item 1 EACH (Gabapentin [Gabapentin] 600 MG Tablet) PO SCH (15:00)
[2023-09-06] MEDS: Tacrolimus 1 MG CAP PO SCH (20:27)
[2023-09-06] MEDS: guaiFENesin ER 600 MG TAB PO SCH (20:27)
[2023-09-07] MEDS: Sodium Chloride 0.9% 1,000 ML IV SCH (03:43)
[2023-09-07 04:12] LABS: #Monocytes 0.5 thou/uL (0.11-0.59); #Neutrophils 2.8 thou/uL (1.40-6.50); %Basophils 0.4 % (0.0-1.0); %Eosinophils 0.5 % (0.0-10.0); %Lymphocytes 39.1 % (21.0-51.0); %Monocytes 8.6 % (0.0-10.0); %Neutrophils 51.2 % (42.0-75.0); Hematocrit 29.6 % (36.0-47.0); Hemoglobin 9.2 g/dL (12.0-16.0); Mean Corpuscular HGB CONC 31.1 g/dL (32.0-36.0); Mean Corpuscular Hemoglobin 27.9 pg (27.0-31.0); Mean Corpuscular Volume 89.7 fl (78.0-98.0); Mean Platelet Volume 9.8 fL (7.4-10.4); Platelet Count 227 10x3/uL (130-400); RBC Distribution Width 15.2 % (11.5-14.5); White Blood Cell (WBC) Count 5.5 10x3/uL (4.8-10.8)
[2023-09-07 04:47] LABS: Anion Gap 13 mmol/L (10-20); BUN (Urea Nitrogen) 13 mg/dL (7.0-18.7); Calc. Creatinine Clearance 108 mL/min (70-130); Calcium 8.4 mg/dL (7.8-10.44); Carbon Dioxide 21 mmol/L (22-29); Chloride 110 mmol/L (98-107); Estimated GFR 92; Glucose 92 mg/dL (70-105); Sodium 140 mmol/L (136-145)
[2023-09-07] MEDS: Ampicillin/Sulbactam 3 GM in Sodium Chloride 0.9% 100 ML IVPB SCH ×2 (05:45→13:40)
[2023-09-07] MEDS ORDERED: predniSONE 5 MG TAB PO SCH (09:00)
[2023-09-07] MEDS ORDERED: Aspirin Chewable 81 MG TAB PO SCH (09:00)
[2023-09-07] MEDS: Tacrolimus 1 MG CAP PO SCH (10:05)
[2023-09-07] MEDS: guaiFENesin ER 600 MG TAB PO SCH (10:05)
[2023-09-07] MEDS: Pantoprazole 40 MG VIAL IVP SCH (10:06)
[2023-09-07] MEDS: Gabapentin 300 MG CAP PO SCH (10:06)
[2023-09-07 12:03] VITALS: BP 129/82; TEMP 98.2
== END 2023-09-07 15:04 | disposition home or self-care (01) | DRG 74 ==
LOC: ERS 09:52 → 2SE 19:29 → OBSVTOIN 09-06 10:27
PROVIDERS: ADMIT Physician Assistant; ATTEND Family Medicine
DX: E11.43 Type 2 diabetes mellitus with diabetic autonomic (poly)neuropathy (principal); Z94.0 Kidney transplant status; Z94.83 Pancreas transplant status; D84.821 Immunodeficiency due to drugs; J01.90 Acute sinusitis, unspecified; E78.5 Hyperlipidemia, unspecified; Z79.82 Long term (current) use of aspirin; Z79.899 Other long term (current) drug therapy; K21.9 Gastro-esophageal reflux disease without esophagitis; Z98.890 Other specified postprocedural states; K31.84 Gastroparesis; E83.42 Hypomagnesemia; R00.0 Tachycardia, unspecified; I10 Essential (primary) hypertension
CPT/HCPCS: 36415; 36416; 70450; 71045; 80048; 80053; 80306; 81001; 83605; 83690; 83735; 85025; 87040; 87086; 93005; 96375; 96376; C9113; G0378; J0295; J1200; J2550; J2765; J2930; J3475; J3490; J7050; J7507; J7512